=== PATIENT | male | born 1955 | race Caucasian/White ===

== ENCOUNTER → 2020-02-15 | Outpatient (CLI) | payer MEDICARE ==
[2019-02-26 10:39] VITALS: BP 137/66
[~2020-02-15] MED LIST: AMLO10TA8 PO; ASPI81TA50 PO; ATEN100T PO; BUTE12CR TP; FERR-36 PO; GABA600T7 PO; HYDR50TA6 PO; INSU100V13 SQ; INSU100V31 SQ; LIRA0.6P2 SQ; LOSA100T14 PO; MUPI22OI2 TP; NAPR-685 PO; SILV20CR14 TP; SIMV20TA18 PO; SITA100T PO; SPIR25TA5 PO; TIZA4TAB8 PO; TRAM50TA PO; WARF5TAB2 PO; ZOLP10TA PO
--- NOTE | 2020-02-15 20:07 | RAD ---
CT scan of the lumbar spine without contrast 02/15/2020 CLINICAL HISTORY: Low back pain. TECHNIQUE: Unenhanced, contiguous, 0.625 mm axial sections were obtained through the lumbar spine. 3 mm reconstructed sagittal, axial and coronal images were obtained. One or more of the following individualized dose reduction techniques were utilized for this study: 1. Automated exposure control. 2. Adjustment of the mA and/or kV according to patient size. 3. Use of iterative reconstruction technique. FINDINGS: Sagittal and coronal reconstructed images demonstrate minimal S-shaped curvature of the thoracolumbar spine. Degenerative changes consisting of vertebral endplate sclerosis and minimal to mild anterior and posterior vertebral body osteophyte formation are seen involving the lower thoracic and throughout the lumbar disc spaces. Atherosclerotic calcification of the abdominal aorta and its branches is noted. No fracture or subluxation of the lumbar vertebrae is seen. The changes of degenerative disc disease are seen involving the lumbar disc spaces. These consist of mild to moderate generalized disc bulges, degenerative changes involving the facet joints and mild to moderate ligamentum flavum hypertrophy bilaterally. These findings when combined result in mild to moderate central spinal canal stenosis at L4-5. No neural foraminal stenosis is seen. IMPRESSION: The changes of degenerative disc disease are seen involving the lumbar spine. These findings result in mild to moderate central spinal canal stenosis at L4-5. No acute osseous abnormality is seen. Electronically signed by: Augusto Styles MD (02/15/2020 8:04 PM) [id number]
== END | disposition home or self-care (01) ==
LOC: CT 14:30
PROVIDERS: ATTEND Family Medicine
DX: M48.061 Spinal stenosis, lumbar region without neurogenic claudication (principal); M47.815 Spondylosis without myelopathy or radiculopathy, thoracolumbar region; M51.36 Other intervertebral disc degeneration, lumbar region; G95.89 Other specified diseases of spinal cord
CPT/HCPCS: 72131

== ENCOUNTER 2020-07-10 13:33 | Inpatient (IN) | payer MEDICARE ==
[~2020-07-10] VITALS: Ht 180.3 cm; Wt 224.4 kg
[~2020-07-10 13:33] MED LIST changes: +AMLO-187 PO; -AMLO10TA8 PO; -HYDR50TA6 PO; +HYDR50TA9 PO
[2020-07-10 14:10] LABS: BASO # 0.1 x10^3/uL (0.0-0.2); BASO % 1 % (0-3); EOS # 0.5 x10^3/uL (0.0-0.7); EOS % 4 % (0-3); HEMATOCRIT 34.7 % (39.0-53.0); LYMPH # 1.9 x10^3/uL (1.0-4.8); LYMPH % 16 % (24-48); MEAN CORPUSCULAR HEMOGLOBIN 27 pg (25-35); MEAN CORPUSCULAR HGB CONC 32 g/dL (31-37); MEAN CORPUSCULAR VOLUME 87 fL (79-100); MONO % 8 % (0-9); NEUT # 8.8 x10^3/uL (1.8-7.7); NEUT % 71 % (31-73); PLATELET COUNT 188 x10^3/uL (140-400); RED BLOOD COUNT 4.01 x10^6/uL (4.30-5.70); RED CELL DISTRIBUTION WIDTH 14.4 % (11.5-14.5); WHITE BLOOD COUNT 12.4 x10^3/uL (4.0-11.0)
--- NOTE | 2020-07-10 14:45 | PHYS DOC ---
Past Medical History Past Medical History: Diabetes-Type II, Hypertension, Other Additional Past Medical Histor: HEMORRHOIDS, NEUROPATHY, obesity, chronic back pain Past Surgical History: Other Additional Past Surgical Histo: RIGHT ANKLE FRACTURE/SURGERY Smoking Status: Never Smoker Alcohol Use: None Drug Use: None General Adult EDM: Chief Complaint: ABNORMAL LABS HPI: HPI: 64 yo M PMH CKDIV, diabetes, hypertension, hyperlipidemia, morbid obesity and CAD (cath 2001-no stents, on no AC), presents to the ED sent in by primary care physician Dr. Ayah Aquino, concern for worsening kidney failure on labs drawn this past week. Patient reports he was seen by his primary care physician for routine labs approximately week and a half ago. Patient states he's been having "heaviness, something sitting on my chest," intermittently for the past 2 weeks. No recent history of stress or echocardiogram. Reports he was admitted a month and a half ago for the symptoms. His brother is here and has been keeping track of his urine output. Reports 28 to 35 ounces of output every 24 hours. Review of Systems: Review of Systems: Constitutional: Denies fever or chills. [] Eyes: Denies change in visual acuity. [] HENT: Denies nasal congestion or sore throat. [] Respiratory: Denies cough or shortness of breath. [] Cardiovascular: Denies chest pain or edema. [] GI: Denies abdominal pain, nausea, vomiting, bloody stools or diarrhea. [] : Denies dysuria. [] Musculoskeletal: Denies back pain or joint pain. [] Integument: Denies rash. [] Neurologic: Denies headache, focal weakness or sensory changes. [] Endocrine: Denies polyuria or polydipsia. [] Lymphatic: Denies swollen glands. [] Psychiatric: Denies depression or anxiety. [] Heart Score: Risk Factors: Risk Factors: DM, Current or recent (<one month) smoker, HTN, HLP, family history of CAD, obesity. Risk Scores: Score 0 - 3: 2.5% MACE over next 6 weeks - Discharge Home Score 4 - 6: 20.3% MACE over next 6 weeks - Admit for Clinical Observation Score 7 - 10: 72.7% MACE over next 6 weeks - Early Invasive Strategies Allergies: Allergies: Allergies Coded Allergies Type Severity Reaction Last Updated Verified metformin Allergy Intermediate 02/25/19 Yes Physical Exam: PE: Constitutional: Well developed, well nourished, no acute distress, non-toxic appearance, morbidly obese such that requires assistance with urination/feeding, does not ambulate HENT: Normocephalic, atraumatic, Eyes: EOMI, conjunctiva normal, no discharge. Neck: Normal range of motion, supple, Cardiovascular: S1/2 present, regular rhythm Lungs & Thorax: Speaking in full sentences, bilateral equal chest rise, no tachypnea or increased work of breathing Abdomen: soft, no tenderness, Skin: Warm, dry, no erythema, no rash. [] Back: No tenderness, no CVA tenderness. [] Extremities: No tenderness, no cyanosis, no edema Neurologic: Alert and oriented X 3, normal motor function, normal sensory function, no focal deficits noted. [] Psychologic: Affect normal, judgement normal, mood normal. [] Current Patient Data: Labs: Laboratory Tests Test 07/10/20 13:55 White Blood Count 12.4 x10^3/uL (4.0-11.0) H Red Blood Count 4.01 x10^6/uL (4.30-5.70) L Hemoglobin 11.0 g/dL (13.0-17.5) L Hematocrit 34.7 % (39.0-53.0) L Mean Corpuscular Volume 87 fL (79-100) Mean Corpuscular Hemoglobin 27 pg (25-35) Mean Corpuscular Hemoglobin Concent 32 g/dL (31-37) Red Cell Distribution Width 14.4 % (11.5-14.5) Platelet Count 188 x10^3/uL (140-400) Neutrophils (%) (Auto) 71 % (31-73) Lymphocytes (%) (Auto) 16 % (24-48) L Monocytes (%) (Auto) 8 % (0-9) Eosinophils (%) (Auto) 4 % (0-3) H Basophils (%) (Auto) 1 % (0-3) Neutrophils # (Auto) 8.8 x10^3/uL (1.8-7.7) H Lymphocytes # (Auto) 1.9 x10^3/uL (1.0-4.8) Monocytes # (Auto) 1.0 x10^3/uL (0.0-1.1) Eosinophils # (Auto) 0.5 x10^3/uL (0.0-0.7) Basophils # (Auto) 0.1 x10^3/uL (0.0-0.2) Laboratory Tests 07/10/20 13:55 Vital Signs: Vital Signs Date Time Temp Pulse Resp B/P (MAP) Pulse Ox O2 Delivery O2 Flow Rate FiO2 07/10/20 13:41 98.4 66 18 151/85 (107) 100 Room Air 98.4 EKG: EKG: Concern for atrial fibrillation, irregular rhythm at 83 bpm, left axis deviation, QTC 471, T wave inversion aVL, no ST elevations or ST depressions Radiology/Procedures: Radiology/Procedures: IMAGING REPORT Signed PATIENT: EMERSON VIVEROS ACCOUNT: [id number] : 1955 LOCATION: ER AGE: 64 SEX: M EXAM STATUS: REG ER ORD. PHYSICIAN: DANICA ALEXANDER DO REASON: cp PROCEDURE: CHEST AP ONLY EXAM: XR CHEST 1V INDICATION: Reason: cp / Spl. Instructions: / History: . TECHNIQUE: Single view COMPARISON: 02/25/2019 chest x-ray FINDINGS: The heart size is borderline enlarged.. The great vessels appear unremarkable. There is no hilar or mediastinal mass. The lungs are clear. There is no pleural effusion or pneumothorax. There are no significant osseous abnormalities. IMPRESSION: Borderline cardiomegaly. No acute superimposed process. Electronically signed by: Debby Foster MD (07/10/2020 3:00 PM) [id number] DICTATED and SIGNED BY: DEBBY FOSTER MD DATE: 07/10/20 [id number] 0 IMAGING REPORT Signed PATIENT: EMERSON VIVEROS ACCOUNT: [id number] : 1955 LOCATION: ER AGE: 64 SEX: M EXAM STATUS: REG ER ORD. PHYSICIAN: DANICA ALEXANDER DO REASON: low uo, worsening renal funciton PROCEDURE: CT ABDOMEN PELVIS WO CONTRAST EXAM: CT Abdomen and Pelvis without IV contrast INDICATION: Reason: low uo, worsening renal funciton / Spl. Instructions: / History: TECHNIQUE: Multi-detector row CT images were acquired from the lung bases through the abdomen and pelvis without the use of IV contrast. Sagittal and coronal images were acquired from the transaxial data. All CT scans performed at this facility utilize dose optimization techniques as appropriate to the exam, including the following: Automated exposure control and adjustment of the mA and/or KV according to patient size (this includes techniques or standardized protocols for targeted exams where dose is indication/reason for exam). ORAL CONTRAST: None COMPARISON: Noncontrast chest CT of 02/25/2019 FINDINGS: The absence of IV contrast limits evaluation of soft tissue pathology. LOWER CHEST: Partially imaged nodular density in the lingula measuring approximately 9 mm in size is best appreciated on axial images 1 and 2 of series 114. Prior right pleural effusion has since resolved. LIVER: Unremarkable BILIARY SYSTEM: Gallbladder contains calcified gallstones. Bile ducts are not dilated. PANCREAS: Unremarkable SPLEEN: Unremarkable ADRENALS: Unremarkable KIDNEYS & URETERS: Partially exophytic fatty 3.1 cm mass in the left renal midpole consistent with a myelolipoma. Right kidney shows a partially exophytic 3.1 cm lesion BLADDER: Unremarkable REPRODUCTIVE ORGANS: Unremarkable GASTROINTESTINAL: The stomach, small bowel, and colon are notable for scattered colonic diverticuli without findings of overt diverticulitis.. The appendix is normal. MESENTERY/PERITONEUM/RETROPERITONEUM: Unremarkable VASCULAR: Unremarkable LYMPH NODES: No adenopathy OSSEOUS & SOFT TISSUES: Unremarkable IMPRESSION: No acute findings in the abdomen and pelvis on noncontrast CT. Electronically signed by: Debby Foster MD (07/10/2020 2:50 PM) [id number] DICTATED and SIGNED BY: DEBBY FOSTER MD DATE: 07/10/20 [id number] 0 Course & Med Decision Making: Course & Med Decision Making Pertinent Labs and Imaging studies reviewed. (See chart for details) Concern for prerenal acute on chronic kidney disease, sent in by Dr. Aquino. ELIZABETH stage 3, CKD from stage 3 to 5. Started on IV hydration. Mild hyperkalemia 5.7, no ekg changes.CT w/bl exophytic masses, possible myelolipoma. Will admit to medicine for nephrology consultation. Patient stable at time of admission and agrees with this plan. I have spoken with the patient and/or caregivers. I have explained the patient's condition, diagnosis and treatment plan based on the information available to me at this time. I have answered the patient's and/or caregivers questions and answered any concerns. The patient and/or caregivers have as good an understanding of the patient's diagnosis, condition and treatment plan as can be expected at this point. The patient has been stabilized within the capability of the emergency department. The patient will be transported for further care and management or will be moved to an observation or inpatient service. I have communicated with the staff or medical practitioner taking over this patient's care. Dragon Disclaimer: Dragon Disclaimer: This electronic medical record was generated, in whole or in part, using a voice recognition dictation system. Departure Departure Impression: Primary Impression: Acute on chronic kidney failure Additional Impressions: Hyperkalemia Morbid obesity Disposition: ADMITTED INPT THIS HOSP Admitting Physician: FARHAT (Dr. Infante) Condition: STABLE Referrals: AYAH AQUINO MD (PCP) DANICA ALEXANDER DO Jul 10, 2020 14:45
--- NOTE | 2020-07-10 14:52 | RAD ---
EXAM: CT Abdomen and Pelvis without IV contrast INDICATION: Reason: low uo, worsening renal funciton / Spl. Instructions: / History: TECHNIQUE: Multi-detector row CT images were acquired from the lung bases through the abdomen and pel vis without the use of IV contrast. Sagittal and coronal images were acquired from the transaxial gio a. All CT scans performed at this facility utilize dose optimization techniques as appropriate to the exam, including the following: Automated exposure control and adjustment of the mA and/or KV accordi ng to patient size (this includes techniques or standardized protocols for targeted exams where dose is indication/reason for exam). ORAL CONTRAST: None COMPARISON: Noncontrast chest CT of 02/25/2019 FINDINGS: The absence of IV contrast limits evaluation of soft tissue pathology. LOWER CHEST: Partially imaged nodular density in the lingula measuring approximately 9 mm in size is best appreciated on axial images 1 and 2 of series 114. Prior right pleural effusion has since resolv ed. LIVER: Unremarkable BILIARY SYSTEM: Gallbladder contains calcified gallstones. Bile ducts are not dilated. PANCREAS: Unremarkable SPLEEN: Unremarkable ADRENALS: Unremarkable KIDNEYS & URETERS: Partially exophytic fatty 3.1 cm mass in the left renal midpole consistent with a myelolipoma. Right kidney shows a partially exophytic 3.1 cm lesion BLADDER: Unremarkable REPRODUCTIVE ORGANS: Unremarkable GASTROINTESTINAL: The stomach, small bowel, and colon are notable for scattered colonic diverticuli w ithout findings of overt diverticulitis.. The appendix is normal. MESENTERY/PERITONEUM/RETROPERITONEUM: Unremarkable VASCULAR: Unremarkable LYMPH NODES: No adenopathy OSSEOUS & SOFT TISSUES: Unremarkable IMPRESSION: No acute findings in the abdomen and pelvis on noncontrast CT. Electronically signed by: Rachel Foster MD (07/10/2020 2:50 PM) [id number]
--- NOTE | 2020-07-10 15:03 | RAD ---
EXAM: XR CHEST 1V INDICATION: Reason: cp / Spl. Instructions: / History: . TECHNIQUE: Single view COMPARISON: 02/25/2019 chest x-ray FINDINGS: The heart size is borderline enlarged.. The great vessels appear unremarkable. There is no hilar or mediastinal mass. The lungs are clear. There is no pleural effusion or pneumothorax. There are no significant osseous abnormalities. IMPRESSION: Borderline cardiomegaly. No acute superimposed process. Electronically signed by: Rachel Foster MD (07/10/2020 3:00 PM) [id number]
[2020-07-10 15:08] LABS: CREATININE 6.5 mg/dL (0.7-1.3); GFR 8.6; POTASSIUM 5.7 mmol/L (3.5-5.1)
[2020-07-10 15:13] LABS: ALBUMIN/GLOBULIN RATIO 0.7 (1.0-1.7); MAGNESIUM 2.2 mg/dL (1.8-2.4); PHOSPHORUS 7.5 mg/dL (2.6-4.7); TOTAL BILIRUBIN 0.5 mg/dL (0.2-1.0); TOTAL PROTEIN 7.6 g/dL (6.4-8.2)
[2020-07-10] MEDS ORDERED: IV NORMAL SALINE 1000ML BAG 1,000 ML IV ONE (16:00)
[2020-07-10] MEDS ORDERED: ACETAMINOPHEN 325 MG TABLET. PO PRN (16:15)
[2020-07-10 16:27] LABS: BILIRUBIN,URINE NEGATIVE (NEG); CLARITY,URINE CLOUDY; COLOR,URINE YELLOW; NITRITE,URINE NEGATIVE (NEG); PROTEIN,URINE NEGATIVE (NEG-TRACE); UROBILINOGEN,URINE 0.2 mg/dL (0.2 mg/dL)
[2020-07-10 16:59] LABS: BACTERIA,URINE 0 /HPF (0-FEW); RBC,URINE 0 /HPF (0-2); WBC,URINE >40 /HPF (0-4)
[2020-07-10 19:15] VITALS: BP 144/117
--- NOTE | 2020-07-10 19:31 | HP ---
ADMIT DATE: 07/10/2020 CHIEF COMPLAINT: Abnormal labs. HISTORY OF PRESENT ILLNESS: The patient is a pleasant 64-year-old male who has stage 4 kidney disease, basically, today presents with a creatinine of 6.5. His BUN is 185. Potassium is high at 5.7. I am sure he needs dialysis. His primary care doctor, Dr. Juwan Doyle, sent him to the ER. I have discussed the case with the ER physician. We are going to admit the patient and consult Nephrology. PAST MEDICAL HISTORY: Obesity, diabetes, hypertension, hemorrhoids, neuropathy, back pain, right ankle surgery, chronic renal insufficiency. ALLERGIES: METFORMIN. FAMILY HISTORY: Diabetes. SOCIAL HISTORY: He does not drink, smoke or take drugs. MEDICATIONS: Reviewed, please refer to the MRAD. REVIEW OF SYSTEMS: GENERAL: No history of weight change, weakness or fevers. SKIN: No bruising, hair changes or rashes. EYES: No blurred, double or loss of vision. NOSE AND THROAT: No history of nosebleeds, hoarseness or sore throat. HEART: No history of palpitations, chest pain or shortness of breath on exertion. LUNGS: Denies cough, hemoptysis, wheezing or shortness of breath. GASTROINTESTINAL: Denies changes in appetite, nausea, vomiting, diarrhea or constipation. GENITOURINARY: No history of frequency, urgency, hesitancy or nocturia. NEUROLOGIC: Denies history of numbness, tingling, tremor or weakness. PSYCHIATRIC: No history of panic, anxiety or depression. ENDOCRINE: No history of heat or cold intolerance, polyuria or polydipsia. EXTREMITIES: Denies muscle weakness, joint pain, pain on walking or stiffness. PHYSICAL EXAMINATION: VITALS: Within normal limits and are stable. GENERAL: He is morbidly obese and also very pleasantly cooperative. HEENT: Normal cephalic atraumatic, external auditory canals are patent EYES: Extraocular muscles are intact, pupils are equally round and reactive to light and accommodation MUSCULOSKELETAL: Well developed, well nourished, good range of motion ENDOCRINE: No thyromegaly was palpated LYMPHATICS: No cervical chain or axillary nodes were noted HEMATOPOIETIC: No bruising NECK: Supple, no JVD, no thyromegaly was noted. LUNGS: Clear to auscultation in all lung vaughn without rhonchi or wheezing. HEART: RRR, S1, S2 present. Peripheral pulses intact, no obvious murmurs were noted. ABDOMEN: Soft, nontender. Positive bowel sounds no organomegaly, normal bowel sounds. EXTREMITIES: Without any cyanosis, clubbing, or edema. Pedal pulses intact, Homans sign is negative. NEUROLOGIC: Normal speech, normal tone. A & O x3, moves all extremities, no obvious focal deficits. PSYCHIATRIC: Normal affect, normal mood. Stable. SKIN: No ulcerations or rashes, good skin turgor, no jaundice. VASCULAR: Good capillary refill, neurovascular bundle appears to be intact. LABORATORY DATA: White count is 12. Troponin 0.017. BUN 185. Creatinine 6.5. ASSESSMENT AND PLAN: End-stage renal disease. The patient probably needs dialysis. We also have incidental finding of a urinary tract infection. We will start some IV antibiotics, IV fluids. Trend his creatinine. Consult Nephrology. Home meds, DVT prophylaxis. Full code. PROGNOSIS: Extremely guarded. JOSEPHINE BAUTISTA DO DR: JONNY/radha JOB#: [id number] / [id number]
[2020-07-10] MEDS ORDERED: DEXTROSE 50% 25 GM / 50ML DISP.SYRIN. IV PRN (20:45)
[2020-07-10] MEDS ORDERED: ENOXAPARIN 40 MG/0.4 ML SYRINGE. SQ SCH (20:45)
[2020-07-10] MEDS ORDERED: ZOLP12.56 PO (21:44)
[2020-07-10] MEDS ORDERED: HYDR-2769 PO (21:44)
[2020-07-10] MEDS ORDERED: BUME2TAB3 PO (21:44)
[2020-07-10] MEDS ORDERED: OMEG1CAP50 PO (21:44)
[2020-07-10] MEDS ORDERED: LOSA-73 PO (21:44)
[2020-07-10] MEDS ORDERED: NAPR-514 PO (21:44)
[2020-07-10] MEDS ORDERED: GABA600T7 PO (21:44)
[2020-07-10] MEDS ORDERED: METH-38 PO (21:44)
[2020-07-10] MEDS ORDERED: SPIR25TA5 PO (21:44)
[2020-07-10] MEDS ORDERED: AMLO-187 PO (21:44)
[2020-07-10] MEDS ORDERED: NYST15PO9 TP (21:44)
[2020-07-10] MEDS ORDERED: METO2.5T PO (21:44)
[2020-07-10] MEDS ORDERED: ASPI325T8 PO (21:44)
[2020-07-10] MEDS ORDERED: INSU100C4 SQ (21:44)
[2020-07-10] MEDS: NAPROXEN 500 MG TABLET PO SCH (22:30)
[2020-07-10] MEDS: GABAPENTIN 300 MG CAPSULE. PO SCH (23:06)
[2020-07-10] MEDS: ZOLPIDEM 5 MG TABLET. PO PRN ×2 (23:07→23:38)
[2020-07-10] MEDS: cefTRIAXone IV Push 1 GM VIAL. IVP SCH (23:07)
[2020-07-10] MEDS: HEPARIN for SUB-Q USE 5,000 UNIT/ML VIAL. SQ SCH (23:08)
[2020-07-10] MEDS: INSULIN GLARGINE SYRINGE. SQ SCH (23:09)
[2020-07-10] MEDS: SIMVASTATIN 20 MG TABLET PO SCH (23:10)
[2020-07-10] MEDS: METHOCARBAMOL 500 MG TABLET PO SCH (23:12)
[2020-07-10] MEDS: HYDROcodone/APAP 10/325 1 TAB TABLET PO PRN (23:13)
[2020-07-10 23:55] VITALS: BP 115/26
[2020-07-11 02:56] VITALS: BP 86/53
[2020-07-11 07:00] VITALS: BP 87/45
--- NOTE | 2020-07-11 07:44 | PDOC ---
PROGRESS NOTES Date of Service: DATE: 07/11/20 TIME: 07:43 Chief Complaint Chief Complaint ASSESSMENT AND PLAN: ACUTE RENAL INJURY urinary tract infection. abdominal discomfort, lower bilateral morbid obesity hypoxic resp failure Chest pain: doubt ACS, potentially from GI // significant NSAID use. AFIB: likely chronic, rate controlled CHRONIC LOW BACK PAIN plan IV antibiotics, IV fluids. Trend creatinine. Consult Nephrology. Home meds, DVT prophylaxis. Full code. GI CONSULT No acute findings in the abdomen and pelvis on noncontrast CT. 07-10 PROGNOSIS: guarded. He did not keep follow up nephrology appts. follows with his PCP Q year and prior to most recent labs no other Interval labs done 39 MIN pt exam, chart review, > 50% of time spent with exam, chart review, pt care coordination History of Present Illness History of Present Illness HISTORY OF PRESENT ILLNESS: 64-year-old male who has stage 4 kidney disease, presents with a creatinine of 6.5. His BUN is 185. Potassium is high at 5.7. may need dialysis. His primary care doctor, Dr. Juwan Doyle, sent him to the ER. I have discussed the case with the ER physician. We are going to admit the patient and consult Nephrology. PAST MEDICAL HISTORY: Obesity, diabetes, hypertension, hemorrhoids, neuropathy, back pain, right ankle surgery, chronic renal insufficiency. ALLERGIES: METFORMIN. FAMILY HISTORY: Diabetes. SOCIAL HISTORY: He does not drink, smoke or take drugs. MEDICATIONS: Reviewed, please refer to the MRAD. Vitals Vitals Vital Signs Date Time Temp Pulse Resp B/P (MAP) Pulse Ox O2 Delivery O2 Flow Rate FiO2 07/11/20 03:27 Nasal Cannula 2.0 07/11/20 02:56 98.1 89 18 86/53 (64) 98 98.1 Physical Exam Physical Exam GENERAL: He is morbidly obese , pleasantly cooperative. HEENT: Normal cephalic atraumatic, external auditory canals are patent EYES: Extraocular muscles are intact, pupils are equally round and reactive to light and accommodation MUSCULOSKELETAL: Well developed, well nourished, good range of motion ENDOCRINE: No thyromegaly was palpated LYMPHATICS: No cervical chain or axillary nodes were noted HEMATOPOIETIC: No bruising NECK: Supple, no JVD, no thyromegaly was noted. LUNGS: Clear to auscultation in all lung vaughn without rhonchi or wheezing. HEART: RRR, S1, S2 present. Peripheral pulses intact, no obvious murmurs were noted. ABDOMEN: Soft, mild tenderness Positive bowel sounds no organomegaly, normal bowel sounds. very obese EXTREMITIES: Without any cyanosis, clubbing, or edema. Pedal pulses intact, Homans sign is negative. NEUROLOGIC: Normal speech, normal tone. A & O x3, moves all extremities, no obvious focal deficits. PSYCHIATRIC: Normal affect, normal mood. Stable. SKIN: No ulcerations or rashes, good skin turgor, no jaundice. VASCULAR: Good capillary refill, neurovascular bundle appears to be intact. General: Alert, Oriented X3, Cooperative, mild distress Abdomen: Other (mild tenderness ) Extremities: No clubbing, No cyanosis Labs LABS DPOA REVIEW 18 MIN to patient portal What Is a Power of Circuit Tester? A power of finance attorney (POA) is a legal document giving one person (the agent or lfykqyfk-rk-nwyh) the power to act for another person (the principal). The agent can have broad legal authority or limited authority to make legal decisions about the principal's property, finances or medical care. The power of finance attorney is frequently used in the event of a principal's illness or disability, or when the principal can't be present to sign necessary legal documents for financial transactions. A power of finance attorney can end for a number of reasons, such as when the principal dies, the principal revokes it, a court invalidates it, the principal divorces their spouse, who happens to be the agent, or the agent can no longer carry out the outlined responsibilities. Conventional POAs lapse when the creator becomes incapacitated, but a durable POA remains in force to enable the agent to manage the creators affairs, and a springing POA comes into effect only if and when the creator of the POA becomes incapacitated. A medical or healthcare POA enables an agent to make medical decisions on behalf of an incapacitated person. Alexander Takeaways A power of finance attorney (POA) is a legal document giving one person, the agent or yoeijpcd-ee-yiko the power to act for another person, the principal. The agent can have broad legal authority or limited authority to make decisions about the principal's property, finances or medical care. The power of finance attorney is often used when a principal becomes ill or disabled, or when they can't be present to sign necessary legal documents for financial transactions. Understanding Power of Circuit Tester A power of finance attorney should be considered when planning for long-term care. There are different types of POAs that fall under either a general power of finance attorney or limited power of finance attorney. A general power of finance attorney acts on behalf of the principal in any and all matters, as allowed by the state. The agent under a general POA agreement may be authorized to take care of issues such as handling bank accounts, signing checks, selling property and assets like stocks, f A limited power of finance attorney gives the agent the power to act on behalf of the principal in specific matters or events. For example, the limited POA may explicitly state that the agent is only allowed to manage the principal's longterm accounts. A limited POA may also be limited to a specific period of time (e.g., if the principal will be out of the country for, say, two years). Most gonzalez of finance attorney documents allow an agent to represent the principal in all property and financial matters as long as the principals mental state of mind is good. If a situation occurs where the principal becomes incapable of making decisions for him or herself, the POA agreement would automatically end. However, someone who wants the POA to remain in effect after the persons health deteriorates would need to sign a durable power of finance attorney (DPOA). What is an advance directive? An advance directive is a legal document that says how you want to be cared for if you are unable to make decisions. You can include what medical treatments you would want and who you would trust to make decisions for you. An advance directive can also include other legal documents. A living will is a list of treatment preferences. It can be used to indicate whether you would want cardiopulmonary resuscitation (CPR), tube feedings, a breathing machine, or certain medicines, like antibiotics. The durable power of finance attorney for health care document identifies the person you would want to make medical decisions for you. This person is also called a proxy. Your proxy should be familiar with your values and wishes. How do I get started? You can get advance directive documents for your state from your doctor's office or from [email or web address]. Review the forms, and ask your doctor if you have any questions. Pick a person to be your proxy, and talk it over with that person. EXAM: CT Abdomen and Pelvis without IV contrast INDICATION: Reason: low uo, worsening renal funciton / Spl. Instructions: / History: TECHNIQUE: Multi-detector row CT images were acquired from the lung bases through the abdomen and pelvis without the use of IV contrast. Sagittal and coronal images were acquired from the transaxial data. All CT scans performed at this facility utilize dose optimization techniques as appropriate to the exam, including the following: Automated exposure control and adjustment of the mA and/or KV according to patient size (this includes techniques or standardized protocols for targeted exams where dose is indication/reason for exam). ORAL CONTRAST: None COMPARISON: Noncontrast chest CT of 02/25/2019 FINDINGS: The absence of IV contrast limits evaluation of soft tissue pathology. LOWER CHEST: Partially imaged nodular density in the lingula measuring approximately 9 mm in size is best appreciated on axial images 1 and 2 of series 114. Prior right pleural effusion has since resolved. LIVER: Unremarkable BILIARY SYSTEM: Gallbladder contains calcified gallstones. Bile ducts are not dilated. PANCREAS: Unremarkable SPLEEN: Unremarkable ADRENALS: Unremarkable KIDNEYS & URETERS: Partially exophytic fatty 3.1 cm mass in the left renal midpole consistent with a myelolipoma. Right kidney shows a partially exophytic 3.1 cm lesion BLADDER: Unremarkable REPRODUCTIVE ORGANS: Unremarkable GASTROINTESTINAL: The stomach, small bowel, and colon are notable for scattered colonic diverticuli without findings of overt diverticulitis.. The appendix is normal. MESENTERY/PERITONEUM/RETROPERITONEUM: Unremarkable VASCULAR: Unremarkable LYMPH NODES: No adenopathy OSSEOUS & SOFT TISSUES: Unremarkable IMPRESSION: No acute findings in the abdomen and pelvis on noncontrast CT. Electronically signed by: Debby Foster MD (07/10/2020 2:50 PM) [id number] DICTATED and SIGNED BY: DEBBY FOSTER MD DATE: 07/10/20 [id number] Laboratory Tests Test 07/10/20 13:55 07/10/20 14:37 07/10/20 16:15 White Blood Count 12.4 x10^3/uL (4.0-11.0) Red Blood Count 4.01 x10^6/uL (4.30-5.70) Hemoglobin 11.0 g/dL (13.0-17.5) Hematocrit 34.7 % (39.0-53.0) Mean Corpuscular Volume 87 fL (79-100) Mean Corpuscular Hemoglobin 27 pg (25-35) Mean Corpuscular Hemoglobin Concent 32 g/dL (31-37) Red Cell Distribution Width 14.4 % (11.5-14.5) Platelet Count 188 x10^3/uL (140-400) Neutrophils (%) (Auto) 71 % (31-73) Lymphocytes (%) (Auto) 16 % (24-48) Monocytes (%) (Auto) 8 % (0-9) Eosinophils (%) (Auto) 4 % (0-3) Basophils (%) (Auto) 1 % (0-3) Neutrophils # (Auto) 8.8 x10^3/uL (1.8-7.7) Lymphocytes # (Auto) 1.9 x10^3/uL (1.0-4.8) Monocytes # (Auto) 1.0 x10^3/uL (0.0-1.1) Eosinophils # (Auto) 0.5 x10^3/uL (0.0-0.7) Basophils # (Auto) 0.1 x10^3/uL (0.0-0.2) Sodium Level 141 mmol/L (136-145) Potassium Level 5.7 mmol/L (3.5-5.1) Chloride Level 103 mmol/L (98-107) Carbon Dioxide Level 22 mmol/L (21-32) Anion Gap 16 (6-14) Blood Urea Nitrogen 185 mg/dL (8-26) Creatinine 6.5 mg/dL (0.7-1.3) Estimated GFR (Cockcroft-Gault) 8.6 BUN/Creatinine Ratio 28 (6-20) Glucose Level 131 mg/dL (70-99) Calcium Level 9.0 mg/dL (8.5-10.1) Phosphorus Level 7.5 mg/dL (2.6-4.7) Magnesium Level 2.2 mg/dL (1.8-2.4) Total Bilirubin 0.5 mg/dL (0.2-1.0) Aspartate Amino Transf (AST/SGOT) 14 U/L (15-37) Alanine Aminotransferase (ALT/SGPT) 14 U/L (16-63) Alkaline Phosphatase 66 U/L (46-116) Troponin I Quantitative < 0.017 ng/mL (0.000-0.055) Total Protein 7.6 g/dL (6.4-8.2) Albumin 3.0 g/dL (3.4-5.0) Albumin/Globulin Ratio 0.7 (1.0-1.7) Urine Collection Type Void Urine Color Yellow Urine Clarity Cloudy Urine pH 5.0 (<5.0-8.0) Urine Specific [place] 1.015 (1.000-1.030) Urine Protein Negative mg/dL (NEG-TRACE) Urine Glucose (UA) Negative mg/dL (NEG) Urine Ketones (Stick) Negative mg/dL (NEG) Urine Blood Trace (NEG) Urine Nitrite Negative (NEG) Urine Bilirubin Negative (NEG) Urine Urobilinogen Dipstick 0.2 mg/dL (0.2 mg/dL) Urine Leukocyte Esterase Large (NEG) Urine RBC 0 /HPF (0-2) Urine WBC >40 /HPF (0-4) Urine Squamous Epithelial Cells Mod /LPF Urine Bacteria 0 /HPF (0-FEW) Assessment and Plan Assessmemt and Plan Problems Medical Problems: (1) Acute on chronic kidney failure Status: Acute (2) Hyperkalemia Status: Acute (3) Morbid obesity Status: Acute Comment Review of Relevant I have reviewed the following items tiffany (where applicable) has been applied. Labs Laboratory Tests Test 07/10/20 13:55 07/10/20 14:37 07/10/20 16:15 White Blood Count 12.4 x10^3/uL (4.0-11.0) Red Blood Count 4.01 x10^6/uL (4.30-5.70) Hemoglobin 11.0 g/dL (13.0-17.5) Hematocrit 34.7 % (39.0-53.0) Mean Corpuscular Volume 87 fL (79-100) Mean Corpuscular Hemoglobin 27 pg (25-35) Mean Corpuscular Hemoglobin Concent 32 g/dL (31-37) Red Cell Distribution Width 14.4 % (11.5-14.5) Platelet Count 188 x10^3/uL (140-400) Neutrophils (%) (Auto) 71 % (31-73) Lymphocytes (%) (Auto) 16 % (24-48) Monocytes (%) (Auto) 8 % (0-9) Eosinophils (%) (Auto) 4 % (0-3) Basophils (%) (Auto) 1 % (0-3) Neutrophils # (Auto) 8.8 x10^3/uL (1.8-7.7) Lymphocytes # (Auto) 1.9 x10^3/uL (1.0-4.8) Monocytes # (Auto) 1.0 x10^3/uL (0.0-1.1) Eosinophils # (Auto) 0.5 x10^3/uL (0.0-0.7) Basophils # (Auto) 0.1 x10^3/uL (0.0-0.2) Sodium Level 141 mmol/L (136-145) Potassium Level 5.7 mmol/L (3.5-5.1) Chloride Level 103 mmol/L (98-107) Carbon Dioxide Level 22 mmol/L (21-32) Anion Gap 16 (6-14) Blood Urea Nitrogen 185 mg/dL (8-26) Creatinine 6.5 mg/dL (0.7-1.3) Estimated GFR (Cockcroft-Gault) 8.6 BUN/Creatinine Ratio 28 (6-20) Glucose Level 131 mg/dL (70-99) Calcium Level 9.0 mg/dL (8.5-10.1) Phosphorus Level 7.5 mg/dL (2.6-4.7) Magnesium Level 2.2 mg/dL (1.8-2.4) Total Bilirubin 0.5 mg/dL (0.2-1.0) Aspartate Amino Transf (AST/SGOT) 14 U/L (15-37) Alanine Aminotransferase (ALT/SGPT) 14 U/L (16-63) Alkaline Phosphatase 66 U/L (46-116) Troponin I Quantitative < 0.017 ng/mL (0.000-0.055) Total Protein 7.6 g/dL (6.4-8.2) Albumin 3.0 g/dL (3.4-5.0) Albumin/Globulin Ratio 0.7 (1.0-1.7) Urine Collection Type Void Urine Color Yellow Urine Clarity Cloudy Urine pH 5.0 (<5.0-8.0) Urine Specific [place] 1.015 (1.000-1.030) Urine Protein Negative mg/dL (NEG-TRACE) Urine Glucose (UA) Negative mg/dL (NEG) Urine Ketones (Stick) Negative mg/dL (NEG) Urine Blood Trace (NEG) Urine Nitrite Negative (NEG) Urine Bilirubin Negative (NEG) Urine Urobilinogen Dipstick 0.2 mg/dL (0.2 mg/dL) Urine Leukocyte Esterase Large (NEG) Urine RBC 0 /HPF (0-2) Urine WBC >40 /HPF (0-4) Urine Squamous Epithelial Cells Mod /LPF Urine Bacteria 0 /HPF (0-FEW) Laboratory Tests Test 07/10/20 13:55 07/10/20 14:37 07/10/20 16:15 White Blood Count 12.4 x10^3/uL (4.0-11.0) Red Blood Count 4.01 x10^6/uL (4.30-5.70) Hemoglobin 11.0 g/dL (13.0-17.5) Hematocrit 34.7 % (39.0-53.0) Mean Corpuscular Volume 87 fL (79-100) Mean Corpuscular Hemoglobin 27 pg (25-35) Mean Corpuscular Hemoglobin Concent 32 g/dL (31-37) Red Cell Distribution Width 14.4 % (11.5-14.5) Platelet Count 188 x10^3/uL (140-400) Neutrophils (%) (Auto) 71 % (31-73) Lymphocytes (%) (Auto) 16 % (24-48) Monocytes (%) (Auto) 8 % (0-9) Eosinophils (%) (Auto) 4 % (0-3) Basophils (%) (Auto) 1 % (0-3) Neutrophils # (Auto) 8.8 x10^3/uL (1.8-7.7) Lymphocytes # (Auto) 1.9 x10^3/uL (1.0-4.8) Monocytes # (Auto) 1.0 x10^3/uL (0.0-1.1) Eosinophils # (Auto) 0.5 x10^3/uL (0.0-0.7) Basophils # (Auto) 0.1 x10^3/uL (0.0-0.2) Sodium Level 141 mmol/L (136-145) Potassium Level 5.7 mmol/L (3.5-5.1) Chloride Level 103 mmol/L (98-107) Carbon Dioxide Level 22 mmol/L (21-32) Anion Gap 16 (6-14) Blood Urea Nitrogen 185 mg/dL (8-26) Creatinine 6.5 mg/dL (0.7-1.3) Estimated GFR (Cockcroft-Gault) 8.6 BUN/Creatinine Ratio 28 (6-20) Glucose Level 131 mg/dL (70-99) Calcium Level 9.0 mg/dL (8.5-10.1) Phosphorus Level 7.5 mg/dL (2.6-4.7) Magnesium Level 2.2 mg/dL (1.8-2.4) Total Bilirubin 0.5 mg/dL (0.2-1.0) Aspartate Amino Transf (AST/SGOT) 14 U/L (15-37) Alanine Aminotransferase (ALT/SGPT) 14 U/L (16-63) Alkaline Phosphatase 66 U/L (46-116) Troponin I Quantitative < 0.017 ng/mL (0.000-0.055) Total Protein 7.6 g/dL (6.4-8.2) Albumin 3.0 g/dL (3.4-5.0) Albumin/Globulin Ratio 0.7 (1.0-1.7) Urine Collection Type Void Urine Color Yellow Urine Clarity Cloudy Urine pH 5.0 (<5.0-8.0) Urine Specific [place] 1.015 (1.000-1.030) Urine Protein Negative mg/dL (NEG-TRACE) Urine Glucose (UA) Negative mg/dL (NEG) Urine Ketones (Stick) Negative mg/dL (NEG) Urine Blood Trace (NEG) Urine Nitrite Negative (NEG) Urine Bilirubin Negative (NEG) Urine Urobilinogen Dipstick 0.2 mg/dL (0.2 mg/dL) Urine Leukocyte Esterase Large (NEG) Urine RBC 0 /HPF (0-2) Urine WBC >40 /HPF (0-4) Urine Squamous Epithelial Cells Mod /LPF Urine Bacteria 0 /HPF (0-FEW) Medications Current Medications Sodium Chloride 1,000 ml @ 125 mls/hr 1X ONCE IV Last administered on 07/10/20at 16:03; Start 07/10/20 at 16:00; Stop 07/10/20 at 23:59; Status DC Acetaminophen (Tylenol) 650 mg PRN Q4HRS PRN PO FEVER > 100.3'F; Start 07/10/20 at 16:15; Stop 07/11/20 at 16:14 Ceftriaxone Sodium (Rocephin) 1 gm Q24H IVP Last administered on 07/10/20at 23:07; Start 07/10/20 at 20:00 Enoxaparin Sodium (Lovenox 40mg Syringe) 40 mg Q24H SQ ; Start 07/10/20 at 20:45; Stop 07/10/20 at 20:40; Status DC Insulin Human Lispro (HumaLOG) 0-5 UNITS TIDWMEALS SQ ; Start 07/11/20 at 08:00 Dextrose (Dextrose 50%-Water Syringe) 12.5 gm PRN Q15MIN PRN IV SEE COMMENTS; Start 07/10/20 at 20:45 Heparin Sodium (Porcine) (Heparin Sodium) 5,000 unit Q8HRS SQ Last administered on 07/10/20at 23:08; Start 07/10/20 at 22:00 Amlodipine Besylate (Norvasc) 10 mg DAILY PO ; Start 07/11/20 at 09:00; Status UNV Amlodipine Besylate (Norvasc) 10 mg DAILY PO ; Start 07/11/20 at 09:00 Ferrous Sulfate (Feosol) 325 mg DAILY PO ; Start 07/11/20 at 09:00 Acetaminophen/ Hydrocodone Bitart (Lortab 10/325) 1 tab PRN Q6HRS PRN PO PAIN Last administered on 07/10/20at 23:13; Start 07/10/20 at 22:15 Losartan Potassium (Cozaar) 50 mg DAILY PO ; Start 07/11/20 at 09:00 Methocarbamol (Robaxin) 500 mg QID PO Last administered on 07/10/20at 23:12; Start 07/10/20 at 21:30 Metolazone (Zaroxolyn) 2.5 mg QMWF PO ; Start 07/12/20 at 16:00 Mupirocin (Bactroban) 1 navarro BID TP ; Start 07/11/20 at 09:00 Naproxen (Naprosyn) 500 mg HS PO ; Start 07/10/20 at 22:30 Nystatin (Nystop) 1 navarro BID TP ; Start 07/11/20 at 09:00 Fish Oil (Fish Oil) 1,000 mg DAILY PO ; Start 07/11/20 at 09:00 Simvastatin (Zocor) 20 mg HS PO Last administered on 07/10/20at 23:10; Start 07/10/20 at 22:30 Spironolactone (Aldactone) 25 mg DAILY PO ; Start 07/11/20 at 09:00 Spironolactone (Aldactone) 25 mg DAILY PO ; Start 07/11/20 at 09:00; Status UNV Atenolol (Tenormin) 100 mg DAILY PO ; Start 07/11/20 at 09:00 Bumetanide (Bumex) 1 mg DAILY PO ; Start 07/11/20 at 09:00 Gabapentin (Neurontin) 600 mg HS PO Last administered on 07/10/20at 23:06; Start 07/10/20 at 22:30 Insulin Human Lispro (HumaLOG) 35 units DAILYBFRSUP SQ ; Start 07/11/20 at 17:00 Non-Formulary Medication (Insulin Detemir (Levemir)) 80 unit HS SQ ; Start 07/11/20 at 21:00; Status UNV Non-Formulary Medication (Liraglutide (Victoza 3-Fredy)) 1.8 mg DAILY SQ ; Start 07/11/20 at 09:00; Status UNV Linagliptin (Tradjenta) 5 mg DAILY PO ; Start 07/11/20 at 09:00 Zolpidem Tartrate (Ambien) 5 mg PRN QHS PRN PO INSOMNIA MRX1 PRN Last administered on 07/10/20at 23:38; Start 07/10/20 at 22:45 Insulin Glargine (Lantus Syringe) 80 unit QHS SQ Last administered on 07/10/20at 23:09; Start 07/10/20 at 22:45 Active Scripts Active Reported Aspirin 325 Mg Tablet 1 Tab PO BID Amlodipine Besylate 10 Mg Tablet 10 Mg PO DAILY Bumetanide 2 Mg Tablet 1 Tab PO DAILY Losartan Potassium 50 Mg Tablet 50 Mg PO DAILY Spironolactone 25 Mg Tablet 1 Tab PO DAILY Metolazone 2.5 Mg Tablet 2.5 Mg PO QMWF Fish Oil 1,000 Mg Softgel (Mcleod-3 Fatty Acids/Fish Oil) 1 Each Capsule 1 Cap PO DAILY 30 Days Gabapentin 600 Mg Tablet 600 Mg PO HS Nystatin 15 Gm Powder 1 Navarro TP BID 7 Days apply to affected area(s) Hydrocodone-Apap 10-325 (Hydrocodone Bit/Acetaminophen) 1 Tab Tablet 1 Tab PO PRN Q6HRS PRN Zolpidem Tartrate Er (Zolpidem Tartrate) 12.5 Mg Tab.mphase 12.5 Mg PO PRN QHS PRN Robaxin-750 (Methocarbamol) 750 Mg Tablet 500 Mg PO QID Novolog (Insulin Aspart) 100 Unit/1 Ml Cartridge 35 Unit SQ DAILYBFRSUP Naproxen 500 Mg Tablet 500 Mg PO HS Atenolol 100 Mg Tablet 100 Mg PO DAILY Levemir (Insulin Detemir) 100 Unit/1 Ml Vial 80 Unit SQ HS Victoza 3-Fredy (Liraglutide) 0.6 Mg/0.1 Ml Pen.injctr 1.8 Mg SQ DAILY Simvastatin 20 Mg Tablet 20 Mg PO HS Spironolactone 25 Mg Tablet 25 Mg PO DAILY Amlodipine Besylate 10 Mg Tablet 10 Mg PO DAILY Mupirocin Ointment (Mupirocin) 22 Gm Oint...g. 1 Navarro TP BID Iron (Ferrous Sulfate) 325 Mg Tablet 325 Mg PO DAILY Januvia (Sitagliptin Phosphate) 100 Mg Tablet 100 Mg PO DAILY Vitals/I & O Vital Sign - Last 24 Hours 07/10/20 07/10/20 07/10/20 07/10/20 13:41 14:00 14:30 16:06 Temp 98.4 98.4 Pulse 66 80 72 99 Resp 18 22 15 B/P (MAP) 151/85 (107) 151/63 (92) 143/69 (93) 129/58 (81) Pulse Ox 100 100 98 99 O2 Delivery Room Air Nasal Cannula Nasal Cannula Nasal Cannula O2 Flow Rate 2.0 2.0 2.0 07/10/20 07/10/20 07/10/20 12/28/20 19:06 19:15 23:13 23:55 Temp 98.0 98.0 98.0 98.0 Pulse 84 78 72 Resp 14 20 20 18 B/P (MAP) 95/59 (71) 144/117 (126) 115/26 (55) Pulse Ox 99 96 96 98 O2 Delivery Room Air Nasal Cannula Nasal Cannula Nasal Cannula O2 Flow Rate 2.0 2.0 2.0 07/11/20 07/11/20 07/11/20 00:20 02:56 03:27 Temp 98.1 98.1 Pulse 89 Resp 18 18 B/P (MAP) 86/53 (64) Pulse Ox 98 98 O2 Delivery Nasal Cannula Nasal Cannula Nasal Cannula O2 Flow Rate 2.0 2.0 2.0 l Intake and Output 07/10/20 07/10/20 07/11/20 15:00 23:00 07:00 Intake Total 300 ml 580 ml Output Total 300 ml Balance 300 ml 280 ml Justicifation of Admission Dx: Justifications for Admission: Justification of Admission Dx: Yes Acute Renal Failure: RF Can't Be Managed Outpt LISE BOWIE MD Jul 11, 2020 07:43
[2020-07-11] MEDS: INSULIN LISPRO 300 UNITS/3 ML VIAL. SQ SCH ×4 (08:00→17:00)
[2020-07-11] MEDS: FERROUS SULFATE 325 MG TABLET. PO SCH (08:51)
[2020-07-11] MEDS: LINAGLIPTIN 5 MG TABLET PO SCH (08:51)
[2020-07-11] MEDS: OMEGA-3 FATTY ACIDS/FISH OIL 1,000 MG CAPSULE. PO SCH (08:51)
[2020-07-11] MEDS: METHOCARBAMOL 500 MG TABLET PO SCH ×4 (08:54→23:36)
[2020-07-11] MEDS ORDERED: SPIRONOLACTONE 25 MG TABLET PO SCH ×2 (09:00)
[2020-07-11] MEDS: NYSTATIN TOPICAL POWDER 15GM BOTTLE. TP SCH ×2 (09:00→21:00)
[2020-07-11] MEDS ORDERED: LOSARTAN POTASSIUM 50 MG TABLET. PO SCH (09:00)
[2020-07-11] MEDS ORDERED: BUMETANIDE 1 MG TABLET. PO SCH (09:00)
[2020-07-11] MEDS ORDERED: ATENOLOL 50 MG TABLET. PO SCH (09:00)
[2020-07-11] MEDS ORDERED: LIRAGLUTIDE 18 MG/3 ML SQ SCH (09:00)
[2020-07-11] MEDS: MUPIROCIN 2 % NASAL OINTMENT 22GM TUBE. TP SCH ×2 (09:00→21:00)
[2020-07-11] MEDS: HEPARIN for SUB-Q USE 5,000 UNIT/ML VIAL. SQ SCH ×3 (09:04→23:46)
--- NOTE | 2020-07-11 09:35 | PDOC2 ---
CONSULT Date of Consult Date of Consult DATE: 07/11/20 TIME: 09:34 Reason for Consult Reason for Consult: ELIZABETH on CKD Source Source: Chart review, Patient History of Present Illness Reason for Visit: Pt is a 64 yo CM PMH CKD 3 , diabetes, hypertension, morbid obesity and CAD (cath 2001-no stents, on no AC), presents to the ED sent in by primary care physician Dr. Juwan Doyle, concern for worsening kidney failure on labs drawn this past week. Patient reports he was seen by his primary care physician for routine labs approximately week and a half ago. Patient states he's been having "heaviness, something sitting on my chest," intermittently for the past 2 weeks. No recent history of stress or echocardiogram. Reports he was admitted a month and a half ago for the symptoms. As per ER note pt's brother reported that he has been keeping track of the urine output -reports 28 to 35 ounces of output every 24 hours. Pt denies any fever, chills. No He was seen by Dr. Jamil from our practice in 2019- CKD stage 3 - baseline eGFR ~32 . He did not keep follow up appts. He states he follows with his PCP Q year and prior to most recent labs no other Interval labs done He has Hx of taking NSAID's. He was on Naproxen . Currently he reports he res tarted taking it approx 3 weeks back - every other day, for Gout. He has been on Aldactone and Losartan- not new. Denies any urinary complaints . Denies any loss of taste, smell, no diarrhea and no cough. .Denies F/C. No abdominal pain, denies N/V. No Hx of Renal calculus Past Medical History Cardiovascular: CAD, HTN, [place] Pulmonary: Other GI: No pertinent hx Heme/Onc: No pertinent hx Hepatobiliary: No pertinent hx Psych: No pertinent hx Musculoskeletal: low back pain, Osteoarthritis Rheumatologic: No pertinent hx Infectious disease: No pertinent hx Renal/: Chronic renal insuff Endocrine: Diabetes Past Surgical History Past Surgical History: Other Family History Family History: Hypertension Social History ALCOHOL: none Drugs: None Lives: with Family Current Problem List Problem List Problems Medical Problems: (1) Acute on chronic kidney failure Status: Acute (2) Hyperkalemia Status: Acute (3) Morbid obesity Status: Acute Current Medications Current Medications Current Medications Sodium Chloride 1,000 ml @ 125 mls/hr 1X ONCE IV Last administered on 07/10/20at 16:03; Start 07/10/20 at 16:00; Stop 07/10/20 at 23:59; Status DC Acetaminophen (Tylenol) 650 mg PRN Q4HRS PRN PO FEVER > 100.3'F; Start 07/10/20 at 16:15; Stop 07/11/20 at 16:14 Ceftriaxone Sodium (Rocephin) 1 gm Q24H IVP Last administered on 07/10/20at 23:07; Start 07/10/20 at 20:00 Enoxaparin Sodium (Lovenox 40mg Syringe) 40 mg Q24H SQ ; Start 07/10/20 at 20:45; Stop 07/10/20 at 20:40; Status DC Insulin Human Lispro (HumaLOG) 0-5 UNITS TIDWMEALS SQ ; Start 07/11/20 at 08:00 Dextrose (Dextrose 50%-Water Syringe) 12.5 gm PRN Q15MIN PRN IV SEE COMMENTS; Start 07/10/20 at 20:45 Heparin Sodium (Porcine) (Heparin Sodium) 5,000 unit Q8HRS SQ Last administered on 07/11/20at 09:04; Start 07/10/20 at 22:00 Amlodipine Besylate (Norvasc) 10 mg DAILY PO ; Start 07/11/20 at 09:00; Status UNV Amlodipine Besylate (Norvasc) 10 mg DAILY PO ; Start 07/11/20 at 09:00 Ferrous Sulfate (Feosol) 325 mg DAILY PO Last administered on 07/11/20at 08:51; Start 07/11/20 at 09:00 Acetaminophen/ Hydrocodone Bitart (Lortab 10/325) 1 tab PRN Q6HRS PRN PO PAIN Last administered on 07/10/20at 23:13; Start 07/10/20 at 22:15 Losartan Potassium (Cozaar) 50 mg DAILY PO ; Start 07/11/20 at 09:00 Methocarbamol (Robaxin) 500 mg QID PO Last administered on 07/11/20at 08:54; Start 07/10/20 at 21:30 Metolazone (Zaroxolyn) 2.5 mg QMWF PO ; Start 07/12/20 at 16:00 Mupirocin (Bactroban) 1 navarro BID TP ; Start 07/11/20 at 09:00 Naproxen (Naprosyn) 500 mg HS PO ; Start 07/10/20 at 22:30 Nystatin (Nystop) 1 navarro BID TP ; Start 07/11/20 at 09:00 Fish Oil (Fish Oil) 1,000 mg DAILY PO Last administered on 07/11/20at 08:51; Start 07/11/20 at 09:00 Simvastatin (Zocor) 20 mg HS PO Last administered on 07/10/20at 23:10; Start 07/10/20 at 22:30 Spironolactone (Aldactone) 25 mg DAILY PO ; Start 07/11/20 at 09:00 Spironolactone (Aldactone) 25 mg DAILY PO ; Start 07/11/20 at 09:00; Status UNV Atenolol (Tenormin) 100 mg DAILY PO ; Start 07/11/20 at 09:00 Bumetanide (Bumex) 1 mg DAILY PO ; Start 07/11/20 at 09:00 Gabapentin (Neurontin) 600 mg HS PO Last administered on 07/10/20at 23:06; Start 07/10/20 at 22:30 Insulin Human Lispro (HumaLOG) 35 units DAILYBFRSUP SQ ; Start 07/11/20 at 17:00 Non-Formulary Medication (Insulin Detemir (Levemir)) 80 unit HS SQ ; Start 07/11/20 at 21:00; Status UNV Non-Formulary Medication (Liraglutide (Victoza 3-Fredy)) 1.8 mg DAILY SQ ; Start 07/11/20 at 09:00; Status UNV Linagliptin (Tradjenta) 5 mg DAILY PO Last administered on 07/11/20at 08:51; Start 07/11/20 at 09:00 Zolpidem Tartrate (Ambien) 5 mg PRN QHS PRN PO INSOMNIA MRX1 PRN Last administered on 07/10/20at 23:38; Start 07/10/20 at 22:45 Insulin Glargine (Lantus Syringe) 80 unit QHS SQ Last administered on 07/10/20at 23:09; Start 07/10/20 at 22:45 Active Scripts Active Reported Aspirin 325 Mg Tablet 1 Tab PO BID Amlodipine Besylate 10 Mg Tablet 10 Mg PO DAILY Bumetanide 2 Mg Tablet 1 Tab PO DAILY Losartan Potassium 50 Mg Tablet 50 Mg PO DAILY Spironolactone 25 Mg Tablet 1 Tab PO DAILY Metolazone 2.5 Mg Tablet 2.5 Mg PO QMWF Fish Oil 1,000 Mg Softgel ([place]-3 Fatty Acids/Fish Oil) 1 Each Capsule 1 Cap PO DAILY 30 Days Gabapentin 600 Mg Tablet 600 Mg PO HS Nystatin 15 Gm Powder 1 Navarro TP BID 7 Days apply to affected area(s) Hydrocodone-Apap 10-325 (Hydrocodone Bit/Acetaminophen) 1 Tab Tablet 1 Tab PO PRN Q6HRS PRN Zolpidem Tartrate Er (Zolpidem Tartrate) 12.5 Mg Tab.mphase 12.5 Mg PO PRN QHS PRN Robaxin-750 (Methocarbamol) 750 Mg Tablet 500 Mg PO QID Novolog (Insulin Aspart) 100 Unit/1 Ml Cartridge 35 Unit SQ DAILYBFRSUP Naproxen 500 Mg Tablet 500 Mg PO HS Atenolol 100 Mg Tablet 100 Mg PO DAILY Levemir (Insulin Detemir) 100 Unit/1 Ml Vial 80 Unit SQ HS Victoza 3-Fredy (Liraglutide) 0.6 Mg/0.1 Ml Pen.injctr 1.8 Mg SQ DAILY Simvastatin 20 Mg Tablet 20 Mg PO HS Spironolactone 25 Mg Tablet 25 Mg PO DAILY Amlodipine Besylate 10 Mg Tablet 10 Mg PO DAILY Mupirocin Ointment (Mupirocin) 22 Gm Oint...g. 1 Navarro TP BID Iron (Ferrous Sulfate) 325 Mg Tablet 325 Mg PO DAILY Januvia (Sitagliptin Phosphate) 100 Mg Tablet 100 Mg PO DAILY Allergies Allergies: Coded Allergies: metformin (Verified Allergy, Intermediate, 02/25/19) ROS Review of System As per HPI, rest of the ROS is negative Physical Exam Physical Exam General: No acute distress, supermorbidly obese falls asleep, easily arousable HEENT: , Mucous membr. dry, anicteric Neck Thick, supple Lungs: diminished bases, non labored Heart: Afib Abdomen: Soft, morbidly obese, NT Extremities: No cyanosis,trace bilateral LE edema Skin:LE venous dermatitis Neuro: Normal speech, Sensation intact, No asterxis Psych/Mental Status: Normal Affect No Prasad , No CVA or SP tenderness Vital Signs Vital Signs Date Time Temp Pulse Resp B/P (MAP) Pulse Ox O2 Delivery O2 Flow Rate FiO2 07/11/20 07:00 97.8 69 22 87/45 (59) 97 Nasal Cannula 2.0 97.8 Assessment & Plan ELIZABETH - severe , ATN 2/2 Dehydration, UTI , MEDS- NSAIDS, ARB, Aldactone vs pro gression of CKD Labs were done yesterday afternoon at presentation to the ER, No labs since then. Ordered stat this morning, still pending UA Cw UTI, Ct scan abdomen- No e/o Hydronephrosis . Received very small amt of IVF since presentation (as recorded in the chart), ?UOP adequacy Cannot determine trend of renal function without labs ,based on current clinical status will start Dialysis , Temp HDC ordered . Monitor Labs , strict I/O DC all above meds HyperKalemia POA- no labs this am . UTI- per Primary CKD 3B baseline eGFR 30 -32 in 2019 , seen by Dr Jamil - patient did not keep follow up appt NSAID use - chronic . DM 2- per primary Supermorbidly obese - such that requires assistance with urination/feeding, does not ambulate Chest pain POA - cardiology consulted AFIB: likely chronic, rate controlled CAD: remote hx of PTCA but denies this HTN: at marginal level Noncompliance Discussed at great length with patient, RN and cardiology Labs Labs Laboratory Tests Test 07/10/20 13:55 07/10/20 14:37 07/10/20 16:15 07/11/20 07:39 White Blood Count 12.4 x10^3/uL (4.0-11.0) Red Blood Count 4.01 x10^6/uL (4.30-5.70) Hemoglobin 11.0 g/dL (13.0-17.5) Hematocrit 34.7 % (39.0-53.0) Mean Corpuscular Volume 87 fL (79-100) Mean Corpuscular Hemoglobin 27 pg (25-35) Mean Corpuscular Hemoglobin Concent 32 g/dL (31-37) Red Cell Distribution Width 14.4 % (11.5-14.5) Platelet Count 188 x10^3/uL (140-400) Neutrophils (%) (Auto) 71 % (31-73) Lymphocytes (%) (Auto) 16 % (24-48) Monocytes (%) (Auto) 8 % (0-9) Eosinophils (%) (Auto) 4 % (0-3) Basophils (%) (Auto) 1 % (0-3) Neutrophils # (Auto) 8.8 x10^3/uL (1.8-7.7) Lymphocytes # (Auto) 1.9 x10^3/uL (1.0-4.8) Monocytes # (Auto) 1.0 x10^3/uL (0.0-1.1) Eosinophils # (Auto) 0.5 x10^3/uL (0.0-0.7) Basophils # (Auto) 0.1 x10^3/uL (0.0-0.2) Sodium Level 141 mmol/L (136-145) Potassium Level 5.7 mmol/L (3.5-5.1) Chloride Level 103 mmol/L (98-107) Carbon Dioxide Level 22 mmol/L (21-32) Anion Gap 16 (6-14) Blood Urea Nitrogen 185 mg/dL (8-26) Creatinine 6.5 mg/dL (0.7-1.3) Estimated GFR (Cockcroft-Gault) 8.6 BUN/Creatinine Ratio 28 (6-20) Glucose Level 131 mg/dL (70-99) Calcium Level 9.0 mg/dL (8.5-10.1) Phosphorus Level 7.5 mg/dL (2.6-4.7) Magnesium Level 2.2 mg/dL (1.8-2.4) Total Bilirubin 0.5 mg/dL (0.2-1.0) Aspartate Amino Transf (AST/SGOT) 14 U/L (15-37) Alanine Aminotransferase (ALT/SGPT) 14 U/L (16-63) Alkaline Phosphatase 66 U/L (46-116) Troponin I Quantitative < 0.017 ng/mL (0.000-0.055) Total Protein 7.6 g/dL (6.4-8.2) Albumin 3.0 g/dL (3.4-5.0) Albumin/Globulin Ratio 0.7 (1.0-1.7) Urine Collection Type Void Urine Color Yellow Urine Clarity Cloudy Urine pH 5.0 (<5.0-8.0) Urine Specific [place] 1.015 (1.000-1.030) Urine Protein Negative mg/dL (NEG-TRACE) Urine Glucose (UA) Negative mg/dL (NEG) Urine Ketones (Stick) Negative mg/dL (NEG) Urine Blood Trace (NEG) Urine Nitrite Negative (NEG) Urine Bilirubin Negative (NEG) Urine Urobilinogen Dipstick 0.2 mg/dL (0.2 mg/dL) Urine Leukocyte Esterase Large (NEG) Urine RBC 0 /HPF (0-2) Urine WBC >40 /HPF (0-4) Urine Squamous Epithelial Cells Mod /LPF Urine Bacteria 0 /HPF (0-FEW) Glucose (Fingerstick) 125 mg/dL (70-99) Laboratory Tests Test 07/10/20 13:55 07/10/20 14:37 07/10/20 16:15 07/11/20 07:39 White Blood Count 12.4 x10^3/uL (4.0-11.0) Red Blood Count 4.01 x10^6/uL (4.30-5.70) Hemoglobin 11.0 g/dL (13.0-17.5) Hematocrit 34.7 % (39.0-53.0) Mean Corpuscular Volume 87 fL (79-100) Mean Corpuscular Hemoglobin 27 pg (25-35) Mean Corpuscular Hemoglobin Concent 32 g/dL (31-37) Red Cell Distribution Width 14.4 % (11.5-14.5) Platelet Count 188 x10^3/uL (140-400) Neutrophils (%) (Auto) 71 % (31-73) Lymphocytes (%) (Auto) 16 % (24-48) Monocytes (%) (Auto) 8 % (0-9) Eosinophils (%) (Auto) 4 % (0-3) Basophils (%) (Auto) 1 % (0-3) Neutrophils # (Auto) 8.8 x10^3/uL (1.8-7.7) Lymphocytes # (Auto) 1.9 x10^3/uL (1.0-4.8) Monocytes # (Auto) 1.0 x10^3/uL (0.0-1.1) Eosinophils # (Auto) 0.5 x10^3/uL (0.0-0.7) Basophils # (Auto) 0.1 x10^3/uL (0.0-0.2) Sodium Level 141 mmol/L (136-145) Potassium Level 5.7 mmol/L (3.5-5.1) Chloride Level 103 mmol/L (98-107) Carbon Dioxide Level 22 mmol/L (21-32) Anion Gap 16 (6-14) Blood Urea Nitrogen 185 mg/dL (8-26) Creatinine 6.5 mg/dL (0.7-1.3) Estimated GFR (Cockcroft-Gault) 8.6 BUN/Creatinine Ratio 28 (6-20) Glucose Level 131 mg/dL (70-99) Calcium Level 9.0 mg/dL (8.5-10.1) Phosphorus Level 7.5 mg/dL (2.6-4.7) Magnesium Level 2.2 mg/dL (1.8-2.4) Total Bilirubin 0.5 mg/dL (0.2-1.0) Aspartate Amino Transf (AST/SGOT) 14 U/L (15-37) Alanine Aminotransferase (ALT/SGPT) 14 U/L (16-63) Alkaline Phosphatase 66 U/L (46-116) Troponin I Quantitative < 0.017 ng/mL (0.000-0.055) Total Protein 7.6 g/dL (6.4-8.2) Albumin 3.0 g/dL (3.4-5.0) Albumin/Globulin Ratio 0.7 (1.0-1.7) Urine Collection Type Void Urine Color Yellow Urine Clarity Cloudy Urine pH 5.0 (<5.0-8.0) Urine Specific [place] 1.015 (1.000-1.030) Urine Protein Negative mg/dL (NEG-TRACE) Urine Glucose (UA) Negative mg/dL (NEG) Urine Ketones (Stick) Negative mg/dL (NEG) Urine Blood Trace (NEG) Urine Nitrite Negative (NEG) Urine Bilirubin Negative (NEG) Urine Urobilinogen Dipstick 0.2 mg/dL (0.2 mg/dL) Urine Leukocyte Esterase Large (NEG) Urine RBC 0 /HPF (0-2) Urine WBC >40 /HPF (0-4) Urine Squamous Epithelial Cells Mod /LPF Urine Bacteria 0 /HPF (0-FEW) Glucose (Fingerstick) 125 mg/dL (70-99) Review All relevant outside records, renal labs, imaging studies, telemetry/EKG's were reviewed. CANDY MERCADO MD Jul 11, 2020 09:35
[2020-07-11 11:00] VITALS: BP 92/57
--- NOTE | 2020-07-11 11:08 | NUR ---
SS following for discharge planning. SS reviewed pt chart and discussed with pt RN. Pt is from home with brother and is currently requiring oxygen. Pt on IV Rocephin. COVID19 test pending. Possible need for outpatient dialysis set up pending labs. SS will continue to follow for discharge planning.
--- NOTE | 2020-07-11 12:51 | PDOC2 ---
PEARL CARVALHO [facility] [employer] 07/11/20 1251: CARDIAC CONSULT DATE OF CONSULT Date of Consult DATE: 07/11/20 TIME: 12:26 REASON FOR CONSULT Reason for Consult: AFIB REFERRING PHYSICIAN Referring Physician: Arelis SOURCE Source: Chart review, Patient HISTORY OF PRESENT ILLNESS HISTORY OF PRESENT ILLNESS This is a pleasant 64 yo male admitted for complains of abnormal labs and was also having midchest pressure. His chest discomfort happened yesterday nonradiating with no associated symptoms of palpitations, nausea or vomiting or any shortness of breath. He does use ASA and also naproxen routinely due to his back issues. His chest discomfort has not recurred and no troponin elevation. EKG no copy but with ED review noted with controlled AFIB. Denies any loss of taste, smell, no diarrhea and no cough. His urine has been dark yellow lately. He had some labs recently and was noted to be critically high hence he was told to go to ED. At the present time he is not in distress. PAST MEDICAL HISTORY Past Medical History Cardiovascular: CAD, HTN, [place] (2001), HLP Pulmonary: Other (O2 dependent)- EDNA? NEURO: tremors GI: No pertinent hx Heme/Onc: No pertinent hx Hepatobiliary: No pertinent hx Psych: No pertinent hx Musculoskeletal: low back pain, Osteoarthritis, chronic back pain, debilitated, WC bound Rheumatologic: No pertinent hx Infectious disease: No pertinent hx ENT: No pertinent hx Renal/: Chronic renal insuff Endocrine: Diabetes (2) Dermatology: Other (venous dermatitis) PAST SURGICAL HISTORY Past Surgical History PTCA 2006? he does deny this FAMILY HISTORY Family History: Hypertension SOCIAL HISTORY Smoke: No ALCOHOL: none Drugs: None Lives: with Family CURRENT MEDICATIONS CURRENT MEDICATIONS Current Medications Medications (Trade) Dose Ordered Sig/Cheyanne Route PRN Reason Start Time Stop Time Status Last Admin Dose Admin Sodium Chloride 1,000 ml @ 125 mls/hr 1X ONCE IV 07/10/20 16:00 07/10/20 23:59 DC 07/10/20 16:03 Ceftriaxone Sodium (Rocephin) 1 gm Q24H IVP 07/10/20 20:00 07/10/20 23:07 Heparin Sodium (Porcine) (Heparin Sodium) 5,000 unit Q8HRS SQ 07/10/20 22:00 07/11/20 09:04 Ferrous Sulfate (Feosol) 325 mg DAILY PO 12/29/20 09:00 07/11/20 08:51 Acetaminophen/ Hydrocodone Bitart (Lortab 10/325) 1 tab PRN Q6HRS PRN PO PAIN 07/10/20 22:15 07/10/20 23:13 Methocarbamol (Robaxin) 500 mg QID PO 07/10/20 21:30 07/11/20 08:54 Fish Oil (Fish Oil) 1,000 mg DAILY PO 07/11/20 09:00 07/11/20 08:51 Simvastatin (Zocor) 20 mg HS PO 07/10/20 22:30 07/10/20 23:10 Gabapentin (Neurontin) 600 mg HS PO 07/10/20 22:30 07/10/20 23:06 Linagliptin (Tradjenta) 5 mg DAILY PO 07/11/20 09:00 07/11/20 08:51 Zolpidem Tartrate (Ambien) 5 mg PRN QHS PRN PO INSOMNIA MRX1 PRN 07/10/20 22:45 07/10/20 23:38 Insulin Glargine (Lantus Syringe) 80 unit QHS SQ 07/10/20 22:45 07/10/20 23:09 ALLERGIES ALLERGIES: Coded Allergies: metformin (Verified Allergy, Intermediate, 02/25/19) ROS Review of System 14 point ROS evaluated with pertinent positives noted per HPI PHYSICAL EXAM General: Alert, Oriented X3, Cooperative, No acute distress HEENT: Atraumatic, Mucous membr. moist/pink Lungs: Other (diminished bases) Heart: No murmurs, Other (AFIB) Abdomen: Soft, Other (obese) Extremities: No cyanosis, Other (trace to 1+ bilateral LE pitting edema) Skin: No significant lesion, Other (LE venous dermatitis) Neuro: Normal speech, Sensation intact Psych/Mental Status: Mental status NL, Mood NL MUSCULOSKELETAL: Osteoarthritic changes both hands VITALS/I&O VITALS/I&O: Vital Signs Date Time Temp Pulse Resp B/P (MAP) Pulse Ox O2 Delivery O2 Flow Rate FiO2 07/11/20 07:00 97.8 69 22 87/45 (59) 97 Nasal Cannula 2.0 97.8 I & O 07/10/20 07/10/20 07/11/20 15:00 23:00 07:00 Intake Total 300 ml 580 ml Output Total 300 ml Balance 300 ml 280 ml LABS Lab: Laboratory Tests Test 07/10/20 13:55 07/10/20 14:37 07/10/20 16:15 07/11/20 07:39 White Blood Count 12.4 x10^3/uL (4.0-11.0) H Red Blood Count 4.01 x10^6/uL (4.30-5.70) L Hemoglobin 11.0 g/dL (13.0-17.5) L Hematocrit 34.7 % (39.0-53.0) L Mean Corpuscular Volume 87 fL (79-100) Mean Corpuscular Hemoglobin 27 pg (25-35) Mean Corpuscular Hemoglobin Concent 32 g/dL (31-37) Red Cell Distribution Width 14.4 % (11.5-14.5) Platelet Count 188 x10^3/uL (140-400) Neutrophils (%) (Auto) 71 % (31-73) Lymphocytes (%) (Auto) 16 % (24-48) L Monocytes (%) (Auto) 8 % (0-9) Eosinophils (%) (Auto) 4 % (0-3) H Basophils (%) (Auto) 1 % (0-3) Neutrophils # (Auto) 8.8 x10^3/uL (1.8-7.7) H Lymphocytes # (Auto) 1.9 x10^3/uL (1.0-4.8) Monocytes # (Auto) 1.0 x10^3/uL (0.0-1.1) Eosinophils # (Auto) 0.5 x10^3/uL (0.0-0.7) Basophils # (Auto) 0.1 x10^3/uL (0.0-0.2) Sodium Level 141 mmol/L (136-145) Potassium Level 5.7 mmol/L (3.5-5.1) H Chloride Level 103 mmol/L (98-107) Carbon Dioxide Level 22 mmol/L (21-32) Anion Gap 16 (6-14) H Blood Urea Nitrogen 185 mg/dL (8-26) H Creatinine 6.5 mg/dL (0.7-1.3) H Estimated GFR (Cockcroft-Gault) 8.6 BUN/Creatinine Ratio 28 (6-20) H Glucose Level 131 mg/dL (70-99) H Calcium Level 9.0 mg/dL (8.5-10.1) Phosphorus Level 7.5 mg/dL (2.6-4.7) H Magnesium Level 2.2 mg/dL (1.8-2.4) Total Bilirubin 0.5 mg/dL (0.2-1.0) Aspartate Amino Transferase (AST) 14 U/L (15-37) L Alanine Aminotransferase (ALT) 14 U/L (16-63) L Alkaline Phosphatase 66 U/L (46-116) Troponin I Quantitative < 0.017 ng/mL (0.000-0.055) Total Protein 7.6 g/dL (6.4-8.2) Albumin 3.0 g/dL (3.4-5.0) L Albumin/Globulin Ratio 0.7 (1.0-1.7) L Urine Collection Type Void Urine Color Yellow Urine Clarity Cloudy Urine pH 5.0 (<5.0-8.0) Urine Specific [place] 1.015 (1.000-1.030) Urine Protein Negative mg/dL (NEG-TRACE) Urine Glucose (UA) Negative mg/dL (NEG) Urine Ketones (Stick) Negative mg/dL (NEG) Urine Blood Trace (NEG) Urine Nitrite Negative (NEG) Urine Bilirubin Negative (NEG) Urine Urobilinogen Dipstick 0.2 mg/dL (0.2 mg/dL) Urine Leukocyte Esterase Large (NEG) Urine RBC 0 /HPF (0-2) Urine WBC >40 /HPF (0-4) Urine Squamous Epithelial Cells Mod /LPF Urine Bacteria 0 /HPF (0-FEW) Glucose (Fingerstick) 125 mg/dL (70-99) H Laboratory Tests 07/10/20 13:55 Laboratory Tests 07/10/20 14:37 ECHOCARDIOGRAM ECHOCARDIOGRAM <Conclusion> Technically difficult study. The left ventricle is normal size. The left ventricular systolic function is normal. The Ejection Fraction is 50-55%. There is mild concentric left ventricular hypertrophy. There is no significant aortic valvular stenosis. Doppler and Color Flow revealed no significant aortic regurgitation. Doppler and Color-flow revealed trace mitral regurgitation. Doppler and Color Flow revealed trace tricuspid regurgitation with an estimated PAP of 45 mmHg. DATE: 02/25/19 1611 ASSESSMENT/PLAN ASSESSMENT/PLAN 1. Severe ELIZABETH/uremia/hyperkalemia on CKD4 2. Chest pain: doubt ACS, potentially from GI given his significant NSAID use. none further 3. AFIB: likely chronic, rate controlled 4. CAD: remote hx of PTCA but denies this 5. HTN: at marginal level 6. HLP 7. Chronic low back pain/ debility/WC bound with chronic NSAID use 8. Noncompliance 9. Morbid obesity 10. DM2: per PCP, he does take victoza, levemir and januvia at home Recommendations 1. DC nephrotoxic agents such as home naproxen, losartan. DC home bumex and metolazone and aldactone 2. Continue home atenolol for rate control. He was taking coumadin but quit 2 months ago and has just been taking ASA. Will need OAC moving forward for stroke prevention and likely to be restarted back to coumadin as would not be able to use NOAC due to his renal dysfunction and high BMI. Will reeval after decision as to any need for [facility] dialysis and could potentially start coumadin once permanent HD cath is deemed warranted. 3. Discussed treatment compliance 4. Awaiting HD cath, rapid covid pending. Will reeval LV function via TTE. 5. Continue ASA. Will check TSH and lipids. May hold BP meds while BP is marginal but may use atenolol for rate control. 6. Consider outpt ischemic workup. He used to see Dr. Farah as his cardio logist PAZ SOLIMAN MD 07/11/20 1515: CARDIAC CONSULT ASSESSMENT/PLAN ASSESSMENT/PLAN Patient seen and examined. Agree with FILER HELPER's assessment and plan. Continue management for acute renal failure per nephrology team. Possible hemodialysis catheter placement followed by initiation of hemodialysis. Persistent atrial fibrillation rate controlled. Resume oral anticoagulation for stroke prophylaxis after placement of HD catheter. Chest pain with atypical features and most probably GI etiology. CAD status clinically stable. Check 2D echo to assess LV systolic function. Ischemic evaluation could be considered as an outpatient. Thank you for your consultation. PEARL CARVALHO APRN Jul 11, 2020 12:51 PAZ SOLIMAN MD Jul 11, 2020 15:15
[2020-07-11] MEDS: HYDROcodone/APAP 10/325 1 TAB TABLET PO PRN (13:42)
[2020-07-11 13:47] LABS: CALCIUM 8.4 mg/dL (8.5-10.1); CREATININE 5.5 mg/dL (0.7-1.3); GFR 10.5
[2020-07-11 14:16] LABS: CHOLESTEROL/HDL RATIO 4.2
[2020-07-11] MEDS ORDERED: LIDOCAINE WITH 8.4% SOD BICARB 3 ML DISP.SYRIN. ONE (14:24)
[2020-07-11] MEDS ORDERED: LIDOCAINE WITH 8.4% SOD BICARB 3 ML DISP.SYRIN. INJ ONE (14:30)
--- NOTE | 2020-07-11 15:26 | RAD ---
Exam: Chest one view INDICATION: Temporary dialysis catheter in vascular lab TECHNIQUE: Frontal view of the chest Comparisons: None FINDINGS: Right central venous catheter with tip at the atrial caval junction. The cardiomediastinal silhouette and pulmonary vessels are within normal limits. The lung and pleural spaces are clear. IMPRESSION: Lines and tubes described above. Electronically signed by: Arjun Torre MD (07/11/2020 3:24 PM) ERICK
--- NOTE | 2020-07-11 15:32 | PDOC2 ---
GI CONSULT Date of Service: DATE: 07/11/20 TIME: 15:17 Reason For Consult: lower abdominal pain HPI: HPI: 64 y/o male sent to ER for abnormal outpt labs, noted w/ ELIZABETH/CKD and possible UTI w/ plans for HD cath placement and dialysis today. We are asked to see him for lower abdominal pain which he denies. He did have some pressure in his chest w/ activity that has resolved. "It was because I was trying to move this big body after laying in bed for awhile." No GI concerns per nurse. Says "not much" heartburn. Denies dysphagia. No n/v. Good appetite at home but doesn't like the food here. No diarrhea, constipation, hematochezia, or melena. No previous EGD. Had a colonoscopy a long time ago - not sure where - doesn't recall significant findings. Denies GB, liver, pancreas, and PUD history. CT A/P unremarkable for acute issue but noted diverticulosis and gallstones. H/o CAD and chronic back pain on ASA and Naproxen (every other day - recently for ankle pain). Morbid obesity, debility, WC bound - cared for by brother. I discussed acid-nurse first aid for chest pressure and NSAID use - he says "but I'm not complaining about anything." PMH: PMH: CAD, HTN, AL, HLD, EDNA, tremors, chronic back pain, debility/WC bound, CKD, DM, venous dermatitis Social History: Smoke: No ALCOHOL: none Drugs: None ROS: GEN: Denies fevers, chills, sweats HEENT: Denies blurred vision, sore throat CV: +CP RESP: Denies shortness of air, cough GI: Per HPI : +dark urine ENDO: Denies weight changes NEURO: Denies confusion, dizziness MSK: +back pain SKIN: Denies jaundice, pruritus Vitals: Vitals: Vital Signs Date Time Temp Pulse Resp B/P (MAP) Pulse Ox O2 Delivery O2 Flow Rate FiO2 07/11/20 13:42 93 Nasal Cannula 2.0 07/11/20 11:00 97.9 72 22 92/57 (69) 97.9 Labs: Labs: Laboratory Tests Test 07/10/20 16:15 07/11/20 07:39 07/11/20 12:11 07/11/20 12:28 Urine Collection Type Void Urine Color Yellow Urine Clarity Cloudy Urine pH 5.0 (<5.0-8.0) Urine Specific [place] 1.015 (1.000-1.030) Urine Protein Negative mg/dL (NEG-TRACE) Urine Glucose (UA) Negative mg/dL (NEG) Urine Ketones (Stick) Negative mg/dL (NEG) Urine Blood Trace (NEG) Urine Nitrite Negative (NEG) Urine Bilirubin Negative (NEG) Urine Urobilinogen Dipstick 0.2 mg/dL (0.2 mg/dL) Urine Leukocyte Esterase Large (NEG) Urine RBC 0 /HPF (0-2) Urine WBC >40 /HPF (0-4) Urine Squamous Epithelial Cells Mod /LPF Urine Bacteria 0 /HPF (0-FEW) Glucose (Fingerstick) 125 mg/dL (70-99) 150 mg/dL (70-99) SARS-CoV-2 Antigen (Rapid) Negative (NEGATIVE) Test 07/11/20 13:00 Sodium Level 136 mmol/L (136-145) Potassium Level 5.0 mmol/L (3.5-5.1) Chloride Level 102 mmol/L (98-107) Carbon Dioxide Level 22 mmol/L (21-32) Anion Gap 12 (6-14) Blood Urea Nitrogen 171 mg/dL (8-26) Creatinine 5.5 mg/dL (0.7-1.3) Estimated GFR (Cockcroft-Gault) 10.5 Glucose Level 172 mg/dL (70-99) Calcium Level 8.4 mg/dL (8.5-10.1) Triglycerides Level 154 mg/dL (0-150) Cholesterol Level 76 mg/dL (0-200) LDL Cholesterol, Calculated 27 mg/dL (0-100) VLDL Cholesterol, Calculated 31 mg/dL (0-40) Non-HDL Cholesterol Calculated 58 mg/dL (0-129) HDL Cholesterol 18 mg/dL (40-60) Cholesterol/HDL Ratio 4.2 Hepatitis B Surface Antigen Nonreactive (Nonreactive) Hepatitis B Surface Antibody Reactive Hepatitis B Core Total Antibody Nonreactive (Nonreactive) Allergies: Coded Allergies: metformin (Verified Allergy, Intermediate, 02/25/19) Medications: Current Medications Medications (Trade) Dose Ordered Sig/Cheyanne Route PRN Reason Start Time Stop Time Status Last Admin Dose Admin Sodium Chloride 1,000 ml @ 125 mls/hr 1X ONCE IV 07/10/20 16:00 07/10/20 23:59 DC 07/10/20 16:03 Ceftriaxone Sodium (Rocephin) 1 gm Q24H IVP 07/10/20 20:00 07/10/20 23:07 Heparin Sodium (Porcine) (Heparin Sodium) 5,000 unit Q8HRS SQ 07/10/20 22:00 07/11/20 09:04 Ferrous Sulfate (Feosol) 325 mg DAILY PO 07/11/20 09:00 07/11/20 08:51 Acetaminophen/ Hydrocodone Bitart (Lortab 10/325) 1 tab PRN Q6HRS PRN PO PAIN 07/10/20 22:15 07/11/20 13:42 Methocarbamol (Robaxin) 500 mg QID PO 07/10/20 21:30 07/11/20 13:41 Fish Oil (Fish Oil) 1,000 mg DAILY PO 07/11/20 09:00 07/11/20 08:51 Simvastatin (Zocor) 20 mg HS PO 07/10/20 22:30 07/10/20 23:10 Gabapentin (Neurontin) 600 mg HS PO 07/10/20 22:30 07/10/20 23:06 Linagliptin (Tradjenta) 5 mg DAILY PO 07/11/20 09:00 07/11/20 08:51 Zolpidem Tartrate (Ambien) 5 mg PRN QHS PRN PO INSOMNIA MRX1 PRN 07/10/20 22:45 07/10/20 23:38 Insulin Glargine (Lantus Syringe) 80 unit QHS SQ 07/10/20 22:45 07/10/20 23:09 Lidocaine HCl (Buffered Lidocaine 1%) 3 ml 1X ONCE INJ 07/11/20 14:30 07/11/20 14:31 DC 07/11/20 14:49 Imaging: Imaging: CT A/P 07/10 IMPRESSION: No acute findings in the abdomen and pelvis on noncontrast CT. CXR 07/10 IMPRESSION: Borderline cardiomegaly. No acute superimposed process. PE: GEN: NAD HEENT: Atraumatic, PERRL LUNGS: diminished anteriorly HEART: RR ABD: obese, soft, non-tender EXTREMITY/SKIN: pitting edema BLE NEURO/PSYCH: A & O 3 A/P: A/P: ELIZABETH/CKD, hyperkalemia, ?UTI ?atypical chest pain ?abd pain Chronic normocytic anemia CRC screen - reportedly normal in the past Diverticulosis Cholelithiasis H/o CAD and A Fib on ASA Chronic pain, NSAID use Rapid COVID negative 07/11 BMI 87 -- Started on IV PPI here - can change to PO since has a regular (renal) diet ordered (though he told me he wasn't interested in acid-reducers). QING BRENNER Jul 11, 2020 15:32
[2020-07-11] MEDS: PANTOPRAZOLE IV PUSH 40 MG VIAL. IVP SCH (16:30)
[2020-07-11] MEDS ORDERED: ALBUMIN HUMAN 25% 200 ML IV PRN (18:00)
[2020-07-11] MEDS ORDERED: IV NORMAL SALINE 1000ML BAG 1,000 ML IV PRN ×2 (18:00)
[2020-07-11] MEDS ORDERED: DIALYSIS PATIENT. MC PRN ×2 (20:00)
[2020-07-11] MEDS ORDERED: INSULIN DETEMIR 80 UNIT SQ SCH (21:00)
[2020-07-11 21:15] VITALS: BP 79/57
[2020-07-11] MEDS ORDERED: IV NORMAL SALINE 500ML BAG 500 ML IV ONE (22:15)
--- NOTE | 2020-07-11 22:15 | NUR ---
PT BP 79/57, P- 93 PT ASYMPTOMATIC, DR MACIAS NOTIFIED NEW ORDERS RECEIVED WILL CONT TO MONITOR PT STATUS AND SAFETY. PMRN
--- NOTE | 2020-07-11 22:51 | EKG ---
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
[2020-07-11 23:00] VITALS: BP 99/52
[2020-07-11] MEDS: SIMVASTATIN 20 MG TABLET PO SCH (23:34)
[2020-07-11] MEDS: GABAPENTIN 300 MG CAPSULE. PO SCH (23:35)
[2020-07-11] MEDS: NAPROXEN 500 MG TABLET PO SCH (23:35)
[2020-07-11] MEDS: LACTOBACILLUS RHAMNOSUS GG 1 CAPSULE. PO SCH (23:35)
[2020-07-11] MEDS: cefTRIAXone IV Push 1 GM VIAL. IVP SCH (23:37)
[2020-07-11] MEDS: INSULIN GLARGINE SYRINGE. SQ SCH (23:52)
[2020-07-12] MEDS: NYSTATIN TOPICAL POWDER 15GM BOTTLE. TP SCH (00:02)
[2020-07-12 00:58] LABS: CALCIUM 8.8 mg/dL (8.5-10.1); CREATININE 4.8 mg/dL (0.7-1.3); GFR 12.3; MAGNESIUM 1.9 mg/dL (1.8-2.4); PHOSPHORUS 4.9 mg/dL (2.6-4.7); POTASSIUM 4.2 mmol/L (3.5-5.1)
[2020-07-12 03:00] VITALS: BP 108/48
[2020-07-12] MEDS: HEPARIN for SUB-Q USE 5,000 UNIT/ML VIAL. SQ SCH ×3 (06:13→21:30)
[2020-07-12 07:00] VITALS: BP 107/61
[2020-07-12] MEDS: INSULIN LISPRO 300 UNITS/3 ML VIAL. SQ SCH ×4 (08:00→17:00)
--- NOTE | 2020-07-12 08:14 | RAD ---
Procedure: Ultrasound-guided placement of right internal jugular temporary dialysis 07/11/2020 Clinical Indication: ELIZABETH on CKD vs ESRD , UTI, no interval labs, No labs this am, ordered stat Discussion: The risks and benefits of the procedure were discussed the patient and/or their medical sales representative. Informed consent was obtained. A timeout procedure was performed. All elements of maximal sterile barrier technique including the use of a cap, mask, sterile gown, sterile gloves, large sterile sheet, appropriate hand hygiene, and 2% chlorhexidine for cutaneous antisepsis (or acceptable alternative antiseptic per current guidelines) were followed for this procedure. The patient was prepped and draped in the usual sterile fashion. Ultrasound interrogation of the right neck revealed patency and compressibility of the right internal jugular vein. A 21-gauge micropuncture was then used to gain access to this vein under ultrasound guidance. A hard copy ultrasound image was recorded. A guidewire was advanced centrally. 5 Cambodian sheath was placed. Over a wire following dilatation, a dual-lumen temporary dialysis central venous catheter was advanced centrally. Catheter was found to flush and aspirate normally. Follow-up chest radiograph demonstrates tip at the cavoatrial junction. Catheter secured in place and a sterile dressing was applied. No immediate complications were identified. Impression: Successful ultrasound-guided placement of right internal dual-lumen temporary dialysis catheter
[2020-07-12] MEDS: ASPIRIN ENTERIC COATED 81 MG TABLET.DR. PO SCH (08:49)
[2020-07-12] MEDS: OMEGA-3 FATTY ACIDS/FISH OIL 1,000 MG CAPSULE. PO SCH (08:49)
[2020-07-12] MEDS: LACTOBACILLUS RHAMNOSUS GG 1 CAPSULE. PO SCH ×2 (08:49→21:25)
[2020-07-12] MEDS: LINAGLIPTIN 5 MG TABLET PO SCH (08:49)
[2020-07-12] MEDS: FERROUS SULFATE 325 MG TABLET. PO SCH (08:49)
[2020-07-12] MEDS: HYDROcodone/APAP 10/325 1 TAB TABLET PO PRN (08:50)
[2020-07-12] MEDS: PANTOPRAZOLE IV PUSH 40 MG VIAL. IVP SCH (08:50)
[2020-07-12 08:53] LABS: ALBUMIN 2.9 g/dL (3.4-5.0); CALCIUM 8.9 mg/dL (8.5-10.1); CREATININE 4.6 mg/dL (0.7-1.3); GFR 12.9; PHOSPHORUS 5.2 mg/dL (2.6-4.7); POTASSIUM 4.5 mmol/L (3.5-5.1); URIC ACID 10.2 mg/dL (3.5-7.2)
[2020-07-12] MEDS: MUPIROCIN 2 % NASAL OINTMENT 22GM TUBE. TP SCH ×2 (09:00→21:00)
[2020-07-12] MEDS: METOPROLOL TART IMMED RELEASE 25 MG TABLET. PO SCH ×2 (09:00→21:00)
[2020-07-12] MEDS ORDERED: BISACODYL 10 MG SUPP.RECT. PR ONE (09:15)
--- NOTE | 2020-07-12 10:13 | PDOC ---
DATE OF SERVICE DATE: 07/12/20 TIME: 10:06 SUBJECTIVE ROS Dialyzed last evening , no complaints during treatment States he is feeling somewhat better this am, but no appetite Currently stable OBJECTIVE Vital Signs Vital Signs Date Time Temp Pulse Resp B/P (MAP) Pulse Ox O2 Delivery O2 Flow Rate FiO2 07/12/20 08:50 95 Nasal Cannula 2.0 07/12/20 07:00 97.9 76 18 107/61 (76) 97.9 I & 0 Intake and Output 07/12/20 07:00 Intake Total 1160 ml Output Total 500 ml Balance 660 ml Intake Oral 1160 ml Output Urine Total 500 ml PHYSICAL EXAM Physical Exam General: No acute distress, supermorbidly obese , more alert HEENT: , Mucous membr. dry, anicteric Neck Thick, supple Lungs: diminished bases, non labored Heart: Afib Abdomen: Soft, morbidly obese, NT Extremities: No cyanosis,trace bilateral LE edema Skin:LE venous dermatitis Neuro: Normal speech, Sensation intact, No asterxis Psych/Mental Status: Normal Affect Prasad placed 07/12 , No CVA or SP tenderness DIAGNOSIS/ASSESSMENT Assessment & Plan ELIZABETH - severe , ATN 2/2 Dehydration, UTI , MEDS- NSAIDS, ARB, Aldactone vs progression of CKD , non Oliguric Started HD 07/11, BUN decreased appropriately , Dialysis again today , pulm status stable, will hold off UF, discussed treatment plan with Alie GARCIA Cw UTI, Ct scan abdomen- No e/o Hydronephrosis , Monitor for renal recovery , strict I/O , avoid nephrotoxins Access- Temp HDC on 07/11, if continues to have access issues will need to be exchanged Hypotension - monitor HyperKalemia POA - resolved UTI- , NG on Cx , follow up per Primary CKD 3B baseline eGFR 30 -32 in 2019 , seen by Dr Jamil - patient did not keep follow up appt Gout- pt reports takes Naproxen, Uric acid 10.2, ? 2/2 ELIZABETH , monitor NSAID use - chronic use DM 2- per primary Supermorbidly obese - such that requires assistance with urination/feeding, does not ambulate Chest pain POA - cardiology consulted AFIB: likely chronic, rate controlled CAD: remote hx of PTCA but denies this HTN: at marginal level Noncompliance COMMENT/RELEVANT DATA Meds Current Medications Medications (Trade) Dose Ordered Sig/Cheyanne Start Time Stop Time Status Last Admin Dose Admin Acetaminophen (Tylenol) 650 mg PRN Q4HRS PRN 07/10/20 16:15 07/11/20 16:14 DC Acetaminophen/ Hydrocodone Bitart (Lortab 10/325) 1 tab PRN Q6HRS PRN 07/10/20 22:15 07/12/20 08:50 1 TAB Albumin Human 200 ml @ 200 mls/hr 1X PRN PRN 07/11/20 18:00 07/11/20 23:59 DC Amlodipine Besylate (Norvasc) 10 mg DAILY 07/11/20 09:00 07/12/20 08:11 DC Aspirin (Ecotrin) 81 mg DAILYWBKFT 07/12/20 09:00 07/12/20 08:49 81 MG Atenolol (Tenormin) 100 mg DAILY 07/11/20 09:00 07/12/20 08:12 DC Bisacodyl (Dulcolax Supp) 10 mg 1X ONCE 07/12/20 09:15 07/12/20 09:16 DC Bumetanide (Bumex) 1 mg DAILY 07/11/20 09:00 07/12/20 08:12 DC Ceftriaxone Sodium (Rocephin) 1 gm Q24H 07/10/20 20:00 07/11/20 23:37 1 GM Dextrose (Dextrose 50%-Water Syringe) 12.5 gm PRN Q15MIN PRN 07/10/20 20:45 Enoxaparin Sodium (Lovenox 40mg Syringe) 40 mg Q24H 07/10/20 20:45 07/10/20 20:40 DC Ferrous Sulfate (Feosol) 325 mg DAILY 07/11/20 09:00 07/12/20 08:49 325 MG Fish Oil (Fish Oil) 1,000 mg DAILY 07/11/20 09:00 07/12/20 08:49 1,000 MG Gabapentin (Neurontin) 600 mg HS 07/10/20 22:30 07/11/20 23:35 600 MG Heparin Sodium (Porcine) (Heparin Sodium) 5,000 unit Q8HRS 07/10/20 22:00 07/12/20 06:13 5,000 UNIT Info (PHARMACY MONITORING -- do not chart) 1 each PRN DAILY PRN 07/11/20 20:00 Insulin Glargine (Lantus Syringe) 80 unit QHS 07/10/20 22:45 07/11/20 23:52 80 UNIT Insulin Human Lispro (HumaLOG) 35 units DAILYBFRSUP 07/11/20 17:00 Lactobacillus Rhamnosus (Culturelle) 1 cap BID 07/11/20 21:00 07/12/20 08:49 1 CAP Lidocaine HCl (Buffered Lidocaine 1%) 3 ml 1X ONCE 07/11/20 14:30 07/11/20 14:31 DC 07/11/20 14:49 6 ML Lidocaine HCl (Glydo (Lidocaine) Jelly) 1 adilson PRN Q4HRS PRN 07/12/20 09:15 Linagliptin (Tradjenta) 5 mg DAILY 07/11/20 09:00 07/12/20 08:49 5 MG Losartan Potassium (Cozaar) 50 mg DAILY 07/11/20 09:00 07/12/20 08:11 DC Methocarbamol (Robaxin) 500 mg QID 07/10/20 21:30 07/12/20 08:12 DC 07/11/20 23:36 500 MG Metolazone (Zaroxolyn) 2.5 mg QMWF 07/12/20 16:00 07/12/20 08:11 DC Metoprolol Tartrate (Lopressor) 12.5 mg BID 07/12/20 09:00 Mupirocin (Bactroban) 1 adilson BID 07/11/20 09:00 Naproxen (Naprosyn) 500 mg HS 07/10/20 22:30 07/12/20 08:12 DC 07/11/20 23:35 500 MG Non-Formulary Medication (Insulin Detemir (Levemir)) 80 unit HS 07/11/20 21:00 UNV Non-Formulary Medication (Liraglutide (Victoza 3-Fredy)) 1.8 mg DAILY 07/11/20 09:00 07/12/20 08:12 DC Nystatin (Nystop) 1 adilson BID 07/11/20 09:00 07/12/20 00:02 1 ADILSON Pantoprazole Sodium (PROTONIX VIAL for IV PUSH) 40 mg DAILYAC 07/11/20 16:30 07/12/20 08:50 40 MG Simvastatin (Zocor) 20 mg HS 07/10/20 22:30 07/11/20 23:34 20 MG Sodium Chloride 500 ml @ 250 mls/hr 1X ONCE 07/11/20 22:15 07/12/20 00:14 DC 07/11/20 22:10 250 MLS/HR Spironolactone (Aldactone) 25 mg DAILY 07/11/20 09:00 UNV Zolpidem Tartrate (Ambien) 5 mg PRN QHS PRN 07/10/20 22:45 07/10/20 23:38 5 MG Lab Laboratory Tests Test 07/11/20 12:11 07/11/20 12:28 07/11/20 13:00 07/11/20 17:11 SARS-CoV-2 Antigen (Rapid) Negative (NEGATIVE) Glucose (Fingerstick) 150 mg/dL (70-99) 117 mg/dL (70-99) Sodium Level 136 mmol/L (136-145) Potassium Level 5.0 mmol/L (3.5-5.1) Chloride Level 102 mmol/L (98-107) Carbon Dioxide Level 22 mmol/L (21-32) Anion Gap 12 (6-14) Blood Urea Nitrogen 171 mg/dL (8-26) Creatinine 5.5 mg/dL (0.7-1.3) Estimated GFR (Cockcroft-Gault) 10.5 Glucose Level 172 mg/dL (70-99) Calcium Level 8.4 mg/dL (8.5-10.1) Triglycerides Level 154 mg/dL (0-150) Cholesterol Level 76 mg/dL (0-200) LDL Cholesterol, Calculated 27 mg/dL (0-100) VLDL Cholesterol, Calculated 31 mg/dL (0-40) Non-HDL Cholesterol Calculated 58 mg/dL (0-129) HDL Cholesterol 18 mg/dL (40-60) Cholesterol/HDL Ratio 4.2 Thyroid Stimulating Hormone (TSH) 0.794 uIU/mL (0.358-3.74) Hepatitis B Surface Antigen Nonreactive (Nonreactive) Hepatitis B Surface Antibody Reactive Hepatitis B Core Total Antibody Nonreactive (Nonreactive) Test 07/11/20 21:37 07/12/20 00:10 07/12/20 07:37 07/12/20 07:39 Glucose (Fingerstick) 156 mg/dL (70-99) 118 mg/dL (70-99) Sodium Level 138 mmol/L (136-145) 140 mmol/L (136-145) Potassium Level 4.2 mmol/L (3.5-5.1) 4.5 mmol/L (3.5-5.1) Chloride Level 100 mmol/L (98-107) 102 mmol/L (98-107) Carbon Dioxide Level 25 mmol/L (21-32) 25 mmol/L (21-32) Anion Gap 13 (6-14) 13 (6-14) Blood Urea Nitrogen 132 mg/dL (8-26) 128 mg/dL (8-26) Creatinine 4.8 mg/dL (0.7-1.3) 4.6 mg/dL (0.7-1.3) Estimated GFR (Cockcroft-Gault) 12.3 12.9 Glucose Level 137 mg/dL (70-99) 109 mg/dL (70-99) Calcium Level 8.8 mg/dL (8.5-10.1) 8.9 mg/dL (8.5-10.1) Phosphorus Level 4.9 mg/dL (2.6-4.7) 5.2 mg/dL (2.6-4.7) Magnesium Level 1.9 mg/dL (1.8-2.4) CR-[id number]-[id number]-Type Natriuretic Peptide 2288 pg/mL (0-124) Uric Acid 10.2 mg/dL (3.5-7.2) Creatine Kinase 127 U/L (39-308) Albumin 2.9 g/dL (3.4-5.0) Results All relevant outside records, renal labs, imaging studies, telemetry/EKG's were reviewed. Justicifation of Admission Dx: Justifications for Admission: Justification of Admission Dx: Yes Acute Renal Failure: RF Can't Be Managed Outpt CANDY MERCADO MD Jul 12, 2020 10:13
--- NOTE | 2020-07-12 10:14 | PDOC ---
PROGRESS NOTES Date of Service: DATE: 07/12/20 TIME: 10:09 Chief Complaint Chief Complaint ASSESSMENT AND PLAN: ACUTE RENAL INJURY urinary tract infection. abdominal discomfort, lower bilateral morbid obesity hypoxic resp failure Chest pain: doubt ACS, potentially from GI // significant NSAID use. AFIB: likely chronic, rate controlled CHRONIC LOW BACK PAIN Trace tricuspid regurgitation with an estimated PAP of 45 mmHg C/W MOD PULM HTN PROB SLEEP APNEA plan IV antibiotics, IV fluids. Trend creatinine. Consult Nephrology. Home meds, DVT prophylaxis. Full code. GI CONSULT CARDIOLOGY CONSULT ABG Temporary dialysis catheter in vascular lab 07-11 No acute findings in the abdomen and pelvis on noncontrast CT. 07-10 PROGNOSIS: guarded. He did not keep follow up nephrology appts. follows with his PCP Q year and prior to most recent labs no other Interval labs done 07-12 burning in groin related to catheter - really uncomfortable, 39 MIN pt exam, chart review, > 50% of time spent with exam, chart review, pt care coordination History of Present Illness History of Present Illness HISTORY OF PRESENT ILLNESS: 64-year-old male who has stage 4 kidney disease, presents with a creatinine of 6.5. His BUN is 185. Potassium is high at 5.7. may need dialysis. His primary care doctor, Dr. Juwan Doyle, sent him to the ER. I have discussed the case with the ER physician. We are going to admit the patient and consult Nephrology. PAST MEDICAL HISTORY: Obesity, diabetes, hypertension, hemorrhoids, neuropathy, back pain, right ankle surgery, chronic renal insufficiency. ALLERGIES: METFORMIN. FAMILY HISTORY: Diabetes. SOCIAL HISTORY: He does not drink, smoke or take drugs. MEDICATIONS: Reviewed, please refer to the MRAD. Vitals Vitals Vital Signs Date Time Temp Pulse Resp B/P (MAP) Pulse Ox O2 Delivery O2 Flow Rate FiO2 07/12/20 08:50 95 Nasal Cannula 2.0 07/12/20 07:00 97.9 76 18 107/61 (76) 97.9 Physical Exam Physical Exam GENERAL: He is morbidly obese , pleasantly cooperative. HEENT: Normal cephalic atraumatic, external auditory canals are patent EYES: Extraocular muscles are intact, pupils are equally round and reactive to light and accommodation MUSCULOSKELETAL: Well developed, well nourished, good range of motion ENDOCRINE: No thyromegaly was palpated LYMPHATICS: No cervical chain or axillary nodes were noted HEMATOPOIETIC: No bruising NECK: Supple, no JVD, no thyromegaly was noted. LUNGS: Clear to auscultation in all lung vaughn without rhonchi or wheezing. HEART: RRR, S1, S2 present. Peripheral pulses intact, no obvious murmurs were noted. ABDOMEN: Soft, mild tenderness Positive bowel sounds no organomegaly, normal bowel sounds. very obese EXTREMITIES: Without any cyanosis, clubbing, or edema. Pedal pulses intact, Homans sign is negative. NEUROLOGIC: Normal speech, normal tone. A & O x3, moves all extremities, no obvious focal deficits. PSYCHIATRIC: Normal affect, normal mood. Stable. SKIN: No ulcerations or rashes, good skin turgor, no jaundice. VASCULAR: Good capillary refill, neurovascular bundle appears to be intact. General: Alert, Oriented X3, Cooperative, mild distress Heart: No murmurs, Other (AFIB) Abdomen: Other (mild tenderness ) Extremities: No clubbing, No cyanosis Skin: No significant lesion, Other (LE venous dermatitis) Labs LABS Exam: Chest one view INDICATION: Temporary dialysis catheter in vascular lab TECHNIQUE: Frontal view of the chest Comparisons: None FINDINGS: Right central venous catheter with tip at the atrial caval junction. The cardiomediastinal silhouette and pulmonary vessels are within normal limits. The lung and pleural spaces are clear. IMPRESSION: Lines and tubes described above. Electronically signed by: Arjun Resendiz MD (07/11/2020 3:24 PM) [facility] DICTATED and SIGNED BY: ARJUN RESENDIZ MD DATE: 07/11/20 [id number] 0 Tricuspid Valve TR P. Velocity 325cm/s RAP ESTIMATE 3mmHg TR Peak Gr. 42mmHg RVSP 45mmHg Pulmonary Vein S1 Velocity 24.1cm/s S2 Velocity 52.51cm/s D2 Velocity 52.5cm/s LEFT VENTRICLE Technically difficult study. The left ventricle is normal size. There is mild concentric left ventricular hypertrophy. The left ventricular systolic function is normal. The Ejection Fraction is 50-55%. There is normal LV segmental wall motion. Diastology indeterminate. RIGHT VENTRICLE The right ventricle is mildly dilated. There is normal right ventricular wall thickness. The right ventricular systolic function is normal. ATRIA The left atrium is mildly dilated. The right atrium is mildly dilated. Interatrial septum not well visualized. AORTIC VALVE The aortic valve is normal in structure and function. Doppler and Color Flow revealed no significant aortic regurgitation. There is no significant aortic valvular stenosis. MITRAL VALVE The mitral valve is normal in structure and function. There is no evidence of mitral valve prolapse. There is no mitral valve stenosis. Doppler and Color-flow revealed trace mitral regurgitation. TRICUSPID VALVE The tricuspid valve is not well visualized. Doppler and Color Flow revealed trace tricuspid regurgitation with an estimated PAP of 45 mmHg. There is no tricuspid valve stenosis. PULMONIC VALVE The pulmonic valve is not well visualized. Doppler and Color Flow revealed trace pulmonic valvular regurgitation. GREAT VESSELS The aortic root is mildly enlarged. The IVC was not visualized. PERICARDIAL EFFUSION There is no evidence of significant pericardial effusion. Critical Notification Critical Value: No <Conclusion> Technically difficult study. The left ventricle is normal size. The left ventricular systolic function is normal. The Ejection Fraction is 50-55%. There is mild concentric left ventricular hypertrophy. There is no significant aortic valvular stenosis. Doppler and Color Flow revealed no significant aortic regurgitation. Doppler and Color-flow revealed trace mitral regurgitation. Doppler and Color Flow revealed trace tricuspid regurgitation with an estimated PAP of 45 mmHg. Signed by : Russ Rubio MD Electronically Approved : 02/25/2019 17:12:32 Laboratory Tests Test 07/11/20 12:11 07/11/20 12:28 07/11/20 13:00 07/11/20 17:11 SARS-CoV-2 Antigen (Rapid) Negative (NEGATIVE) Glucose (Fingerstick) 150 mg/dL (70-99) 117 mg/dL (70-99) Sodium Level 136 mmol/L (136-145) Potassium Level 5.0 mmol/L (3.5-5.1) Chloride Level 102 mmol/L (98-107) Carbon Dioxide Level 22 mmol/L (21-32) Anion Gap 12 (6-14) Blood Urea Nitrogen 171 mg/dL (8-26) Creatinine 5.5 mg/dL (0.7-1.3) Estimated GFR (Cockcroft-Gault) 10.5 Glucose Level 172 mg/dL (70-99) Calcium Level 8.4 mg/dL (8.5-10.1) Triglycerides Level 154 mg/dL (0-150) Cholesterol Level 76 mg/dL (0-200) LDL Cholesterol, Calculated 27 mg/dL (0-100) VLDL Cholesterol, Calculated 31 mg/dL (0-40) Non-HDL Cholesterol Calculated 58 mg/dL (0-129) HDL Cholesterol 18 mg/dL (40-60) Cholesterol/HDL Ratio 4.2 Thyroid Stimulating Hormone (TSH) 0.794 uIU/mL (0.358-3.74) Hepatitis B Surface Antigen Nonreactive (Nonreactive) Hepatitis B Surface Antibody Reactive Hepatitis B Core Total Antibody Nonreactive (Nonreactive) Test 07/11/20 21:37 07/12/20 00:10 07/12/20 07:37 07/12/20 07:39 Glucose (Fingerstick) 156 mg/dL (70-99) 118 mg/dL (70-99) Sodium Level 138 mmol/L (136-145) 140 mmol/L (136-145) Potassium Level 4.2 mmol/L (3.5-5.1) 4.5 mmol/L (3.5-5.1) Chloride Level 100 mmol/L (98-107) 102 mmol/L (98-107) Carbon Dioxide Level 25 mmol/L (21-32) 25 mmol/L (21-32) Anion Gap 13 (6-14) 13 (6-14) Blood Urea Nitrogen 132 mg/dL (8-26) 128 mg/dL (8-26) Creatinine 4.8 mg/dL (0.7-1.3) 4.6 mg/dL (0.7-1.3) Estimated GFR (Cockcroft-Gault) 12.3 12.9 Glucose Level 137 mg/dL (70-99) 109 mg/dL (70-99) Calcium Level 8.8 mg/dL (8.5-10.1) 8.9 mg/dL (8.5-10.1) Phosphorus Level 4.9 mg/dL (2.6-4.7) 5.2 mg/dL (2.6-4.7) Magnesium Level 1.9 mg/dL (1.8-2.4) GD-Mcd-T-Type Natriuretic Peptide 2288 pg/mL (0-124) Uric Acid 10.2 mg/dL (3.5-7.2) Creatine Kinase 127 U/L (39-308) Albumin 2.9 g/dL (3.4-5.0) Assessment and Plan Assessmemt and Plan Problems Medical Problems: (1) Acute on chronic kidney failure Status: Acute (2) Hyperkalemia Status: Acute (3) Morbid obesity Status: Acute Comment Review of Relevant I have reviewed the following items tiffany (where applicable) has been applied. Labs Laboratory Tests Test 07/10/20 13:55 07/10/20 14:37 07/10/20 16:15 07/11/20 07:39 White Blood Count 12.4 x10^3/uL (4.0-11.0) Red Blood Count 4.01 x10^6/uL (4.30-5.70) Hemoglobin 11.0 g/dL (13.0-17.5) Hematocrit 34.7 % (39.0-53.0) Mean Corpuscular Volume 87 fL (79-100) Mean Corpuscular Hemoglobin 27 pg (25-35) Mean Corpuscular Hemoglobin Concent 32 g/dL (31-37) Red Cell Distribution Width 14.4 % (11.5-14.5) Platelet Count 188 x10^3/uL (140-400) Neutrophils (%) (Auto) 71 % (31-73) Lymphocytes (%) (Auto) 16 % (24-48) Monocytes (%) (Auto) 8 % (0-9) Eosinophils (%) (Auto) 4 % (0-3) Basophils (%) (Auto) 1 % (0-3) Neutrophils # (Auto) 8.8 x10^3/uL (1.8-7.7) Lymphocytes # (Auto) 1.9 x10^3/uL (1.0-4.8) Monocytes # (Auto) 1.0 x10^3/uL (0.0-1.1) Eosinophils # (Auto) 0.5 x10^3/uL (0.0-0.7) Basophils # (Auto) 0.1 x10^3/uL (0.0-0.2) Sodium Level 141 mmol/L (136-145) Potassium Level 5.7 mmol/L (3.5-5.1) Chloride Level 103 mmol/L (98-107) Carbon Dioxide Level 22 mmol/L (21-32) Anion Gap 16 (6-14) Blood Urea Nitrogen 185 mg/dL (8-26) Creatinine 6.5 mg/dL (0.7-1.3) Estimated GFR (Cockcroft-Gault) 8.6 BUN/Creatinine Ratio 28 (6-20) Glucose Level 131 mg/dL (70-99) Calcium Level 9.0 mg/dL (8.5-10.1) Phosphorus Level 7.5 mg/dL (2.6-4.7) Magnesium Level 2.2 mg/dL (1.8-2.4) Total Bilirubin 0.5 mg/dL (0.2-1.0) Aspartate Amino Transf (AST/SGOT) 14 U/L (15-37) Alanine Aminotransferase (ALT/SGPT) 14 U/L (16-63) Alkaline Phosphatase 66 U/L (46-116) Troponin I Quantitative < 0.017 ng/mL (0.000-0.055) Total Protein 7.6 g/dL (6.4-8.2) Albumin 3.0 g/dL (3.4-5.0) Albumin/Globulin Ratio 0.7 (1.0-1.7) Urine Collection Type Void Urine Color Yellow Urine Clarity Cloudy Urine pH 5.0 (<5.0-8.0) Urine Specific [place] 1.015 (1.000-1.030) Urine Protein Negative mg/dL (NEG-TRACE) Urine Glucose (UA) Negative mg/dL (NEG) Urine Ketones (Stick) Negative mg/dL (NEG) Urine Blood Trace (NEG) Urine Nitrite Negative (NEG) Urine Bilirubin Negative (NEG) Urine Urobilinogen Dipstick 0.2 mg/dL (0.2 mg/dL) Urine Leukocyte Esterase Large (NEG) Urine RBC 0 /HPF (0-2) Urine WBC >40 /HPF (0-4) Urine Squamous Epithelial Cells Mod /LPF Urine Bacteria 0 /HPF (0-FEW) Glucose (Fingerstick) 125 mg/dL (70-99) Test 07/11/20 12:11 07/11/20 12:28 07/11/20 13:00 07/11/20 17:11 SARS-CoV-2 Antigen (Rapid) Negative (NEGATIVE) Glucose (Fingerstick) 150 mg/dL (70-99) 117 mg/dL (70-99) Sodium Level 136 mmol/L (136-145) Potassium Level 5.0 mmol/L (3.5-5.1) Chloride Level 102 mmol/L (98-107) Carbon Dioxide Level 22 mmol/L (21-32) Anion Gap 12 (6-14) Blood Urea Nitrogen 171 mg/dL (8-26) Creatinine 5.5 mg/dL (0.7-1.3) Estimated GFR (Cockcroft-Gault) 10.5 Glucose Level 172 mg/dL (70-99) Calcium Level 8.4 mg/dL (8.5-10.1) Triglycerides Level 154 mg/dL (0-150) Cholesterol Level 76 mg/dL (0-200) LDL Cholesterol, Calculated 27 mg/dL (0-100) VLDL Cholesterol, Calculated 31 mg/dL (0-40) Non-HDL Cholesterol Calculated 58 mg/dL (0-129) HDL Cholesterol 18 mg/dL (40-60) Cholesterol/HDL Ratio 4.2 Thyroid Stimulating Hormone (TSH) 0.794 uIU/mL (0.358-3.74) Hepatitis B Surface Antigen Nonreactive (Nonreactive) Hepatitis B Surface Antibody Reactive Hepatitis B Core Total Antibody Nonreactive (Nonreactive) Test 07/11/20 21:37 07/12/20 00:10 07/12/20 07:37 07/12/20 07:39 Glucose (Fingerstick) 156 mg/dL (70-99) 118 mg/dL (70-99) Sodium Level 138 mmol/L (136-145) 140 mmol/L (136-145) Potassium Level 4.2 mmol/L (3.5-5.1) 4.5 mmol/L (3.5-5.1) Chloride Level 100 mmol/L (98-107) 102 mmol/L (98-107) Carbon Dioxide Level 25 mmol/L (21-32) 25 mmol/L (21-32) Anion Gap 13 (6-14) 13 (6-14) Blood Urea Nitrogen 132 mg/dL (8-26) 128 mg/dL (8-26) Creatinine 4.8 mg/dL (0.7-1.3) 4.6 mg/dL (0.7-1.3) Estimated GFR (Cockcroft-Gault) 12.3 12.9 Glucose Level 137 mg/dL (70-99) 109 mg/dL (70-99) Calcium Level 8.8 mg/dL (8.5-10.1) 8.9 mg/dL (8.5-10.1) Phosphorus Level 4.9 mg/dL (2.6-4.7) 5.2 mg/dL (2.6-4.7) Magnesium Level 1.9 mg/dL (1.8-2.4) HM-Hng-C-Type Natriuretic Peptide 2288 pg/mL (0-124) Uric Acid 10.2 mg/dL (3.5-7.2) Creatine Kinase 127 U/L (39-308) Albumin 2.9 g/dL (3.4-5.0) Laboratory Tests Test 07/11/20 12:11 07/11/20 12:28 07/11/20 13:00 07/11/20 17:11 SARS-CoV-2 Antigen (Rapid) Negative (NEGATIVE) Glucose (Fingerstick) 150 mg/dL (70-99) 117 mg/dL (70-99) Sodium Level 136 mmol/L (136-145) Potassium Level 5.0 mmol/L (3.5-5.1) Chloride Level 102 mmol/L (98-107) Carbon Dioxide Level 22 mmol/L (21-32) Anion Gap 12 (6-14) Blood Urea Nitrogen 171 mg/dL (8-26) Creatinine 5.5 mg/dL (0.7-1.3) Estimated GFR (Cockcroft-Gault) 10.5 Glucose Level 172 mg/dL (70-99) Calcium Level 8.4 mg/dL (8.5-10.1) Triglycerides Level 154 mg/dL (0-150) Cholesterol Level 76 mg/dL (0-200) LDL Cholesterol, Calculated 27 mg/dL (0-100) VLDL Cholesterol, Calculated 31 mg/dL (0-40) Non-HDL Cholesterol Calculated 58 mg/dL (0-129) HDL Cholesterol 18 mg/dL (40-60) Cholesterol/HDL Ratio 4.2 Thyroid Stimulating Hormone (TSH) 0.794 uIU/mL (0.358-3.74) Hepatitis B Surface Antigen Nonreactive (Nonreactive) Hepatitis B Surface Antibody Reactive Hepatitis B Core Total Antibody Nonreactive (Nonreactive) Test 07/11/20 21:37 07/12/20 00:10 07/12/20 07:37 07/12/20 07:39 Glucose (Fingerstick) 156 mg/dL (70-99) 118 mg/dL (70-99) Sodium Level 138 mmol/L (136-145) 140 mmol/L (136-145) Potassium Level 4.2 mmol/L (3.5-5.1) 4.5 mmol/L (3.5-5.1) Chloride Level 100 mmol/L (98-107) 102 mmol/L (98-107) Carbon Dioxide Level 25 mmol/L (21-32) 25 mmol/L (21-32) Anion Gap 13 (6-14) 13 (6-14) Blood Urea Nitrogen 132 mg/dL (8-26) 128 mg/dL (8-26) Creatinine 4.8 mg/dL (0.7-1.3) 4.6 mg/dL (0.7-1.3) Estimated GFR (Cockcroft-Gault) 12.3 12.9 Glucose Level 137 mg/dL (70-99) 109 mg/dL (70-99) Calcium Level 8.8 mg/dL (8.5-10.1) 8.9 mg/dL (8.5-10.1) Phosphorus Level 4.9 mg/dL (2.6-4.7) 5.2 mg/dL (2.6-4.7) Magnesium Level 1.9 mg/dL (1.8-2.4) HH-Kbi-M-Type Natriuretic Peptide 2288 pg/mL (0-124) Uric Acid 10.2 mg/dL (3.5-7.2) Creatine Kinase 127 U/L (39-308) Albumin 2.9 g/dL (3.4-5.0) Microbiology 07/10/20 Urine Culture - Final, Complete Medications Current Medications Sodium Chloride 1,000 ml @ 125 mls/hr 1X ONCE IV Last administered on 07/10/20at 16:03; Start 07/10/20 at 16:00; Stop 07/10/20 at 23:59; Status DC Acetaminophen (Tylenol) 650 mg PRN Q4HRS PRN PO FEVER > 100.3'F; Start 07/10/20 at 16:15; Stop 07/11/20 at 16:14; Status DC Ceftriaxone Sodium (Rocephin) 1 gm Q24H IVP Last administered on 07/11/20at 23:37; Start 07/10/20 at 20:00 Enoxaparin Sodium (Lovenox 40mg Syringe) 40 mg Q24H SQ ; Start 07/10/20 at 20:45; Stop 07/10/20 at 20:40; Status DC Insulin Human Lispro (HumaLOG) 0-5 UNITS TIDWMEALS SQ ; Start 07/11/20 at 08:00 Dextrose (Dextrose 50%-Water Syringe) 12.5 gm PRN Q15MIN PRN IV SEE COMMENTS; Start 07/10/20 at 20:45 Heparin Sodium (Porcine) (Heparin Sodium) 5,000 unit Q8HRS SQ Last administered on 07/12/20at 06:13; Start 07/10/20 at 22:00 Amlodipine Besylate (Norvasc) 10 mg DAILY PO ; Start 07/11/20 at 09:00; Status UNV Amlodipine Besylate (Norvasc) 10 mg DAILY PO ; Start 07/11/20 at 09:00; Stop 07/12/20 at 08:11; Status DC Ferrous Sulfate (Feosol) 325 mg DAILY PO Last administered on 07/12/20at 08:49; Start 07/11/20 at 09:00 Acetaminophen/ Hydrocodone Bitart (Lortab 10/325) 1 tab PRN Q6HRS PRN PO PAIN Last administered on 07/12/20at 08:50; Start 07/10/20 at 22:15 Losartan Potassium (Cozaar) 50 mg DAILY PO ; Start 07/11/20 at 09:00; Stop 07/12/20 at 08:11; Status DC Methocarbamol (Robaxin) 500 mg QID PO Last administered on 07/11/20at 23:36; Start 07/10/20 at 21:30; Stop 07/12/20 at 08:12; Status DC Metolazone (Zaroxolyn) 2.5 mg QMWF PO ; Start 07/12/20 at 16:00; Stop 07/12/20 at 08:11; Status DC Mupirocin (Bactroban) 1 navarro BID TP ; Start 07/11/20 at 09:00 Naproxen (Naprosyn) 500 mg HS PO Last administered on 07/11/20at 23:35; Start 07/10/20 at 22:30; Stop 07/12/20 at 08:12; Status DC Nystatin (Nystop) 1 navarro BID TP Last administered on 07/12/20at 00:02; Start 07/11/20 at 09:00 Fish Oil (Fish Oil) 1,000 mg DAILY PO Last administered on 07/12/20at 08:49; Start 07/11/20 at 09:00 Simvastatin (Zocor) 20 mg HS PO Last administered on 07/11/20at 23:34; Start 07/10/20 at 22:30 Spironolactone (Aldactone) 25 mg DAILY PO ; Start 07/11/20 at 09:00; Stop 07/12/20 at 08:11; Status DC Spironolactone (Aldactone) 25 mg DAILY PO ; Start 07/11/20 at 09:00; Status UNV Atenolol (Tenormin) 100 mg DAILY PO ; Start 07/11/20 at 09:00; Stop 07/12/20 at 08:12; Status DC Bumetanide (Bumex) 1 mg DAILY PO ; Start 07/11/20 at 09:00; Stop 07/12/20 at 08:12; Status DC Gabapentin (Neurontin) 600 mg HS PO Last administered on 07/11/20at 23:35; Start 07/10/20 at 22:30 Insulin Human Lispro (HumaLOG) 35 units DAILYBFRSUP SQ ; Start 07/11/20 at 17:00 Non-Formulary Medication (Insulin Detemir (Levemir)) 80 unit HS SQ ; Start 07/11/20 at 21:00; Status UNV Non-Formulary Medication (Liraglutide (Victoza 3-Fredy)) 1.8 mg DAILY SQ ; Start 07/11/20 at 09:00; Stop 07/12/20 at 08:12; Status DC Linagliptin (Tradjenta) 5 mg DAILY PO Last administered on 07/12/20at 08:49; Start 07/11/20 at 09:00 Zolpidem Tartrate (Ambien) 5 mg PRN QHS PRN PO INSOMNIA MRX1 PRN Last administered on 07/10/20at 23:38; Start 07/10/20 at 22:45 Insulin Glargine (Lantus Syringe) 80 unit QHS SQ Last administered on 07/11/20at 23:52; Start 07/10/20 at 22:45 Pantoprazole Sodium (PROTONIX VIAL for IV PUSH) 40 mg DAILYAC IVP Last administ ered on 07/12/20at 08:50; Start 07/11/20 at 16:30 Lidocaine HCl (Buffered Lidocaine 1%) 3 ml STK-MED ONCE .ROUTE ; Start 07/11/20 at 14:24; Stop 07/11/20 at 14:25; Status DC Lidocaine HCl (Buffered Lidocaine 1%) 3 ml 1X ONCE INJ Last administered on 07/11/20at 14:49; Start 07/11/20 at 14:30; Stop 07/11/20 at 14:31; Status DC Lactobacillus Rhamnosus (Culturelle) 1 cap BID PO Last administered on 07/12/20at 08:49; Start 07/11/20 at 21:00 Sodium Chloride 1,000 ml @ 1,000 mls/hr Q1H PRN IV hypotension; Start 07/11/20 at 18:00; Stop 07/11/20 at 23:59; Status DC Albumin Human 200 ml @ 200 mls/hr 1X PRN PRN IV Hypotension; Start 07/11/20 at 18:00; Stop 07/11/20 at 23:59; Status DC Sodium Chloride 1,000 ml @ 400 mls/hr Q2H30M PRN IV PATENCY; Start 07/11/20 at 18:00; Stop 07/12/20 at 05:59; Status DC Info (PHARMACY MONITORING -- do not chart) 1 each PRN DAILY PRN MC SEE COMMENTS; Start 07/11/20 at 20:00; Status Cancel Info (PHARMACY MONITORING -- do not chart) 1 each PRN DAILY PRN MC SEE CO MMENTS; Start 07/11/20 at 20:00 Sodium Chloride 500 ml @ 250 mls/hr 1X ONCE IV Last administered on 07/11/20at 22:10; Start 07/11/20 at 22:15; Stop 07/12/20 at 00:14; Status DC Metoprolol Tartrate (Lopressor) 12.5 mg BID PO ; Start 07/12/20 at 09:00 Aspirin (Ecotrin) 81 mg DAILYWBKFT PO Last administered on 07/12/20at 08:49; Start 07/12/20 at 09:00 Lidocaine HCl (Glydo (Lidocaine) Jelly) 1 navarro PRN Q4HRS PRN MM PAIN; Start 07/12/20 at 09:15 Bisacodyl (Dulcolax Supp) 10 mg 1X ONCE MT ; Start 07/12/20 at 09:15; Stop 07/12/20 at 09:16; Status DC Active Scripts Active Reported Aspirin 325 Mg Tablet 1 Tab PO BID Metolazone 2.5 Mg Tablet 2.5 Mg PO QMWF Fish Oil 1,000 Mg Softgel ([place]-3 Fatty Acids/Fish Oil) 1 Each Capsule 1 Cap PO DAILY 30 Days Gabapentin 600 Mg Tablet 600 Mg PO HS Nystatin 15 Gm Powder 1 Navarro TP BID 7 Days apply to affected area(s) Hydrocodone-Apap 10-325 (Hydrocodone Bit/Acetaminophen) 1 Tab Tablet 1 Tab PO PRN Q6HRS PRN Zolpidem Tartrate Er (Zolpidem Tartrate) 12.5 Mg Tab.mphase 12.5 Mg PO PRN QHS PRN Robaxin-750 (Methocarbamol) 750 Mg Tablet 500 Mg PO QID Novolog (Insulin Aspart) 100 Unit/1 Ml Cartridge 35 Unit SQ DAILYBFRSUP Atenolol 100 Mg Tablet 100 Mg PO DAILY Levemir (Insulin Detemir) 100 Unit/1 Ml Vial 80 Unit SQ HS Victoza 3-Fredy (Liraglutide) 0.6 Mg/0.1 Ml Pen.injctr 1.8 Mg SQ DAILY Simvastatin 20 Mg Tablet 20 Mg PO HS Spironolactone 25 Mg Tablet 25 Mg PO DAILY Amlodipine Besylate 10 Mg Tablet 10 Mg PO DAILY Mupirocin Ointment (Mupirocin) 22 Gm Oint...g. 1 Navarro TP BID Iron (Ferrous Sulfate) 325 Mg Tablet 325 Mg PO DAILY Januvia (Sitagliptin Phosphate) 100 Mg Tablet 100 Mg PO DAILY Vitals/I & O Vital Sign - Last 24 Hours 07/11/20 07/11/20 07/11/20 07/11/20 11:00 13:42 16:04 21:15 Temp 97.9 97.7 97.9 97.7 Pulse 72 93 Resp 22 16 B/P (MAP) 92/57 (69) 79/57 (64) Pulse Ox 93 93 93 100 O2 Delivery Nasal Cannula Nasal Cannula Nasal Cannula O2 Flow Rate 2.0 2.0 2.0 07/11/20 07/11/20 07/12/20 07/12/20 21:30 23:00 03:00 07:00 Temp 98.0 97.7 97.9 98.0 97.7 97.9 Pulse 81 80 76 Resp 16 16 18 B/P (MAP) 99/52 (68) 108/48 (68) 107/61 (76) Pulse Ox 100 95 95 O2 Delivery Nasal Cannula Room Air O2 Flow Rate 2.0 07/12/20 08:50 Pulse Ox 95 O2 Delivery Nasal Cannula O2 Flow Rate 2.0 Intake and Output 07/11/20 07/11/20 07/12/20 15:00 23:00 07:00 Intake Total 700 ml 400 ml 60 ml Output Total 450 ml 50 ml Balance 250 ml 400 ml 10 ml Justicifation of Admission Dx: Justifications for Admission: Justification of Admission Dx: Yes Acute Renal Failure: RF Can't Be Managed Outpt LISE BOWIE MD Jul 12, 2020 10:14
[2020-07-12] MEDS: LIDOCAINE 2% JELLY 6ML IN APPLICATOR. MM PRN ×2 (10:19→15:25)
[2020-07-12 11:00] VITALS: BP 90/58
--- NOTE | 2020-07-12 11:15 | PDOC ---
Date of Service: DATE: 07/12/20 TIME: 11:10 Subjective: Subjective: Too much pain to eat - burning in groin related to catheter - really uncomfortable, feels like he needs to urinate. No chest pain. Stooled yesterday but hasn't today so feels constipated? Objective: Objective: D/w nurse - c/o penis pain - addressing that and plans to give suppository. Vital Signs: Vital Signs Date Time Temp Pulse Resp B/P (MAP) Pulse Ox O2 Delivery O2 Flow Rate FiO2 07/12/20 08:50 95 Nasal Cannula 2.0 07/12/20 07:00 97.9 76 18 107/61 (76) 97.9 Labs: Laboratory Tests Test 07/11/20 12:11 07/11/20 12:28 07/11/20 13:00 07/11/20 17:11 SARS-CoV-2 Antigen (Rapid) Negative Glucose (Fingerstick) 150 mg/dL 117 mg/dL Sodium Level 136 mmol/L Potassium Level 5.0 mmol/L Chloride Level 102 mmol/L Carbon Dioxide Level 22 mmol/L Anion Gap 12 Blood Urea Nitrogen 171 mg/dL Creatinine 5.5 mg/dL Estimated GFR (Cockcroft-Gault) 10.5 Glucose Level 172 mg/dL Calcium Level 8.4 mg/dL Triglycerides Level 154 mg/dL Cholesterol Level 76 mg/dL LDL Cholesterol, Calculated 27 mg/dL VLDL Cholesterol, Calculated 31 mg/dL Non-HDL Cholesterol Calculated 58 mg/dL HDL Cholesterol 18 mg/dL Cholesterol/HDL Ratio 4.2 Thyroid Stimulating Hormone (TSH) 0.794 uIU/mL Hepatitis B Surface Antigen Nonreactive Hepatitis B Surface Antibody Reactive Hepatitis B Core Total Antibody Nonreactive Test 07/11/20 21:37 07/12/20 00:10 07/12/20 07:37 07/12/20 07:39 Glucose (Fingerstick) 156 mg/dL 118 mg/dL Sodium Level 138 mmol/L 140 mmol/L Potassium Level 4.2 mmol/L 4.5 mmol/L Chloride Level 100 mmol/L 102 mmol/L Carbon Dioxide Level 25 mmol/L 25 mmol/L Anion Gap 13 13 Blood Urea Nitrogen 132 mg/dL 128 mg/dL Creatinine 4.8 mg/dL 4.6 mg/dL Estimated GFR (Cockcroft-Gault) 12.3 12.9 Glucose Level 137 mg/dL 109 mg/dL Calcium Level 8.8 mg/dL 8.9 mg/dL Phosphorus Level 4.9 mg/dL 5.2 mg/dL Magnesium Level 1.9 mg/dL UK-Dtp-V-Type Natriuretic Peptide 2288 pg/mL Uric Acid 10.2 mg/dL Creatine Kinase 127 U/L Albumin 2.9 g/dL URINE CULTURE Final Final No Growth on 07/12/20 at 0943 PE: GEN: NAD LUNGS: diminished HEART: distant ABD: obese, soft, non-tender NEURO/PSYCH: A & O 3 A/P: ELIZABETH/CKD - dialyzed yesterday ?atypical chest pain - no recurrence ?constipation Cholelithiasis Chronic pain, NSAID use BMI 87 -- Continue PPI, await suppository results - his biggest issue today is discomfort from Prasad. Justicifation of Admission Dx: Justifications for Admission: Justification of Admission Dx: Yes Acute Renal Failure: RF Can't Be Managed Outpt QING BRENNER Jul 12, 2020 11:15
[2020-07-12] MEDS: POLYETHYLENE GLYCOL 3350 17 GM PACKET. PO SCH (11:30)
--- NOTE | 2020-07-12 11:42 | PDOC ---
PEARL CARVALHO RELOCATION COMMISSIONER 07/12/20 1142: CARDIO Progress Notes Date and Time Date of Service 07/12/2020 Time of Evaluation 0930 Subjective Subjective: No Chest Pain, No shortness of breath, No Palpitations Vitals Vitals Vital Signs Date Time Temp Pulse Resp B/P (MAP) Pulse Ox O2 Delivery O2 Flow Rate FiO2 07/12/20 08:50 95 Nasal Cannula 2.0 07/12/20 07:00 97.9 76 18 107/61 (76) 97.9 Weight Weight [ ] Input and Output Intake and Output Intake and Output 07/12/20 07:00 Intake Total 1160 ml Output Total 500 ml Balance 660 ml Intake Oral 1160 ml Output Urine Total 500 ml Laboratory Labs Laboratory Tests Test 07/11/20 12:11 07/11/20 12:28 07/11/20 13:00 07/11/20 17:11 SARS-CoV-2 Antigen (Rapid) Negative (NEGATIVE) Glucose (Fingerstick) 150 mg/dL (70-99) 117 mg/dL (70-99) Sodium Level 136 mmol/L (136-145) Potassium Level 5.0 mmol/L (3.5-5.1) Chloride Level 102 mmol/L (98-107) Carbon Dioxide Level 22 mmol/L (21-32) Anion Gap 12 (6-14) Blood Urea Nitrogen 171 mg/dL (8-26) Creatinine 5.5 mg/dL (0.7-1.3) Estimated GFR (Cockcroft-Gault) 10.5 Glucose Level 172 mg/dL (70-99) Calcium Level 8.4 mg/dL (8.5-10.1) Triglycerides Level 154 mg/dL (0-150) Cholesterol Level 76 mg/dL (0-200) LDL Cholesterol, Calculated 27 mg/dL (0-100) VLDL Cholesterol, Calculated 31 mg/dL (0-40) Non-HDL Cholesterol Calculated 58 mg/dL (0-129) HDL Cholesterol 18 mg/dL (40-60) Cholesterol/HDL Ratio 4.2 Thyroid Stimulating Hormone (TSH) 0.794 uIU/mL (0.358-3.74) Hepatitis B Surface Antigen Nonreactive (Nonreactive) Hepatitis B Surface Antibody Reactive Hepatitis B Core Total Antibody Nonreactive (Nonreactive) Test 07/11/20 21:37 07/12/20 00:10 07/12/20 07:37 07/12/20 07:39 Glucose (Fingerstick) 156 mg/dL (70-99) 118 mg/dL (70-99) Sodium Level 138 mmol/L (136-145) 140 mmol/L (136-145) Potassium Level 4.2 mmol/L (3.5-5.1) 4.5 mmol/L (3.5-5.1) Chloride Level 100 mmol/L (98-107) 102 mmol/L (98-107) Carbon Dioxide Level 25 mmol/L (21-32) 25 mmol/L (21-32) Anion Gap 13 (6-14) 13 (6-14) Blood Urea Nitrogen 132 mg/dL (8-26) 128 mg/dL (8-26) Creatinine 4.8 mg/dL (0.7-1.3) 4.6 mg/dL (0.7-1.3) Estimated GFR (Cockcroft-Gault) 12.3 12.9 Glucose Level 137 mg/dL (70-99) 109 mg/dL (70-99) Calcium Level 8.8 mg/dL (8.5-10.1) 8.9 mg/dL (8.5-10.1) Phosphorus Level 4.9 mg/dL (2.6-4.7) 5.2 mg/dL (2.6-4.7) Magnesium Level 1.9 mg/dL (1.8-2.4) DP-Wut-G-Type Natriuretic Peptide 2288 pg/mL (0-124) Uric Acid 10.2 mg/dL (3.5-7.2) Creatine Kinase 127 U/L (39-308) Albumin 2.9 g/dL (3.4-5.0) Microbiology Micro Microbiology 07/10/20 Urine Culture - Final, Complete Physical Exam HEENT: Neck Supple W Full Motion Chest: Symmetric LUNGS: Other (diminished bases) Heart: irregularly irregular (AFIB rate controlled) Abdomen: Soft N/T, Other (obese) Extremities: No Calf Tenderness, Other (1+ bilateral Le pitting edema) Neurology: alert, oriented, follow commands Assessment Assessment 1. Severe ELIZABETH/uremia on CKD4: K is better 2. Chest pain: doubt ACS, potentially from GI given his significant NSAID use. none further 3. AFIB: likely chronic, rate controlled 4. CAD: remote hx of PTCA per chart but denies this 5. HTN: at marginal level 6. HLP: HDL low but otherwise on goal 7. Chronic low back pain/ debility/WC bound with chronic NSAID use 8. Noncompliance 9. Morbid obesity 10. DM2: per PCP Recommendations 1. DC nephrotoxic agents such as home naproxen, losartan, victoza. DC home bumex and metolazone and aldactone 2. DC atenolol and start on low dose metoprolol. He was taking coumadin but quit 2 months ago and has just been taking ASA. Will need OAC moving forward for stroke prevention and likely to be restarted back to coumadin as would not be able to use NOAC due to his renal dysfunction and high BMI. 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 3. Discussed treatment compliance 4. Fluid off loading per HD. Obtain TTE 5. Continue ASA.and zocor. May hold BP meds while BP is marginal but may use metoprolol for rate control. 6. Consider outpt ischemic workup. 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 Agree with PETROLEUM INSPECTOR SUPERVISOR's assessment and plan. Hemodialysis initiated for acute renal insufficiency by nephrology team. Persistent atrial fibrillation rate controlled. We will consider resuming Coumadin prior to discharge or possibly as outpatient. Chest pain with atypical features and most probably GI etiology. CAD status clinically stable. Check 2D echo to assess LV systolic function. Ischemic evaluation could be considered as an outpatient. PEARL CARVALHO APRN Jul 12, 2020 11:42 PAZ SOLIMAN MD Jul 12, 2020 16:28
[2020-07-12 12:07] LABS: BASE EXCESS COOX -3 mmol/L (-3-3); HCO3 COOX 22 mmol/L (21-28); METHEMOGLOBIN 0.1 % (0.0-1.9); OXYHEMOGLOBIN 92.8 %; PCO2 COOX 39 mmHg (35-46); PO2 COOX 69 mmHg (65-108); SAT O2 COOX 93 % (92-99)
--- NOTE | 2020-07-12 12:25 | NUR ---
SS following up with discharge planning. SS reviewed pt chart and discussed with pt RN. Pt is currently requiring oxygen. Pt started dialysis yesterday. COVID19 negative. Pt on IV Rocephin. Possible need for outpatient dialysis set up at discharge. SS phoned and faxed referral [facility], ; fax [phone]. SS will continue to follow for discharge planning.
[2020-07-12] MEDS ORDERED: IV NORMAL SALINE 1000ML BAG 1,000 ML IV PRN ×2 (14:00)
[2020-07-12] MEDS ORDERED: ALBUMIN HUMAN 25% 200 ML IV PRN (14:00)
[2020-07-12 15:00] VITALS: BP 103/46
[2020-07-12] MEDS ORDERED: DIALYSIS PATIENT. MC PRN ×2 (15:45)
[2020-07-12] MEDS ORDERED: metOLazone 2.5 MG TABLET PO SCH (16:00)
[2020-07-12 19:00] VITALS: BP 93/41
[2020-07-12] MEDS: cefTRIAXone IV Push 1 GM VIAL. IVP SCH (20:15)
[2020-07-12] MEDS: SIMVASTATIN 20 MG TABLET PO SCH (21:25)
[2020-07-12] MEDS: GABAPENTIN 300 MG CAPSULE. PO SCH (21:28)
[2020-07-12] MEDS: INSULIN GLARGINE SYRINGE. SQ SCH (21:29)
[2020-07-12 23:00] VITALS: BP 82/41
[2020-07-13 03:00] VITALS: BP 110/52
[2020-07-13] MEDS: HEPARIN for SUB-Q USE 5,000 UNIT/ML VIAL. SQ SCH ×3 (06:00→21:38)
[2020-07-13 07:00] VITALS: BP 144/86
[2020-07-13] MEDS ORDERED: PERFLUTREN PROTEIN-A MICROSPHR 0.22 MG/ML 3 ML VIAL. IV ONE (07:30)
[2020-07-13] MEDS: INSULIN LISPRO 300 UNITS/3 ML VIAL. SQ SCH ×4 (08:00→17:00)
--- NOTE | 2020-07-13 08:17 | PDOC ---
PROGRESS NOTES Date of Service: DATE: 07/13/20 TIME: 08:17 Chief Complaint Chief Complaint ASSESSMENT AND PLAN: ACUTE RENAL INJURY urinary tract infection. abdominal discomfort, lower bilateral morbid obesity hypoxic resp failure Chest pain: doubt ACS, potentially from GI // significant NSAID use. AFIB: likely chronic, rate controlled CHRONIC LOW BACK PAIN Trace tricuspid regurgitation with an estimated PAP of 45 mmHg C/W MOD PULM HTN PROB SLEEP APNEA plan IV antibiotics, IV fluids. Trend creatinine. Consult Nephrology. Home meds, DVT prophylaxis. Full code. GI CONSULT CARDIOLOGY CONSULT ABG Temporary dialysis catheter in vascular lab 07-11 No acute findings in the abdomen and pelvis on noncontrast CT. 07-10 PROGNOSIS: guarded. He did not keep follow up nephrology appts. follows with his PCP Q year and prior to most recent labs no other Interval labs done 07-12 burning in groin related to catheter - really uncomfortable, 07-13 continue dialysis as indicated CR 4.6 D/W RN 29 MIN pt exam, chart review, > 50% of time spent with exam, chart review, pt care coordination History of Present Illness History of Present Illness HISTORY OF PRESENT ILLNESS: 64-year-old male who has stage 4 kidney disease, presents with a creatinine of 6.5. His BUN is 185. Potassium is high at 5.7. may need dialysis. His primary care doctor, Dr. Juwan Doyle, sent him to the ER. I have discussed the case with the ER physician. We are going to admit the patient and consult Nephrology. PAST MEDICAL HISTORY: Obesity, diabetes, hypertension, hemorrhoids, neuropathy, back pain, right ankle surgery, chronic renal insufficiency. ALLERGIES: METFORMIN. FAMILY HISTORY: Diabetes. SOCIAL HISTORY: He does not drink, smoke or take drugs. MEDICATIONS: Reviewed, please refer to the MRAD. Vitals Vitals Vital Signs Date Time Temp Pulse Resp B/P (MAP) Pulse Ox O2 Delivery O2 Flow Rate FiO2 07/13/20 07:00 98.7 88 21 144/86 (105) 96 Room Air 98.7 07/12/20 20:00 2.0 Physical Exam Physical Exam GENERAL: He is morbidly obese , pleasantly cooperative. HEENT: Normal cephalic atraumatic, external auditory canals are patent EYES: Extraocular muscles are intact, pupils are equally round and reactive to light and accommodation MUSCULOSKELETAL: Well developed, well nourished, good range of motion ENDOCRINE: No thyromegaly was palpated LYMPHATICS: No cervical chain or axillary nodes were noted HEMATOPOIETIC: No bruising NECK: Supple, no JVD, no thyromegaly was noted. LUNGS: Clear to auscultation in all lung vaughn without rhonchi or wheezing. HEART: RRR, S1, S2 present. Peripheral pulses intact, no obvious murmurs were noted. ABDOMEN: Soft, mild tenderness Positive bowel sounds no organomegaly, normal bowel sounds. very obese EXTREMITIES: Without any cyanosis, clubbing, or edema. Pedal pulses intact, Homans sign is negative. NEUROLOGIC: Normal speech, normal tone. A & O x3, moves all extremities, no obvious focal deficits. PSYCHIATRIC: Normal affect, normal mood. Stable. SKIN: No ulcerations or rashes, good skin turgor, no jaundice. VASCULAR: Good capillary refill, neurovascular bundle appears to be intact. General: Alert, Oriented X3, Cooperative, mild distress Heart: No murmurs, Other (AFIB) Abdomen: Other (mild tenderness ) Extremities: No clubbing, No cyanosis Skin: No significant lesion, Other (LE venous dermatitis) Labs LABS Laboratory Tests Test 07/12/20 10:12 07/12/20 13:05 07/12/20 20:09 O2 Saturation 93 % (92-99) Arterial Blood pH 7.38 (7.35-7.45) Arterial Blood pCO2 at Patient Temp 39 mmHg (35-46) Arterial Blood pO2 at Patient Temp 69 mmHg (65-108) Arterial Blood HCO3 22 mmol/L (21-28) Arterial Blood Base Excess -3 mmol/L (-3-3) Oxyhemoglobin 92.8 % Methemoglobin 0.1 % (0.0-1.9) Carbon Monoxide, Quantitative 0.3 % (0.0-1.9) FiO2 21 Glucose (Fingerstick) 145 mg/dL (70-99) 117 mg/dL (70-99) Assessment and Plan Assessmemt and Plan Problems Medical Problems: (1) Acute on chronic kidney failure Status: Acute (2) Hyperkalemia Status: Acute (3) Morbid obesity Status: Acute Comment Review of Relevant I have reviewed the following items tiffany (where applicable) has been applied. Labs Laboratory Tests Test 07/11/20 12:11 07/11/20 12:28 07/11/20 13:00 07/11/20 17:11 Coronavirus (PCR) Not detected (Not Detected) SARS-CoV-2 Antigen (Rapid) Negative (NEGATIVE) Glucose (Fingerstick) 150 mg/dL (70-99) 117 mg/dL (70-99) Sodium Level 136 mmol/L (136-145) Potassium Level 5.0 mmol/L (3.5-5.1) Chloride Level 102 mmol/L (98-107) Carbon Dioxide Level 22 mmol/L (21-32) Anion Gap 12 (6-14) Blood Urea Nitrogen 171 mg/dL (8-26) Creatinine 5.5 mg/dL (0.7-1.3) Estimated GFR (Cockcroft-Gault) 10.5 Glucose Level 172 mg/dL (70-99) Calcium Level 8.4 mg/dL (8.5-10.1) Triglycerides Level 154 mg/dL (0-150) Cholesterol Level 76 mg/dL (0-200) LDL Cholesterol, Calculated 27 mg/dL (0-100) VLDL Cholesterol, Calculated 31 mg/dL (0-40) Non-HDL Cholesterol Calculated 58 mg/dL (0-129) HDL Cholesterol 18 mg/dL (40-60) Cholesterol/HDL Ratio 4.2 Thyroid Stimulating Hormone (TSH) 0.794 uIU/mL (0.358-3.74) Hepatitis B Surface Antigen Nonreactive (Nonreactive) Hepatitis B Surface Antibody Reactive Hepatitis B Core Total Antibody Nonreactive (Nonreactive) Test 07/11/20 21:37 07/12/20 00:10 07/12/20 07:37 07/12/20 07:39 Glucose (Fingerstick) 156 mg/dL (70-99) 118 mg/dL (70-99) Sodium Level 138 mmol/L (136-145) 140 mmol/L (136-145) Potassium Level 4.2 mmol/L (3.5-5.1) 4.5 mmol/L (3.5-5.1) Chloride Level 100 mmol/L (98-107) 102 mmol/L (98-107) Carbon Dioxide Level 25 mmol/L (21-32) 25 mmol/L (21-32) Anion Gap 13 (6-14) 13 (6-14) Blood Urea Nitrogen 132 mg/dL (8-26) 128 mg/dL (8-26) Creatinine 4.8 mg/dL (0.7-1.3) 4.6 mg/dL (0.7-1.3) Estimated GFR (Cockcroft-Gault) 12.3 12.9 Glucose Level 137 mg/dL (70-99) 109 mg/dL (70-99) Calcium Level 8.8 mg/dL (8.5-10.1) 8.9 mg/dL (8.5-10.1) Phosphorus Level 4.9 mg/dL (2.6-4.7) 5.2 mg/dL (2.6-4.7) Magnesium Level 1.9 mg/dL (1.8-2.4) FY-Arr-A-Type Natriuretic Peptide 2288 pg/mL (0-124) Uric Acid 10.2 mg/dL (3.5-7.2) Creatine Kinase 127 U/L (39-308) Albumin 2.9 g/dL (3.4-5.0) Test 07/12/20 10:12 07/12/20 13:05 07/12/20 20:09 O2 Saturation 93 % (92-99) Arterial Blood pH 7.38 (7.35-7.45) Arterial Blood pCO2 at Patient Temp 39 mmHg (35-46) Arterial Blood pO2 at Patient Temp 69 mmHg (65-108) Arterial Blood HCO3 22 mmol/L (21-28) Arterial Blood Base Excess -3 mmol/L (-3-3) Oxyhemoglobin 92.8 % Methemoglobin 0.1 % (0.0-1.9) Carbon Monoxide, Quantitative 0.3 % (0.0-1.9) FiO2 21 Glucose (Fingerstick) 145 mg/dL (70-99) 117 mg/dL (70-99) Laboratory Tests Test 07/12/20 10:12 07/12/20 13:05 07/12/20 20:09 O2 Saturation 93 % (92-99) Arterial Blood pH 7.38 (7.35-7.45) Arterial Blood pCO2 at Patient Temp 39 mmHg (35-46) Arterial Blood pO2 at Patient Temp 69 mmHg (65-108) Arterial Blood HCO3 22 mmol/L (21-28) Arterial Blood Base Excess -3 mmol/L (-3-3) Oxyhemoglobin 92.8 % Methemoglobin 0.1 % (0.0-1.9) Carbon Monoxide, Quantitative 0.3 % (0.0-1.9) FiO2 21 Glucose (Fingerstick) 145 mg/dL (70-99) 117 mg/dL (70-99) Microbiology 07/10/20 Urine Culture - Final, Complete Medications Current Medications Sodium Chloride 1,000 ml @ 125 mls/hr 1X ONCE IV Last administered on 07/10/20at 16:03; Start 07/10/20 at 16:00; Stop 07/10/20 at 23:59; Status DC Acetaminophen (Tylenol) 650 mg PRN Q4HRS PRN PO FEVER > 100.3'F; Start 07/10/20 at 16:15; Stop 07/11/20 at 16:14; Status DC Ceftriaxone Sodium (Rocephin) 1 gm Q24H IVP Last administered on 07/12/20at 20:15; Start 07/10/20 at 20:00 Enoxaparin Sodium (Lovenox 40mg Syringe) 40 mg Q24H SQ ; Start 07/10/20 at 20:45; Stop 07/10/20 at 20:40; Status DC Insulin Human Lispro (HumaLOG) 0-5 UNITS TIDWMEALS SQ ; Start 07/11/20 at 08:00 Dextrose (Dextrose 50%-Water Syringe) 12.5 gm PRN Q15MIN PRN IV SEE COMMENTS; Start 07/10/20 at 20:45 Heparin Sodium (Porcine) (Heparin Sodium) 5,000 unit Q8HRS SQ Last administered on 07/13/20at 06:00; Start 07/10/20 at 22:00 Amlodipine Besylate (Norvasc) 10 mg DAILY PO ; Start 07/11/20 at 09:00; Status UNV Amlodipine Besylate (Norvasc) 10 mg DAILY PO ; Start 07/11/20 at 09:00; Stop 07/12/20 at 08:11; Status DC Ferrous Sulfate (Feosol) 325 mg DAILY PO Last administered on 07/12/20at 08:49; Start 07/11/20 at 09:00 Acetaminophen/ Hydrocodone Bitart (Lortab 10/325) 1 tab PRN Q6HRS PRN PO PAIN Last administered on 07/12/20at 08:50; Start 07/10/20 at 22:15 Losartan Potassium (Cozaar) 50 mg DAILY PO ; Start 07/11/20 at 09:00; Stop 07/12/20 at 08:11; Status DC Methocarbamol (Robaxin) 500 mg QID PO Last administered on 07/11/20at 23:36; Start 07/10/20 at 21:30; Stop 07/12/20 at 08:12; Status DC Metolazone (Zaroxolyn) 2.5 mg QMWF PO ; Start 07/12/20 at 16:00; Stop 07/12/20 at 08:11; Status DC Mupirocin (Bactroban) 1 navarro BID TP ; Start 07/11/20 at 09:00 Naproxen (Naprosyn) 500 mg HS PO Last administered on 07/11/20at 23:35; Start 07/10/20 at 22:30; Stop 07/12/20 at 08:12; Status DC Nystatin (Nystop) 1 navarro BID TP Last administered on 07/12/20at 00:02; Start 07/11/20 at 09:00 Fish Oil (Fish Oil) 1,000 mg DAILY PO Last administered on 07/12/20at 08:49; Start 07/11/20 at 09:00 Simvastatin (Zocor) 20 mg HS PO Last administered on 07/12/20at 21:25; Start 07/10/20 at 22:30 Spironolactone (Aldactone) 25 mg DAILY PO ; Start 07/11/20 at 09:00; Stop 07/12/20 at 08:11; Status DC Spironolactone (Aldactone) 25 mg DAILY PO ; Start 07/11/20 at 09:00; Status UNV Atenolol (Tenormin) 100 mg DAILY PO ; Start 07/11/20 at 09:00; Stop 07/12/20 at 08:12; Status DC Bumetanide (Bumex) 1 mg DAILY PO ; Start 07/11/20 at 09:00; Stop 07/12/20 at 08:12; Status DC Gabapentin (Neurontin) 600 mg HS PO Last administered on 07/12/20at 21:28; Start 07/10/20 at 22:30 Insulin Human Lispro (HumaLOG) 35 units DAILYBFRSUP SQ ; Start 07/11/20 at 17:00 Non-Formulary Medication (Insulin Detemir (Levemir)) 80 unit HS SQ ; Start 07/11/20 at 21:00; Status UNV Non-Formulary Medication (Liraglutide (Victoza 3-Fredy)) 1.8 mg DAILY SQ ; Start 07/11/20 at 09:00; Stop 07/12/20 at 08:12; Status DC Linagliptin (Tradjenta) 5 mg DAILY PO Last administered on 07/12/20at 08:49; Start 07/11/20 at 09:00 Zolpidem Tartrate (Ambien) 5 mg PRN QHS PRN PO INSOMNIA MRX1 PRN Last administered on 07/10/20at 23:38; Start 07/10/20 at 22:45 Insulin Glargine (Lantus Syringe) 80 unit QHS SQ Last administered on 07/12/20at 21:29; Start 07/10/20 at 22:45 Pantoprazole Sodium (PROTONIX VIAL for IV PUSH) 40 mg DAILYAC IVP Last administered on 07/12/20at 08:50; Start 07/11/20 at 16:30; Stop 07/12/20 at 11:16; Status DC Lidocaine HCl (Buffered Lidocaine 1%) 3 ml STK-MED ONCE .ROUTE ; Start 07/11/20 at 14:24; Stop 07/11/20 at 14:25; Status DC Lidocaine HCl (Buffered Lidocaine 1%) 3 ml 1X ONCE INJ Last administered on 07/11/20at 14:49; Start 07/11/20 at 14:30; Stop 07/11/20 at 14:31; Status DC Lactobacillus Rhamnosus (Culturelle) 1 cap BID PO Last administered on 07/12/20at 21:25; Start 07/11/20 at 21:00 Sodium Chloride 1,000 ml @ 1,000 mls/hr Q1H PRN IV hypotension; Start 07/11/20 at 18:00; Stop 07/11/20 at 23:59; Status DC Albumin Human 200 ml @ 200 mls/hr 1X PRN PRN IV Hypotension; Start 07/11/20 at 18:00; Stop 07/11/20 at 23:59; Status DC Sodium Chloride 1,000 ml @ 400 mls/hr Q2H30M PRN IV PATENCY; Start 07/11/20 at 18:00; Stop 07/12/20 at 05:59; Status DC Info (PHARMACY MONITORING -- do not chart) 1 each PRN DAILY PRN MC SEE Trevor JAMISON; Start 07/11/20 at 20:00; Status Cancel Info (PHARMACY MONITORING -- do not chart) 1 each PRN DAILY PRN MC SEE ARSLAN TS; Start 07/11/20 at 20:00; Status Cancel Sodium Chloride 500 ml @ 250 mls/hr 1X ONCE IV Last administered on 07/11/20at 22:10; Start 07/11/20 at 22:15; Stop 07/12/20 at 00:14; Status DC Metoprolol Tartrate (Lopressor) 12.5 mg BID PO ; Start 07/12/20 at 09:00 Aspirin (Ecotrin) 81 mg DAILYWBKFT PO Last administered on 07/12/20at 08:49; Start 07/12/20 at 09:00 Lidocaine HCl (Glydo (Lidocaine) Jelly) 1 navarro PRN Q4HRS PRN MM PAIN Last administered on 07/12/20at 15:25; Start 07/12/20 at 09:15 Bisacodyl (Dulcolax Supp) 10 mg 1X ONCE HI Last administered on 07/12/20at 10:16; Start 07/12/20 at 09:15; Stop 07/12/20 at 09:16; Status DC Pantoprazole Sodium (Protonix) 40 mg DAILYAC PO ; Start 07/13/20 at 07:30 Polyethylene Glycol (miraLAX PACKET) 17 gm DAILY PO ; Start 07/12/20 at 11:30 Bisacodyl (Dulcolax Tab) 5 mg PRN DAILY PRN PO CONSTIPATION; Start 07/12/20 at 11:30 Sodium Chloride 1,000 ml @ 1,000 mls/hr Q1H PRN IV hypotension; Start 07/12/20 at 14:00; Stop 07/12/20 at 19:59; Status DC Albumin Human 200 ml @ 200 mls/hr 1X PRN PRN IV Hypotension; Start 12/30/20 at 14:00; Stop 07/12/20 at 19:59; Status DC Sodium Chloride 1,000 ml @ 400 mls/hr Q2H30M PRN IV PATENCY; Start 07/12/20 at 14:00; Stop 07/13/20 at 01:59; Status DC Info (PHARMACY MONITORING -- do not chart) 1 each PRN DAILY PRN MC SEE COMMENTS; Start 07/12/20 at 15:45; Status UNV Info (PHARMACY MONITORING -- do not chart) 1 each PRN DAILY PRN MC SEE COMMENTS; Start 07/12/20 at 15:45 Perflutren Protein Type A Microsphe (Optison) 0.66 mg STK-MED ONCE IV ; Start 07/13/20 at 07:30; Stop 07/13/20 at 07:30; Status DC Active Scripts Active Reported Aspirin 325 Mg Tablet 1 Tab PO BID Metolazone 2.5 Mg Tablet 2.5 Mg PO QMWF Fish Oil 1,000 Mg Softgel (Sleepy Eye-3 Fatty Acids/Fish Oil) 1 Each Capsule 1 Cap PO DAILY 30 Days Gabapentin 600 Mg Tablet 600 Mg PO HS Nystatin 15 Gm Powder 1 Navarro TP BID 7 Days apply to affected area(s) Hydrocodone-Apap 10-325 (Hydrocodone Bit/Acetaminophen) 1 Tab Tablet 1 Tab PO PRN Q6HRS PRN Zolpidem Tartrate Er (Zolpidem Tartrate) 12.5 Mg Tab.mphase 12.5 Mg PO PRN QHS PRN Robaxin-750 (Methocarbamol) 750 Mg Tablet 500 Mg PO QID Novolog (Insulin Aspart) 100 Unit/1 Ml Cartridge 35 Unit SQ DAILYBFRSUP Atenolol 100 Mg Tablet 100 Mg PO DAILY Levemir (Insulin Detemir) 100 Unit/1 Ml Vial 80 Unit SQ HS Victoza 3-Fredy (Liraglutide) 0.6 Mg/0.1 Ml Pen.injctr 1.8 Mg SQ DAILY Simvastatin 20 Mg Tablet 20 Mg PO HS Spironolactone 25 Mg Tablet 25 Mg PO DAILY Amlodipine Besylate 10 Mg Tablet 10 Mg PO DAILY Mupirocin Ointment (Mupirocin) 22 Gm Oint...g. 1 Navarro TP BID Iron (Ferrous Sulfate) 325 Mg Tablet 325 Mg PO DAILY Januvia (Sitagliptin Phosphate) 100 Mg Tablet 100 Mg PO DAILY Vitals/I & O Vital Sign - Last 24 Hours 07/12/20 07/12/20 07/12/20 07/12/20 08:50 09:00 11:00 14:49 Temp 97.5 97.5 Pulse 69 69 Resp 18 B/P (MAP) 90/58 90/58 (69) Pulse Ox 95 96 96 O2 Delivery Nasal Cannula Room Air Nasal Cannula O2 Flow Rate 2.0 2.0 07/12/20 07/12/20 07/12/20 07/12/20 15:00 19:00 20:00 21:00 Temp 98.0 97.5 98.0 97.5 Pulse 70 80 80 Resp 18 23 B/P (MAP) 103/46 (65) 93/41 (58) 93/41 Pulse Ox 94 94 O2 Delivery Room Air Room Air Nasal Cannula O2 Flow Rate 2.0 07/12/20 07/13/20 07/13/20 23:00 03:00 07:00 Temp 98.0 98.0 98.7 98.0 98.0 98.7 Pulse 80 85 88 Resp 23 21 21 B/P (MAP) 82/41 (55) 110/52 (71) 144/86 (105) Pulse Ox 96 96 96 O2 Delivery Room Air Room Air Room Air Intake and Output 07/12/20 07/12/20 07/13/20 15:00 23:00 07:00 Intake Total 280 ml 100 ml 0 ml Output Total 1000 ml Balance 280 ml 100 ml -1000 ml Justicifation of Admission Dx: Justifications for Admission: Justification of Admission Dx: Yes Acute Renal Failure: RF Can't Be Managed Outpt LISE BOWIE MD Jul 13, 2020 08:17
[2020-07-13] MEDS: POLYETHYLENE GLYCOL 3350 17 GM PACKET. PO SCH (09:00)
[2020-07-13] MEDS: MUPIROCIN 2 % NASAL OINTMENT 22GM TUBE. TP SCH ×2 (09:00→21:00)
[2020-07-13 09:11] LABS: BASO % 0 % (0-3); EOS % 0 % (0-3); HEMATOCRIT 34.9 % (39.0-53.0); LYMPH # 0.2 x10^3/uL (1.0-4.8); LYMPH % 2 % (24-48); MEAN CORPUSCULAR HEMOGLOBIN 28 pg (25-35); MEAN CORPUSCULAR HGB CONC 32 g/dL (31-37); MEAN CORPUSCULAR VOLUME 87 fL (79-100); MONO # 0.3 x10^3/uL (0.0-1.1); MONO % 3 % (0-9); NEUT # 10.2 x10^3/uL (1.8-7.7); NEUT % 95 % (31-73); PLATELET COUNT 132 x10^3/uL (140-400); RED BLOOD COUNT 3.99 x10^6/uL (4.30-5.70); RED CELL DISTRIBUTION WIDTH 14.2 % (11.5-14.5); WHITE BLOOD COUNT 10.8 x10^3/uL (4.0-11.0)
[2020-07-13] MEDS: OMEGA-3 FATTY ACIDS/FISH OIL 1,000 MG CAPSULE. PO SCH (09:21)
[2020-07-13] MEDS: LACTOBACILLUS RHAMNOSUS GG 1 CAPSULE. PO SCH ×2 (09:21→21:33)
[2020-07-13] MEDS: FERROUS SULFATE 325 MG TABLET. PO SCH (09:21)
[2020-07-13] MEDS: PANTOPRAZOLE 40 MG TABLET.DR. PO SCH (09:21)
[2020-07-13] MEDS: ASPIRIN ENTERIC COATED 81 MG TABLET.DR. PO SCH (09:22)
[2020-07-13] MEDS: METOPROLOL TART IMMED RELEASE 25 MG TABLET. PO SCH ×2 (09:22→21:00)
[2020-07-13] MEDS: LINAGLIPTIN 5 MG TABLET PO SCH (09:22)
[2020-07-13] MEDS: NYSTATIN TOPICAL POWDER 15GM BOTTLE. TP SCH ×2 (09:22→21:39)
[2020-07-13 09:52] LABS: ALBUMIN 3.1 g/dL (3.4-5.0); ALBUMIN/GLOBULIN RATIO 0.7 (1.0-1.7); CALCIUM 9.3 mg/dL (8.5-10.1); CREATININE 3.4 mg/dL (0.7-1.3); GFR 18.3; PHOSPHORUS 4.3 mg/dL (2.6-4.7); POTASSIUM 4.5 mmol/L (3.5-5.1); TOTAL BILIRUBIN 0.5 mg/dL (0.2-1.0); TOTAL PROTEIN 7.6 g/dL (6.4-8.2)
--- NOTE | 2020-07-13 10:11 | PDOC ---
Date of Service: DATE: 07/13/20 TIME: 10:09 Subjective: Subjective: Asks for a puke bucket, doesn't want to sit up in bed. Objective: Objective: D/w nurse - c/o nausea, possibly more dialysis today, stooled yesterday. Vital Signs: Vital Signs Date Time Temp Pulse Resp B/P (MAP) Pulse Ox O2 Delivery O2 Flow Rate FiO2 07/13/20 09:22 88 144/86 07/13/20 08:00 Nasal Cannula 2.0 07/13/20 07:00 98.7 21 96 98.7 Labs: Laboratory Tests Test 07/12/20 10:12 07/12/20 13:05 07/12/20 20:09 07/13/20 06:57 O2 Saturation 93 % Arterial Blood pH 7.38 Arterial Blood pCO2 at Patient Temp 39 mmHg Arterial Blood pO2 at Patient Temp 69 mmHg Arterial Blood HCO3 22 mmol/L Arterial Blood Base Excess -3 mmol/L Oxyhemoglobin 92.8 % Methemoglobin 0.1 % Carbon Monoxide, Quantitative 0.3 % FiO2 21 Glucose (Fingerstick) 145 mg/dL 117 mg/dL 124 mg/dL Test 07/13/20 08:15 White Blood Count 10.8 x10^3/uL Red Blood Count 3.99 x10^6/uL Hemoglobin 11.0 g/dL Hematocrit 34.9 % Mean Corpuscular Volume 87 fL Mean Corpuscular Hemoglobin 28 pg Mean Corpuscular Hemoglobin Concent 32 g/dL Red Cell Distribution Width 14.2 % Platelet Count 132 x10^3/uL Neutrophils (%) (Auto) 95 % Lymphocytes (%) (Auto) 2 % Monocytes (%) (Auto) 3 % Eosinophils (%) (Auto) 0 % Basophils (%) (Auto) 0 % Neutrophils # (Auto) 10.2 x10^3/uL Lymphocytes # (Auto) 0.2 x10^3/uL Monocytes # (Auto) 0.3 x10^3/uL Eosinophils # (Auto) 0.0 x10^3/uL Basophils # (Auto) 0.0 x10^3/uL Platelet Estimate Pending Sodium Level 138 mmol/L Potassium Level 4.5 mmol/L Chloride Level 101 mmol/L Carbon Dioxide Level 26 mmol/L Anion Gap 11 Blood Urea Nitrogen 67 mg/dL Creatinine 3.4 mg/dL Estimated GFR (Cockcroft-Gault) 18.3 BUN/Creatinine Ratio 20 Glucose Level 121 mg/dL Calcium Level 9.3 mg/dL Phosphorus Level 4.3 mg/dL Total Bilirubin 0.5 mg/dL Aspartate Amino Transf (AST/SGOT) 20 U/L Alanine Aminotransferase (ALT/SGPT) 20 U/L Alkaline Phosphatase 74 U/L Total Protein 7.6 g/dL Albumin 3.1 g/dL Albumin/Globulin Ratio 0.7 PE: GEN: NAD LUNGS: diminished HEART: distant ABD: obese, soft, non-tender NEURO/PSYCH: A & O 3 A/P: ELIZABETH/CKD, suspect GERD Nausea Cholelithiasis Chronic pain, NSAID use BMI 87 -- Can change to IV PPI if needed. Justicifation of Admission Dx: Justifications for Admission: Justification of Admission Dx: Yes Acute Renal Failure: RF Can't Be Managed Outpt QING BRENNER Jul 13, 2020 10:11
[2020-07-13 10:24] VITALS: BP 90/46
--- NOTE | 2020-07-13 10:37 | NUR ---
Discharge Note: [facility] [place] Discharge instructions and discharge home medications reviewed with Patient and a copy given. All questions have been answered and understanding verbalized. The following instructions and handouts were given: Heart failure Discontinued lines and drains: Peripheral IV intact. Patient discharged to Home or Self Care with Self via Wheelchair walked off unit by SHANNAN Addendum: 07/13/20 at 1129 by MIRI HOROWITZ RN wrong patient
--- NOTE | 2020-07-13 11:09 | PDOC ---
PEARL CARVALHO WOODEN FRAME BUILDER 07/13/20 1109: CARDIO Progress Notes Date and Time Date of Service 07/13/2020 Time of Evaluation 1030 Subjective Subjective: No Chest Pain, No shortness of breath, No Palpitations Vitals Vitals Vital Signs Date Time Temp Pulse Resp B/P (MAP) Pulse Ox O2 Delivery O2 Flow Rate FiO2 07/13/20 10:24 99.4 115 21 90/46 (61) 91 Room Air 99.4 07/13/20 08:00 2.0 Weight Weight [ ] Input and Output Intake and Output Intake and Output 07/13/20 07:00 Intake Total 380 ml Output Total 1000 ml Balance -620 ml Intake Oral 380 ml Output Urine Total 1000 ml # Voids 2 Laboratory Labs Laboratory Tests Test 07/12/20 13:05 07/12/20 20:09 07/13/20 06:57 07/13/20 08:15 Glucose (Fingerstick) 145 mg/dL (70-99) 117 mg/dL (70-99) 124 mg/dL (70-99) White Blood Count 10.8 x10^3/uL (4.0-11.0) Red Blood Count 3.99 x10^6/uL (4.30-5.70) Hemoglobin 11.0 g/dL (13.0-17.5) Hematocrit 34.9 % (39.0-53.0) Mean Corpuscular Volume 87 fL (79-100) Mean Corpuscular Hemoglobin 28 pg (25-35) Mean Corpuscular Hemoglobin Concent 32 g/dL (31-37) Red Cell Distribution Width 14.2 % (11.5-14.5) Platelet Count 132 x10^3/uL (140-400) Neutrophils (%) (Auto) 95 % (31-73) Lymphocytes (%) (Auto) 2 % (24-48) Monocytes (%) (Auto) 3 % (0-9) Eosinophils (%) (Auto) 0 % (0-3) Basophils (%) (Auto) 0 % (0-3) Neutrophils # (Auto) 10.2 x10^3/uL (1.8-7.7) Lymphocytes # (Auto) 0.2 x10^3/uL (1.0-4.8) Monocytes # (Auto) 0.3 x10^3/uL (0.0-1.1) Eosinophils # (Auto) 0.0 x10^3/uL (0.0-0.7) Basophils # (Auto) 0.0 x10^3/uL (0.0-0.2) Sodium Level 138 mmol/L (136-145) Potassium Level 4.5 mmol/L (3.5-5.1) Chloride Level 101 mmol/L (98-107) Carbon Dioxide Level 26 mmol/L (21-32) Anion Gap 11 (6-14) Blood Urea Nitrogen 67 mg/dL (8-26) Creatinine 3.4 mg/dL (0.7-1.3) Estimated GFR (Cockcroft-Gault) 18.3 BUN/Creatinine Ratio 20 (6-20) Glucose Level 121 mg/dL (70-99) Calcium Level 9.3 mg/dL (8.5-10.1) Phosphorus Level 4.3 mg/dL (2.6-4.7) Total Bilirubin 0.5 mg/dL (0.2-1.0) Aspartate Amino Transf (AST/SGOT) 20 U/L (15-37) Alanine Aminotransferase (ALT/SGPT) 20 U/L (16-63) Alkaline Phosphatase 74 U/L (46-116) Total Protein 7.6 g/dL (6.4-8.2) Albumin 3.1 g/dL (3.4-5.0) Albumin/Globulin Ratio 0.7 (1.0-1.7) Microbiology Micro Microbiology 07/10/20 Urine Culture - Final, Complete Physical Exam HEENT: Neck Supple W Full Motion Chest: Symmetric LUNGS: Other (diminished bases) Heart: irregularly irregular (AFIB rate controlled) Abdomen: Soft N/T, Other (obese) Extremities: No Calf Tenderness, Other (1+ bilateral Le pitting edema) Neurology: alert, oriented, follow commands Assessment Assessment 1. Severe ELIZABETH/uremia on CKD4: K is better 2. Chest pain: doubt ACS, potentially from GI given his significant NSAID use. none further 3. AFIB: likely chronic, rate at 110s 4. CAD: remote hx of PTCA per chart but denies this 5. HTN: at marginal level 6. HLP: HDL low but otherwise on goal 7. Chronic low back pain/ debility/WC bound with chronic NSAID use 8. Noncompliance 9. Morbid obesity 10. DM2: per PCP Recommendations 1. DC nephrotoxic agents such as home naproxen, losartan, victoza. DC home bumex and metolazone and aldactone 2. BP marginal, continue low dose metoprolol. and provide x1 digoxin. He was taking coumadin but quit 2 months ago and has just been taking ASA. Will need OAC moving forward for stroke prevention and likely to be restarted back to coumadin as would not be able to use NOAC due to his renal dysfunction and high BMI. 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 3. Discussed treatment compliance 4. Fluid off loading per HD. TTE pending 5. Continue ASA.and zocor. Hold other BP meds for now. 6. Consider outpt ischemic workup. 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 Pt is wanting to follow in our office. Follow up on August 24 at 1030 AM Justicifation of Admission Dx: Justifications for Admission: Justification of Admission Dx: Yes Acute Renal Failure: RF Can't Be Managed Outpt PAZ SOLIMAN MD 07/14/20 1015: CARDIO Progress Notes Assessment Assessment Patient seen and examined 07/13/20. Agree with CENTRAL SUPPLY WORKER's assessment and plan. Continue HD for acute renal insufficiency per nephrology team. Persistent atrial fibrillation rate controlled. Consider resuming Coumadin prior to discharge or possibly as outpatient. Chest pain with atypical features and most probably GI etiology. 2D echo showed normal LVF without any WMA. CAD status clinically stable. Ischemic evaluation could be considered as an outpatient. PEARL CARVALHO APRN Jul 13, 2020 11:09 PAZ SOLIMAN MD Jul 14, 2020 10:15
[2020-07-13] MEDS ORDERED: DIGOXIN IV 500 MCG/2 ML AMPUL. IV ONE (11:15)
[2020-07-13 11:57] LABS: % LYMPHS 3 % (24-48); % MONOS 1 % (0-10); % SEGS 96 % (35-66)
[2020-07-13 11:58] LABS: OVALOCYTES OCC; PLT ESTIMATE ADEQUATE (ADEQUATE); TEAR DROP CELLS OCC
[2020-07-13 11:59] LABS: TARGET CELLS OCC
--- NOTE | 2020-07-13 12:04 | NUR ---
SS following up with discharge planning. SS reviewed pt chart and discussed with pt RN. Pt is currently on room air. PT/OT ordered. Pt has outpatient dialysis confirmed chair time at [facility], [address] [address], ; fax [phone], Friday, Friday, and Friday at 1715. Pt has first chair time on 07/17/2020 at 1645. Pt's RN notified. SS will continue to follow for discharge planning.
--- NOTE | 2020-07-13 12:40 | CARD ---
MR#: [id number] Date of Study: 07/13/2020 Ordering Physician: PEARL CARVALHO, Referring Physician: PEARL CARVALHO Tech: Lillian Beckwith [facility] APPROVED REPORT EXAM: Two-dimensional and M-mode echocardiogram with Doppler and color Doppler. Other Information Quality : Technically LimitedHR: 96bpm Rhythm : NSRTechnically limited study due to body habitus. INDICATION Troponin elevation, atrial fibrillation RISK FACTORS Hypertension Obesity Hyperlipidemia Diabetes 2D DIMENSIONS Left Atrium(2D)4.8 (1.6-4.0cm)IVSd1.3 (0.7-1.1cm) Aortic Root(2D)3.7 (2.0-3.7cm)LVDd4.9 (3.9-5.9cm) LVOT Diameter2.7 (1.8-2.4cm)PWd1.3 (0.7-1.1cm) LVDs3.5 (2.5-4.0cm)FS (%) 28.5 % SV63.2 mlLVEF(%)54.8 (>50%) LEFT VENTRICLE The left ventricle is normal size. There is borderline to mild concentric left ventricular hypertroph y. The left ventricular systolic function is normal. The ejection fraction is 55%. There is normal LV segmental wall motion. RIGHT VENTRICLE The right ventricle is normal size. There is normal right ventricular wall thickness. The right ventr icular systolic function is normal. ATRIA The left atrium size is normal. The right atrium size is normal. The interatrial septum is intact wit h no evidence for an atrial septal defect or patent foramen ovale as noted on 2-D or Doppler imaging. AORTIC VALVE The aortic valve is normal in structure and function. Doppler and Color Flow revealed no significant aortic regurgitation. There is no significant aortic valvular stenosis. MITRAL VALVE The mitral valve is normal in structure and function. There is no evidence of mitral valve prolapse. There is no mitral valve stenosis. Doppler and Color Flow revealed no mitral valve regurgitation note d. TRICUSPID VALVE The tricuspid valve is normal in structure and function. Doppler and Color Flow revealed no tricuspid valve regurgitation noted. There is no tricuspid valve stenosis. PULMONIC VALVE The pulmonary valve is normal in structure and function. Doppler and Color Flow revealed no pulmonic valvular regurgitation. GREAT VESSELS The aortic root is normal in size. The ascending aorta is normal in size. Not visualized. PERICARDIAL EFFUSION There is no evidence of significant pericardial effusion. Critical Notification Critical Value: No <Conclusion> Technically difficult study. The left ventricular systolic function is normal. The ejection fraction is 55%. There is normal LV segmental wall motion. There is no evidence of significant pericardial effusion. Signed by : David San, Electronically Approved : 07/13/2020 12:40:11
[2020-07-13] MEDS ORDERED: DIALYSIS PATIENT. MC PRN ×2 (13:15)
[2020-07-13] MEDS ORDERED: IV NORMAL SALINE 1000ML BAG 1,000 ML IV PRN ×2 (13:15)
[2020-07-13] MEDS ORDERED: ALBUMIN HUMAN 25% 200 ML IV PRN (13:15)
--- NOTE | 2020-07-13 14:32 | PDOC ---
DATE OF SERVICE DATE: 07/13/20 TIME: 14:30 SUBJECTIVE ROS States he vomited earlier today . OBJECTIVE Vital Signs Vital Signs Date Time Temp Pulse Resp B/P (MAP) Pulse Ox O2 Delivery O2 Flow Rate FiO2 07/13/20 11:15 115 90/46 07/13/20 10:24 99.4 21 91 Room Air 99.4 07/13/20 08:00 2.0 I & 0 Intake and Output 07/13/20 07:00 Intake Total 380 ml Output Total 1000 ml Balance -620 ml Intake Oral 380 ml Output Urine Total 1000 ml # Voids 2 PHYSICAL EXAM Physical Exam General: No acute distress, supermorbidly obese , more alert HEENT: , Mucous membr. dry, anicteric Neck Thick, supple Lungs: diminished bases, non labored Heart: Afib Abdomen: Soft, morbidly obese, NT Extremities: No cyanosis,trace bilateral LE edema Skin:LE venous dermatitis Neuro: Normal speech, Sensation intact, No asterxis Psych/Mental Status: Normal Affect Prasad placed 07/12 , No CVA or SP tenderness DIAGNOSIS/ASSESSMENT Assessment & Plan ELIZABETH - severe , ATN 2/2 Dehydration, UTI , MEDS- NSAIDS, ARB, Aldactone vs progression of CKD , non Oliguric Started HD 07/11, 2nd treatment 07/12 Dialysis again today , discussed treatment plan with Alie Ct scan abdomen- No e/o Hydronephrosis , UOP showing some improvement Monitor for renal recovery , strict I/O , avoid nephrotoxins Access- Temp HDC on 07/11, if continues to have access issues will need to be exchanged Hypotension - monitor HyperKalemia POA - resolved UTI- , NG on Cx , follow up per Primary CKD 3B baseline eGFR 30 -32 in 2018 , seen by Dr Jamil - patient did not keep follow up appt Gout- pt reports takes Naproxen, Uric acid 10.2, ? 2/2 ELIZABETH , monitor NSAID use - chronic use DM 2- per primary Supermorbidly obese - such that requires assistance with urination/feeding, does not ambulate Chest pain POA - cardiology consulted AFIB: likely chronic, rate controlled CAD: remote hx of PTCA but denies this HTN: at marginal level Noncompliance COMMENT/RELEVANT DATA Meds Current Medications Medications (Trade) Dose Ordered Sig/Cheyanne Start Time Stop Time Status Last Admin Dose Admin Acetaminophen (Tylenol) 650 mg PRN Q4HRS PRN 07/10/20 16:15 07/11/20 16:14 DC Acetaminophen/ Hydrocodone Bitart (Lortab 10/325) 1 tab PRN Q6HRS PRN 07/10/20 22:15 07/12/20 08:50 1 TAB Albumin Human 200 ml @ 200 mls/hr 1X PRN PRN 07/13/20 13:15 07/13/20 19:14 Amlodipine Besylate (Norvasc) 10 mg DAILY 07/11/20 09:00 07/12/20 08:11 DC Aspirin (Ecotrin) 81 mg DAILYWBKFT 07/12/20 09:00 07/13/20 09:22 81 MG Atenolol (Tenormin) 100 mg DAILY 07/11/20 09:00 07/12/20 08:12 DC Bisacodyl (Dulcolax Supp) 10 mg 1X ONCE 07/12/20 09:15 07/12/20 09:16 DC 07/12/20 10:16 10 MG Bisacodyl (Dulcolax Tab) 5 mg PRN DAILY PRN 07/12/20 11:30 Bumetanide (Bumex) 1 mg DAILY 07/11/20 09:00 07/12/20 08:12 DC Ceftriaxone Sodium (Rocephin) 1 gm Q24H 07/10/20 20:00 07/12/20 20:15 1 GM Dextrose (Dextrose 50%-Water Syringe) 12.5 gm PRN Q15MIN PRN 07/10/20 20:45 Digoxin (Lanoxin) 500 mcg 1X ONCE 07/13/20 11:15 07/13/20 11:16 DC 07/13/20 11:15 500 MCG Enoxaparin Sodium (Lovenox 40mg Syringe) 40 mg Q24H 07/10/20 20:45 07/10/20 20:40 DC Ferrous Sulfate (Feosol) 325 mg DAILY 07/11/20 09:00 07/13/20 09:21 325 MG Fish Oil (Fish Oil) 1,000 mg DAILY 07/11/20 09:00 07/13/20 09:21 1,000 MG Gabapentin (Neurontin) 600 mg HS 07/10/20 22:30 07/12/20 21:28 600 MG Heparin Sodium (Porcine) (Heparin Sodium) 5,000 unit Q8HRS 07/10/20 22:00 07/13/20 06:00 5,000 UNIT Info (PHARMACY MONITORING -- do not chart) 1 each PRN DAILY PRN 07/13/20 13:15 Insulin Glargine (Lantus Syringe) 80 unit QHS 07/10/20 22:45 07/12/20 21:29 80 UNIT Insulin Human Lispro (HumaLOG) 35 units DAILYBFRSUP 07/11/20 17:00 Lactobacillus Rhamnosus (Culturelle) 1 cap BID 07/11/20 21:00 07/13/20 09:21 1 CAP Lidocaine HCl (Buffered Lidocaine 1%) 3 ml 1X ONCE 07/11/20 14:30 07/11/20 14:31 DC 07/11/20 14:49 6 ML Lidocaine HCl (Glydo (Lidocaine) Jelly) 1 adilson PRN Q4HRS PRN 07/12/20 09:15 07/12/20 15:25 1 ADILSON Linagliptin (Tradjenta) 5 mg DAILY 07/11/20 09:00 07/13/20 09:22 5 MG Losartan Potassium (Cozaar) 50 mg DAILY 07/11/20 09:00 07/12/20 08:11 DC Methocarbamol (Robaxin) 500 mg QID 07/10/20 21:30 07/12/20 08:12 DC 07/11/20 23:36 500 MG Metolazone (Zaroxolyn) 2.5 mg QMWF 07/12/20 16:00 07/12/20 08:11 DC Metoprolol Tartrate (Lopressor) 12.5 mg BID 07/12/20 09:00 07/13/20 09:22 12.5 MG Mupirocin (Bactroban) 1 adilson BID 07/11/20 09:00 Naproxen (Naprosyn) 500 mg HS 07/10/20 22:30 07/12/20 08:12 DC 07/11/20 23:35 500 MG Non-Formulary Medication (Insulin Detemir (Levemir)) 80 unit HS 07/11/20 21:00 UNV Non-Formulary Medication (Liraglutide (Victoza 3-Fredy)) 1.8 mg DAILY 07/11/20 09:00 07/12/20 08:12 DC Nystatin (Nystop) 1 adilson BID 07/11/20 09:00 07/13/20 09:22 1 ADILSON Pantoprazole Sodium (PROTONIX VIAL for IV PUSH) 40 mg DAILYAC 07/11/20 16:30 07/12/20 11:16 DC 07/12/20 08:50 40 MG Pantoprazole Sodium (Protonix) 40 mg DAILYAC 07/13/20 07:30 07/13/20 09:21 40 MG Perflutren Protein Type A Microsphe (Optison) 0.66 mg STK-MED ONCE 07/13/20 07:30 07/13/20 07:30 DC Polyethylene Glycol (miraLAX PACKET) 17 gm DAILY 07/12/20 11:30 Simvastatin (Zocor) 20 mg HS 07/10/20 22:30 07/12/20 21:25 20 MG Sodium Chloride 1,000 ml @ 400 mls/hr Q2H30M PRN 07/13/20 13:15 07/14/20 01:14 Spironolactone (Aldactone) 25 mg DAILY 07/11/20 09:00 UNV Zolpidem Tartrate (Ambien) 5 mg PRN QHS PRN 07/10/20 22:45 07/10/20 23:38 5 MG Lab Laboratory Tests Test 07/12/20 20:09 07/13/20 06:57 07/13/20 08:15 07/13/20 11:13 Glucose (Fingerstick) 117 mg/dL (70-99) 124 mg/dL (70-99) 155 mg/dL (70-99) White Blood Count 10.8 x10^3/uL (4.0-11.0) Red Blood Count 3.99 x10^6/uL (4.30-5.70) Hemoglobin 11.0 g/dL (13.0-17.5) Hematocrit 34.9 % (39.0-53.0) Mean Corpuscular Volume 87 fL (79-100) Mean Corpuscular Hemoglobin 28 pg (25-35) Mean Corpuscular Hemoglobin Concent 32 g/dL (31-37) Red Cell Distribution Width 14.2 % (11.5-14.5) Platelet Count 132 x10^3/uL (140-400) Neutrophils (%) (Auto) 95 % (31-73) Lymphocytes (%) (Auto) 2 % (24-48) Monocytes (%) (Auto) 3 % (0-9) Eosinophils (%) (Auto) 0 % (0-3) Basophils (%) (Auto) 0 % (0-3) Neutrophils # (Auto) 10.2 x10^3/uL (1.8-7.7) Lymphocytes # (Auto) 0.2 x10^3/uL (1.0-4.8) Monocytes # (Auto) 0.3 x10^3/uL (0.0-1.1) Eosinophils # (Auto) 0.0 x10^3/uL (0.0-0.7) Basophils # (Auto) 0.0 x10^3/uL (0.0-0.2) Segmented Neutrophils % 96 % (35-66) Lymphocytes % 3 % (24-48) Monocytes % 1 % (0-10) Platelet Estimate Adequate (ADEQUATE) Basophilic Stippling Present Target Cells Occ Tear Drop Cells Occ Ovalocytes Occ Sodium Level 138 mmol/L (136-145) Potassium Level 4.5 mmol/L (3.5-5.1) Chloride Level 101 mmol/L (98-107) Carbon Dioxide Level 26 mmol/L (21-32) Anion Gap 11 (6-14) Blood Urea Nitrogen 67 mg/dL (8-26) Creatinine 3.4 mg/dL (0.7-1.3) Estimated GFR (Cockcroft-Gault) 18.3 BUN/Creatinine Ratio 20 (6-20) Glucose Level 121 mg/dL (70-99) Calcium Level 9.3 mg/dL (8.5-10.1) Phosphorus Level 4.3 mg/dL (2.6-4.7) Total Bilirubin 0.5 mg/dL (0.2-1.0) Aspartate Amino Transf (AST/SGOT) 20 U/L (15-37) Alanine Aminotransferase (ALT/SGPT) 20 U/L (16-63) Alkaline Phosphatase 74 U/L (46-116) Total Protein 7.6 g/dL (6.4-8.2) Albumin 3.1 g/dL (3.4-5.0) Albumin/Globulin Ratio 0.7 (1.0-1.7) Results All relevant outside records, renal labs, imaging studies, telemetry/EKG's were reviewed. Justicifation of Admission Dx: Justifications for Admission: Justification of Admission Dx: Yes Acute Renal Failure: RF Can't Be Managed Outpt CANDY MERCADO MD Jul 13, 2020 14:32
[2020-07-13 16:27] VITALS: BP 104/86
[2020-07-13 18:19] VITALS: BP 81/52
[2020-07-13] MEDS: ACETAMINOPHEN 325 MG TABLET. PO PRN (18:36)
[2020-07-13] MEDS ORDERED: DEXTROSE 50% 25 GM / 50ML DISP.SYRIN. IV PRN (21:15)
[2020-07-13] MEDS: cefTRIAXone IV Push 1 GM VIAL. IVP SCH (21:32)
[2020-07-13] MEDS: GABAPENTIN 300 MG CAPSULE. PO SCH (21:33)
[2020-07-13] MEDS: HYDROcodone/APAP 10/325 1 TAB TABLET PO PRN (21:33)
[2020-07-13] MEDS: SIMVASTATIN 20 MG TABLET PO SCH (21:34)
[2020-07-13] MEDS: INSULIN GLARGINE SYRINGE. SQ SCH (21:38)
[2020-07-13 23:00] VITALS: BP 90/55
[2020-07-14 03:00] VITALS: BP 92/41
--- NOTE | 2020-07-14 05:08 | NUR ---
reported to dr combs that pt's temp is 101.9. gets rocephine., pt restless in bed rolling back and forth contimously. 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 squeezes between rails states he wants to walk. see orders.[email or web address]
[2020-07-14] MEDS ORDERED: HALOPERIDOL LACTATE 5 MG/ML VIAL. IVP PRN (05:15)
[2020-07-14] MEDS: HEPARIN for SUB-Q USE 5,000 UNIT/ML VIAL. SQ SCH ×3 (06:00→21:52)
[2020-07-14 06:55] VITALS: BP 90/75
[2020-07-14] MEDS: INSULIN LISPRO 300 UNITS/3 ML VIAL. SQ SCH ×4 (08:00→17:00)
[2020-07-14] MEDS: LINAGLIPTIN 5 MG TABLET PO SCH (08:27)
[2020-07-14] MEDS: FERROUS SULFATE 325 MG TABLET. PO SCH (08:27)
[2020-07-14] MEDS: OMEGA-3 FATTY ACIDS/FISH OIL 1,000 MG CAPSULE. PO SCH (08:27)
[2020-07-14] MEDS: ASPIRIN ENTERIC COATED 81 MG TABLET.DR. PO SCH (08:27)
[2020-07-14] MEDS: PANTOPRAZOLE 40 MG TABLET.DR. PO SCH (08:27)
[2020-07-14] MEDS: LACTOBACILLUS RHAMNOSUS GG 1 CAPSULE. PO SCH ×2 (08:27→20:46)
[2020-07-14] MEDS: ACETAMINOPHEN 325 MG TABLET. PO PRN (08:27)
[2020-07-14] MEDS: METOPROLOL TART IMMED RELEASE 25 MG TABLET. PO SCH ×2 (08:29→20:47)
[2020-07-14] MEDS: NYSTATIN TOPICAL POWDER 15GM BOTTLE. TP SCH ×2 (08:31→21:00)
[2020-07-14] MEDS: MUPIROCIN 2 % NASAL OINTMENT 22GM TUBE. TP SCH ×2 (08:32→21:00)
[2020-07-14] MEDS: POLYETHYLENE GLYCOL 3350 17 GM PACKET. PO SCH (09:00)
--- NOTE | 2020-07-14 10:27 | PDOC ---
PROGRESS NOTES Date of Service: DATE: 07/14/20 TIME: 10:27 Chief Complaint Chief Complaint ASSESSMENT AND PLAN: ACUTE RENAL INJURY urinary tract infection. abdominal discomfort, lower bilateral morbid obesity hypoxic resp failure Chest pain: doubt ACS, potentially from GI // significant NSAID use. AFIB: likely chronic, rate controlled CHRONIC LOW BACK PAIN Trace tricuspid regurgitation with an estimated PAP of 45 mmHg C/W MOD PULM HTN PROB SLEEP APNEA Acute metabolic encephalopathy PULMONARY NODULE plan IV antibiotics, IV fluids. Trend creatinine. Consult Nephrology. Home meds, DVT prophylaxis. Full code. GI CONSULT CARDIOLOGY CONSULT ABG Temporary dialysis catheter in vascular lab 07-[address] HEAD CT CHEST 07-14-20 ENCEPHALOPATHIC, CONFUSED, PULLING OUT IV-S NEEDS NESS WILLS D/W RN No acute findings in the abdomen and pelvis on noncontrast CT. 07-10 PROGNOSIS: guarded. He did not keep follow up nephrology appts. follows with his PCP Q year and prior to most recent labs no other Interval labs done 07-12 burning in groin related to catheter - really uncomfortable, 07-13 continue dialysis as indicated CR 4.6 D/W RN 29 MIN pt exam, chart review, > 50% of time spent with exam, chart review, pt care coordination History of Present Illness History of Present Illness HISTORY OF PRESENT ILLNESS: 64-year-old male who has stage 4 kidney disease, presents with a creatinine of 6.5. His BUN is 185. Potassium is high at 5.7. may need dialysis. His primary care doctor, Dr. Juwan Doyle, sent him to the ER. I have discussed the case with the ER physician. We are going to admit the patient and consult Nephrology. PAST MEDICAL HISTORY: Obesity, diabetes, hypertension, hemorrhoids, neuropathy, back pain, right ankle surgery, chronic renal insufficiency. ALLERGIES: METFORMIN. FAMILY HISTORY: Diabetes. SOCIAL HISTORY: He does not drink, smoke or take drugs. MEDICATIONS: Reviewed, please refer to the MRAD. Vitals Vitals Vital Signs Date Time Temp Pulse Resp B/P (MAP) Pulse Ox O2 Delivery O2 Flow Rate FiO2 07/14/20 08:29 105 90/75 07/14/20 06:55 99.5 22 90 Nasal Cannula 2.0 99.5 Physical Exam Physical Exam GENERAL: He is morbidly obese , pleasantly cooperative. HEENT: Normal cephalic atraumatic, external auditory canals are patent EYES: Extraocular muscles are intact, pupils are equally round and reactive to light and accommodation MUSCULOSKELETAL: Well developed, well nourished, good range of motion ENDOCRINE: No thyromegaly was palpated LYMPHATICS: No cervical chain or axillary nodes were noted HEMATOPOIETIC: No bruising NECK: Supple, no JVD, no thyromegaly was noted. LUNGS: Clear to auscultation in all lung vaughn without rhonchi or wheezing. HEART: RRR, S1, S2 present. Peripheral pulses intact, no obvious murmurs were noted. ABDOMEN: Soft, mild tenderness Positive bowel sounds no organomegaly, normal bowel sounds. very obese EXTREMITIES: Without any cyanosis, clubbing, or edema. Pedal pulses intact, Homans sign is negative. NEUROLOGIC: Normal speech, normal tone. A & O x3, moves all extremities, no obvious focal deficits. PSYCHIATRIC: Normal affect, normal mood. Stable. SKIN: No ulcerations or rashes, good skin turgor, no jaundice. VASCULAR: Good capillary refill, neurovascular bundle appears to be intact. General: Alert, Oriented X3, Cooperative, mild distress Heart: No murmurs, Other (AFIB) Abdomen: Other (mild tenderness ) Extremities: No clubbing, No cyanosis Skin: No significant lesion, Other (LE venous dermatitis) Labs LABS CT CHEST WO CONTRAST Indication: Hypoxia, CHF Technique: Noncontrast CT imaging was performed of the chest, multiplanar reconstruction images submitted. One or more of the following individualized dose reduction techniques were utilized for this examination: 1. Automated exposure control 2. Adjustment of the mA and/or kV according to patient size 3. Use of iterative reconstruction technique. Comparison: None Findings: There is small to moderate-sized dependent right pleural effusion with adjacent compressive atelectasis, trace left pleural fluid. There is no significant pericardial fluid. Heart is enlarged. There is coronary calcification. Tubular ascending thoracic aorta is dilated about 4.6 cm as measured on image 48 series 5. Aortic root is dilated about 4.2 cm image 48 series 5. Descending thoracic aortic caliber is about 3.2 cm greatest dimension. There is no pneumothorax. There is mild linear likely atelectasis of the left upper lobe. There is a more focal noncalcified nodular density of the lingula image 37 series 3 about 1 cm in size. There is a small quantity of free fluid about the liver, inferior extent not fully included. There is cholelithiasis. There is a somewhat lobulated margin of the limited visualized superior right kidney. There is splenomegaly. There is multilevel thoracic degenerative disc disease, vacuum phenomenon of more inferior thoracic levels. There is bilateral gynecomastia. IMPRESSION: 1. There is geiar-su-ckhfohco size right pleural effusion, trace left pleural effusion, and heart is enlarged. Constellation of findings could be due to left ventricular failure. There is coronary calcification. 2. There is dilatation of the ascending thoracic aorta up to 4.6 cm and aortic root dilatation about 4.2 cm. 3. There is a noncalcified 1 cm lingular nodule. As per revised Fleischner guidelines, 3 month follow-up CT or PET CT is recommended, clinical consideration of biopsy if high suspicion for malignancy. 4. There is small quantity of free fluid about the liver extending inferiorly, not fully included inferiorly. There is splenomegaly. 5. There is cholelithiasis. Electronically signed by: Merle Kamara MD (02/25/2019 12:35 PM) [id number] DICTATED and SIGNED BY: MERLE KAMARA MD Laboratory Tests Test 07/13/20 11:13 07/13/20 16:07 07/13/20 21:24 07/14/20 07:00 Glucose (Fingerstick) 155 mg/dL (70-99) 144 mg/dL (70-99) 153 mg/dL (70-99) 130 mg/dL (70-99) Assessment and Plan Assessmemt and Plan Problems Medical Problems: (1) Acute on chronic kidney failure Status: Acute (2) Hyperkalemia Status: Acute (3) Morbid obesity Status: Acute Comment Review of Relevant I have reviewed the following items tiffany (where applicable) has been applied. Labs Laboratory Tests Test 07/12/20 13:05 07/12/20 20:09 07/13/20 06:57 07/13/20 08:15 Glucose (Fingerstick) 145 mg/dL (70-99) 117 mg/dL (70-99) 124 mg/dL (70-99) White Blood Count 10.8 x10^3/uL (4.0-11.0) Red Blood Count 3.99 x10^6/uL (4.30-5.70) Hemoglobin 11.0 g/dL (13.0-17.5) Hematocrit 34.9 % (39.0-53.0) Mean Corpuscular Volume 87 fL (79-100) Mean Corpuscular Hemoglobin 28 pg (25-35) Mean Corpuscular Hemoglobin Concent 32 g/dL (31-37) Red Cell Distribution Width 14.2 % (11.5-14.5) Platelet Count 132 x10^3/uL (140-400) Neutrophils (%) (Auto) 95 % (31-73) Lymphocytes (%) (Auto) 2 % (24-48) Monocytes (%) (Auto) 3 % (0-9) Eosinophils (%) (Auto) 0 % (0-3) Basophils (%) (Auto) 0 % (0-3) Neutrophils # (Auto) 10.2 x10^3/uL (1.8-7.7) Lymphocytes # (Auto) 0.2 x10^3/uL (1.0-4.8) Monocytes # (Auto) 0.3 x10^3/uL (0.0-1.1) Eosinophils # (Auto) 0.0 x10^3/uL (0.0-0.7) Basophils # (Auto) 0.0 x10^3/uL (0.0-0.2) Segmented Neutrophils % 96 % (35-66) Lymphocytes % 3 % (24-48) Monocytes % 1 % (0-10) Platelet Estimate Adequate (ADEQUATE) Basophilic Stippling Present Target Cells Occ Tear Drop Cells Occ Ovalocytes Occ Sodium Level 138 mmol/L (136-145) Potassium Level 4.5 mmol/L (3.5-5.1) Chloride Level 101 mmol/L (98-107) Carbon Dioxide Level 26 mmol/L (21-32) Anion Gap 11 (6-14) Blood Urea Nitrogen 67 mg/dL (8-26) Creatinine 3.4 mg/dL (0.7-1.3) Estimated GFR (Cockcroft-Gault) 18.3 BUN/Creatinine Ratio 20 (6-20) Glucose Level 121 mg/dL (70-99) Calcium Level 9.3 mg/dL (8.5-10.1) Phosphorus Level 4.3 mg/dL (2.6-4.7) Total Bilirubin 0.5 mg/dL (0.2-1.0) Aspartate Amino Transf (AST/SGOT) 20 U/L (15-37) Alanine Aminotransferase (ALT/SGPT) 20 U/L (16-63) Alkaline Phosphatase 74 U/L (46-116) Total Protein 7.6 g/dL (6.4-8.2) Albumin 3.1 g/dL (3.4-5.0) Albumin/Globulin Ratio 0.7 (1.0-1.7) Test 07/13/20 11:13 07/13/20 16:07 07/13/20 21:24 07/14/20 07:00 Glucose (Fingerstick) 155 mg/dL (70-99) 144 mg/dL (70-99) 153 mg/dL (70-99) 130 mg/dL (70-99) Laboratory Tests Test 07/13/20 11:13 07/13/20 16:07 07/13/20 21:24 07/14/20 07:00 Glucose (Fingerstick) 155 mg/dL (70-99) 144 mg/dL (70-99) 153 mg/dL (70-99) 130 mg/dL (70-99) Microbiology 07/10/20 Urine Culture - Final, Complete Medications Current Medications Sodium Chloride 1,000 ml @ 125 mls/hr 1X ONCE IV Last administered on 07/10/20at 16:03; Start 07/10/20 at 16:00; Stop 07/10/20 at 23:59; Status DC Acetaminophen (Tylenol) 650 mg PRN Q4HRS PRN PO FEVER > 100.3'F; Start 07/10/20 at 16:15; Stop 07/11/20 at 16:14; Status DC Ceftriaxone Sodium (Rocephin) 1 gm Q24H IVP Last administered on 07/13/20at 21:32; Start 07/10/20 at 20:00 Enoxaparin Sodium (Lovenox 40mg Syringe) 40 mg Q24H SQ ; Start 07/10/20 at 20:45; Stop 07/10/20 at 20:40; Status DC Insulin Human Lispro (HumaLOG) 0-5 UNITS TIDWMEALS SQ ; Start 07/11/20 at 08:00 Dextrose (Dextrose 50%-Water Syringe) 12.5 gm PRN Q15MIN PRN IV SEE COMMENTS; Start 07/10/20 at 20:45; Stop 07/13/20 at 21:19; Status DC Heparin Sodium (Porcine) (Heparin Sodium) 5,000 unit Q8HRS SQ Last administered on 07/13/20at 21:38; Start 07/10/20 at 22:00 Amlodipine Besylate (Norvasc) 10 mg DAILY PO ; Start 07/11/20 at 09:00; Status UNV Amlodipine Besylate (Norvasc) 10 mg DAILY PO ; Start 07/11/20 at 09:00; Stop 07/12/20 at 08:11; Status DC Ferrous Sulfate (Feosol) 325 mg DAILY PO Last administered on 07/14/20at 08:27; Start 07/11/20 at 09:00 Acetaminophen/ Hydrocodone Bitart (Lortab 10/325) 1 tab PRN Q6HRS PRN PO PAIN Last administered on 07/13/20at 21:33; Start 07/10/20 at 22:15 Losartan Potassium (Cozaar) 50 mg DAILY PO ; Start 07/11/20 at 09:00; Stop 07/12/20 at 08:11; Status DC Methocarbamol (Robaxin) 500 mg QID PO Last administered on 07/11/20at 23:36; Start 07/10/20 at 21:30; Stop 07/12/20 at 08:12; Status DC Metolazone (Zaroxolyn) 2.5 mg QMWF PO ; Start 07/12/20 at 16:00; Stop 07/12/20 at 08:11; Status DC Mupirocin (Bactroban) 1 navarro BID TP Last administered on 07/14/20at 08:32; Start 07/11/20 at 09:00 Naproxen (Naprosyn) 500 mg HS PO Last administered on 07/11/20at 23:35; Start 07/10/20 at 22:30; Stop 07/12/20 at 08:12; Status DC Nystatin (Nystop) 1 navarro BID TP Last administered on 07/14/20at 08:31; Start 07/11/20 at 09:00 Fish Oil (Fish Oil) 1,000 mg DAILY PO Last administered on 07/14/20at 08:27; Start 07/11/20 at 09:00 Simvastatin (Zocor) 20 mg HS PO Last administered on 07/13/20at 21:34; Start 07/10/20 at 22:30 Spironolactone (Aldactone) 25 mg DAILY PO ; Start 07/11/20 at 09:00; Stop 07/12/20 at 08:11; Status DC Spironolactone (Aldactone) 25 mg DAILY PO ; Start 07/11/20 at 09:00; Status UNV Atenolol (Tenormin) 100 mg DAILY PO ; Start 07/11/20 at 09:00; Stop 07/12/20 at 08:12; Status DC Bumetanide (Bumex) 1 mg DAILY PO ; Start 07/11/20 at 09:00; Stop 07/12/20 at 08:12; Status DC Gabapentin (Neurontin) 600 mg HS PO Last administered on 07/13/20at 21:33; Start 07/10/20 at 22:30 Insulin Human Lispro (HumaLOG) 35 units DAILYBFRSUP SQ ; Start 07/11/20 at 17:00 Non-Formulary Medication (Insulin Detemir (Levemir)) 80 unit HS SQ ; Start 07/11/20 at 21:00; Status UNV Non-Formulary Medication (Liraglutide (Victoza 3-Fredy)) 1.8 mg DAILY SQ ; Start 07/11/20 at 09:00; Stop 07/12/20 at 08:12; Status DC Linagliptin (Tradjenta) 5 mg DAILY PO Last administered on 07/14/20at 08:27; Start 07/11/20 at 09:00 Zolpidem Tartrate (Ambien) 5 mg PRN QHS PRN PO INSOMNIA MRX1 PRN Last administered on 07/10/20at 23:38; Start 07/10/20 at 22:45 Insulin Glargine (Lantus Syringe) 80 unit QHS SQ Last administered on 07/13/20at 21:38; Start 07/10/20 at 22:45 Pantoprazole Sodium (PROTONIX VIAL for IV PUSH) 40 mg DAILYAC IVP Last administered on 07/12/20at 08:50; Start 07/11/20 at 16:30; Stop 07/12/20 at 11:16; Status DC Lidocaine HCl (Buffered Lidocaine 1%) 3 ml STK-MED ONCE .ROUTE ; Start 07/11/20 at 14:24; Stop 07/11/20 at 14:25; Status DC Lidocaine HCl (Buffered Lidocaine 1%) 3 ml 1X ONCE INJ Last administered on 07/11/20at 14:49; Start 07/11/20 at 14:30; Stop 07/11/20 at 14:31; Status DC Lactobacillus Rhamnosus (Culturelle) 1 cap BID PO Last administered on 07/14/20 08:27; Start 07/11/20 at 21:00 Sodium Chloride 1,000 ml @ 1,000 mls/hr Q1H PRN IV hypotension; Start 07/11/20 at 18:00; Stop 07/11/20 at 23:59; Status DC Albumin Human 200 ml @ 200 mls/hr 1X PRN PRN IV Hypotension; Start 07/11/20 at 18:00; Stop 07/11/20 at 23:59; Status DC Sodium Chloride 1,000 ml @ 400 mls/hr Q2H30M PRN IV PATENCY; Start 07/11/20 at 18:00; Stop 07/12/20 at 05:59; Status DC Info (PHARMACY MONITORING -- do not chart) 1 each PRN DAILY PRN MC SEE COMMENTS; Start 07/11/20 at 20:00; Status Cancel Info (PHARMACY MONITORING -- do not chart) 1 each PRN DAILY PRN MC SEE COMMENTS; Start 07/11/20 at 20:00; Status Cancel Sodium Chloride 500 ml @ 250 mls/hr 1X ONCE IV Last administered on 07/11/20at 22:10; Start 07/11/20 at 22:15; Stop 07/12/20 at 00:14; Status DC Metoprolol Tartrate (Lopressor) 12.5 mg BID PO Last administered on 07/14/20 08:29; Start 07/12/20 at 09:00 Aspirin (Ecotrin) 81 mg DAILYWBKFT PO Last administered on 07/14/20 08:27; Start 07/12/20 at 09:00 Lidocaine HCl (Glydo (Lidocaine) Jelly) 1 navarro PRN Q4HRS PRN MM PAIN Last administered on 07/12/20at 15:25; Start 07/12/20 at 09:15 Bisacodyl (Dulcolax Supp) 10 mg 1X ONCE AL Last administered on 07/12/20at 10:16; Start 07/12/20 at 09:15; Stop 07/12/20 at 09:16; Status DC Pantoprazole Sodium (Protonix) 40 mg DAILYAC PO Last administered on 07/14/20at 08:27; Start 07/13/20 at 07:30 Polyethylene Glycol (miraLAX PACKET) 17 gm DAILY PO ; Start 07/12/20 at 11:30 Bisacodyl (Dulcolax Tab) 5 mg PRN DAILY PRN PO CONSTIPATION; Start 07/12/20 at 11:30 Sodium Chloride 1,000 ml @ 1,000 mls/hr Q1H PRN IV hypotension; Start 07/12/20 at 14:00; Stop 07/12/20 at 19:59; Status DC Albumin Human 200 ml @ 200 mls/hr 1X PRN PRN IV Hypotension; Start 07/12/20 at 14:00; Stop 07/12/20 at 19:59; Status DC Sodium Chloride 1,000 ml @ 400 mls/hr Q2H30M PRN IV PATENCY; Start 07/12/20 at 14:00; Stop 07/13/20 at 01:59; Status DC Info (PHARMACY MONITORING -- do not chart) 1 each PRN DAILY PRN MC SEE COMMENTS; Start 07/12/20 at 15:45; Status UNV Info (PHARMACY MONITORING -- do not chart) 1 each PRN DAILY PRN MC SEE COMMENTS; Start 07/12/20 at 15:45; Status Cancel Perflutren Protein Type A Microsphe (Optison) 0.66 mg STK-MED ONCE IV ; Start 07/13/20 at 07:30; Stop 07/13/20 at 07:30; Status DC Digoxin (Lanoxin) 500 mcg 1X ONCE IV Last administered on 07/13/20at 11:15; Start 07/13/20 at 11:15; Stop 07/13/20 at 11:16; Status DC Sodium Chloride 1,000 ml @ 1,000 mls/hr Q1H PRN IV hypotension; Start 07/13/20 at 13:15; Stop 07/13/20 at 19:14; Status DC Albumin Human 200 ml @ 200 mls/hr 1X PRN PRN IV Hypotension; Start 07/13/20 at 13:15; Stop 07/13/20 at 19:14; Status DC Sodium Chloride 1,000 ml @ 400 mls/hr Q2H30M PRN IV PATENCY; Start 07/13/20 at 13:15; Stop 07/14/20 at 01:14; Status DC Info (PHARMACY MONITORING -- do not chart) 1 each PRN DAILY PRN MC SEE COMMENTS; Start 07/13/20 at 13:15; Status Cancel Info (PHARMACY MONITORING -- do not chart) 1 each PRN DAILY PRN MC SEE COMMENTS; Start 07/13/20 at 13:15 Acetaminophen (Tylenol) 650 mg PRN Q6HRS PRN PO MILD PAIN / TEMP > 100.3'F Last administered on 07/14/20at 08:27; Start 07/13/20 at 18:30 Dextrose (Dextrose 50%-Water Syringe) 12.5 gm PRN Q15MIN PRN IV SEE COMMENTS; Start 07/13/20 at 21:15 Haloperidol Lactate (Haldol Inj) 5 mg PRN Q6HRS PRN IVP AGITATION Last administered on 07/14/20at 08:27; Start 07/14/20 at 05:15 Active Scripts Active Reported Aspirin 325 Mg Tablet 1 Tab PO BID Metolazone 2.5 Mg Tablet 2.5 Mg PO QMWF Fish Oil 1,000 Mg Softgel ([place]-3 Fatty Acids/Fish Oil) 1 Each Capsule 1 Cap PO DAILY 30 Days Gabapentin 600 Mg Tablet 600 Mg PO HS Nystatin 15 Gm Powder 1 Navarro TP BID 7 Days apply to affected area(s) Hydrocodone-Apap 10-325 (Hydrocodone Bit/Acetaminophen) 1 Tab Tablet 1 Tab PO PRN Q6HRS PRN Zolpidem Tartrate Er (Zolpidem Tartrate) 12.5 Mg Tab.mphase 12.5 Mg PO PRN QHS PRN Robaxin-750 (Methocarbamol) 750 Mg Tablet 500 Mg PO QID Novolog (Insulin Aspart) 100 Unit/1 Ml Cartridge 35 Unit SQ DAILYBFRSUP Atenolol 100 Mg Tablet 100 Mg PO DAILY Levemir (Insulin Detemir) 100 Unit/1 Ml Vial 80 Unit SQ HS Victoza 3-Fredy (Liraglutide) 0.6 Mg/0.1 Ml Pen.injctr 1.8 Mg SQ DAILY Simvastatin 20 Mg Tablet 20 Mg PO HS Spironolactone 25 Mg Tablet 25 Mg PO DAILY Amlodipine Besylate 10 Mg Tablet 10 Mg PO DAILY Mupirocin Ointment (Mupirocin) 22 Gm Oint...g. 1 Navarro TP BID Iron (Ferrous Sulfate) 325 Mg Tablet 325 Mg PO DAILY Januvia (Sitagliptin Phosphate) 100 Mg Tablet 100 Mg PO DAILY Vitals/I & O Vital Sign - Last 24 Hours 07/13/20 07/13/20 07/13/20 07/13/20 11:15 16:27 18:19 20:00 Temp 103.0 103.0 Pulse 115 108 98 Resp 21 B/P (MAP) 90/46 104/86 (92) 81/52 (62) Pulse Ox 93 O2 Delivery Room Air Nasal Cannula O2 Flow Rate 2.0 07/13/20 07/13/20 07/14/20 07/14/20 21:00 23:00 03:00 06:55 Temp 99.7 101.9 99.5 99.7 101.9 99.5 Pulse 98 95 98 105 Resp 22 22 22 B/P (MAP) 81/52 90/55 (67) 92/41 (58) 90/75 (80) Pulse Ox 94 94 90 O2 Delivery Nasal Cannula Nasal Cannula Nasal Cannula O2 Flow Rate 2.0 2.0 2.0 07/14/20 08:29 Pulse 105 B/P (MAP) 90/75 Intake and Output 07/13/20 07/13/20 07/14/20 14:59 22:59 06:59 Intake Total 280 ml 850 ml 200 ml Output Total 375 ml 200 ml Balance 280 ml 475 ml 0 ml Justicifation of Admission Dx: Justifications for Admission: Justification of Admission Dx: Yes Acute Renal Failure: RF Can't Be Managed Outpt LISE BOWIE MD Jul 14, 2020 10:27
[2020-07-14 10:39] VITALS: BP 135/87
[2020-07-14] MEDS ORDERED: MAGNESIUM SULFATE 2GM 50 ML IV PRN (11:00)
[2020-07-14 11:23] LABS: ALBUMIN 2.6 g/dL (3.4-5.0); CALCIUM 8.5 mg/dL (8.5-10.1); CREATININE 4.1 mg/dL (0.7-1.3); GFR 14.7; PHOSPHORUS 3.5 mg/dL (2.6-4.7); POTASSIUM 4.9 mmol/L (3.5-5.1)
--- NOTE | 2020-07-14 14:01 | NUR ---
patient confused at time of hour rounds. upon entering room patient was holding temporary dialysis catheter in hand and had pulled out line. no bleeding noted. sterile dressing applied at this time. Dr Dotson notified. Dr Dotson ordered portable xray. traffic signal supervisor maintenance and Dr Antonia Jamil notified of patient pulling out line.
[2020-07-14 14:21] VITALS: BP 136/88
--- NOTE | 2020-07-14 15:22 | RAD ---
EXAM: Chest, single view. HISTORY: Dialysis catheter removal. COMPARISON: 07/11/2020 FINDINGS: Frontal views of the chest are obtained. There has been removal of a right internal jugular dialysis catheter. A pneumothorax is seen. There is stable diffuse interstitial prominence. There is a stable prominent cardiac silhouette. There is no pleural effusion. IMPRESSION: Stable diffuse interstitial prominence. Electronically signed by: Rosie Christian MD (07/14/2020 3:20 PM) [facility]
[2020-07-14] MEDS: HYDROcodone/APAP 10/325 1 TAB TABLET PO PRN ×2 (15:41→21:50)
--- NOTE | 2020-07-14 17:37 | RAD ---
Exam: CT head INDICATION: Acute encephalopathy TECHNIQUE: Sequential axial images through the head were obtained without the administration of IV co ntrast. Comparisons: None FINDINGS: No focal parenchymal lesion or hemorrhage is identified. There is no midline shift or sulcal effaceme nt. Patchy hypodensity in the periventricular white matter. No acute vascular territory infarction is janelle ntified. Tejeda-white distinction is preserved. The ventricular system is within normal limits without compression hydrocephalus. The basal cisterns are well maintained. The visualized portions of the paranasal sinuses and mastoid air cells are well-pneumatized. No acute fractures. IMPRESSION: Mild small vessel schema change, technically age indeterminate without recent prior imaging. Exposure: One or more of the following in the visualized dose reduction techniques were utilized for this examination: 1. Automated exposure control 2. Adjustment of the MA and/or KV according to patient size Use of iterative of reconstructive technique Electronically signed by: Arjun Torre MD (07/14/2020 5:35 PM) [facility]
[2020-07-14 19:35] VITALS: BP 92/65
[2020-07-14] MEDS: ZOLPIDEM 5 MG TABLET. PO PRN (20:46)
[2020-07-14] MEDS: cefTRIAXone IV Push 1 GM VIAL. IVP SCH (20:46)
[2020-07-14] MEDS: GABAPENTIN 300 MG CAPSULE. PO SCH (20:47)
[2020-07-14] MEDS: SIMVASTATIN 20 MG TABLET PO SCH (20:47)
[2020-07-14] MEDS: INSULIN GLARGINE SYRINGE. SQ SCH (20:56)
[2020-07-14 23:22] VITALS: BP 121/62
[2020-07-15] VITALS (7 sets, daily range): BP systolic 73–132; BP diastolic 39–90
[2020-07-15] MEDS ORDERED: METHOCARBAMOL 750 MG TABLET PO ONE (03:00)
[2020-07-15 04:41] LABS: BASO % 1 % (0-3); EOS % 0 % (0-3); HEMATOCRIT 35.1 % (39.0-53.0); LYMPH # 0.5 x10^3/uL (1.0-4.8); LYMPH % 8 % (24-48); MEAN CORPUSCULAR HEMOGLOBIN 27 pg (25-35); MEAN CORPUSCULAR HGB CONC 31 g/dL (31-37); MEAN CORPUSCULAR VOLUME 87 fL (79-100); MONO # 0.5 x10^3/uL (0.0-1.1); MONO % 7 % (0-9); NEUT # 5.6 x10^3/uL (1.8-7.7); NEUT % 84 % (31-73); PLATELET COUNT 108 x10^3/uL (140-400); RED BLOOD COUNT 4.02 x10^6/uL (4.30-5.70); WHITE BLOOD COUNT 6.6 x10^3/uL (4.0-11.0)
[2020-07-15 05:00] LABS: ALBUMIN 2.4 g/dL (3.4-5.0); ALBUMIN/GLOBULIN RATIO 0.7 (1.0-1.7); CALCIUM 8.3 mg/dL (8.5-10.1); CREATININE 6.3 mg/dL (0.7-1.3); PHOSPHORUS 4.7 mg/dL (2.6-4.7); TOTAL BILIRUBIN 0.5 mg/dL (0.2-1.0); TOTAL PROTEIN 5.9 g/dL (6.4-8.2)
[2020-07-15] MEDS: HEPARIN for SUB-Q USE 5,000 UNIT/ML VIAL. SQ SCH ×3 (06:13→21:58)
--- NOTE | 2020-07-15 06:49 | NUR ---
Patient pulled out IV, attempt x5 to restart IV, unsuccessful.
[2020-07-15] MEDS: INSULIN LISPRO 300 UNITS/3 ML VIAL. SQ SCH ×4 (08:00→17:00)
[2020-07-15] MEDS: METOPROLOL TART IMMED RELEASE 25 MG TABLET. PO SCH ×2 (09:00→21:48)
[2020-07-15] MEDS: POLYETHYLENE GLYCOL 3350 17 GM PACKET. PO SCH (09:00)
[2020-07-15] MEDS: PANTOPRAZOLE 40 MG TABLET.DR. PO SCH (09:27)
[2020-07-15] MEDS: FERROUS SULFATE 325 MG TABLET. PO SCH (09:27)
[2020-07-15] MEDS: ASPIRIN ENTERIC COATED 81 MG TABLET.DR. PO SCH (09:27)
[2020-07-15] MEDS: LINAGLIPTIN 5 MG TABLET PO SCH (09:27)
[2020-07-15] MEDS: LACTOBACILLUS RHAMNOSUS GG 1 CAPSULE. PO SCH ×2 (09:27→21:47)
[2020-07-15] MEDS: OMEGA-3 FATTY ACIDS/FISH OIL 1,000 MG CAPSULE. PO SCH (09:27)
[2020-07-15] MEDS: NYSTATIN TOPICAL POWDER 15GM BOTTLE. TP SCH ×2 (09:29→21:49)
[2020-07-15] MEDS: MUPIROCIN 2 % NASAL OINTMENT 22GM TUBE. TP SCH ×2 (09:29→21:49)
[2020-07-15] MEDS: HYDROcodone/APAP 10/325 1 TAB TABLET PO PRN ×3 (09:40→21:51)
--- NOTE | 2020-07-15 10:35 | PDOC ---
PROGRESS NOTES Date of Service: DATE: 07/15/20 TIME: 10:34 Chief Complaint Chief Complaint ASSESSMENT AND PLAN: ACUTE RENAL INJURY urinary tract infection. abdominal discomfort, lower bilateral morbid obesity hypoxic resp failure Chest pain: doubt ACS, potentially from GI // significant NSAID use. AFIB: likely chronic, rate controlled CHRONIC LOW BACK PAIN Trace tricuspid regurgitation with an estimated PAP of 45 mmHg C/W MOD PULM HTN PROB SLEEP APNEA Acute metabolic encephalopathy PULMONARY NODULE plan IV antibiotics, IV fluids. Trend creatinine. Consult Nephrology. Home meds, DVT prophylaxis. Full code. GI CONSULT CARDIOLOGY CONSULT ABG Temporary dialysis catheter in vascular lab 07-[address] HEAD CT CHEST 07-15-20 ENCEPHALOPATHIC, CONFUSED, PULLING OUT IV-S NEEDS SITNESS RUTLEDGE ir consulted replace temp dialysis cath D/W RN No acute findings in the abdomen and pelvis on noncontrast CT. 07-10 PROGNOSIS: guarded. He did not keep follow up nephrology appts. follows with his PCP Q year and p rior to most recent labs no other Interval labs done 07-12 burning in groin related to catheter - really uncomfortable, 07-13 continue dialysis as indicated CR 4.6 D/W RN 29 MIN pt exam, chart review, > 50% of time spent with exam, chart review, pt care coordination History of Present Illness History of Present Illness HISTORY OF PRESENT ILLNESS: 64-year-old male who has stage 4 kidney disease, presents with a creatinine of 6.5. His BUN is 185. Potassium is high at 5.7. may need dialysis. His primary care doctor, Dr. Juwan Doyle, sent him to the ER. I have discussed the case with the ER physician. We are going to admit the patient and consult Nephrology. PAST MEDICAL HISTORY: Obesity, diabetes, hypertension, hemorrhoids, neuropathy, back pain, right ankle surgery, chronic renal insufficiency. ALLERGIES: METFORMIN. FAMILY HISTORY: Diabetes. SOCIAL HISTORY: He does not drink, smoke or take drugs. MEDICATIONS: Reviewed, please refer to the MRAD. Vitals Vitals Vital Signs Date Time Temp Pulse Resp B/P (MAP) Pulse Ox O2 Delivery O2 Flow Rate FiO2 07/15/20 09:40 95 Nasal Cannula 2.0 07/15/20 09:37 100 80/62 (68) 07/15/20 07:00 18 07/15/20 03:12 98.9 98.9 Physical Exam Physical Exam GENERAL: He is morbidly obese , pleasantly cooperative. HEENT: Normal cephalic atraumatic, external auditory canals are patent EYES: Extraocular muscles are intact, pupils are equally round and reactive to light and accommodation MUSCULOSKELETAL: Well developed, well nourished, good range of motion ENDOCRINE: No thyromegaly was palpated LYMPHATICS: No cervical chain or axillary nodes were noted HEMATOPOIETIC: No bruising NECK: Supple, no JVD, no thyromegaly was noted. LUNGS: Clear to auscultation in all lung vaughn without rhonchi or wheezing. HEART: RRR, S1, S2 present. Peripheral pulses intact, no obvious murmurs were noted. ABDOMEN: Soft, mild tenderness Positive bowel sounds no organomegaly, normal bowel sounds. very obese EXTREMITIES: Without any cyanosis, clubbing, or edema. Pedal pulses intact, Homans sign is negative. NEUROLOGIC: Normal speech, normal tone. A & O x3, moves all extremities, no obvious focal deficits. PSYCHIATRIC: Normal affect, normal mood. Stable. SKIN: No ulcerations or rashes, good skin turgor, no jaundice. VASCULAR: Good capillary refill, neurovascular bundle appears to be intact. General: Alert, Oriented X3, Cooperative, mild distress Heart: No murmurs, Other (AFIB) Abdomen: Other (mild tenderness ) Extremities: No clubbing, No cyanosis Skin: No significant lesion, Other (LE venous dermatitis) Labs LABS EXAM: Chest, single view. HISTORY: Dialysis catheter removal. COMPARISON: 07/11/2020 FINDINGS: Frontal views of the chest are obtained. There has been removal of a right internal jugular dialysis catheter. A pneumothorax is seen. There is stable diffuse interstitial prominence. There is a stable prominent cardiac silhouette. There is no pleural effusion. IMPRESSION: Stable diffuse interstitial prominence. Electronically signed by: Rosie Henriquez MD (07/14/2020 3:20 PM) [facility] DICTATED and SIGNED BY: ROSIE HENRIQUEZ MD DATE: 07/14/20 [id number] Laboratory Tests Test 07/14/20 11:08 07/14/20 16:09 07/14/20 18:30 07/14/20 20:54 Glucose (Fingerstick) 145 mg/dL (70-99) 104 mg/dL (70-99) 155 mg/dL (70-99) Ammonia < 10 mcmol/L (11-34) Test 07/15/20 04:00 07/15/20 07:27 White Blood Count 6.6 x10^3/uL (4.0-11.0) Red Blood Count 4.02 x10^6/uL (4.30-5.70) Hemoglobin 11.0 g/dL (13.0-17.5) Hematocrit 35.1 % (39.0-53.0) Mean Corpuscular Volume 87 fL (79-100) Mean Corpuscular Hemoglobin 27 pg (25-35) Mean Corpuscular Hemoglobin Concent 31 g/dL (31-37) Red Cell Distribution Width 14.0 % (11.5-14.5) Platelet Count 108 x10^3/uL (140-400) Neutrophils (%) (Auto) 84 % (31-73) Lymphocytes (%) (Auto) 8 % (24-48) Monocytes (%) (Auto) 7 % (0-9) Eosinophils (%) (Auto) 0 % (0-3) Basophils (%) (Auto) 1 % (0-3) Neutrophils # (Auto) 5.6 x10^3/uL (1.8-7.7) Lymphocytes # (Auto) 0.5 x10^3/uL (1.0-4.8) Monocytes # (Auto) 0.5 x10^3/uL (0.0-1.1) Eosinophils # (Auto) 0.0 x10^3/uL (0.0-0.7) Basophils # (Auto) 0.0 x10^3/uL (0.0-0.2) Sodium Level 137 mmol/L (136-145) Potassium Level 5.0 mmol/L (3.5-5.1) Chloride Level 99 mmol/L (98-107) Carbon Dioxide Level 26 mmol/L (21-32) Anion Gap 12 (6-14) Blood Urea Nitrogen 76 mg/dL (8-26) Creatinine 6.3 mg/dL (0.7-1.3) Estimated GFR (Cockcroft-Gault) 9.0 BUN/Creatinine Ratio 12 (6-20) Glucose Level 114 mg/dL (70-99) Calcium Level 8.3 mg/dL (8.5-10.1) Phosphorus Level 4.7 mg/dL (2.6-4.7) Magnesium Level 2.0 mg/dL (1.8-2.4) Total Bilirubin 0.5 mg/dL (0.2-1.0) Aspartate Amino Transf (AST/SGOT) 100 U/L (15-37) Alanine Aminotransferase (ALT/SGPT) 53 U/L (16-63) Alkaline Phosphatase 125 U/L (46-116) Total Protein 5.9 g/dL (6.4-8.2) Albumin 2.4 g/dL (3.4-5.0) Albumin/Globulin Ratio 0.7 (1.0-1.7) Glucose (Fingerstick) 99 mg/dL (70-99) Assessment and Plan Assessmemt and Plan Problems Medical Problems: (1) Acute on chronic kidney failure Status: Acute (2) Hyperkalemia Status: Acute (3) Morbid obesity Status: Acute Comment Review of Relevant I have reviewed the following items tiffany (where applicable) has been applied. Labs Laboratory Tests Test 07/13/20 11:13 07/13/20 16:07 07/13/20 21:24 07/14/20 07:00 Glucose (Fingerstick) 155 mg/dL (70-99) 144 mg/dL (70-99) 153 mg/dL (70-99) 130 mg/dL (70-99) Test 07/14/20 09:12 07/14/20 11:08 07/14/20 16:09 07/14/20 18:30 Sodium Level 138 mmol/L (136-145) Potassium Level 4.9 mmol/L (3.5-5.1) Chloride Level 100 mmol/L (98-107) Carbon Dioxide Level 23 mmol/L (21-32) Anion Gap 15 (6-14) Blood Urea Nitrogen 57 mg/dL (8-26) Creatinine 4.1 mg/dL (0.7-1.3) Estimated GFR (Cockcroft-Gault) 14.7 Glucose Level 115 mg/dL (70-99) Calcium Level 8.5 mg/dL (8.5-10.1) Phosphorus Level 3.5 mg/dL (2.6-4.7) Albumin 2.6 g/dL (3.4-5.0) Glucose (Fingerstick) 145 mg/dL (70-99) 104 mg/dL (70-99) Ammonia < 10 mcmol/L (11-34) Test 07/14/20 20:54 07/15/20 04:00 07/15/20 07:27 Glucose (Fingerstick) 155 mg/dL (70-99) 99 mg/dL (70-99) White Blood Count 6.6 x10^3/uL (4.0-11.0) Red Blood Count 4.02 x10^6/uL (4.30-5.70) Hemoglobin 11.0 g/dL (13.0-17.5) Hematocrit 35.1 % (39.0-53.0) Mean Corpuscular Volume 87 fL (79-100) Mean Corpuscular Hemoglobin 27 pg (25-35) Mean Corpuscular Hemoglobin Concent 31 g/dL (31-37) Red Cell Distribution Width 14.0 % (11.5-14.5) Platelet Count 108 x10^3/uL (140-400) Neutrophils (%) (Auto) 84 % (31-73) Lymphocytes (%) (Auto) 8 % (24-48) Monocytes (%) (Auto) 7 % (0-9) Eosinophils (%) (Auto) 0 % (0-3) Basophils (%) (Auto) 1 % (0-3) Neutrophils # (Auto) 5.6 x10^3/uL (1.8-7.7) Lymphocytes # (Auto) 0.5 x10^3/uL (1.0-4.8) Monocytes # (Auto) 0.5 x10^3/uL (0.0-1.1) Eosinophils # (Auto) 0.0 x10^3/uL (0.0-0.7) Basophils # (Auto) 0.0 x10^3/uL (0.0-0.2) Sodium Level 137 mmol/L (136-145) Potassium Level 5.0 mmol/L (3.5-5.1) Chloride Level 99 mmol/L (98-107) Carbon Dioxide Level 26 mmol/L (21-32) Anion Gap 12 (6-14) Blood Urea Nitrogen 76 mg/dL (8-26) Creatinine 6.3 mg/dL (0.7-1.3) Estimated GFR (Cockcroft-Gault) 9.0 BUN/Creatinine Ratio 12 (6-20) Glucose Level 114 mg/dL (70-99) Calcium Level 8.3 mg/dL (8.5-10.1) Phosphorus Level 4.7 mg/dL (2.6-4.7) Magnesium Level 2.0 mg/dL (1.8-2.4) Total Bilirubin 0.5 mg/dL (0.2-1.0) Aspartate Amino Transf (AST/SGOT) 100 U/L (15-37) Alanine Aminotransferase (ALT/SGPT) 53 U/L (16-63) Alkaline Phosphatase 125 U/L (46-116) Total Protein 5.9 g/dL (6.4-8.2) Albumin 2.4 g/dL (3.4-5.0) Albumin/Globulin Ratio 0.7 (1.0-1.7) Laboratory Tests Test 07/14/20 11:08 07/14/20 16:09 07/14/20 18:30 07/14/20 20:54 Glucose (Fingerstick) 145 mg/dL (70-99) 104 mg/dL (70-99) 155 mg/dL (70-99) Ammonia < 10 mcmol/L (11-34) Test 07/15/20 04:00 07/15/20 07:27 White Blood Count 6.6 x10^3/uL (4.0-11.0) Red Blood Count 4.02 x10^6/uL (4.30-5.70) Hemoglobin 11.0 g/dL (13.0-17.5) Hematocrit 35.1 % (39.0-53.0) Mean Corpuscular Volume 87 fL (79-100) Mean Corpuscular Hemoglobin 27 pg (25-35) Mean Corpuscular Hemoglobin Concent 31 g/dL (31-37) Red Cell Distribution Width 14.0 % (11.5-14.5) Platelet Count 108 x10^3/uL (140-400) Neutrophils (%) (Auto) 84 % (31-73) Lymphocytes (%) (Auto) 8 % (24-48) Monocytes (%) (Auto) 7 % (0-9) Eosinophils (%) (Auto) 0 % (0-3) Basophils (%) (Auto) 1 % (0-3) Neutrophils # (Auto) 5.6 x10^3/uL (1.8-7.7) Lymphocytes # (Auto) 0.5 x10^3/uL (1.0-4.8) Monocytes # (Auto) 0.5 x10^3/uL (0.0-1.1) Eosinophils # (Auto) 0.0 x10^3/uL (0.0-0.7) Basophils # (Auto) 0.0 x10^3/uL (0.0-0.2) Sodium Level 137 mmol/L (136-145) Potassium Level 5.0 mmol/L (3.5-5.1) Chloride Level 99 mmol/L (98-107) Carbon Dioxide Level 26 mmol/L (21-32) Anion Gap 12 (6-14) Blood Urea Nitrogen 76 mg/dL (8-26) Creatinine 6.3 mg/dL (0.7-1.3) Estimated GFR (Cockcroft-Gault) 9.0 BUN/Creatinine Ratio 12 (6-20) Glucose Level 114 mg/dL (70-99) Calcium Level 8.3 mg/dL (8.5-10.1) Phosphorus Level 4.7 mg/dL (2.6-4.7) Magnesium Level 2.0 mg/dL (1.8-2.4) Total Bilirubin 0.5 mg/dL (0.2-1.0) Aspartate Amino Transf (AST/SGOT) 100 U/L (15-37) Alanine Aminotransferase (ALT/SGPT) 53 U/L (16-63) Alkaline Phosphatase 125 U/L (46-116) Total Protein 5.9 g/dL (6.4-8.2) Albumin 2.4 g/dL (3.4-5.0) Albumin/Globulin Ratio 0.7 (1.0-1.7) Glucose (Fingerstick) 99 mg/dL (70-99) Microbiology 07/10/20 Urine Culture - Final, Complete Medications Current Medications Sodium Chloride 1,000 ml @ 125 mls/hr 1X ONCE IV Last administered on 07/10/20at 16:03; Start 07/10/20 at 16:00; Stop 07/10/20 at 23:59; Status DC Acetaminophen (Tylenol) 650 mg PRN Q4HRS PRN PO FEVER > 100.3'F; Start 07/10/20 at 16:15; Stop 07/11/20 at 16:14; Status DC Ceftriaxone Sodium (Rocephin) 1 gm Q24H IVP Last administered on 07/14/20at 20:46; Start 07/10/20 at 20:00 Enoxaparin Sodium (Lovenox 40mg Syringe) 40 mg Q24H SQ ; Start 07/10/20 at 20: 45; Stop 07/10/20 at 20:40; Status DC Insulin Human Lispro (HumaLOG) 0-5 UNITS TIDWMEALS SQ ; Start 07/11/20 at 08:00 Dextrose (Dextrose 50%-Water Syringe) 12.5 gm PRN Q15MIN PRN IV SEE COMMENTS; Start 07/10/20 at 20:45; Stop 07/13/20 at 21:19; Status DC Heparin Sodium (Porcine) (Heparin Sodium) 5,000 unit Q8HRS SQ Last administered on 07/15/20 06:13; Start 07/10/20 at 22:00 Amlodipine Besylate (Norvasc) 10 mg DAILY PO ; Start 07/11/20 at 09:00; Status UNV Amlodipine Besylate (Norvasc) 10 mg DAILY PO ; Start 07/11/20 at 09:00; Stop 07/12/20 at 08:11; Status DC Ferrous Sulfate (Feosol) 325 mg DAILY PO Last administered on 07/15/20 09:27; Start 07/11/20 at 09:00 Acetaminophen/ Hydrocodone Bitart (Lortab 10/325) 1 tab PRN Q6HRS PRN PO PAIN Last administered on 07/15/20 09:40; Start 07/10/20 at 22:15 Losartan Potassium (Cozaar) 50 mg DAILY PO ; Start 07/11/20 at 09:00; Stop 07/12/20 at 08:11; Status DC Methocarbamol (Robaxin) 500 mg QID PO Last administered on 07/11/20at 23:36; Start 07/10/20 at 21:30; Stop 07/12/20 at 08:12; Status DC Metolazone (Zaroxolyn) 2.5 mg QMWF PO ; Start 07/12/20 at 16:00; Stop 07/12/20 at 08:11; Status DC Mupirocin (Bactroban) 1 adilson BID TP Last administered on 07/15/20 09:29; Start 07/11/20 at 09:00 Naproxen (Naprosyn) 500 mg HS PO Last administered on 07/11/20at 23:35; Start 07/10/20 at 22:30; Stop 07/12/20 at 08:12; Status DC Nystatin (Nystop) 1 adilson BID TP Last administered on 07/15/20 09:29; Start 07/11/20 at 09:00 Fish Oil (Fish Oil) 1,000 mg DAILY PO Last administered on 07/15/20 09:27; Start 07/11/20 at 09:00 Simvastatin (Zocor) 20 mg HS PO Last administered on 07/14/20 20:47; Start 07/10/20 at 22:30 Spironolactone (Aldactone) 25 mg DAILY PO ; Start 07/11/20 at 09:00; Stop 07/12/20 at 08:11; Status DC Spironolactone (Aldactone) 25 mg DAILY PO ; Start 07/11/20 at 09:00; Status UNV Atenolol (Tenormin) 100 mg DAILY PO ; Start 07/11/20 at 09:00; Stop 07/12/20 at 08:12; Status DC Bumetanide (Bumex) 1 mg DAILY PO ; Start 07/11/20 at 09:00; Stop 07/12/20 at 08:12; Status DC Gabapentin (Neurontin) 600 mg HS PO Last administered on 07/14/20 20:47; Start 07/10/20 at 22:30 Insulin Human Lispro (HumaLOG) 35 units DAILYBFRSUP SQ ; Start 07/11/20 at 17:00 Non-Formulary Medication (Insulin Detemir (Levemir)) 80 unit HS SQ ; Start 07/11/20 at 21:00; Status UNV Non-Formulary Medication (Liraglutide (Victoza 3-Fredy)) 1.8 mg DAILY SQ ; Start 07/11/20 at 09:00; Stop 07/12/20 at 08:12; Status DC Linagliptin (Tradjenta) 5 mg DAILY PO Last administered on 07/15/20 09:27; Start 07/11/20 at 09:00 Zolpidem Tartrate (Ambien) 5 mg PRN QHS PRN PO INSOMNIA MRX1 PRN Last administered on 07/14/20 20:46; Start 07/10/20 at 22:45 Insulin Glargine (Lantus Syringe) 80 unit QHS SQ Last administered on 07/14/20 20:56; Start 07/10/20 at 22:45 Pantoprazole Sodium (PROTONIX VIAL for IV PUSH) 40 mg DAILYAC IVP Last administered on 07/12/20at 08:50; Start 07/11/20 at 16:30; Stop 07/12/20 at 11:16; Status DC Lidocaine HCl (Buffered Lidocaine 1%) 3 ml STK-MED ONCE .ROUTE ; Start 07/11/20 at 14:24; Stop 07/11/20 at 14:25; Status DC Lidocaine HCl (Buffered Lidocaine 1%) 3 ml 1X ONCE INJ Last administered on 07/11/20at 14:49; Start 07/11/20 at 14:30; Stop 07/11/20 at 14:31; Status DC Lactobacillus Rhamnosus (Culturelle) 1 cap BID PO Last administered on 07/15/20 09:27; Start 07/11/20 at 21:00 Sodium Chloride 1,000 ml @ 1,000 mls/hr Q1H PRN IV hypotension; Start 07/11/20 at 18:00; Stop 07/11/20 at 23:59; Status DC Albumin Human 200 ml @ 200 mls/hr 1X PRN PRN IV Hypotension; Start 07/11/20 at 18:00; Stop 07/11/20 at 23:59; Status DC Sodium Chloride 1,000 ml @ 400 mls/hr Q2H30M PRN IV PATENCY; Start 07/11/20 at 18:00; Stop 07/12/20 at 05:59; Status DC Info (PHARMACY MONITORING -- do not chart) 1 each PRN DAILY PRN MC SEE COMMENTS; Start 07/11/20 at 20:00; Status Cancel Info (PHARMACY MONITORING -- do not chart) 1 each PRN DAILY PRN MC SEE COMMENTS; Start 07/11/20 at 20:00; Status Cancel Sodium Chloride 500 ml @ 250 mls/hr 1X ONCE IV Last administered on 07/11/20at 22:10; Start 07/11/20 at 22:15; Stop 07/12/20 at 00:14; Status DC Metoprolol Tartrate (Lopressor) 12.5 mg BID PO Last administered on 07/14/20at 20:47; Start 07/12/20 at 09:00 Aspirin (Ecotrin) 81 mg DAILYWBKFT PO Last administered on 07/15/20at 09:27; Start 07/12/20 at 09:00 Lidocaine HCl (Glydo (Lidocaine) Jelly) 1 adilson PRN Q4HRS PRN MM PAIN Last administered on 07/12/20at 15:25; Start 07/12/20 at 09:15 Bisacodyl (Dulcolax Supp) 10 mg 1X ONCE NE Last administered on 07/12/20at 10:16; Start 07/12/20 at 09:15; Stop 07/12/20 at 09:16; Status DC Pantoprazole Sodium (Protonix) 40 mg DAILYAC PO Last administered on 07/15/20at 09:27; Start 07/13/20 at 07:30 Polyethylene Glycol (miraLAX PACKET) 17 gm DAILY PO ; Start 07/12/20 at 11:30 Bisacodyl (Dulcolax Tab) 5 mg PRN DAILY PRN PO CONSTIPATION; Start 07/12/20 at 11:30 Sodium Chloride 1,000 ml @ 1,000 mls/hr Q1H PRN IV hypotension; Start 07/12/20 at 14:00; Stop 07/12/20 at 19:59; Status DC Albumin Human 200 ml @ 200 mls/hr 1X PRN PRN IV Hypotension; Start 07/12/20 at 14:00; Stop 07/12/20 at 19:59; Status DC Sodium Chloride 1,000 ml @ 400 mls/hr Q2H30M PRN IV PATENCY; Start 07/12/20 at 14:00; Stop 07/13/20 at 01:59; Status DC Info (PHARMACY MONITORING -- do not chart) 1 each PRN DAILY PRN MC SEE COMMENTS; Start 07/12/20 at 15:45; Status UNV Info (PHARMACY MONITORING -- do not chart) 1 each PRN DAILY PRN MC SEE COMMENTS; Start 07/12/20 at 15:45; Status Cancel Perflutren Protein Type A Microsphe (Optison) 0.66 mg STK-MED ONCE IV ; Start 07/13/20 at 07:30; Stop 07/13/20 at 07:30; Status DC Digoxin (Lanoxin) 500 mcg 1X ONCE IV Last administered on 07/13/20at 11:15; Start 07/13/20 at 11:15; Stop 07/13/20 at 11:16; Status DC Sodium Chloride 1,000 ml @ 1,000 mls/hr Q1H PRN IV hypotension; Start 07/13/20 at 13:15; Stop 07/13/20 at 19:14; Status DC Albumin Human 200 ml @ 200 mls/hr 1X PRN PRN IV Hypotension; Start 07/13/20 at 13:15; Stop 07/13/20 at 19:14; Status DC Sodium Chloride 1,000 ml @ 400 mls/hr Q2H30M PRN IV PATENCY; Start 07/13/20 at 13:15; Stop 07/14/20 at 01:14; Status DC Info (PHARMACY MONITORING -- do not chart) 1 each PRN DAILY PRN MC SEE COMMENTS; Start 07/13/20 at 13:15; Status Cancel Info (PHARMACY MONITORING -- do not chart) 1 each PRN DAILY PRN MC SEE COMMENTS; Start 07/13/20 at 13:15 Acetaminophen (Tylenol) 650 mg PRN Q6HRS PRN PO MILD PAIN / TEMP > 100.3'F Last administered on 07/14/20at 08:27; Start 07/13/20 at 18:30 Dextrose (Dextrose 50%-Water Syringe) 12.5 gm PRN Q15MIN PRN IV SEE COMMENTS; Start 07/13/20 at 21:15 Haloperidol Lactate (Haldol Inj) 5 mg PRN Q6HRS PRN IVP AGITATION Last administered on 07/14/20at 08:27; Start 07/14/20 at 05:15 Magnesium Sulfate 50 ml @ 25 mls/hr PRN DAILY PRN IV for Mag < 1.7 on am labs; Start 07/14/20 at 11:00 Lorazepam (Ativan Inj) 1 mg PRN Q8HRS PRN IVP ANXIETY / AGITATION Last administered on 07/14/20at 15:10; Start 07/14/20 at 14:45 Methocarbamol (Robaxin) 750 mg 1X ONCE PO Last administered on 07/15/20at 02:58; Start 07/15/20 at 03:00; Stop 07/15/20 at 03:01; Status DC Active Scripts Active Reported Aspirin 325 Mg Tablet 1 Tab PO BID Metolazone 2.5 Mg Tablet 2.5 Mg PO QMWF Fish Oil 1,000 Mg Softgel ([place]-3 Fatty Acids/Fish Oil) 1 Each Capsule 1 Cap PO DAILY 30 Days Gabapentin 600 Mg Tablet 600 Mg PO HS Nystatin 15 Gm Powder 1 Adilson TP BID 7 Days apply to affected area(s) Hydrocodone-Apap 10-325 (Hydrocodone Bit/Acetaminophen) 1 Tab Tablet 1 Tab PO PRN Q6HRS PRN Zolpidem Tartrate Er (Zolpidem Tartrate) 12.5 Mg Tab.mphase 12.5 Mg PO PRN QHS PRN Robaxin-750 (Methocarbamol) 750 Mg Tablet 500 Mg PO QID Novolog (Insulin Aspart) 100 Unit/1 Ml Cartridge 35 Unit SQ DAILYBFRSUP Atenolol 100 Mg Tablet 100 Mg PO DAILY Levemir (Insulin Detemir) 100 Unit/1 Ml Vial 80 Unit SQ HS Victoza 3-Fredy (Liraglutide) 0.6 Mg/0.1 Ml Pen.injctr 1.8 Mg SQ DAILY Simvastatin 20 Mg Tablet 20 Mg PO HS Spironolactone 25 Mg Tablet 25 Mg PO DAILY Amlodipine Besylate 10 Mg Tablet 10 Mg PO DAILY Mupirocin Ointment (Mupirocin) 22 Gm Oint...g. 1 Adilson TP BID Iron (Ferrous Sulfate) 325 Mg Tablet 325 Mg PO DAILY Januvia (Sitagliptin Phosphate) 100 Mg Tablet 100 Mg PO DAILY Vitals/I & O Vital Sign - Last 24 Hours 07/14/20 07/14/20 07/14/20 07/14/20 10:39 14:21 15:41 16:41 Temp 99.3 99.1 99.3 99.1 Pulse 99 89 Resp 22 20 B/P (MAP) 135/87 (103) 136/88 (104) Pulse Ox 97 97 97 97 O2 Delivery Nasal Cannula Nasal Cannula Nasal Cannula Nasal Cannula O2 Flow Rate 2.0 2.0 2.0 2.0 07/14/20 07/14/20 07/14/20 07/14/20 19:35 20:00 20:47 21:50 Temp 99.0 99.0 Pulse 98 98 Resp 18 16 B/P (MAP) 92/65 (74) 92/65 Pulse Ox 97 97 O2 Delivery Nasal Cannula Nasal Cannula Nasal Cannula O2 Flow Rate 2.0 2.0 2.0 07/14/20 07/14/20 07/15/20 07/15/20 22:50 23:22 03:12 07:00 Temp 99.1 98.9 99.1 98.9 Pulse 78 100 96 Resp 18 18 18 18 B/P (MAP) 121/62 (81) 132/90 (104) 73/42 (52) Pulse Ox 98 98 97 95 O2 Delivery Nasal Cannula Nasal Cannula Nasal Cannula Nasal Cannula O2 Flow Rate 2.0 2.0 2.0 2.0 07/15/20 07/15/20 07/15/20 07:31 09:37 09:40 Pulse 100 B/P (MAP) 80/62 (68) Pulse Ox 95 O2 Delivery Nasal Cannula Nasal Cannula O2 Flow Rate 2.0 2.0 Intake and Output 07/14/20 07/14/20 07/15/20 15:00 23:00 07:00 Intake Total 100 ml 120 ml 300 ml Output Total 75 ml 200 ml Balance 100 ml 45 ml 100 ml Justicifation of Admission Dx: Justifications for Admission: Justification of Admission Dx: Yes Acute Renal Failure: RF Can't Be Managed Outpt LISE BOWIE MD Jul 15, 2020 10:34
--- NOTE | 2020-07-15 16:37 | PDOC ---
DATE OF SERVICE: DOS: DATE: 07/15/20 TIME: 16:24 SUBJECTIVE ROS Follow-up for acute on chronic renal insufficiency Patient apparently pulled his temporary dialysis catheter out yesterday after he " freaked out". He would like another catheter placed. Urine output is minimal currently. He remains in pain in his back CVS: no Orthopnea, no CP RESP: no SOB, no MACIAS GI: no Nausea, no Vomiting : no Dysuria, no Urgency OBJECTIVE Vital Signs Vital Signs Date Time Temp Pulse Resp B/P (MAP) Pulse Ox O2 Delivery O2 Flow Rate FiO2 07/15/20 15:00 96.5 89 18 79/40 (53) 96 Nasal Cannula 2.0 96.5 I & 0 Intake and Output 07/15/20 07:00 Intake Total 520 ml Output Total 275 ml Balance 245 ml Intake Oral 520 ml Output Urine Total 275 ml # Bowel Movements 5 PHYSICAL EXAM Physical Exam GEN: Awake, Oriented x 1-2, In no distress, morbidly obese gentleman EYES: Vision Unchanged, Conjunctiva Normal EN: No EN Drainage, Mucous Membranes appears dry NECK: no JVD, no JVP, Supple, no Thyromegaly, short thick neck CVS: S1S2, possible soft murmur, No Gallop, No Rub, exogenous obesity versus edema RESP: no Rales, no Rhonchi,no Acc. Muscle Use GI: BS + ve, NO Bruit, Non Tender, Non Distended, morbidly obese abdomen : no CVA tenderness, no Suprapubic Tenderness DIAGNOSIS/ASSESSMENT Assessment & Plan ELIZABETH -/ATN as outlined previously. No available dialysis access at this time for dialysis hence will resume on Friday after permacath placement. Patient remains oligoanuric at this time Hypotension - monitor. Patient claims she has had this even as an outpatient. Will check cortisol level in the morning. Denies recent steroid use. Patient does not have IV access to give him a fluid bolus at this time HyperKalemia POA - resolved currently but remains marginal. Unclear to me if patient has an element of hypercapnia and respiratory acidosis Possible intravascular volume depletion cannot be ruled out. 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 It will be challenging to get him to and from outpatient dialysis. Discussed this with the patient and he tells me that he will probably go twice a week only anyways Noncompliance COMMENT/RELEVANT DATA Meds Current Medications Medications (Trade) Dose Ordered Sig/Cheyanne Start Time Stop Time Status Last Admin Dose Admin Acetaminophen (Tylenol) 650 mg PRN Q6HRS PRN 07/13/20 18:30 07/14/20 08:27 650 MG Acetaminophen/ Hydrocodone Bitart (Lortab 10/325) 1 tab PRN Q6HRS PRN 07/10/20 22:15 07/15/20 09:40 1 TAB Albumin Human 200 ml @ 200 mls/hr 1X PRN PRN 07/13/20 13:15 07/13/20 19:14 DC Amlodipine Besylate (Norvasc) 10 mg DAILY 07/11/20 09:00 07/12/20 08:11 DC Aspirin (Ecotrin) 81 mg DAILYWBKFT 07/12/20 09:00 07/15/20 09:27 81 MG Atenolol (Tenormin) 100 mg DAILY 07/11/20 09:00 07/12/20 08:12 DC Bisacodyl (Dulcolax Supp) 10 mg 1X ONCE 07/12/20 09:15 07/12/20 09:16 DC 07/12/20 10:16 10 MG Bisacodyl (Dulcolax Tab) 5 mg PRN DAILY PRN 07/12/20 11:30 Bumetanide (Bumex) 1 mg DAILY 07/11/20 09:00 07/12/20 08:12 DC Ceftriaxone Sodium (Rocephin) 1 gm Q24H 07/10/20 20:00 07/14/20 20:46 1 GM Dextrose (Dextrose 50%-Water Syringe) 12.5 gm PRN Q15MIN PRN 07/13/20 21:15 Digoxin (Lanoxin) 500 mcg 1X ONCE 07/13/20 11:15 07/13/20 11:16 DC 07/13/20 11:15 500 MCG Enoxaparin Sodium (Lovenox 40mg Syringe) 40 mg Q24H 07/10/20 20:45 07/10/20 20:40 DC Ferrous Sulfate (Feosol) 325 mg DAILY 07/11/20 09:00 1/2/21 09:27 325 MG Fish Oil (Fish Oil) 1,000 mg DAILY 07/11/20 09:00 07/15/20 09:27 1,000 MG Gabapentin (Neurontin) 600 mg HS 07/10/20 22:30 07/14/20 20:47 600 MG Haloperidol Lactate (Haldol Inj) 5 mg PRN Q6HRS PRN 07/14/20 05:15 07/14/20 08:27 5 MG Heparin Sodium (Porcine) (Heparin Sodium) 5,000 unit Q8HRS 07/10/20 22:00 07/15/20 15:30 5,000 UNIT Info (PHARMACY MONITORING -- do not chart) 1 each PRN DAILY PRN 07/13/20 13:15 Insulin Glargine (Lantus Syringe) 80 unit QHS 07/10/20 22:45 07/14/20 20:56 80 UNIT Insulin Human Lispro (HumaLOG) 35 units DAILYBFRSUP 07/11/20 17:00 Lactobacillus Rhamnosus (Culturelle) 1 cap BID 07/11/20 21:00 07/15/20 09:27 1 CAP Lidocaine HCl (Buffered Lidocaine 1%) 3 ml 1X ONCE 07/11/20 14:30 07/11/20 14:31 DC 07/11/20 14:49 6 ML Lidocaine HCl (Glydo (Lidocaine) Jelly) 1 adilson PRN Q4HRS PRN 07/12/20 09:15 07/12/20 15:25 1 ADILSON Linagliptin (Tradjenta) 5 mg DAILY 07/11/20 09:00 07/15/20 09:27 5 MG Lorazepam (Ativan Inj) 1 mg PRN Q8HRS PRN 07/14/20 14:45 07/14/20 15:10 1 MG Losartan Potassium (Cozaar) 50 mg DAILY 07/11/20 09:00 07/12/20 08:11 DC Magnesium Sulfate 50 ml @ 25 mls/hr PRN DAILY PRN 07/14/20 11:00 Methocarbamol (Robaxin) 750 mg 1X ONCE 07/15/20 03:00 07/15/20 03:01 DC 07/15/20 02:58 750 MG Metolazone (Zaroxolyn) 2.5 mg QMWF 07/12/20 16:00 07/12/20 08:11 DC Metoprolol Tartrate (Lopressor) 12.5 mg BID 07/12/20 09:00 07/14/20 20:47 12.5 MG Mupirocin (Bactroban) 1 adilson BID 07/11/20 09:00 07/15/20 09:29 1 ADILSON Naproxen (Naprosyn) 500 mg HS 07/10/20 22:30 07/12/20 08:12 DC 07/11/20 23:35 500 MG Non-Formulary Medication (Insulin Detemir (Levemir)) 80 unit HS 07/11/20 21:00 UNV Non-Formulary Medication (Liraglutide (Victoza 3-Fredy)) 1.8 mg DAILY 07/11/20 09:00 07/12/20 08:12 DC Nystatin (Nystop) 1 adilson BID 07/11/20 09:00 07/15/20 09:29 1 ADILSON Pantoprazole Sodium (PROTONIX VIAL for IV PUSH) 40 mg DAILYAC 07/11/20 16:30 07/12/20 11:16 DC 07/12/20 08:50 40 MG Pantoprazole Sodium (Protonix) 40 mg DAILYAC 07/13/20 07:30 07/15/20 09:27 40 MG Perflutren Protein Type A Microsphe (Optison) 0.66 mg STK-MED ONCE 07/13/20 07:30 07/13/20 07:30 DC Polyethylene Glycol (miraLAX PACKET) 17 gm DAILY 07/12/20 11:30 Simvastatin (Zocor) 20 mg HS 07/10/20 22:30 07/14/20 20:47 20 MG Sodium Chloride 1,000 ml @ 400 mls/hr Q2H30M PRN 07/13/20 13:15 07/14/20 01:14 DC Spironolactone (Aldactone) 25 mg DAILY 07/11/20 09:00 UNV Zolpidem Tartrate (Ambien) 5 mg PRN QHS PRN 07/10/20 22:45 07/14/20 20:46 5 MG Lab Laboratory Tests Test 07/14/20 18:30 07/14/20 20:54 07/15/20 04:00 07/15/20 07:27 Ammonia < 10 mcmol/L (11-34) Glucose (Fingerstick) 155 mg/dL (70-99) 99 mg/dL (70-99) White Blood Count 6.6 x10^3/uL (4.0-11.0) Red Blood Count 4.02 x10^6/uL (4.30-5.70) Hemoglobin 11.0 g/dL (13.0-17.5) Hematocrit 35.1 % (39.0-53.0) Mean Corpuscular Volume 87 fL (79-100) Mean Corpuscular Hemoglobin 27 pg (25-35) Mean Corpuscular Hemoglobin Concent 31 g/dL (31-37) Red Cell Distribution Width 14.0 % (11.5-14.5) Platelet Count 108 x10^3/uL (140-400) Neutrophils (%) (Auto) 84 % (31-73) Lymphocytes (%) (Auto) 8 % (24-48) Monocytes (%) (Auto) 7 % (0-9) Eosinophils (%) (Auto) 0 % (0-3) Basophils (%) (Auto) 1 % (0-3) Neutrophils # (Auto) 5.6 x10^3/uL (1.8-7.7) Lymphocytes # (Auto) 0.5 x10^3/uL (1.0-4.8) Monocytes # (Auto) 0.5 x10^3/uL (0.0-1.1) Eosinophils # (Auto) 0.0 x10^3/uL (0.0-0.7) Basophils # (Auto) 0.0 x10^3/uL (0.0-0.2) Sodium Level 137 mmol/L (136-145) Potassium Level 5.0 mmol/L (3.5-5.1) Chloride Level 99 mmol/L (98-107) Carbon Dioxide Level 26 mmol/L (21-32) Anion Gap 12 (6-14) Blood Urea Nitrogen 76 mg/dL (8-26) Creatinine 6.3 mg/dL (0.7-1.3) Estimated GFR (Cockcroft-Gault) 9.0 BUN/Creatinine Ratio 12 (6-20) Glucose Level 114 mg/dL (70-99) Calcium Level 8.3 mg/dL (8.5-10.1) Phosphorus Level 4.7 mg/dL (2.6-4.7) Magnesium Level 2.0 mg/dL (1.8-2.4) Total Bilirubin 0.5 mg/dL (0.2-1.0) Aspartate Amino Transf (AST/SGOT) 100 U/L (15-37) Alanine Aminotransferase (ALT/SGPT) 53 U/L (16-63) Alkaline Phosphatase 125 U/L (46-116) Total Protein 5.9 g/dL (6.4-8.2) Albumin 2.4 g/dL (3.4-5.0) Albumin/Globulin Ratio 0.7 (1.0-1.7) Test 07/15/20 11:26 Glucose (Fingerstick) 144 mg/dL (70-99) Results All relevant outside records, renal labs, imaging studies, telemetry/EKG's were reviewed. Other Echocardiogram this hospitalization: <Conclusion> Technically difficult study. The left ventricular systolic function is normal. The ejection fraction is 55%. There is normal LV segmental wall motion. There is no evidence of significant pericardial effusion. Justicifation of Admission Dx: Justifications for Admission: Justification of Admission Dx: Yes Acute Renal Failure: RF Can't Be Managed Outpt NOAH ARRIAZA MD Jul 15, 2020 16:37
[2020-07-15] MEDS: cefTRIAXone IV Push 1 GM VIAL. IVP SCH (20:00)
[2020-07-15] MEDS: GABAPENTIN 300 MG CAPSULE. PO SCH (21:47)
[2020-07-15] MEDS: SIMVASTATIN 20 MG TABLET PO SCH (21:48)
[2020-07-15] MEDS: ZOLPIDEM 5 MG TABLET. PO PRN (21:51)
[2020-07-15] MEDS: INSULIN GLARGINE SYRINGE. SQ SCH (21:57)
[2020-07-16 03:35] VITALS: BP 104/53
[2020-07-16] MEDS: HEPARIN for SUB-Q USE 5,000 UNIT/ML VIAL. SQ SCH ×3 (05:10→23:43)
[2020-07-16 07:00] VITALS: BP 111/66
[2020-07-16] MEDS: INSULIN LISPRO 300 UNITS/3 ML VIAL. SQ SCH ×4 (08:00→17:00)
[2020-07-16] MEDS: HYDROcodone/APAP 10/325 1 TAB TABLET PO PRN (08:37)
[2020-07-16] MEDS: LACTOBACILLUS RHAMNOSUS GG 1 CAPSULE. PO SCH ×2 (08:38→23:27)
[2020-07-16] MEDS: PANTOPRAZOLE 40 MG TABLET.DR. PO SCH (08:38)
[2020-07-16] MEDS: OMEGA-3 FATTY ACIDS/FISH OIL 1,000 MG CAPSULE. PO SCH (08:38)
[2020-07-16] MEDS: ASPIRIN ENTERIC COATED 81 MG TABLET.DR. PO SCH (08:38)
[2020-07-16] MEDS: LINAGLIPTIN 5 MG TABLET PO SCH (08:38)
[2020-07-16] MEDS: FERROUS SULFATE 325 MG TABLET. PO SCH (08:38)
[2020-07-16] MEDS: METOPROLOL TART IMMED RELEASE 25 MG TABLET. PO SCH ×2 (08:39→23:35)
[2020-07-16] MEDS: POLYETHYLENE GLYCOL 3350 17 GM PACKET. PO SCH ×2 (08:44→09:00)
[2020-07-16] MEDS: NYSTATIN TOPICAL POWDER 15GM BOTTLE. TP SCH ×2 (09:00→23:30)
[2020-07-16] MEDS: MUPIROCIN 2 % NASAL OINTMENT 22GM TUBE. TP SCH ×2 (09:00→23:30)
[2020-07-16 11:00] VITALS: BP 98/69
--- NOTE | 2020-07-16 11:07 | PDOC ---
PROGRESS NOTES Date of Service: DATE: 07/16/20 TIME: 11:07 Chief Complaint Chief Complaint ASSESSMENT AND PLAN: ACUTE RENAL INJURY urinary tract infection. abdominal discomfort, lower bilateral morbid obesity hypoxic resp failure Chest pain: doubt ACS, potentially from GI // significant NSAID use. AFIB: likely chronic, rate controlled CHRONIC LOW BACK PAIN Trace tricuspid regurgitation with an estimated PAP of 45 mmHg C/W MOD PULM HTN PROB SLEEP APNEA Acute metabolic encephalopathy PULMONARY NODULE plan IV antibiotics, IV fluids. Trend creatinine. Consult Nephrology. Home meds, DVT prophylaxis. Full code. GI CONSULT CARDIOLOGY CONSULT ABG Temporary dialysis catheter in vascular lab 07-[address] HEAD CT CHEST REPLACE TEMP CATH IR d/w rn 07-15-20 ENCEPHALOPATHIC, CONFUSED, PULLING OUT IV-S NEEDS SITTER, MITTS 07-16 ir consulted replace temp dialysis cath D/W RN No acute findings in the abdomen and pelvis on noncontrast CT. 07-10 PROGNOSIS: guarded. He did not keep follow up nephrology appts. follows with his PCP Q year and prior to most recent labs no other Interval labs done 07-12 burning in groin related to catheter - really uncomfortable, 07-13 continue dialysis as indicated CR 4.6 D/W RN 29 MIN pt exam, chart review, > 50% of time spent with exam, chart review, pt care coordination History of Present Illness History of Present Illness HISTORY OF PRESENT ILLNESS: 64-year-old male who has stage 4 kidney disease, presents with a creatinine of 6.5. His BUN is 185. Potassium is high at 5.7. may need dialysis. His primary care doctor, Dr. Juwan Doyle, sent him to the ER. I have discussed the case with the ER physician. We are going to admit the patient and consult Nephrology. PAST MEDICAL HISTORY: Obesity, diabetes, hypertension, hemorrhoids, neuropathy, back pain, right ankle surgery, chronic renal insufficiency. ALLERGIES: METFORMIN. FAMILY HISTORY: Diabetes. SOCIAL HISTORY: He does not drink, smoke or take drugs. MEDICATIONS: Reviewed, please refer to the MRAD. Vitals Vitals Vital Signs Date Time Temp Pulse Resp B/P (MAP) Pulse Ox O2 Delivery O2 Flow Rate FiO2 07/16/20 08:39 85 104/53 07/16/20 08:37 18 92 Nasal Cannula 2.0 07/16/20 07:00 97.8 97.8 Physical Exam Physical Exam GENERAL: He is morbidly obese , pleasantly cooperative. HEENT: Normal cephalic atraumatic, external auditory canals are patent EYES: Extraocular muscles are intact, pupils are equally round and reactive to light and accommodation MUSCULOSKELETAL: Well developed, well nourished, good range of motion ENDOCRINE: No thyromegaly was palpated LYMPHATICS: No cervical chain or axillary nodes were noted HEMATOPOIETIC: No bruising NECK: Supple, no JVD, no thyromegaly was noted. LUNGS: Clear to auscultation in all lung vaughn without rhonchi or wheezing. HEART: RRR, S1, S2 present. Peripheral pulses intact, no obvious murmurs were noted. ABDOMEN: Soft, mild tenderness Positive bowel sounds no organomegaly, normal bowel sounds. very obese EXTREMITIES: Without any cyanosis, clubbing, or edema. Pedal pulses intact, Homans sign is negative. NEUROLOGIC: Normal speech, normal tone. A & O x3, moves all extremities, no obvious focal deficits. PSYCHIATRIC: Normal affect, normal mood. Stable. SKIN: No ulcerations or rashes, good skin turgor, no jaundice. VASCULAR: Good capillary refill, neurovascular bundle appears to be intact. General: Alert, Oriented X3, Cooperative, mild distress Heart: No murmurs, Other (AFIB) Abdomen: Other (mild tenderness ) Extremities: No clubbing, No cyanosis Skin: No significant lesion, Other (LE venous dermatitis) Labs LABS Laboratory Tests Test 07/15/20 11:26 07/15/20 17:50 07/15/20 21:38 07/16/20 08:30 Glucose (Fingerstick) 144 mg/dL (70-99) 151 mg/dL (70-99) 145 mg/dL (70-99) 134 mg/dL (70-99) Assessment and Plan Assessmemt and Plan Problems Medical Problems: (1) Acute on chronic kidney failure Status: Acute (2) Hyperkalemia Status: Acute (3) Morbid obesity Status: Acute Comment Review of Relevant I have reviewed the following items tiffany (where applicable) has been applied. Labs Laboratory Tests Test 07/14/20 11:08 07/14/20 16:09 07/14/20 18:30 07/14/20 20:54 Glucose (Fingerstick) 145 mg/dL (70-99) 104 mg/dL (70-99) 155 mg/dL (70-99) Ammonia < 10 mcmol/L (11-34) Test 07/15/20 04:00 07/15/20 07:27 07/15/20 11:26 07/15/20 17:50 White Blood Count 6.6 x10^3/uL (4.0-11.0) Red Blood Count 4.02 x10^6/uL (4.30-5.70) Hemoglobin 11.0 g/dL (13.0-17.5) Hematocrit 35.1 % (39.0-53.0) Mean Corpuscular Volume 87 fL (79-100) Mean Corpuscular Hemoglobin 27 pg (25-35) Mean Corpuscular Hemoglobin Concent 31 g/dL (31-37) Red Cell Distribution Width 14.0 % (11.5-14.5) Platelet Count 108 x10^3/uL (140-400) Neutrophils (%) (Auto) 84 % (31-73) Lymphocytes (%) (Auto) 8 % (24-48) Monocytes (%) (Auto) 7 % (0-9) Eosinophils (%) (Auto) 0 % (0-3) Basophils (%) (Auto) 1 % (0-3) Neutrophils # (Auto) 5.6 x10^3/uL (1.8-7.7) Lymphocytes # (Auto) 0.5 x10^3/uL (1.0-4.8) Monocytes # (Auto) 0.5 x10^3/uL (0.0-1.1) Eosinophils # (Auto) 0.0 x10^3/uL (0.0-0.7) Basophils # (Auto) 0.0 x10^3/uL (0.0-0.2) Sodium Level 137 mmol/L (136-145) Potassium Level 5.0 mmol/L (3.5-5.1) Chloride Level 99 mmol/L (98-107) Carbon Dioxide Level 26 mmol/L (21-32) Anion Gap 12 (6-14) Blood Urea Nitrogen 76 mg/dL (8-26) Creatinine 6.3 mg/dL (0.7-1.3) Estimated GFR (Cockcroft-Gault) 9.0 BUN/Creatinine Ratio 12 (6-20) Glucose Level 114 mg/dL (70-99) Calcium Level 8.3 mg/dL (8.5-10.1) Phosphorus Level 4.7 mg/dL (2.6-4.7) Magnesium Level 2.0 mg/dL (1.8-2.4) Total Bilirubin 0.5 mg/dL (0.2-1.0) Aspartate Amino Transf (AST/SGOT) 100 U/L (15-37) Alanine Aminotransferase (ALT/SGPT) 53 U/L (16-63) Alkaline Phosphatase 125 U/L (46-116) Total Protein 5.9 g/dL (6.4-8.2) Albumin 2.4 g/dL (3.4-5.0) Albumin/Globulin Ratio 0.7 (1.0-1.7) Glucose (Fingerstick) 99 mg/dL (70-99) 144 mg/dL (70-99) 151 mg/dL (70-99) Test 07/15/20 21:38 07/16/20 08:30 Glucose (Fingerstick) 145 mg/dL (70-99) 134 mg/dL (70-99) Laboratory Tests Test 07/15/20 11:26 07/15/20 17:50 07/15/20 21:38 07/16/20 08:30 Glucose (Fingerstick) 144 mg/dL (70-99) 151 mg/dL (70-99) 145 mg/dL (70-99) 134 mg/dL (70-99) Microbiology 07/10/20 Urine Culture - Final, Complete Medications Current Medications Sodium Chloride 1,000 ml @ 125 mls/hr 1X ONCE IV Last administered on 07/10/20at 16:03; Start 07/10/20 at 16:00; Stop 07/10/20 at 23:59; Status DC Acetaminophen (Tylenol) 650 mg PRN Q4HRS PRN PO FEVER > 100.3'F; Start 07/10/20 at 16:15; Stop 07/11/20 at 16:14; Status DC Ceftriaxone Sodium (Rocephin) 1 gm Q24H IVP Last administered on 07/14/20at 20:46; Start 07/10/20 at 20:00 Enoxaparin Sodium (Lovenox 40mg Syringe) 40 mg Q24H SQ ; Start 07/10/20 at 20:45; Stop 07/10/20 at 20:40; Status DC Insulin Human Lispro (HumaLOG) 0-5 UNITS TIDWMEALS SQ ; Start 07/11/20 at 08:00 Dextrose (Dextrose 50%-Water Syringe) 12.5 gm PRN Q15MIN PRN IV SEE COMMENTS; Start 07/10/20 at 20:45; Stop 07/13/20 at 21:19; Status DC Heparin Sodium (Porcine) (Heparin Sodium) 5,000 unit Q8HRS SQ Last administered on 07/15/20 21:58; Start 07/10/20 at 22:00 Amlodipine Besylate (Norvasc) 10 mg DAILY PO ; Start 07/11/20 at 09:00; Status UNV Amlodipine Besylate (Norvasc) 10 mg DAILY PO ; Start 07/11/20 at 09:00; Stop 07/12/20 at 08:11; Status DC Ferrous Sulfate (Feosol) 325 mg DAILY PO Last administered on 07/16/20 08:38; Start 07/11/20 at 09:00 Acetaminophen/ Hydrocodone Bitart (Lortab 10/325) 1 tab PRN Q6HRS PRN PO PAIN Last administered on 07/16/20 08:37; Start 07/10/20 at 22:15 Losartan Potassium (Cozaar) 50 mg DAILY PO ; Start 07/11/20 at 09:00; Stop 07/12/20 at 08:11; Status DC Methocarbamol (Robaxin) 500 mg QID PO Last administered on 07/11/20at 23:36; Start 07/10/20 at 21:30; Stop 07/12/20 at 08:12; Status DC Metolazone (Zaroxolyn) 2.5 mg QMWF PO ; Start 07/12/20 at 16:00; Stop 07/12/20 at 08:11; Status DC Mupirocin (Bactroban) 1 navarro BID TP Last administered on 07/15/20 21:49; Start 07/11/20 at 09:00 Naproxen (Naprosyn) 500 mg HS PO Last administered on 07/11/20at 23:35; Start 07/10/20 at 22:30; Stop 07/12/20 at 08:12; Status DC Nystatin (Nystop) 1 navarro BID TP Last administered on 07/15/20 21:49; Start 07/11/20 at 09:00 Fish Oil (Fish Oil) 1,000 mg DAILY PO Last administered on 07/16/20 08:38; Start 07/11/20 at 09:00 Simvastatin (Zocor) 20 mg HS PO Last administered on 07/15/20 21:48; Start 07/10/20 at 22:30 Spironolactone (Aldactone) 25 mg DAILY PO ; Start 07/11/20 at 09:00; Stop 07/12/20 at 08:11; Status DC Spironolactone (Aldactone) 25 mg DAILY PO ; Start 07/11/20 at 09:00; Status UNV Atenolol (Tenormin) 100 mg DAILY PO ; Start 07/11/20 at 09:00; Stop 07/12/20 at 08:12; Status DC Bumetanide (Bumex) 1 mg DAILY PO ; Start 07/11/20 at 09:00; Stop 07/12/20 at 08:12; Status DC Gabapentin (Neurontin) 600 mg HS PO Last administered on 07/15/20 21:47; Start 07/10/20 at 22:30 Insulin Human Lispro (HumaLOG) 35 units DAILYBFRSUP SQ ; Start 07/11/20 at 17:00 Non-Formulary Medication (Insulin Detemir (Levemir)) 80 unit HS SQ ; Start 07/11/20 at 21:00; Status UNV Non-Formulary Medication (Liraglutide (Victoza 3-Fredy)) 1.8 mg DAILY SQ ; Start 07/11/20 at 09:00; Stop 07/12/20 at 08:12; Status DC Linagliptin (Tradjenta) 5 mg DAILY PO Last administered on 07/16/20 08:38; Start 07/11/20 at 09:00 Zolpidem Tartrate (Ambien) 5 mg PRN QHS PRN PO INSOMNIA MRX1 PRN Last administered on 07/15/20 21:51; Start 07/10/20 at 22:45 Insulin Glargine (Lantus Syringe) 80 unit QHS SQ Last administered on 07/15/20at 21:57; Start 07/10/20 at 22:45 Pantoprazole Sodium (PROTONIX VIAL for IV PUSH) 40 mg DAILYAC IVP Last administered on 07/12/20at 08:50; Start 07/11/20 at 16:30; Stop 07/12/20 at 11:16; Status DC Lidocaine HCl (Buffered Lidocaine 1%) 3 ml STK-MED ONCE .ROUTE ; Start 07/11/20 at 14:24; Stop 07/11/20 at 14:25; Status DC Lidocaine HCl (Buffered Lidocaine 1%) 3 ml 1X ONCE INJ Last administered on 07/11/20at 14:49; Start 07/11/20 at 14:30; Stop 07/11/20 at 14:31; Status DC Lactobacillus Rhamnosus (Culturelle) 1 cap BID PO Last administered on 07/16/20 08:38; Start 07/11/20 at 21:00 Sodium Chloride 1,000 ml @ 1,000 mls/hr Q1H PRN IV hypotension; Start 07/11/20 at 18:00; Stop 07/11/20 at 23:59; Status DC Albumin Human 200 ml @ 200 mls/hr 1X PRN PRN IV Hypotension; Start 07/11/20 at 18:00; Stop 07/11/20 at 23:59; Status DC Sodium Chloride 1,000 ml @ 400 mls/hr Q2H30M PRN IV PATENCY; Start 07/11/20 at 18:00; Stop 07/12/20 at 05:59; Status DC Info (PHARMACY MONITORING -- do not chart) 1 each PRN DAILY PRN MC SEE COMMENTS; Start 07/11/20 at 20:00; Status Cancel Info (PHARMACY MONITORING -- do not chart) 1 each PRN DAILY PRN MC SEE COMMENTS; Start 07/11/20 at 20:00; Status Cancel Sodium Chloride 500 ml @ 250 mls/hr 1X ONCE IV Last administered on 07/11/20at 22:10; Start 07/11/20 at 22:15; Stop 07/12/20 at 00:14; Status DC Metoprolol Tartrate (Lopressor) 12.5 mg BID PO Last administered on 1/3/21at 08:39; Start 07/12/20 at 09:00 Aspirin (Ecotrin) 81 mg DAILYWBKFT PO Last administered on 07/16/20at 08:38; Start 07/12/20 at 09:00 Lidocaine HCl (Glydo (Lidocaine) Jelly) 1 navarro PRN Q4HRS PRN MM PAIN Last administered on 07/12/20at 15:25; Start 07/12/20 at 09:15 Bisacodyl (Dulcolax Supp) 10 mg 1X ONCE WI Last administered on 07/12/20at 10:16; Start 07/12/20 at 09:15; Stop 07/12/20 at 09:16; Status DC Pantoprazole Sodium (Protonix) 40 mg DAILYAC PO Last administered on 07/16/20 08:38; Start 07/13/20 at 07:30 Polyethylene Glycol (miraLAX PACKET) 17 gm DAILY PO ; Start 07/12/20 at 11:30 Bisacodyl (Dulcolax Tab) 5 mg PRN DAILY PRN PO CONSTIPATION; Start 07/12/20 at 11:30 Sodium Chloride 1,000 ml @ 1,000 mls/hr Q1H PRN IV hypotension; Start 07/12/20 at 14:00; Stop 07/12/20 at 19:59; Status DC Albumin Human 200 ml @ 200 mls/hr 1X PRN PRN IV Hypotension; Start 07/12/20 at 14:00; Stop 07/12/20 at 19:59; Status DC Sodium Chloride 1,000 ml @ 400 mls/hr Q2H30M PRN IV PATENCY; Start 07/12/20 at 14:00; Stop 07/13/20 at 01:59; Status DC Info (PHARMACY MONITORING -- do not chart) 1 each PRN DAILY PRN MC SEE ARSLAN TS; Start 07/12/20 at 15:45; Status UNV Info (PHARMACY MONITORING -- do not chart) 1 each PRN DAILY PRN MC SEE COMMENTS; Start 07/12/20 at 15:45; Status Cancel Perflutren Protein Type A Microsphe (Optison) 0.66 mg STK-MED ONCE IV ; Start 07/13/20 at 07:30; Stop 07/13/20 at 07:30; Status DC Digoxin (Lanoxin) 500 mcg 1X ONCE IV Last administered on 07/13/20at 11:15; Start 07/13/20 at 11:15; Stop 07/13/20 at 11:16; Status DC Sodium Chloride 1,000 ml @ 1,000 mls/hr Q1H PRN IV hypotension; Start 07/13/20 at 13:15; Stop 07/13/20 at 19:14; Status DC Albumin Human 200 ml @ 200 mls/hr 1X PRN PRN IV Hypotension; Start 07/13/20 at 13:15; Stop 07/13/20 at 19:14; Status DC Sodium Chloride 1,000 ml @ 400 mls/hr Q2H30M PRN IV PATENCY; Start 07/13/20 at 13:15; Stop 07/14/20 at 01:14; Status DC Info (PHARMACY MONITORING -- do not chart) 1 each PRN DAILY PRN MC SEE COMMENTS; Start 07/13/20 at 13:15; Status Cancel Info (PHARMACY MONITORING -- do not chart) 1 each PRN DAILY PRN MC SEE COMMENTS; Start 07/13/20 at 13:15 Acetaminophen (Tylenol) 650 mg PRN Q6HRS PRN PO MILD PAIN / TEMP > 100.3'F Last administered on 07/14/20at 08:27; Start 07/13/20 at 18:30 Dextrose (Dextrose 50%-Water Syringe) 12.5 gm PRN Q15MIN PRN IV SEE COMMENTS; Start 07/13/20 at 21:15 Haloperidol Lactate (Haldol Inj) 5 mg PRN Q6HRS PRN IVP AGITATION Last administered on 07/14/20at 08:27; Start 07/14/20 at 05:15 Magnesium Sulfate 50 ml @ 25 mls/hr PRN DAILY PRN IV for Mag < 1.7 on am labs; Start 07/14/20 at 11:00 Lorazepam (Ativan Inj) 1 mg PRN Q8HRS PRN IVP ANXIETY / AGITATION Last administered on 07/14/20at 15:10; Start 07/14/20 at 14:45 Methocarbamol (Robaxin) 750 mg 1X ONCE PO Last administered on 07/15/20at 02:58; Start 07/15/20 at 03:00; Stop 07/15/20 at 03:01; Status DC Active Scripts Active Reported Aspirin 325 Mg Tablet 1 Tab PO BID Metolazone 2.5 Mg Tablet 2.5 Mg PO QMWF Fish Oil 1,000 Mg Softgel ([place]-3 Fatty Acids/Fish Oil) 1 Each Capsule 1 Cap PO DAILY 30 Days Gabapentin 600 Mg Tablet 600 Mg PO HS Nystatin 15 Gm Powder 1 Navarro TP BID 7 Days apply to affected area(s) Hydrocodone-Apap 10-325 (Hydrocodone Bit/Acetaminophen) 1 Tab Tablet 1 Tab PO PRN Q6HRS PRN Zolpidem Tartrate Er (Zolpidem Tartrate) 12.5 Mg Tab.mphase 12.5 Mg PO PRN QHS PRN Robaxin-750 (Methocarbamol) 750 Mg Tablet 500 Mg PO QID Novolog (Insulin Aspart) 100 Unit/1 Ml Cartridge 35 Unit SQ DAILYBFRSUP Atenolol 100 Mg Tablet 100 Mg PO DAILY Levemir (Insulin Detemir) 100 Unit/1 Ml Vial 80 Unit SQ HS Victoza 3-Fredy (Liraglutide) 0.6 Mg/0.1 Ml Pen.injctr 1.8 Mg SQ DAILY Simvastatin 20 Mg Tablet 20 Mg PO HS Spironolactone 25 Mg Tablet 25 Mg PO DAILY Amlodipine Besylate 10 Mg Tablet 10 Mg PO DAILY Mupirocin Ointment (Mupirocin) 22 Gm Oint...g. 1 Navarro TP BID Iron (Ferrous Sulfate) 325 Mg Tablet 325 Mg PO DAILY Januvia (Sitagliptin Phosphate) 100 Mg Tablet 100 Mg PO DAILY Vitals/I & O Vital Sign - Last 24 Hours 07/15/20 07/15/20 07/15/20 07/15/20 15:00 16:27 17:25 19:20 Temp 96.5 97.7 96.5 97.7 Pulse 89 90 Resp 18 20 B/P (MAP) 79/40 (53) 109/41 (63) Pulse Ox 96 96 96 94 O2 Delivery Nasal Cannula Nasal Cannula Nasal Cannula Nasal Cannula O2 Flow Rate 2.0 2.0 2.0 2.0 07/15/20 07/15/20 07/15/20 07/15/20 20:00 21:48 21:51 22:00 Pulse 90 B/P (MAP) 109/41 O2 Delivery Nasal Cannula Nasal Cannula Nasal Cannula O2 Flow Rate 2.0 2.0 1/207/16/20 07/16/20 07/16/20 23:50 03:35 07:00 08:00 Temp 97.1 97.1 97.8 97.1 97.1 97.8 Pulse 81 85 86 Resp 16 18 18 B/P (MAP) 99/50 (66) 104/53 (70) 111/66 (81) Pulse Ox 92 92 95 O2 Delivery Nasal Cannula Room Air Room Air Nasal Cannula O2 Flow Rate 2.0 2.0 07/16/20 07/16/20 08:37 08:39 Pulse 85 Resp 18 B/P (MAP) 104/53 Pulse Ox 92 O2 Delivery Nasal Cannula O2 Flow Rate 2.0 Intake and Output 07/15/20 07/15/20 07/16/20 15:00 23:00 07:00 Intake Total 200 ml Output Total 130 ml 130 ml 145 ml Balance -130 ml -130 ml 55 ml Justicifation of Admission Dx: Justifications for Admission: Justification of Admission Dx: Yes Acute Renal Failure: RF Can't Be Managed Outpt LISE BOWIE MD Jul 16, 2020 11:07
[2020-07-16 12:56] LABS: ALBUMIN 2.2 g/dL (3.4-5.0); CALCIUM 8.3 mg/dL (8.5-10.1); CREATININE 7.8 mg/dL (0.7-1.3); MAGNESIUM 2.1 mg/dL (1.8-2.4); PHOSPHORUS 5.9 mg/dL (2.6-4.7); POTASSIUM 4.4 mmol/L (3.5-5.1)
[2020-07-16 15:00] VITALS: BP 132/69
--- NOTE | 2020-07-16 15:54 | PDOC ---
DATE OF SERVICE: DOS: DATE: 07/16/20 TIME: 15:51 SUBJECTIVE ROS ELIZABETH + CKD IV: ? ----> to ESRD Patient claims he is feeling well denies any new complaints at this time. CVS: no Orthopnea, no CP RESP: no SOB, no MACIAS GI: no Nausea, no Vomiting : no Dysuria, no Urgency OBJECTIVE Vital Signs Vital Signs Date Time Temp Pulse Resp B/P (MAP) Pulse Ox O2 Delivery O2 Flow Rate FiO2 07/16/20 11:00 98.4 97 18 98/69 (79) 95 Nasal Cannula 2.0 98.4 I & 0 Intake and Output 07/16/20 07:00 Intake Total 200 ml Output Total 405 ml Balance -205 ml Intake Oral 200 ml Output Urine Total 405 ml Stool Total 0 ml PHYSICAL EXAM Physical Exam GEN: Awake, Oriented x 3, In no distress, morbidly obese gentleman EYES: Vision Unchanged, Conjunctiva Normal EN: No EN Drainage, Mucous Membranes appears dry NECK: no JVD, no JVP, Supple, no Thyromegaly, short thick neck CVS: S1S2, possible soft murmur, No Gallop, No Rub, exogenous obesity versus edema RESP: no Rales, no Rhonchi,no Acc. Muscle Use GI: BS + ve, NO Bruit, Non Tender, Non Distended, morbidly obese abdomen : no CVA tenderness, no Suprapubic Tenderness DIAGNOSIS/ASSESSMENT Assessment & Plan ELIZABETH -/ATN as outlined previously. No available dialysis access at this time for dialysis hence will resume on Friday after permacath placement. Patient remains oligoanuric at this time Hypotension - monitor. Patient remains asymptomatic. Patient claims she has had this even as an outpatient. Will check cortisol level as ordered for this morning. Denies recent steroid use. Patient does not have IV access to give him a fluid bolus at this time. This will make outpatient dialysis somewhat challenging. Will request cardiology to perform left and right heart cath to assess fluid status and central pressures HyperKalemia POA - resolved currently but remains marginal. 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 It will be challenging to get him to and from outpatient dialysis. Discussed this with the patient and he tells me that he will probably go twice a week only anyways Patient wishes to be a DNR if dialysis is permanent COMMENT/RELEVANT DATA Meds Current Medications Medications (Trade) Dose Ordered Sig/Cheyanne Start Time Stop Time Status Last Admin Dose Admin Acetaminophen (Tylenol) 650 mg PRN Q6HRS PRN 07/13/20 18:30 07/14/20 08:27 650 MG Acetaminophen/ Hydrocodone Bitart (Lortab 10/325) 1 tab PRN Q6HRS PRN 07/10/20 22:15 07/16/20 08:37 1 TAB Albumin Human 200 ml @ 200 mls/hr 1X PRN PRN 07/13/20 13:15 07/13/20 19:14 DC Amlodipine Besylate (Norvasc) 10 mg DAILY 07/11/20 09:00 07/12/20 08:11 DC Aspirin (Ecotrin) 81 mg DAILYWBKFT 07/12/20 09:00 07/16/20 08:38 81 MG Atenolol (Tenormin) 100 mg DAILY 07/11/20 09:00 07/12/20 08:12 DC Bisacodyl (Dulcolax Supp) 10 mg 1X ONCE 07/12/20 09:15 07/12/20 09:16 DC 07/12/20 10:16 10 MG Bisacodyl (Dulcolax Tab) 5 mg PRN DAILY PRN 07/12/20 11:30 Bumetanide (Bumex) 1 mg DAILY 07/11/20 09:00 07/12/20 08:12 DC Ceftriaxone Sodium (Rocephin) 1 gm Q24H 07/10/20 20:00 07/14/20 20:46 1 GM Dextrose (Dextrose 50%-Water Syringe) 12.5 gm PRN Q15MIN PRN 07/13/20 21:15 Digoxin (Lanoxin) 500 mcg 1X ONCE 07/13/20 11:15 07/13/20 11:16 DC 07/13/20 11:15 500 MCG Enoxaparin Sodium (Lovenox 40mg Syringe) 40 mg Q24H 07/10/20 20:45 07/10/20 20:40 DC Ferrous Sulfate (Feosol) 325 mg DAILY 07/11/20 09:00 07/16/20 08:38 325 MG Fish Oil (Fish Oil) 1,000 mg DAILY 07/11/20 09:00 07/16/20 08:38 1,000 MG Gabapentin (Neurontin) 600 mg HS 07/10/20 22:30 07/15/20 21:47 600 MG Haloperidol Lactate (Haldol Inj) 5 mg PRN Q6HRS PRN 07/14/20 05:15 07/14/20 08:27 5 MG Heparin Sodium (Porcine) (Heparin Sodium) 5,000 unit Q8HRS 07/10/20 22:00 07/16/20 14:40 5,000 UNIT Info (PHARMACY MONITORING -- do not chart) 1 each PRN DAILY PRN 07/13/20 13:15 Insulin Glargine (Lantus Syringe) 80 unit QHS 07/10/20 22:45 07/15/20 21:57 80 UNIT Insulin Human Lispro (HumaLOG) 35 units DAILYBFRSUP 07/11/20 17:00 Lactobacillus Rhamnosus (Culturelle) 1 cap BID 07/11/20 21:00 07/16/20 08:38 1 CAP Lidocaine HCl (Buffered Lidocaine 1%) 3 ml 1X ONCE 07/11/20 14:30 07/11/20 14:31 DC 07/11/20 14:49 6 ML Lidocaine HCl (Glydo (Lidocaine) Jelly) 1 adilson PRN Q4HRS PRN 07/12/20 09:15 07/12/20 15:25 1 ADILSON Linagliptin (Tradjenta) 5 mg DAILY 07/11/20 09:00 07/16/20 08:38 5 MG Lorazepam (Ativan Inj) 1 mg PRN Q8HRS PRN 07/14/20 14:45 07/14/20 15:10 1 MG Losartan Potassium (Cozaar) 50 mg DAILY 07/11/20 09:00 07/12/20 08:11 DC Magnesium Sulfate 50 ml @ 25 mls/hr PRN DAILY PRN 07/14/20 11:00 Methocarbamol (Robaxin) 750 mg 1X ONCE 07/15/20 03:00 07/15/20 03:01 DC 07/15/20 02:58 750 MG Metolazone (Zaroxolyn) 2.5 mg QMWF 07/12/20 16:00 07/12/20 08:11 DC Metoprolol Tartrate (Lopressor) 12.5 mg BID 07/12/20 09:00 07/16/20 08:39 12.5 MG Mupirocin (Bactroban) 1 adilson BID 07/11/20 09:00 07/16/20 09:00 1 ADILSON Naproxen (Naprosyn) 500 mg HS 07/10/20 22:30 07/12/20 08:12 DC 07/11/20 23:35 500 MG Non-Formulary Medication (Insulin Detemir (Levemir)) 80 unit HS 07/11/20 21:00 UNV Non-Formulary Medication (Liraglutide (Victoza 3-Fredy)) 1.8 mg DAILY 07/11/20 09:00 07/12/20 08:12 DC Nystatin (Nystop) 1 adislon BID 07/11/20 09:00 07/16/20 09:00 1 ADILSON Pantoprazole Sodium (PROTONIX VIAL for IV PUSH) 40 mg DAILYAC 07/11/20 16:30 07/12/20 11:16 DC 07/12/20 08:50 40 MG Pantoprazole Sodium (Protonix) 40 mg DAILYAC 07/13/20 07:30 07/16/20 08:38 40 MG Perflutren Protein Type A Microsphe (Optison) 0.66 mg STK-MED ONCE 07/13/20 07:30 07/13/20 07:30 DC Polyethylene Glycol (miraLAX PACKET) 17 gm DAILY 07/12/20 11:30 Simvastatin (Zocor) 20 mg HS 07/10/20 22:30 07/15/20 21:48 20 MG Sodium Chloride 1,000 ml @ 400 mls/hr Q2H30M PRN 07/13/20 13:15 07/14/20 01:14 DC Spironolactone (Aldactone) 25 mg DAILY 07/11/20 09:00 UNV Zolpidem Tartrate (Ambien) 5 mg PRN QHS PRN 07/10/20 22:45 07/15/20 21:51 5 MG Lab Laboratory Tests Test 07/15/20 17:50 07/15/20 21:38 07/16/20 08:30 07/16/20 12:17 Glucose (Fingerstick) 151 mg/dL (70-99) 145 mg/dL (70-99) 134 mg/dL (70-99) Sodium Level 134 mmol/L (136-145) Potassium Level 4.4 mmol/L (3.5-5.1) Chloride Level 96 mmol/L (98-107) Carbon Dioxide Level 25 mmol/L (21-32) Anion Gap 13 (6-14) Blood Urea Nitrogen 98 mg/dL (8-26) Creatinine 7.8 mg/dL (0.7-1.3) Estimated GFR (Cockcroft-Gault) 7.0 Glucose Level 161 mg/dL (70-99) Calcium Level 8.3 mg/dL (8.5-10.1) Phosphorus Level 5.9 mg/dL (2.6-4.7) Magnesium Level 2.1 mg/dL (1.8-2.4) Albumin 2.2 g/dL (3.4-5.0) Test 07/16/20 12:28 Glucose (Fingerstick) 168 mg/dL (70-99) Results All relevant outside records, renal labs, imaging studies, telemetry/EKG's were reviewed. Justicifation of Admission Dx: Justifications for Admission: Justification of Admission Dx: Yes Acute Renal Failure: RF Can't Be Managed Outpt NOAH ARRIAZA MD Jul 16, 2020 15:54
[2020-07-16 19:15] VITALS: BP 99/78
[2020-07-16] MEDS: cefTRIAXone IV Push 1 GM VIAL. IVP SCH (20:00)
[2020-07-16 23:25] VITALS: BP 91/43
[2020-07-16] MEDS: GABAPENTIN 300 MG CAPSULE. PO SCH (23:26)
[2020-07-16] MEDS: BISACODYL 5 MG TABLET.DR. PO PRN (23:26)
[2020-07-16] MEDS: SIMVASTATIN 20 MG TABLET PO SCH (23:31)
[2020-07-16] MEDS: ZOLPIDEM 5 MG TABLET. PO PRN (23:32)
[2020-07-16] MEDS: INSULIN GLARGINE SYRINGE. SQ SCH (23:44)
[2020-07-17] MEDS: HYDROcodone/APAP 10/325 1 TAB TABLET PO PRN ×3 (01:32→22:38)
[2020-07-17 03:15] VITALS: BP 144/92
[2020-07-17] MEDS: HEPARIN for SUB-Q USE 5,000 UNIT/ML VIAL. SQ SCH ×3 (06:00→22:22)
[2020-07-17 07:00] VITALS: BP 107/47
[2020-07-17] MEDS: PANTOPRAZOLE 40 MG TABLET.DR. PO SCH (07:30)
[2020-07-17] MEDS: ASPIRIN ENTERIC COATED 81 MG TABLET.DR. PO SCH (08:00)
[2020-07-17] MEDS: INSULIN LISPRO 300 UNITS/3 ML VIAL. SQ SCH ×4 (08:00→17:00)
[2020-07-17 08:49] LABS: BASO % 0 % (0-3); EOS # 0.3 x10^3/uL (0.0-0.7); EOS % 5 % (0-3); HEMATOCRIT 33.2 % (39.0-53.0); HEMOGLOBIN 10.5 g/dL (13.0-17.5); LYMPH # 1.4 x10^3/uL (1.0-4.8); LYMPH % 18 % (24-48); MEAN CORPUSCULAR HEMOGLOBIN 28 pg (25-35); MEAN CORPUSCULAR HGB CONC 32 g/dL (31-37); MEAN CORPUSCULAR VOLUME 87 fL (79-100); MONO % 13 % (0-9); NEUT # 4.8 x10^3/uL (1.8-7.7); NEUT % 64 % (31-73); PLATELET COUNT 105 x10^3/uL (140-400); RED BLOOD COUNT 3.82 x10^6/uL (4.30-5.70); RED CELL DISTRIBUTION WIDTH 14.3 % (11.5-14.5); WHITE BLOOD COUNT 7.6 x10^3/uL (4.0-11.0)
[2020-07-17 08:59] LABS: PROTHROMBIN TIME PATIENT 13.6 SEC (11.7-14.0)
[2020-07-17] MEDS: FERROUS SULFATE 325 MG TABLET. PO SCH (09:00)
[2020-07-17] MEDS: METOPROLOL TART IMMED RELEASE 25 MG TABLET. PO SCH ×2 (09:00→22:22)
[2020-07-17] MEDS: MUPIROCIN 2 % NASAL OINTMENT 22GM TUBE. TP SCH ×2 (09:00→22:36)
[2020-07-17] MEDS: OMEGA-3 FATTY ACIDS/FISH OIL 1,000 MG CAPSULE. PO SCH (09:00)
[2020-07-17] MEDS: POLYETHYLENE GLYCOL 3350 17 GM PACKET. PO SCH (09:00)
[2020-07-17] MEDS: LACTOBACILLUS RHAMNOSUS GG 1 CAPSULE. PO SCH ×2 (09:00→22:23)
[2020-07-17] MEDS: NYSTATIN TOPICAL POWDER 15GM BOTTLE. TP SCH ×2 (09:00→22:36)
[2020-07-17 09:06] LABS: ALBUMIN 2.3 g/dL (3.4-5.0); CALCIUM 7.9 mg/dL (8.5-10.1); CREATININE 7.2 mg/dL (0.7-1.3); GFR 7.7; PHOSPHORUS 5.6 mg/dL (2.6-4.7); POTASSIUM 4.6 mmol/L (3.5-5.1)
--- NOTE | 2020-07-17 10:50 | PDOC ---
Date of Service: DATE: 07/17/20 TIME: 10:47 Subjective: Subjective: Says no nausea, stooling "somewhat," and no abd pain. Objective: Objective: D/w nurse - getting tunneled HD cath today - pulled lines on 07/15/20. Vital Signs: Vital Signs Date Time Temp Pulse Resp B/P (MAP) Pulse Ox O2 Delivery O2 Flow Rate FiO2 07/17/20 07:30 Nasal Cannula 2.0 07/17/20 07:00 97.5 82 20 107/47 (67) 94 97.5 Labs: Laboratory Tests Test 07/16/20 12:17 07/16/20 12:28 07/16/20 16:49 07/16/20 21:02 Sodium Level 134 mmol/L Potassium Level 4.4 mmol/L Chloride Level 96 mmol/L Carbon Dioxide Level 25 mmol/L Anion Gap 13 Blood Urea Nitrogen 98 mg/dL Creatinine 7.8 mg/dL Estimated GFR (Cockcroft-Gault) 7.0 Glucose Level 161 mg/dL Calcium Level 8.3 mg/dL Phosphorus Level 5.9 mg/dL Magnesium Level 2.1 mg/dL Albumin 2.2 g/dL Glucose (Fingerstick) 168 mg/dL 155 mg/dL 135 mg/dL Test 07/17/20 07:50 07/17/20 07:53 White Blood Count 7.6 x10^3/uL Red Blood Count 3.82 x10^6/uL Hemoglobin 10.5 g/dL Hematocrit 33.2 % Mean Corpuscular Volume 87 fL Mean Corpuscular Hemoglobin 28 pg Mean Corpuscular Hemoglobin Concent 32 g/dL Red Cell Distribution Width 14.3 % Platelet Count 105 x10^3/uL Neutrophils (%) (Auto) 64 % Lymphocytes (%) (Auto) 18 % Monocytes (%) (Auto) 13 % Eosinophils (%) (Auto) 5 % Basophils (%) (Auto) 0 % Neutrophils # (Auto) 4.8 x10^3/uL Lymphocytes # (Auto) 1.4 x10^3/uL Monocytes # (Auto) 1.0 x10^3/uL Eosinophils # (Auto) 0.3 x10^3/uL Basophils # (Auto) 0.0 x10^3/uL Prothrombin Time 13.6 SEC Prothromb Time International Ratio 1.1 Sodium Level 136 mmol/L Potassium Level 4.6 mmol/L Chloride Level 97 mmol/L Carbon Dioxide Level 25 mmol/L Anion Gap 14 Blood Urea Nitrogen 108 mg/dL Creatinine 7.2 mg/dL Estimated GFR (Cockcroft-Gault) 7.7 Glucose Level 92 mg/dL Calcium Level 7.9 mg/dL Phosphorus Level 5.6 mg/dL Magnesium Level 2.0 mg/dL Albumin 2.3 g/dL Glucose (Fingerstick) 108 mg/dL Imaging: Echo 07/13 <Conclusion> Technically difficult study. The left ventricular systolic function is normal. The ejection fraction is 55%. There is normal LV segmental wall motion. There is no evidence of significant pericardial effusion. CXR 07/14 IMPRESSION: Stable diffuse interstitial prominence. Head CT 07/14 IMPRESSION: Mild small vessel schema change, technically age indeterminate without recent prior imaging. PE: GEN: NAD LUNGS: diminished HEART: distant ABD: morbidly obese, soft, non-tender NEURO/PSYCH: drowsy A/P: ELIZABETH/CKD ?GERD Chronic pain BMI 87 -- Plans as above. Continue support, PPI Qd and laxatives PRN per GI. Justicifation of Admission Dx: Justifications for Admission: Justification of Admission Dx: Yes Acute Renal Failure: RF Can't Be Managed Outpt QING BRENNER Jul 17, 2020 10:50
[2020-07-17] MEDS ORDERED: LIDOCAINE 1%/EPI 1:100,000 20 ML VIAL. ONE (10:54)
[2020-07-17 11:00] VITALS: BP 118/52
--- NOTE | 2020-07-17 11:27 | NUR ---
SS following up with discharge planning. SS reviewed pt chart and discussed with pt RN. Pt is currently requiring oxygen at two liters nasal canula. Pt on IV Rocephin. COVID19 negative. Pt has outpatient dialysis chair time at [facility], [address] [address], ; fax [phone], Friday, Friday, and Friday. Pt have dialysis cath placed today. Pt's RN and double end sewer concerned about pt being able to transfer to chair for dialysis. SS contacted [facility] and was notified that they do have a jim lift at facility to transfer pt. [facility] reported that pt would need to have sling underneath him in the wheelchair on arrival. SS was notified that pt could be provided with a sling prior to discharge. PT/OT notified of pt needs. SS discussed with pt and pt's brother. Pt and family wanting to return to home at discharge. SS will continue to follow for discharge planning.
--- NOTE | 2020-07-17 11:30 | PDOC ---
[employer] PROGRESS NOTE Date of Service DOS: DATE: 07/17/20 TIME: 11:27 Chief Complaint Chief Complaint ASSESSMENT AND PLAN: ACUTE RENAL INJURY urinary tract infection. abdominal discomfort, lower bilateral morbid obesity hypoxic resp failure Chest pain: doubt ACS, potentially from GI // significant NSAID use. AFIB: likely chronic, rate controlled CHRONIC LOW BACK PAIN Trace tricuspid regurgitation with an estimated PAP of 45 mmHg C/W MOD PULM HTN PROB SLEEP APNEA Acute metabolic encephalopathy PULMONARY NODULE plan IV antibiotics, IV fluids. Trend creatinine. Consult Nephrology. Home meds, DVT prophylaxis. Full code. GI CONSULT CARDIOLOGY CONSULT ABG Temporary dialysis catheter in vascular lab 07-[address] CT CHEST REPLACE TEMP CATH IR d/w rn 07-15-20 ENCEPHALOPATHIC, CONFUSED, PULLING OUT IV-S NEEDS SITTER, MITTS 07-16 ir consulted replace temp dialysis cath 104: Patient seen today at bedside. Tunnel dialysis catheter to be placed today. Patient currently has no IV access. Charts and labs reviewed, discussed with RN. D/W RN No acute findings in the abdomen and pelvis on noncontrast CT. 07-10 PROGNOSIS: guarded. He did not keep follow up nephrology appts. follows with his PCP Q year and prior to most recent labs no other Interval labs done 07-12 burning in groin related to catheter - really uncomfortable, 07-13 continue dialysis as indicated CR 4.6 D/W RN 29 MIN pt exam, chart review, > 50% of time spent with exam, chart review, pt care coordination History of Present Illness History of Present Illness HISTORY OF PRESENT ILLNESS: 64-year-old male who has stage 4 kidney disease, presents with a creatinine of 6.5. His BUN is 185. Potassium is high at 5.7. may need dialysis. His primary care doctor, Dr. Juwan Doyle, sent him to the ER. I have discussed the case with the ER physician. We are going to admit the patient and consult Nephrology. PAST MEDICAL HISTORY: Obesity, diabetes, hypertension, hemorrhoids, neuropathy, back pain, right ankle surgery, chronic renal insufficiency. ALLERGIES: METFORMIN. FAMILY HISTORY: Diabetes. SOCIAL HISTORY: He does not drink, smoke or take drugs. MEDICATIONS: Reviewed, please refer to the MRAD. Vitals/I&O Vitals/I&O: Vital Signs Date Time Temp Pulse Resp B/P (MAP) Pulse Ox O2 Delivery O2 Flow Rate FiO2 07/17/20 11:00 97.8 81 20 118/52 (74) 97 Nasal Cannula 2.0 97.8 I & O 07/16/20 07/16/20 07/17/20 15:00 23:00 07:00 Intake Total 418 ml 0 ml Output Total 30 ml 275 ml 100 ml Balance 388 ml -275 ml -100 ml Physical Exam Physical Exam: GENERAL: He is morbidly obese , pleasantly cooperative. HEENT: Normal cephalic atraumatic, external auditory canals are patent EYES: Extraocular muscles are intact, pupils are equally round and reactive to light and accommodation MUSCULOSKELETAL: Well developed, well nourished, good range of motion ENDOCRINE: No thyromegaly was palpated LYMPHATICS: No cervical chain or axillary nodes were noted HEMATOPOIETIC: No bruising NECK: Supple, no JVD, no thyromegaly was noted. LUNGS: Clear to auscultation in all lung vaughn without rhonchi or wheezing. HEART: RRR, S1, S2 present. Peripheral pulses intact, no obvious murmurs were noted. ABDOMEN: Soft, mild tenderness Positive bowel sounds no organomegaly, normal bowel sounds. very obese EXTREMITIES: Without any cyanosis, clubbing, or edema. Pedal pulses intact, Homans sign is negative. NEUROLOGIC: Normal speech, normal tone. A & O x3, moves all extremities, no obvious focal deficits. PSYCHIATRIC: Normal affect, normal mood. Stable. SKIN: No ulcerations or rashes, good skin turgor, no jaundice. VASCULAR: Good capillary refill, neurovascular bundle appears to be intact. General: Alert, Oriented X3, Cooperative, mild distress Heart: No murmurs, Other (AFIB) Abdomen: Other (mild tenderness ) Extremities: No clubbing, No cyanosis Skin: No significant lesion, Other (LE venous dermatitis) Labs Labs: Laboratory Tests Test 07/16/20 12:17 07/16/20 12:28 07/16/20 16:49 07/16/20 21:02 Sodium Level 134 mmol/L (136-145) Potassium Level 4.4 mmol/L (3.5-5.1) Chloride Level 96 mmol/L (98-107) Carbon Dioxide Level 25 mmol/L (21-32) Anion Gap 13 (6-14) Blood Urea Nitrogen 98 mg/dL (8-26) Creatinine 7.8 mg/dL (0.7-1.3) Estimated GFR (Cockcroft-Gault) 7.0 Glucose Level 161 mg/dL (70-99) Calcium Level 8.3 mg/dL (8.5-10.1) Phosphorus Level 5.9 mg/dL (2.6-4.7) Magnesium Level 2.1 mg/dL (1.8-2.4) Albumin 2.2 g/dL (3.4-5.0) Glucose (Fingerstick) 168 mg/dL (70-99) 155 mg/dL (70-99) 135 mg/dL (70-99) Test 07/17/20 07:50 07/17/20 07:53 White Blood Count 7.6 x10^3/uL (4.0-11.0) Red Blood Count 3.82 x10^6/uL (4.30-5.70) Hemoglobin 10.5 g/dL (13.0-17.5) Hematocrit 33.2 % (39.0-53.0) Mean Corpuscular Volume 87 fL (79-100) Mean Corpuscular Hemoglobin 28 pg (25-35) Mean Corpuscular Hemoglobin Concent 32 g/dL (31-37) Red Cell Distribution Width 14.3 % (11.5-14.5) Platelet Count 105 x10^3/uL (140-400) Neutrophils (%) (Auto) 64 % (31-73) Lymphocytes (%) (Auto) 18 % (24-48) Monocytes (%) (Auto) 13 % (0-9) Eosinophils (%) (Auto) 5 % (0-3) Basophils (%) (Auto) 0 % (0-3) Neutrophils # (Auto) 4.8 x10^3/uL (1.8-7.7) Lymphocytes # (Auto) 1.4 x10^3/uL (1.0-4.8) Monocytes # (Auto) 1.0 x10^3/uL (0.0-1.1) Eosinophils # (Auto) 0.3 x10^3/uL (0.0-0.7) Basophils # (Auto) 0.0 x10^3/uL (0.0-0.2) Prothrombin Time 13.6 SEC (11.7-14.0) Prothromb Time International Ratio 1.1 (0.8-1.1) Sodium Level 136 mmol/L (136-145) Potassium Level 4.6 mmol/L (3.5-5.1) Chloride Level 97 mmol/L (98-107) Carbon Dioxide Level 25 mmol/L (21-32) Anion Gap 14 (6-14) Blood Urea Nitrogen 108 mg/dL (8-26) Creatinine 7.2 mg/dL (0.7-1.3) Estimated GFR (Cockcroft-Gault) 7.7 Glucose Level 92 mg/dL (70-99) Calcium Level 7.9 mg/dL (8.5-10.1) Phosphorus Level 5.6 mg/dL (2.6-4.7) Magnesium Level 2.0 mg/dL (1.8-2.4) Albumin 2.3 g/dL (3.4-5.0) Glucose (Fingerstick) 108 mg/dL (70-99) Assessment and Plan Assessmemt and Plan Problems Medical Problems: (1) Acute on chronic kidney failure Status: Acute (2) Hyperkalemia Status: Acute (3) Morbid obesity Status: Acute Comment Review of Relevant I have reviewed the following items tiffany (where applicable) has been applied. Justifications for Admission Other Justification MATEO STERN MD Jul 17, 2020 11:30
--- NOTE | 2020-07-17 12:11 | PDOC ---
JOSE ALEJANDRO HUERTA DATASTAGE CONSULTANT 07/17/20 1211: CARDIO Progress Notes Date and Time Date of Service 07/17/19 Time of Evaluation 1200 Subjective Subjective: No Chest Pain, No shortness of breath, No Palpitations Vitals Vitals Vital Signs Date Time Temp Pulse Resp B/P (MAP) Pulse Ox O2 Delivery O2 Flow Rate FiO2 07/17/20 11:00 97.8 81 20 118/52 (74) 97 Nasal Cannula 2.0 97.8 Weight Weight [ ] Input and Output Intake and Output Intake and Output 07/17/20 07:00 Intake Total 418 ml Output Total 405 ml Balance 13 ml Intake Oral 418 ml Output Urine Total 405 ml # Bowel Movements 1 Laboratory Labs Laboratory Tests Test 07/16/20 12:17 07/16/20 12:28 07/16/20 16:49 07/16/20 21:02 Sodium Level 134 mmol/L (136-145) Potassium Level 4.4 mmol/L (3.5-5.1) Chloride Level 96 mmol/L (98-107) Carbon Dioxide Level 25 mmol/L (21-32) Anion Gap 13 (6-14) Blood Urea Nitrogen 98 mg/dL (8-26) Creatinine 7.8 mg/dL (0.7-1.3) Estimated GFR (Cockcroft-Gault) 7.0 Glucose Level 161 mg/dL (70-99) Calcium Level 8.3 mg/dL (8.5-10.1) Phosphorus Level 5.9 mg/dL (2.6-4.7) Magnesium Level 2.1 mg/dL (1.8-2.4) Albumin 2.2 g/dL (3.4-5.0) Glucose (Fingerstick) 168 mg/dL (70-99) 155 mg/dL (70-99) 135 mg/dL (70-99) Test 07/17/20 07:50 07/17/20 07:53 07/17/20 11:31 White Blood Count 7.6 x10^3/uL (4.0-11.0) Red Blood Count 3.82 x10^6/uL (4.30-5.70) Hemoglobin 10.5 g/dL (13.0-17.5) Hematocrit 33.2 % (39.0-53.0) Mean Corpuscular Volume 87 fL (79-100) Mean Corpuscular Hemoglobin 28 pg (25-35) Mean Corpuscular Hemoglobin Concent 32 g/dL (31-37) Red Cell Distribution Width 14.3 % (11.5-14.5) Platelet Count 105 x10^3/uL (140-400) Neutrophils (%) (Auto) 64 % (31-73) Lymphocytes (%) (Auto) 18 % (24-48) Monocytes (%) (Auto) 13 % (0-9) Eosinophils (%) (Auto) 5 % (0-3) Basophils (%) (Auto) 0 % (0-3) Neutrophils # (Auto) 4.8 x10^3/uL (1.8-7.7) Lymphocytes # (Auto) 1.4 x10^3/uL (1.0-4.8) Monocytes # (Auto) 1.0 x10^3/uL (0.0-1.1) Eosinophils # (Auto) 0.3 x10^3/uL (0.0-0.7) Basophils # (Auto) 0.0 x10^3/uL (0.0-0.2) Prothrombin Time 13.6 SEC (11.7-14.0) Prothromb Time International Ratio 1.1 (0.8-1.1) Sodium Level 136 mmol/L (136-145) Potassium Level 4.6 mmol/L (3.5-5.1) Chloride Level 97 mmol/L (98-107) Carbon Dioxide Level 25 mmol/L (21-32) Anion Gap 14 (6-14) Blood Urea Nitrogen 108 mg/dL (8-26) Creatinine 7.2 mg/dL (0.7-1.3) Estimated GFR (Cockcroft-Gault) 7.7 Glucose Level 92 mg/dL (70-99) Calcium Level 7.9 mg/dL (8.5-10.1) Phosphorus Level 5.6 mg/dL (2.6-4.7) Magnesium Level 2.0 mg/dL (1.8-2.4) Albumin 2.3 g/dL (3.4-5.0) Glucose (Fingerstick) 108 mg/dL (70-99) 104 mg/dL (70-99) Microbiology Micro Microbiology 07/10/20 Urine Culture - Final, Complete Physical Exam HEENT: Neck Supple W Full Motion Chest: Symmetric LUNGS: Other (diminished bases) Heart: irregularly irregular (AFIB rate controlled) Abdomen: Soft N/T, Other (obese) Extremities: No Calf Tenderness, Other (1+ bilateral Le pitting edema) Neurology: alert, oriented, follow commands Assessment Assessment 1. Severe ELIZABETH/uremia on CKD; HD initiated. permacath to be placed 2. Chest pain: doubt ACS, potentially from GI given his significant NSAID use. none further 3. AFIB: likely chronic, rate now controlled 4. CAD: remote hx of PTCA 5. HTN: controlled 6. HLP: HDL low but otherwise on goal 7. Chronic low back pain/ debility/WC bound 8. Noncompliance 9. Morbid obesity 10. DM2: per IM Recommendations Continue low dose metoprolol ASA, statin therapy Fluid off loading per HD Secondary prevention measures Recommend OAC with warfarin for stroke prevention follow HD catheter placement. R/b/a discussed with patient and he is agreeable Consider outpt ischemic workup. Follow up with Dr. San as scheduled. Justicifation of Admission Dx: Justifications for Admission: Justification of Admission Dx: Yes Acute Renal Failure: RF Can't Be Managed Outpt PAZ SAN MD 07/17/201938: CARDIO Progress Notes Assessment Assessment Patient seen and examined. Agree with [facility]'s assessment and plan. Continue HD for acute renal insufficiency per nephrology team. Persistent atrial fibrillation rate controlled. Consider resuming Coumadin prior to discharge or possibly as outpatient. Chest pain with atypical features and most probably GI etiology. 2D echo showed normal LVF without any WMA. CAD status clinically stable. Ischemic evaluation could be considered as an outpatient. JOSE ALEJANDRO HUERTA APRN Jul 17, 2020 12:11 PAZ SAN MD Jul 17, 2020 19:39
[2020-07-17] MEDS ORDERED: ceFAZolin SODIUM 3 GM in IV DEXTROSE 5% 100ML 100 ML IV ONE (13:00)
--- NOTE | 2020-07-17 13:18 | PDOC ---
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
--- NOTE | 2020-07-17 13:20 | RAD ---
XR CHEST 1V CLINICAL INDICATIONS: Tunnel HD Catheter Placment Comparison: July 14, 2020 Findings: Mild linear atelectasis of the left midlung zone is again evident. No new lung infiltrate o r pleural effusion or pulmonary edema or lung mass or pneumothorax is seen. The heart size, pulmonar y vasculature, mediastinum and both vicky are stable. Right IJ catheter is in place and the inferior t ip is located within the upper right atrium. IMPRESSION: No pneumothorax after placement of a right IJ catheter. Electronically signed by: Gera Collins MD (07/17/2020 1:18 PM) [id number]
[2020-07-17] MEDS ORDERED: LIDOCAINE 1%/EPI 1:100,000 20 ML VIAL. INJ ONE (13:45)
[2020-07-17] MEDS ORDERED: DIALYSIS PATIENT. MC PRN (13:45)
[2020-07-17] MEDS ORDERED: IV NORMAL SALINE 1000ML BAG 1,000 ML IV PRN ×2 (13:45)
--- NOTE | 2020-07-17 14:25 | RAD ---
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 Consent: The procedure was explained in its entirety to the patient or the patients designated financial sales representative by a member of the treatment team, including a discussion of the risks, benefits and commonly accepted alternatives to the procedure, as well as the expected consequences of no therapy whatsoever. Discussion of the risks included, but was not limited to, those that are most frequent and those that are rare but possibly severe or life-threatening, as well as the possibility of unforeseen complications. Technique and Findings: Following informed consent, a timeout procedure was performed. The patient was prepped and draped in the usual sterile fashion. Ultrasound interrogation of the right neck revealed patency and compressibility of the right internal jugular vein. A 21-gauge micropuncture was then used to gain access to this vein under ultrasound guidance. A hard copy ultrasound image was recorded. The needle was exchanged over a wire for a 4 Indonesian sheath which was used place a 035 Amplatz wire. The skin over the right anterior chest wall was copiously anesthetized with 1% Lidocaine and a small dermatotomy was made. A 23 cm tipped cuff palindrome tunneled hemodialysis catheter was then tunneled subcutaneously towards the neck dermatotomy and deployed through a large caliber peel-away sheath. Follow up chest radiograph demonstrates the cathter to be in adequate position. Manual flow rates were assessed and found to be within normal limits. The catheter was then flushed, and sutured to the skin. The neck dermatotomy was closed with Dermabond. No immediate complications were identified. Impression: Tunneled hemodialysis catheter placement as described
[2020-07-17] MEDS: LINAGLIPTIN 5 MG TABLET PO SCH (18:00)
[2020-07-17 19:32] VITALS: BP 129/74
[2020-07-17] MEDS: cefTRIAXone IV Push 1 GM VIAL. IVP SCH (20:00)
[2020-07-17] MEDS ORDERED: cefTRIAXone IM 1 GM VIAL IM ONE (21:00)
--- NOTE | 2020-07-17 21:21 | PDOC ---
DATE OF SERVICE DATE: 07/17/20 TIME: 10:15 am SUBJECTIVE ROS No complaints this am states he has been told that he is going home tomorrow Scheduled for Permacath later today OBJECTIVE Vital Signs Vital Signs Date Time Temp Pulse Resp B/P (MAP) Pulse Ox O2 Delivery O2 Flow Rate FiO2 07/17/20 19:32 97.4 92 20 129/74 (92) 91 Nasal Cannula 2.0 97.4 I & 0 Intake and Output 07/17/20 07:00 Intake Total 418 ml Output Total 405 ml Balance 13 ml Intake Oral 418 ml Output Urine Total 405 ml # Bowel Movements 1 PHYSICAL EXAM Physical Exam General: No acute distress, supermorbidly obese HEENT: , Mucous membr. dry, anicteric Neck Thick, supple Lungs: diminished bases, non labored Heart: S1S2 Abdomen: Soft, morbidly obese, NT Extremities: No cyanosis,trace bilateral LE edema Skin:LE venous dermatitis Neuro: Normal speech, Sensation intact, No asterxis Psych/Mental Status: Normal Affect Prasad placed 07/12 , No CVA or SP tenderness DIAGNOSIS/ASSESSMENT Assessment & Plan ELIZABETH - severe POA / New onset ESRD , ATN 2/2 Dehydration, UTI , MEDS- NSAIDS, ARB, Aldactone vs progression of CKD , Started HD 07/11, Cr/eGFR < 15 , UOP decreased. Scheduled for Tunelled HDC placement today UA Cw UTI, Ct scan abdomen- No e/o Hydronephrosis , will be diffiult placement as he cannot sit up inHD chair and probably will have to be transferred to a facility providing inhouse HD in bed Discussed at [facility] with SW and tip cutter- Temp HDC on 07/11, scheduled for Permcath today Hypotension - monitor HyperKalemia POA - resolved UTI- , NG on Cx , follow up per Primary CKD 3B baseline eGFR 30 -32 in 2019 , seen by Dr Jamil - patient did not keep follow up appt Gout- pt reports takes Naproxen, Uric acid 10.2, ? 2/2 ELIZABETH , monitor NSAID use - chronic use DM 2- per primary Supermorbidly obese - such that requires assistance with urination/feeding, does not ambulate Chest pain POA - cardiology consulted AFIB: likely chronic, rate controlled CAD: remote hx of PTCA but denies this HTN: at marginal level Noncompliance COMMENT/RELEVANT DATA Meds Current Medications Medications (Trade) Dose Ordered Sig/Cheyanne Start Time Stop Time Status Last Admin Dose Admin Acetaminophen (Tylenol) 650 mg PRN Q6HRS PRN 07/13/20 18:30 07/14/20 08:27 650 MG Acetaminophen/ Hydrocodone Bitart (Lortab 10/325) 1 tab PRN Q6HRS PRN 07/10/20 22:15 07/17/20 15:23 1 TAB Albumin Human 200 ml @ 200 mls/hr 1X PRN PRN 07/13/20 13:15 07/13/20 19:14 DC Amlodipine Besylate (Norvasc) 10 mg DAILY 07/11/20 09:00 07/12/20 08:11 DC Aspirin (Ecotrin) 81 mg DAILYWBKFT 07/12/20 09:00 07/16/20 08:38 81 MG Atenolol (Tenormin) 100 mg DAILY 07/11/20 09:00 07/12/20 08:12 DC Bisacodyl (Dulcolax Supp) 10 mg 1X ONCE 07/12/20 09:15 07/12/20 09:16 DC 07/12/20 10:16 10 MG Bisacodyl (Dulcolax Tab) 5 mg PRN DAILY PRN 07/12/20 11:30 07/16/20 23:26 5 MG Bumetanide (Bumex) 1 mg DAILY 07/11/20 09:00 07/12/20 08:12 DC Cefazolin Sodium 3 gm/Dextrose 100 ml @ 200 mls/hr 1X ONCE 07/17/20 13:00 07/17/20 13:29 DC 07/17/20 13:00 200 MLS/HR Ceftriaxone Sodium (Rocephin Im) 1 gm 1X ONCE 07/17/20 21:00 07/17/20 21:01 DC Ceftriaxone Sodium (Rocephin) 1 gm Q24H 07/10/20 20:00 07/14/20 20:46 1 GM Dextrose (Dextrose 50%-Water Syringe) 12.5 gm PRN Q15MIN PRN 07/13/20 21:15 Digoxin (Lanoxin) 500 mcg 1X ONCE 07/13/20 11:15 07/13/20 11:16 DC 07/13/20 11:15 500 MCG Enoxaparin Sodium (Lovenox 40mg Syringe) 40 mg Q24H 07/10/20 20:45 07/10/20 20:40 DC Ferrous Sulfate (Feosol) 325 mg DAILY 07/11/20 09:00 07/16/20 08:38 325 MG Fish Oil (Fish Oil) 1,000 mg DAILY 07/11/20 09:00 07/16/20 08:38 1,000 MG Gabapentin (Neurontin) 600 mg HS 07/10/20 22:30 07/16/20 23:26 600 MG Haloperidol Lactate (Haldol Inj) 5 mg PRN Q6HRS PRN 07/14/20 05:15 07/14/20 08:27 5 MG Heparin Sodium (Porcine) (Heparin Sodium) 5,000 unit Q8HRS 07/10/20 22:00 07/16/20 23:43 5,000 UNIT Info (PHARMACY MONITORING -- do not chart) 1 each PRN DAILY PRN 07/17/20 13:45 Insulin Glargine (Lantus Syringe) 80 unit QHS 07/10/20 22:45 07/16/20 23:44 80 UNIT Insulin Human Lispro (HumaLOG) 35 units DAILYBFRSUP 07/11/20 17:00 Lactobacillus Rhamnosus (Culturelle) 1 cap BID 07/11/20 21:00 07/16/20 23:27 1 CAP Lidocaine HCl (Buffered Lidocaine 1%) 3 ml 1X ONCE 07/11/20 14:30 07/11/20 14:31 DC 07/11/20 14:49 6 ML Lidocaine HCl (Glydo (Lidocaine) Jelly) 1 adilson PRN Q4HRS PRN 07/12/20 09:15 07/12/20 15:25 1 ADILSON Lidocaine/ Epinephrine (LIDOCAINE 1%-EPI 1:100,000 Multi-Dose) 20 ml 1X ONCE 07/17/20 13:45 07/17/20 13:46 DC 07/17/20 13:37 15 ML Linagliptin (Tradjenta) 5 mg DAILY 07/11/20 09:00 07/17/20 18:00 5 MG Lorazepam (Ativan Inj) 1 mg PRN Q8HRS PRN 07/14/20 14:45 07/14/20 15:10 1 MG Losartan Potassium (Cozaar) 50 mg DAILY 07/11/20 09:00 07/12/20 08:11 DC Magnesium Sulfate 50 ml @ 25 mls/hr PRN DAILY PRN 07/14/20 11:00 Methocarbamol (Robaxin) 750 mg 1X ONCE 07/15/20 03:00 07/15/20 03:01 DC 07/15/20 02:58 750 MG Metolazone (Zaroxolyn) 2.5 mg QMWF 07/12/20 16:00 07/12/20 08:11 DC Metoprolol Tartrate (Lopressor) 12.5 mg BID 07/12/20 09:00 07/16/20 23:35 12.5 MG Mupirocin (Bactroban) 1 adilson BID 07/11/20 09:00 07/16/20 23:30 1 ADILSON Naproxen (Naprosyn) 500 mg HS 07/10/20 22:30 07/12/20 08:12 DC 07/11/20 23:35 500 MG Non-Formulary Medication (Insulin Detemir (Levemir)) 80 unit HS 07/11/20 21:00 UNV Non-Formulary Medication (Liraglutide (Victoza 3-Fredy)) 1.8 mg DAILY 07/11/20 09:00 07/12/20 08:12 DC Nystatin (Nystop) 1 adilson BID 07/11/20 09:00 07/16/20 23:30 1 ADISLON Pantoprazole Sodium (PROTONIX VIAL for IV PUSH) 40 mg DAILYAC 07/11/20 16:30 07/12/20 11:16 DC 07/12/20 08:50 40 MG Pantoprazole Sodium (Protonix) 40 mg DAILYAC 07/13/20 07:30 07/16/20 08:38 40 MG Perflutren Protein Type A Microsphe (Optison) 0.66 mg STK-MED ONCE 07/13/20 07:30 07/13/20 07:30 DC Polyethylene Glycol (miraLAX PACKET) 17 gm DAILY 07/12/20 11:30 07/16/20 09:00 17 GM Simvastatin (Zocor) 20 mg HS 07/10/20 22:30 07/16/20 23:31 20 MG Sodium Chloride 1,000 ml @ 400 mls/hr Q2H30M PRN 07/17/20 13:45 07/18/20 01:44 Spironolactone (Aldactone) 25 mg DAILY 07/11/20 09:00 UNV Zolpidem Tartrate (Ambien) 5 mg PRN QHS PRN 07/10/20 22:45 07/16/20 23:32 5 MG Lab Laboratory Tests Test 07/17/20 07:50 07/17/20 07:53 07/17/20 11:31 07/17/20 17:58 White Blood Count 7.6 x10^3/uL (4.0-11.0) Red Blood Count 3.82 x10^6/uL (4.30-5.70) Hemoglobin 10.5 g/dL (13.0-17.5) Hematocrit 33.2 % (39.0-53.0) Mean Corpuscular Volume 87 fL (79-100) Mean Corpuscular Hemoglobin 28 pg (25-35) Mean Corpuscular Hemoglobin Concent 32 g/dL (31-37) Red Cell Distribution Width 14.3 % (11.5-14.5) Platelet Count 105 x10^3/uL (140-400) Neutrophils (%) (Auto) 64 % (31-73) Lymphocytes (%) (Auto) 18 % (24-48) Monocytes (%) (Auto) 13 % (0-9) Eosinophils (%) (Auto) 5 % (0-3) Basophils (%) (Auto) 0 % (0-3) Neutrophils # (Auto) 4.8 x10^3/uL (1.8-7.7) Lymphocytes # (Auto) 1.4 x10^3/uL (1.0-4.8) Monocytes # (Auto) 1.0 x10^3/uL (0.0-1.1) Eosinophils # (Auto) 0.3 x10^3/uL (0.0-0.7) Basophils # (Auto) 0.0 x10^3/uL (0.0-0.2) Prothrombin Time 13.6 SEC (11.7-14.0) Prothromb Time International Ratio 1.1 (0.8-1.1) Sodium Level 136 mmol/L (136-145) Potassium Level 4.6 mmol/L (3.5-5.1) Chloride Level 97 mmol/L (98-107) Carbon Dioxide Level 25 mmol/L (21-32) Anion Gap 14 (6-14) Blood Urea Nitrogen 108 mg/dL (8-26) Creatinine 7.2 mg/dL (0.7-1.3) Estimated GFR (Cockcroft-Gault) 7.7 Glucose Level 92 mg/dL (70-99) Calcium Level 7.9 mg/dL (8.5-10.1) Phosphorus Level 5.6 mg/dL (2.6-4.7) Magnesium Level 2.0 mg/dL (1.8-2.4) Albumin 2.3 g/dL (3.4-5.0) Glucose (Fingerstick) 108 mg/dL (70-99) 104 mg/dL (70-99) 112 mg/dL (70-99) Test 07/17/20 20:59 Glucose (Fingerstick) 143 mg/dL (70-99) Results All relevant outside records, renal labs, imaging studies, telemetry/EKG's were reviewed. Justicifation of Admission Dx: Justifications for Admission: Justification of Admission Dx: Yes Acute Renal Failure: RF Can't Be Managed Outpt CANDY MERCADO MD Jul 17, 2020 21:21
[2020-07-17] MEDS: SIMVASTATIN 20 MG TABLET PO SCH (22:21)
[2020-07-17] MEDS: GABAPENTIN 300 MG CAPSULE. PO SCH (22:21)
[2020-07-17] MEDS: INSULIN GLARGINE SYRINGE. SQ SCH (22:23)
[2020-07-17] MEDS: ZOLPIDEM 5 MG TABLET. PO PRN (22:30)
[2020-07-17 22:49] VITALS: BP 132/64
[2020-07-18 03:04] VITALS: BP 142/60
--- NOTE | 2020-07-18 04:49 | NUR ---
Under pannus cleaned with soapy water, dried, powdered with nystatin and pink cream applied per pt request, pillow cases inserted under pannus.
[2020-07-18] MEDS: HEPARIN for SUB-Q USE 5,000 UNIT/ML VIAL. SQ SCH ×3 (06:11→21:58)
[2020-07-18 07:00] VITALS: BP 84/33
[2020-07-18 07:46] LABS: ALBUMIN 2.1 g/dL (3.4-5.0); CALCIUM 7.8 mg/dL (8.5-10.1); CREATININE 4.9 mg/dL (0.7-1.3); PHOSPHORUS 3.8 mg/dL (2.6-4.7); POTASSIUM 4.2 mmol/L (3.5-5.1)
[2020-07-18] MEDS: INSULIN LISPRO 300 UNITS/3 ML VIAL. SQ SCH ×4 (08:00→16:41)
--- NOTE | 2020-07-18 08:23 | PDOC ---
[employer] PROGRESS NOTE Date of Service DOS: DATE: 07/18/20 TIME: 08:20 Chief Complaint Chief Complaint ASSESSMENT AND PLAN: ACUTE RENAL INJURY urinary tract infection. abdominal discomfort, lower bilateral morbid obesity hypoxic resp failure Chest pain: doubt ACS, potentially from GI // significant NSAID use. AFIB: likely chronic, rate controlled CHRONIC LOW BACK PAIN Trace tricuspid regurgitation with an estimated PAP of 45 mmHg C/W MOD PULM HTN PROB SLEEP APNEA Acute metabolic encephalopathy PULMONARY NODULE plan IV antibiotics, IV fluids. Trend creatinine. Consult Nephrology. Home meds, DVT prophylaxis. Full code. GI CONSULT CARDIOLOGY CONSULT ABG Temporary dialysis catheter in vascular lab 07-[address] CT CHEST REPLACE TEMP CATH IR d/w rn 07-15-20 ENCEPHALOPATHIC, CONFUSED, PULLING OUT IV-S NEEDS SITTER MITNOLAN 07-16 ir consulted replace temp dialysis cath 104: Patient seen today at bedside. Tunnel dialysis catheter to be placed today. Patient currently has no IV access. Charts and labs reviewed, discussed with RN. 105: Patient seen bedside. Right IJ tunneled dialysis cath placed yesterday. Discussed with cardiology, he will need stroke prophylaxis due to A. fib. Discussed options with patient including Coumadin versus DOAC. Patient states that he does not want to resume anticoagulation with Coumadin. Will provide anticoagulation with Eliquis. Greater than 30 minutes spent managing discharge this patient. History of Present Illness History of Present Illness HISTORY OF PRESENT ILLNESS: 64-year-old male who has stage 4 kidney disease, presents with a creatinine of 6.5. His BUN is 185. Potassium is high at 5.7. may need dialysis. His primary care doctor, Dr. Juwan Doyle, sent him to the ER. I have discussed the case with the ER physician. We are going to admit the patient and consult Nephrology. PAST MEDICAL HISTORY: Obesity, diabetes, hypertension, hemorrhoids, neuropathy, back pain, right ankle surgery, chronic renal insufficiency. ALLERGIES: METFORMIN. FAMILY HISTORY: Diabetes. SOCIAL HISTORY: He does not drink, smoke or take drugs. MEDICATIONS: Reviewed, please refer to the MRAD. Vitals/I&O Vitals/I&O: Vital Signs Date Time Temp Pulse Resp B/P (MAP) Pulse Ox O2 Delivery O2 Flow Rate FiO2 07/18/20 07:00 98.0 76 20 84/33 (50) 90 Nasal Cannula 2.0 98.0 I & O 07/17/20 07/17/20 07/18/20 15:00 23:00 07:00 Intake Total 440 ml 0 ml Output Total 700 ml Balance 440 ml -700 ml Physical Exam Physical Exam: GENERAL: He is morbidly obese , pleasantly cooperative. HEENT: Tunneled dialysis catheter in his right IJ. Normal cephalic atraumatic, external auditory canals are patent EYES: Extraocular muscles are intact, pupils are equally round and reactive to light and accommodation MUSCULOSKELETAL: Well developed, well nourished, good range of motion ENDOCRINE: No thyromegaly was palpated LYMPHATICS: No cervical chain or axillary nodes were noted HEMATOPOIETIC: No bruising NECK: Supple, no JVD, no thyromegaly was noted. LUNGS: Clear to auscultation in all lung vaughn without rhonchi or wheezing. HEART: RRR, S1, S2 present. Peripheral pulses intact, no obvious murmurs were noted. ABDOMEN: Soft, mild tenderness Positive bowel sounds no organomegaly, normal bowel sounds. very obese EXTREMITIES: Without any cyanosis, clubbing, or edema. Pedal pulses intact, Homans sign is negative. NEUROLOGIC: Normal speech, normal tone. A & O x3, moves all extremities, no obvious focal deficits. PSYCHIATRIC: Normal affect, normal mood. Stable. SKIN: No ulcerations or rashes, good skin turgor, no jaundice. VASCULAR: Good capillary refill, neurovascular bundle appears to be intact. General: Alert, Oriented X3, Cooperative, mild distress Heart: No murmurs, Other (AFIB) Lungs: Other (Decreased breath sounds) Abdomen: No tenderness, Other (mild tenderness ) Extremities: No clubbing, No cyanosis Skin: No significant lesion, Other (LE venous dermatitis) Labs Labs: Laboratory Tests Test 07/17/20 11:31 07/17/20 17:58 07/17/20 20:59 07/18/20 06:51 Glucose (Fingerstick) 104 mg/dL (70-99) 112 mg/dL (70-99) 143 mg/dL (70-99) Sodium Level 138 mmol/L (136-145) Potassium Level 4.2 mmol/L (3.5-5.1) Chloride Level 100 mmol/L (98-107) Carbon Dioxide Level 28 mmol/L (21-32) Anion Gap 10 (6-14) Blood Urea Nitrogen 61 mg/dL (8-26) Creatinine 4.9 mg/dL (0.7-1.3) Estimated GFR (Cockcroft-Gault) 12.0 Glucose Level 97 mg/dL (70-99) Calcium Level 7.8 mg/dL (8.5-10.1) Phosphorus Level 3.8 mg/dL (2.6-4.7) Magnesium Level 2.0 mg/dL (1.8-2.4) Albumin 2.1 g/dL (3.4-5.0) Test 07/18/20 07:07 Glucose (Fingerstick) 105 mg/dL (70-99) Assessment and Plan Assessmemt and Plan Problems Medical Problems: (1) Acute on chronic kidney failure Status: Acute (2) Hyperkalemia Status: Acute (3) Morbid obesity Status: Acute Comment Review of Relevant I have reviewed the following items tiffany (where applicable) has been applied. Medications: Current Medications Medications (Trade) Dose Ordered Sig/Cheyanne Route PRN Reason Start Time Stop Time Status Last Admin Dose Admin Cefazolin Sodium 3 gm/Dextrose 100 ml @ 200 mls/hr 1X ONCE IV 07/17/20 13:00 07/17/20 13:29 DC 07/17/20 13:00 Lidocaine/ Epinephrine (LIDOCAINE 1%-EPI 1:100,000 Multi-Dose) 20 ml 1X ONCE INJ 07/17/20 13:45 07/17/20 13:46 DC 07/17/20 13:37 Ceftriaxone Sodium (Rocephin Im) 1 gm 1X ONCE IM 07/17/20 21:00 07/17/20 21:01 DC 07/17/20 22:20 Justifications for Admission Other Justification MATEO STERN MD Jul 18, 2020 08:23
[2020-07-18] MEDS: METOPROLOL TART IMMED RELEASE 25 MG TABLET. PO SCH ×2 (09:00→21:00)
[2020-07-18] MEDS: LACTOBACILLUS RHAMNOSUS GG 1 CAPSULE. PO SCH ×2 (09:21→21:56)
[2020-07-18] MEDS: LINAGLIPTIN 5 MG TABLET PO SCH (09:21)
[2020-07-18] MEDS: ASPIRIN ENTERIC COATED 81 MG TABLET.DR. PO SCH (09:22)
[2020-07-18] MEDS: PANTOPRAZOLE 40 MG TABLET.DR. PO SCH (09:22)
[2020-07-18] MEDS: OMEGA-3 FATTY ACIDS/FISH OIL 1,000 MG CAPSULE. PO SCH (09:22)
[2020-07-18] MEDS: POLYETHYLENE GLYCOL 3350 17 GM PACKET. PO SCH (09:22)
[2020-07-18] MEDS: FERROUS SULFATE 325 MG TABLET. PO SCH (09:22)
[2020-07-18] MEDS: MUPIROCIN 2 % NASAL OINTMENT 22GM TUBE. TP SCH ×2 (09:23→21:00)
[2020-07-18] MEDS: NYSTATIN TOPICAL POWDER 15GM BOTTLE. TP SCH ×2 (09:23→21:00)
--- NOTE | 2020-07-18 09:58 | PDOC ---
DATE OF SERVICE DATE: 07/18/20 TIME: 09:57 SUBJECTIVE ROS No complaints this am states OBJECTIVE Vital Signs Vital Signs Date Time Temp Pulse Resp B/P (MAP) Pulse Ox O2 Delivery O2 Flow Rate FiO2 07/18/20 07:00 98.0 76 20 84/33 (50) 90 Nasal Cannula 2.0 98.0 I & 0 Intake and Output 07/18/20 07:00 Intake Total 440 ml Output Total 700 ml Balance -260 ml Intake Oral 440 ml Output Urine Total 700 ml PHYSICAL EXAM Physical Exam General: No acute distress, supermorbidly obese HEENT: , Mucous membr. dry, anicteric Neck Thick, supple Lungs: diminished bases, non labored Heart: S1S2 Abdomen: Soft, morbidly obese, NT Extremities: No cyanosis,trace bilateral LE edema Skin:LE venous dermatitis Neuro: Normal speech, Sensation intact, No asterxis Psych/Mental Status: Normal Affect Prasad placed 07/12 DIAGNOSIS/ASSESSMENT Assessment & Plan ELIZABETH - severe POA / New onset ESRD , ATN 2/2 Dehydration, UTI , MEDS- NSAIDS, ARB, Aldactone vs progression of CKD .UA Cw UTI, Ct scan abdomen- No e/o Hydron ephrosis , Started HD 07/11,currently MWF schedule , currently no indication today. Plan to dc home , has been accepted at [facility] OP unit .Discussed at [facility] with SW and mental health clinician- Permcath 07/17/2020 Hypotension - monitor , may need Midodrine kimmie on Dialysis days HyperKalemia POA - resolved UTI- , NG on Cx , follow up per Primary CKD 3B baseline eGFR 30 -32 in 2019 , seen by Dr Jamil - patient did not keep follow up appt Gout- pt reports takes Naproxen, Uric acid 10.2, ? 2/2 ELIZABETH , monitor NSAID use - chronic use DM 2- per primary Supermorbidly obese - such that requires assistance with urination/feeding, do es not ambulate Chest pain POA - cardiology consulted AFIB: likely chronic, rate controlled CAD: remote hx of PTCA but denies this HTN: at marginal level Noncompliance COMMENT/RELEVANT DATA Meds Current Medications Medications (Trade) Dose Ordered Sig/Cheyanne Start Time Stop Time Status Last Admin Dose Admin Acetaminophen (Tylenol) 650 mg PRN Q6HRS PRN 07/13/20 18:30 07/14/20 08:27 650 MG Acetaminophen/ Hydrocodone Bitart (Lortab 10/325) 1 tab PRN Q6HRS PRN 07/10/20 22:15 07/17/20 22:38 1 TAB Albumin Human 200 ml @ 200 mls/hr 1X PRN PRN 07/13/20 13:15 07/13/20 19:14 DC Amlodipine Besylate (Norvasc) 10 mg DAILY 07/11/20 09:00 07/12/20 08:11 DC Aspirin (Ecotrin) 81 mg DAILYWBKFT 07/12/20 09:00 07/18/20 09:22 81 MG Atenolol (Tenormin) 100 mg DAILY 07/11/20 09:00 07/12/20 08:12 DC Bisacodyl (Dulcolax Supp) 10 mg 1X ONCE 07/12/20 09:15 07/12/20 09:16 DC 07/12/20 10:16 10 MG Bisacodyl (Dulcolax Tab) 5 mg PRN DAILY PRN 07/12/20 11:30 07/16/20 23:26 5 MG Bumetanide (Bumex) 1 mg DAILY 07/11/20 09:00 07/12/20 08:12 DC Cefazolin Sodium 3 gm/Dextrose 100 ml @ 200 mls/hr 1X ONCE 07/17/20 13:00 07/17/20 13:29 DC 07/17/20 13:00 200 MLS/HR Ceftriaxone Sodium (Rocephin Im) 1 gm 1X ONCE 07/17/20 21:00 07/17/20 21:01 DC 07/17/20 22:20 1 GM Ceftriaxone Sodium (Rocephin) 1 gm Q24H 07/10/20 20:00 07/14/20 20:46 1 GM Dextrose (Dextrose 50%-Water Syringe) 12.5 gm PRN Q15MIN PRN 07/13/20 21:15 Digoxin (Lanoxin) 500 mcg 1X ONCE 07/13/20 11:15 07/13/20 11:16 DC 07/13/20 11:15 500 MCG Enoxaparin Sodium (Lovenox 40mg Syringe) 40 mg Q24H 07/10/20 20:45 07/10/20 20:40 DC Ferrous Sulfate (Feosol) 325 mg DAILY 07/11/20 09:00 07/18/20 09:22 325 MG Fish Oil (Fish Oil) 1,000 mg DAILY 07/11/20 09:00 07/18/20 09:22 1,000 MG Gabapentin (Neurontin) 600 mg HS 07/10/20 22:30 07/17/20 22:21 600 MG Haloperidol Lactate (Haldol Inj) 5 mg PRN Q6HRS PRN 07/14/20 05:15 07/14/20 08:27 5 MG Heparin Sodium (Porcine) (Heparin Sodium) 5,000 unit Q8HRS 07/10/20 22:00 07/18/20 06:11 5,000 UNIT Info (PHARMACY MONITORING -- do not chart) 1 each PRN DAILY PRN 07/17/20 13:45 Insulin Glargine (Lantus Syringe) 80 unit QHS 07/10/20 22:45 07/17/20 22:23 80 UNIT Insulin Human Lispro (HumaLOG) 35 units DAILYBFRSUP 07/11/20 17:00 Lactobacillus Rhamnosus (Culturelle) 1 cap BID 07/11/20 21:00 07/18/20 09:21 1 CAP Lidocaine HCl (Buffered Lidocaine 1%) 3 ml 1X ONCE 07/11/20 14:30 07/11/20 14:31 DC 07/11/20 14:49 6 ML Lidocaine HCl (Glydo (Lidocaine) Jelly) 1 adilson PRN Q4HRS PRN 07/12/20 09:15 07/12/20 15:25 1 ADILSON Lidocaine/ Epinephrine (LIDOCAINE 1%-EPI 1:100,000 Multi-Dose) 20 ml 1X ONCE 07/17/20 13:45 07/17/20 13:46 DC 07/17/20 13:37 15 ML Linagliptin (Tradjenta) 5 mg DAILY 07/11/20 09:00 07/18/20 09:21 5 MG Lorazepam (Ativan Inj) 1 mg PRN Q8HRS PRN 07/14/20 14:45 07/14/20 15:10 1 MG Losartan Potassium (Cozaar) 50 mg DAILY 07/11/20 09:00 07/12/20 08:11 DC Magnesium Sulfate 50 ml @ 25 mls/hr PRN DAILY PRN 07/14/20 11:00 Methocarbamol (Robaxin) 750 mg 1X ONCE 07/15/20 03:00 07/15/20 03:01 DC 07/15/20 02:58 750 MG Metolazone (Zaroxolyn) 2.5 mg QMWF 07/12/20 16:00 07/12/20 08:11 DC Metoprolol Tartrate (Lopressor) 12.5 mg BID 07/12/20 09:00 07/17/20 22:22 12.5 MG Mupirocin (Bactroban) 1 adilson BID 07/11/20 09:00 07/18/20 09:23 1 ADILSON Naproxen (Naprosyn) 500 mg HS 07/10/20 22:30 07/12/20 08:12 DC 07/11/20 23:35 500 MG Non-Formulary Medication (Insulin Detemir (Levemir)) 80 unit HS 07/11/20 21:00 UNV Non-Formulary Medication (Liraglutide (Victoza 3-Fredy)) 1.8 mg DAILY 07/11/20 09:00 07/12/20 08:12 DC Nystatin (Nystop) 1 adilson BID 07/11/20 09:00 07/18/20 09:23 1 ADILSON Pantoprazole Sodium (PROTONIX VIAL for IV PUSH) 40 mg DAILYAC 07/11/20 16:30 07/12/20 11:16 DC 07/12/20 08:50 40 MG Pantoprazole Sodium (Protonix) 40 mg DAILYAC 07/13/20 07:30 07/18/20 09:22 40 MG Perflutren Protein Type A Microsphe (Optison) 0.66 mg STK-MED ONCE 07/13/20 07:30 07/13/20 07:30 DC Polyethylene Glycol (miraLAX PACKET) 17 gm DAILY 07/12/20 11:30 07/18/20 09:22 17 GM Simvastatin (Zocor) 20 mg HS 07/10/20 22:30 07/17/20 22:21 20 MG Sodium Chloride 1,000 ml @ 400 mls/hr Q2H30M PRN 07/17/20 13:45 07/18/20 01:44 DC Spironolactone (Aldactone) 25 mg DAILY 07/11/20 09:00 UNV Zolpidem Tartrate (Ambien) 5 mg PRN QHS PRN 07/10/20 22:45 07/17/20 22:30 5 MG Lab Laboratory Tests Test 07/17/20 11:31 07/17/20 17:58 07/17/20 20:59 07/18/20 06:51 Glucose (Fingerstick) 104 mg/dL (70-99) 112 mg/dL (70-99) 143 mg/dL (70-99) Sodium Level 138 mmol/L (136-145) Potassium Level 4.2 mmol/L (3.5-5.1) Chloride Level 100 mmol/L (98-107) Carbon Dioxide Level 28 mmol/L (21-32) Anion Gap 10 (6-14) Blood Urea Nitrogen 61 mg/dL (8-26) Creatinine 4.9 mg/dL (0.7-1.3) Estimated GFR (Cockcroft-Gault) 12.0 Glucose Level 97 mg/dL (70-99) Calcium Level 7.8 mg/dL (8.5-10.1) Phosphorus Level 3.8 mg/dL (2.6-4.7) Magnesium Level 2.0 mg/dL (1.8-2.4) Albumin 2.1 g/dL (3.4-5.0) Test 07/18/20 07:07 Glucose (Fingerstick) 105 mg/dL (70-99) Results All relevant outside records, renal labs, imaging studies, telemetry/EKG's were reviewed. Justicifation of Admission Dx: Justifications for Admission: Justification of Admission Dx: Yes Acute Renal Failure: RF Can't Be Managed Outpt CANDY MERCADO MD Jul 18, 2020 09:58
[2020-07-18 10:22] VITALS: BP 138/53
--- NOTE | 2020-07-18 10:23 | PDOC ---
Date of Service: DATE: 07/18/20 TIME: 10:21 Subjective: Subjective: Back and leg pain. Tolerating diet, hasn't stooled. Going home today. Objective: Objective: D/w nurse - stooled this morning, plans to DC. Vital Signs: Vital Signs Date Time Temp Pulse Resp B/P (MAP) Pulse Ox O2 Delivery O2 Flow Rate FiO2 07/18/20 07:00 98.0 76 20 84/33 (50) 90 Nasal Cannula 2.0 98.0 Labs: Laboratory Tests Test 07/17/20 11:31 07/17/20 17:58 07/17/20 20:59 07/18/20 06:51 Glucose (Fingerstick) 104 mg/dL 112 mg/dL 143 mg/dL Sodium Level 138 mmol/L Potassium Level 4.2 mmol/L Chloride Level 100 mmol/L Carbon Dioxide Level 28 mmol/L Anion Gap 10 Blood Urea Nitrogen 61 mg/dL Creatinine 4.9 mg/dL Estimated GFR (Cockcroft-Gault) 12.0 Glucose Level 97 mg/dL Calcium Level 7.8 mg/dL Phosphorus Level 3.8 mg/dL Magnesium Level 2.0 mg/dL Albumin 2.1 g/dL Test 07/18/20 07:07 Glucose (Fingerstick) 105 mg/dL C PE: GEN: NAD LUNGS: distant HEART: distant ABD: obese, soft, non-tender NEURO/PSYCH: confused? A/P: ERSD, chronic pain ?GERD - on PPI BMI 87 -- Dc per primary. Not a good candidate for endoscopy. Justicifation of Admission Dx: Justifications for Admission: Justification of Admission Dx: Yes Acute Renal Failure: RF Can't Be Managed Outpt QING BRENNER Jul 18, 2020 10:23
--- NOTE | 2020-07-18 12:07 | PDOC ---
PEARL CARVALHO PLAYGROUND EQUIPMENT ERECTOR 07/18/20 1207: CARDIO Progress Notes Date and Time Date of Service 07/18/2019 Time of Evaluation 1200 Subjective Subjective: No Chest Pain, No shortness of breath, No Palpitations Vitals Vitals Vital Signs Date Time Temp Pulse Resp B/P (MAP) Pulse Ox O2 Delivery O2 Flow Rate FiO2 07/18/20 10:22 97.9 80 20 138/53 (81) 94 Nasal Cannula 2.0 97.9 Weight Weight [ ] Input and Output Intake and Output Intake and Output 07/18/20 07:00 Intake Total 440 ml Output Total 700 ml Balance -260 ml Intake Oral 440 ml Output Urine Total 700 ml Laboratory Labs Laboratory Tests Test 07/17/20 17:58 07/17/20 20:59 07/18/20 06:51 07/18/20 07:07 Glucose (Fingerstick) 112 mg/dL (70-99) 143 mg/dL (70-99) 105 mg/dL (70-99) Sodium Level 138 mmol/L (136-145) Potassium Level 4.2 mmol/L (3.5-5.1) Chloride Level 100 mmol/L (98-107) Carbon Dioxide Level 28 mmol/L (21-32) Anion Gap 10 (6-14) Blood Urea Nitrogen 61 mg/dL (8-26) Creatinine 4.9 mg/dL (0.7-1.3) Estimated GFR (Cockcroft-Gault) 12.0 Glucose Level 97 mg/dL (70-99) Calcium Level 7.8 mg/dL (8.5-10.1) Phosphorus Level 3.8 mg/dL (2.6-4.7) Magnesium Level 2.0 mg/dL (1.8-2.4) Albumin 2.1 g/dL (3.4-5.0) Test 07/18/20 11:07 Glucose (Fingerstick) 114 mg/dL (70-99) Microbiology Micro Microbiology 07/10/20 Urine Culture - Final, Complete Physical Exam HEENT: Neck Supple W Full Motion Chest: Symmetric LUNGS: Other (diminished bases) Heart: irregularly irregular (AFIB rate controlled) Abdomen: Soft N/T, Other (obese) Extremities: No Calf Tenderness, Other (1+ bilateral Le pitting edema) Neurology: alert, oriented, follow commands Assessment Assessment 1. Severe ELIZABETH/uremia: new ESRD 2. Chest pain: doubt ACS, potentially from GI given his significant NSAID use. none further 3. AFIB: likely chronic, rate controlled EF and WM nml 4. CAD: remote hx of PTCA per chart but denies this 5. HTN: controlled 6. HLP: HDL low but otherwise on goal 7. Chronic low back pain/ debility/WC bound with chronic NSAID use 8. Noncompliance 9. Morbid obesity 10. DM2: per PCP 11. Chronic diastolic CHF: compensated Recommendations 1. Fluid off loading per HD 2. Continue metoprolol for rate control. BMI is high but pt does not want coumadin and would like eliquis. Anticoagulation needs, risks and benefits have been discussed. 3. Discussed treatment compliance 4. Continue ASA.and zocor 5. Consider outpt ischemic workup. OK to DC today. Follow up on August 24 at 1030 AM 6. Will consider for outpt CVN Justicifation of Admission Dx: Justifications for Admission: Justification of Admission Dx: Yes Acute Renal Failure: RF Can't Be Managed Outpt PAZ SOLIMAN MD 07/18/20 1838: CARDIO Progress Notes Assessment Assessment Patient seen and examined. Agree with PRINTING AND STAMPING SUPERVISOR's assessment and plan. Continue HD for acute renal insufficiency per nephrology team. Persistent atrial fibrillation rate controlled. Agree with initiating anticoagulation prior to DC and consider cardioversion as outpatient. Chest pain with atypical features and most probably GI etiology. 2D echo showed normal LVF without any WMA. CAD status clinically stable. Ischemic evaluation could be considered as an outpatient. PEARL CARVALHO APRN Jul 18, 2020 12:07 PAZ SOLIMAN MD Jul 18, 2020 18:38
--- NOTE | 2020-07-18 12:12 | NUR ---
SS following up with discharge planning. SS reviewed pt chart and discussed with pt RN. Pt is currently on requiring oxygen. Pt on IV Rocephin. Pt has dialysis chair time set up at [facility]. Pt's requesting to return to home. Home healthcare recommended. Adwoa from [facility], ; fax [phone], following up with pt and sending referral. Pt has first dialysis chair time on 07/19/2019 at 1645. Chair information provided to pt and pt's brother. Pt's brother currently in room with pt. SS will continue to follow for discharge planning.
[2020-07-18] MEDS ORDERED: APIX5TAB PO (12:32)
--- NOTE | 2020-07-18 12:36 | SNU/HH DC ---
DISCHARGE WITH HOME HEALTH DISCHARGE INFORMATION: Discharge Date: Jul 18, 2020 Final Diagnosis: Problems Medical Problems: (1) Acute on chronic kidney failure Status: Acute (2) Hyperkalemia Status: Acute (3) Morbid obesity Status: Acute Condition on Discharge: Stable CODE STATUS: Code Status: DNR/DNI HOME HEALTH: Face to Face: I certify this patient is under my care and that I, or a nurse practitioner or physician's pharmacy innovation assistant working with me, had a face to face encounter that meets the physician face to face encounter requirements with this patient on 07/18/2020. Medical Complications: Other (A. fib, ESRD, morbid obesity) RN For Eval/Treatment: Yes Physical Therapy For: Evalulation/Treatment Occupational Therapy For: Evaluation/Treatment Home Health Aide For: Self-care Pt Meets Homebound Status: Extreme weakness w/ amb., Limited distance walking, Unable to negotiate home POST DISCHARGE ORDERS: Activity Instructions for Disc: Activity as tolerated Weight Bearing Status after Di: As tolerated DIET AFTER DISCHARGE: ADA CHECKS AFTER DISCHARGE: Checks after discharge: Check blood press - daily, Check blood sugar, ac/hs, Weigh Yourself Daily TREATMENT/EQUIPMENT ORDERS: Adaptive Equipment Issued: None CERTIFICATION STATEMENT: Certification Statement: Certification Statement: Based on the above finding, I certify that this patient is confined to the home and needs intermittent detention care, physical therapy and/or speech therapy, or continues to need occupational therapy.~ This patient is under my care, and I have initiated the establishment of the plan of care.~ This patient will be followed by myself or a community physician who will periodically review the plan of care. Home Meds Reported Medications Aspirin (ASPIRIN) 325 Mg Tablet, 1 TAB PO BID for thinner, #30 TAB 5 Refills 07/10/20 Metolazone (METOLAZONE) 2.5 Mg Tablet, 2.5 MG PO QMWF for diuretic, #30 TAB 0 Refills 07/10/20 [place]-3 Fatty Acids/Fish Oil (FISH OIL 1,000 MG SOFTGEL) 1 Each Capsule, 1 CAP PO DAILY for HLD for 30 Days, #30 CAP 0 Refills 07/10/20 Gabapentin (GABAPENTIN) 600 Mg Tablet, 600 MG PO HS for NEUROGENIC PAIN, TAB 07/10/20 Nystatin (NYSTATIN) 15 Gm Powder, 1 JACQUELYN TP BID for pannus for 7 Days, #1 BOTTLE 0 Refills apply to affected area(s) 07/10/20 Hydrocodone Bit/Acetaminophen (HYDROCODONE-APAP 10325 ) 1 Tab Tablet, 1 TAB PO PRN Q6HRS PRN for PAIN, TAB 0 Refills 07/10/20 Zolpidem Tartrate (ZOLPIDEM TARTRATE ER) 12.5 Mg Tab.mphase, 12.5 MG PO PRN QHS PRN for INSOMNIA, TAB 0 Refills 07/10/20 Methocarbamol (ROBAXIN-750) 750 Mg Tablet, 500 MG PO QID for muscle spasms, TAB 07/10/20 Insulin Aspart (NOVOLOG) 100 Unit/1 Ml Cartridge, 35 UNIT SQ DAILYBFRSUP for DM, EACH 07/10/20 Atenolol (ATENOLOL) 100 Mg Tablet, 100 MG PO DAILY for htn, TAB 02/25/19 Insulin Detemir (LEVEMIR) 100 Unit/1 Ml Vial, 80 UNIT SQ HS for dm, VIAL 02/25/19 Liraglutide (VICTOZA 3-DANIS) 0.6 Mg/0.1 Ml Pen.injctr, 1.8 MG SQ DAILY for dm, #9 ML 3 Refills 02/25/19 Simvastatin (SIMVASTATIN) 20 Mg Tablet, 20 MG PO HS for FOR CHOLESTEROL, #30 TAB 0 Refills 02/25/19 Spironolactone (SPIRONOLACTONE) 25 Mg Tablet, 25 MG PO DAILY for chf, TAB 02/25/19 Amlodipine Besylate (AMLODIPINE BESYLATE) 10 Mg Tablet, 10 MG PO DAILY for htn, TAB 02/25/19 Mupirocin (MUPIROCIN OINTMENT) 22 Gm Oint...g., 1 JACQUELYN TP BID for WOUND CARE, #1 TUBE 02/25/19 Ferrous Sulfate (IRON) 325 Mg Tablet, 325 MG PO DAILY for supplement, TAB 02/25/19 Sitagliptin Phosphate (JANUVIA) 100 Mg Tablet, 100 MG PO DAILY for dm, TAB 02/25/19 Discontinued Reported Medications Bumetanide (BUMETANIDE) 2 Mg Tablet, 1 TAB PO DAILY for diuretic, #30 TAB 5 Refills 07/10/20 Losartan Potassium (LOSARTAN POTASSIUM) 50 Mg Tablet, 50 MG PO DAILY for HYPERTENSION, TAB 07/10/20 Naproxen (NAPROXEN) 500 Mg Tablet, 500 MG PO HS for pain, TAB 07/10/20 MATEO STERN MD Jul 18, 2020 12:36
[2020-07-18] MEDS ORDERED: METO25TA4 PO (12:52)
--- NOTE | 2020-07-18 12:55 | PDOC3 ---
Discharge Summary Visit Information Date of Admission: Jul 10, 2020 Date of Discharge: Jul 18, 2020 Final Diagnosis Problems Medical Problems: (1) Acute on chronic kidney failure Status: Acute (2) Hyperkalemia Status: Acute (3) Morbid obesity Status: Acute Brief Hospital Course Allergies Allergies Coded Allergies Type Severity Reaction Last Updated Verified metformin Allergy Intermediate 02/25/19 Yes Vital Signs Vital Signs Date Time Temp Pulse Resp B/P (MAP) Pulse Ox O2 Delivery O2 Flow Rate FiO2 07/18/20 10:22 97.9 80 20 138/53 (81) 94 Nasal Cannula 2.0 97.9 Lab Results Laboratory Tests Test 07/16/20 16:49 07/16/20 21:02 07/17/20 07:50 07/17/20 07:53 Glucose (Fingerstick) 155 mg/dL (70-99) 135 mg/dL (70-99) 108 mg/dL (70-99) White Blood Count 7.6 x10^3/uL (4.0-11.0) Red Blood Count 3.82 x10^6/uL (4.30-5.70) Hemoglobin 10.5 g/dL (13.0-17.5) Hematocrit 33.2 % (39.0-53.0) Mean Corpuscular Volume 87 fL (79-100) Mean Corpuscular Hemoglobin 28 pg (25-35) Mean Corpuscular Hemoglobin Concent 32 g/dL (31-37) Red Cell Distribution Width 14.3 % (11.5-14.5) Platelet Count 105 x10^3/uL (140-400) Neutrophils (%) (Auto) 64 % (31-73) Lymphocytes (%) (Auto) 18 % (24-48) Monocytes (%) (Auto) 13 % (0-9) Eosinophils (%) (Auto) 5 % (0-3) Basophils (%) (Auto) 0 % (0-3) Neutrophils # (Auto) 4.8 x10^3/uL (1.8-7.7) Lymphocytes # (Auto) 1.4 x10^3/uL (1.0-4.8) Monocytes # (Auto) 1.0 x10^3/uL (0.0-1.1) Eosinophils # (Auto) 0.3 x10^3/uL (0.0-0.7) Basophils # (Auto) 0.0 x10^3/uL (0.0-0.2) Prothrombin Time 13.6 SEC (11.7-14.0) Prothromb Time International Ratio 1.1 (0.8-1.1) Sodium Level 136 mmol/L (136-145) Potassium Level 4.6 mmol/L (3.5-5.1) Chloride Level 97 mmol/L (98-107) Carbon Dioxide Level 25 mmol/L (21-32) Anion Gap 14 (6-14) Blood Urea Nitrogen 108 mg/dL (8-26) Creatinine 7.2 mg/dL (0.7-1.3) Estimated GFR (Cockcroft-Gault) 7.7 Glucose Level 92 mg/dL (70-99) Calcium Level 7.9 mg/dL (8.5-10.1) Phosphorus Level 5.6 mg/dL (2.6-4.7) Magnesium Level 2.0 mg/dL (1.8-2.4) Albumin 2.3 g/dL (3.4-5.0) Test 07/17/20 11:31 07/17/20 17:58 07/17/20 20:59 07/18/20 06:51 Glucose (Fingerstick) 104 mg/dL (70-99) 112 mg/dL (70-99) 143 mg/dL (70-99) Sodium Level 138 mmol/L (136-145) Potassium Level 4.2 mmol/L (3.5-5.1) Chloride Level 100 mmol/L (98-107) Carbon Dioxide Level 28 mmol/L (21-32) Anion Gap 10 (6-14) Blood Urea Nitrogen 61 mg/dL (8-26) Creatinine 4.9 mg/dL (0.7-1.3) Estimated GFR (Cockcroft-Gault) 12.0 Glucose Level 97 mg/dL (70-99) Calcium Level 7.8 mg/dL (8.5-10.1) Phosphorus Level 3.8 mg/dL (2.6-4.7) Magnesium Level 2.0 mg/dL (1.8-2.4) Albumin 2.1 g/dL (3.4-5.0) Test 07/18/20 07:07 07/18/20 11:07 Glucose (Fingerstick) 105 mg/dL (70-99) 114 mg/dL (70-99) Laboratory Tests Test 07/17/20 17:58 07/17/20 20:59 07/18/20 06:51 07/18/20 07:07 Glucose (Fingerstick) 112 mg/dL (70-99) 143 mg/dL (70-99) 105 mg/dL (70-99) Sodium Level 138 mmol/L (136-145) Potassium Level 4.2 mmol/L (3.5-5.1) Chloride Level 100 mmol/L (98-107) Carbon Dioxide Level 28 mmol/L (21-32) Anion Gap 10 (6-14) Blood Urea Nitrogen 61 mg/dL (8-26) Creatinine 4.9 mg/dL (0.7-1.3) Estimated GFR (Cockcroft-Gault) 12.0 Glucose Level 97 mg/dL (70-99) Calcium Level 7.8 mg/dL (8.5-10.1) Phosphorus Level 3.8 mg/dL (2.6-4.7) Magnesium Level 2.0 mg/dL (1.8-2.4) Albumin 2.1 g/dL (3.4-5.0) Test 07/18/20 11:07 Glucose (Fingerstick) 114 mg/dL (70-99) Brief Hospital Course Mr. Damon is a 64 old male who presented with severe ELIZABETH, ATN secondary to dehydration and medication, likely chronic rate controlled AFIB, super morbid obesity, DM2. Consultations were placed to nephrology and cardiology. Started HD 07/11 and monitored for renal recovery. Recommended strict I/O, avoid nephrotoxins. He was recommended to continue low-dose metoprolol, aspirin, statin therapy. After discussion about A. fib anticoagulation with patient, warfarin versus Eliquis, patient refused warfarin and opted instead for Eliquis. He was discharged home with home health and set up with outpatient HD chair. Discharge Information Condition at Discharge: Stable Follow Up: Weeks Disposition/Orders: D/C to Home w/ HH Scheduled Amlodipine Besylate (Amlodipine Besylate) 10 Mg Tablet, 10 MG PO DAILY for htn, (Reported) Entered as Reported by: Beni Connell on 02/25/19 1067 Last Action: Continued on 07/10/202212 by LISE ALMANZA Apixaban (Eliquis) 5 Mg Tablet, 5 MG PO BID for Afib, #60 Ref 2 Prescribed by: MATEO STERN MD on 07/18/20 1232 Aspirin (Aspirin) 325 Mg Tablet, 1 TAB PO BID for thinner, #30 Ref 5 (Reported) Entered as Reported by: LISE ALMANZA on 07/10/202143 Last Action: New Order on 07/10/202143 by LISE ALMANZA Atenolol (Atenolol) 100 Mg Tablet, 100 MG PO DAILY for htn, (Reported) Entered as Reported by: Beni Connell on 02/25/19553 Last Action: Converted on 07/10/202212 by LISE ALMANZA Ferrous Sulfate (Iron) 325 Mg Tablet, 325 MG PO DAILY for supplement, (Reported) Entered as Reported by: Beni oCnnell on 02/25/19553 Last Action: Continued on 07/10/202212 by LISE ALMANZA Gabapentin (Gabapentin) 600 Mg Tablet, 600 MG PO HS for NEUROGENIC PAIN, (Reported) Entered as Reported by: LISE ALMANZA on 07/10/202143 Last Action: Converted on 07/10/202212 by LISE ALMANZA Insulin Aspart (Novolog) 100 Unit/1 Ml Cartridge, 35 UNIT SQ DAILYBFRSUP for DM, (Reported) Entered as Reported by: LISE ALMANZA on 07/10/202143 Last Action: Converted on 07/10/202212 by LISE ALMANZA Insulin Detemir (Levemir) 100 Unit/1 Ml Vial, 80 UNIT SQ HS for dm, (Reported) Entered as Reported by: Beni Connell on 02/25/19553 Last Action: Converted on 07/10/202212 by LISE ALMANZA Liraglutide (Victoza 3-Fredy) 0.6 Mg/0.1 Ml Pen.injctr, 1.8 MG SQ DAILY for dm, #9 Ref 3 (Reported) Entered as Reported by: Beni Connell on 02/25/19553 Last Action: Converted on 07/10/202212 by LISE ALMANZA Methocarbamol (Robaxin-750) 750 Mg Tablet, 500 MG PO QID for muscle spasms, (Reported) Entered as Reported by: LISE ALMANZA on 07/10/202143 Last Action: Continued on 07/10/202212 by LISE ALMANZA Metolazone (Metolazone) 2.5 Mg Tablet, 2.5 MG PO QMWF for diuretic, #30 Ref 0 (Reported) Entered as Reported by: LISE ALMANZA on 07/10/202143 Last Action: Continued on 07/10/202212 by LISE ALMANZA Mupirocin (Mupirocin Ointment) 22 Gm Oint...g., 1 JACQUELYN TP BID for WOUND CARE, #1 (Reported) Entered as Reported by: Beni Connell on 02/25/19553 Last Action: Continued on 07/10/202212 by LISE ALMANZA Nystatin (Nystatin) 15 Gm Powder, 1 JACQUELYN TP BID for pannus for 7 Days, #1 Ref 0 (Reported) apply to affected area(s) Entered as Reported by: LISE ALMANZA on 07/10/202143 Last Action: Continued on 07/10/202212 by LISE ALMANZA [place]-3 Fatty Acids/Fish Oil (Fish Oil 1,000 Mg Softgel) 1 Each Capsule, 1 CAP PO DAILY for HLD for 30 Days, #30 Ref 0 (Reported) Entered as Reported by: LISE ALMANZA on 07/10/202143 Last Action: Continued on 07/10/202212 by LISE ALMANZA Simvastatin (Simvastatin) 20 Mg Tablet, 20 MG PO HS for FOR CHOLESTEROL, #30 Ref 0 (Reported) Entered as Reported by: Beni Connell on 02/25/19553 Last Action: Continued on 07/10/202212 by LISE ALMANZA Sitagliptin Phosphate (Januvia) 100 Mg Tablet, 100 MG PO DAILY for dm, (Reported) Entered as Reported by: Beni Connell on 02/25/19553 Last Action: Converted on 07/10/202212 by LISE ALMANZA Spironolactone (Spironolactone) 25 Mg Tablet, 25 MG PO DAILY for chf, (Reported) Entered as Reported by: Beni Connell on 02/25/19553 Last Action: Continued on 07/10/202212 by LISE ALMANZA Scheduled PRN Hydrocodone Bit/Acetaminophen (Hydrocodone-Apap 10-325 ) 1 Tab Tablet, 1 TAB PO PRN Q6HRS PRN for PAIN, Ref 0 (Reported) Entered as Reported by: LISE ALMANZA on 07/10/202143 Last Action: Continued on 07/10/202212 by LISE ALMANZA Zolpidem Tartrate (Zolpidem Tartrate Er) 12.5 Mg Tab.mphase, 12.5 MG PO PRN QHS PRN for INSOMNIA, Ref 0 (Reported) Entered as Reported by: LISE ALMANZA on 07/10/202143 Last Action: Converted on 07/10/202212 by LISE ALMANZA Discontinued Medications Bumetanide (Bumetanide) 2 Mg Tablet, 1 TAB PO DAILY for diuretic, #30 Ref 5 (Reported) Entered as Reported by: LISE ALMANZA on 07/10/202143 Last Action: Discontinued on 07/11/202120 by LISE BOWIE MD Losartan Potassium (Losartan Potassium) 50 Mg Tablet, 50 MG PO DAILY for HYPERTENSION, (Reported) Entered as Reported by: LISE ALMANZA on 07/10/202143 Last Action: Discontinued on 07/11/202120 by LISE BOWIE MD Naproxen (Naproxen) 500 Mg Tablet, 500 MG PO HS for pain, (Reported) Entered as Reported by: LISE ALMANZA on 07/10/202143 Last Action: Discontinued on 07/11/202120 by LISE BOWIE MD Justicifation of Admission Dx: Justifications for Admission: Justification of Admission Dx: Yes Acute Renal Failure: RF Can't Be Managed Outpt MATEO STERN MD Jul 18, 2020 12:55
--- NOTE | 2020-07-18 13:01 | NUR ---
SS following up with discharge planning. Pt agreeable to [facility], ; fax [phone]. Discharge orders received and phoned and faxed to [facility]. Pt's RN notified.
--- NOTE | 2020-07-18 15:02 | NUR ---
SS following up with discharge planning. SS reviewed pt chart and discussed with pt RN. Pt unable to get out of bed into wheelchair for discharge to home. Pt now agreeable to inpatient rehabilitation. SS discussed with Dylon at [facility], ; fax [phone]. SS phoned and faxed referral to [facility]. SS will continue to follow for discharge planning.
[2020-07-18 15:49] VITALS: BP 85/56
--- NOTE | 2020-07-18 16:53 | NUR ---
Wound/Ostomy Care Wound Type/Assessment: wound care consulted for skin breakdown to pt's pannus. Skin assessed, pt has Intertrigo, yeast and maceration in abdominal pannus fold. Area reddened, skin peeling and open. Skin cleaned and dried, Nystatin powder applied, then a strip of Chux absorbant pad placed into fold instead of pillowcases, as the linens hold in moisture. No other wounds noted on full skin inspection. Treatment Recommendations/Plan: Nystatin powder and chux into folds Education provided: dot Newsome RN re: POC Offloading surface/device: Bariatric low air loss bed Recommended Referrals/Tests: n/a Discharge Recommendations for dressings: see treatment plan above
[2020-07-18 19:45] VITALS: BP 90/45
[2020-07-18] MEDS: INSULIN GLARGINE SYRINGE. SQ SCH (21:00)
[2020-07-18] MEDS: cefTRIAXone IM 1 GM VIAL IM SCH (21:55)
[2020-07-18] MEDS: SIMVASTATIN 20 MG TABLET PO SCH (21:56)
[2020-07-18] MEDS: ZOLPIDEM 5 MG TABLET. PO PRN (21:56)
[2020-07-18] MEDS: GABAPENTIN 300 MG CAPSULE. PO SCH (21:56)
[2020-07-18 23:16] VITALS: BP 100/71
[2020-07-19 02:02] VITALS: BP 98/51
[2020-07-19] MEDS: HEPARIN for SUB-Q USE 5,000 UNIT/ML VIAL. SQ SCH ×3 (06:13→20:54)
[2020-07-19 07:00] VITALS: BP 103/45
[2020-07-19] MEDS ORDERED: IV NORMAL SALINE 1000ML BAG 1,000 ML IV PRN ×2 (07:30)
[2020-07-19] MEDS ORDERED: ALBUMIN HUMAN 25% 200 ML IV PRN (07:30)
[2020-07-19] MEDS: INSULIN LISPRO 300 UNITS/3 ML VIAL. SQ SCH ×3 (08:00→17:00)
--- NOTE | 2020-07-19 08:34 | PDOC ---
[employer] PROGRESS NOTE Date of Service DOS: DATE: 07/19/20 TIME: 08:31 Chief Complaint Chief Complaint ASSESSMENT AND PLAN: ACUTE RENAL INJURY urinary tract infection. abdominal discomfort, lower bilateral morbid obesity hypoxic resp failure Chest pain: doubt ACS, potentially from GI // significant NSAID use. AFIB: likely chronic, rate controlled CHRONIC LOW BACK PAIN Trace tricuspid regurgitation with an estimated PAP of 45 mmHg C/W MOD PULM HTN PROB SLEEP APNEA Acute metabolic encephalopathy PULMONARY NODULE plan IV antibiotics, IV fluids. Trend creatinine. Consult Nephrology. Home meds, DVT prophylaxis. Full code. GI CONSULT CARDIOLOGY CONSULT ABG Temporary dialysis catheter in vascular lab 07-[address] HEAD CT CHEST REPLACE TEMP CATH IR d/w rn 07-15-20 ENCEPHALOPATHIC, CONFUSED, PULLING OUT IV-S NEEDS NESS WILLS 07-16 ir consulted replace temp dialysis cath 104: Patient seen today at bedside. Tunnel dialysis catheter to be placed today. Patient currently has no IV access. Charts and labs reviewed, discussed with RN. 105: Patient seen bedside. Right IJ tunneled dialysis cath placed yesterday. Discussed with cardiology, he will need stroke prophylaxis due to A. fib. Discussed options with patient including Coumadin versus DOAC. Patient states that he does not want to resume anticoagulation with Coumadin. Will provide anticoagulation with Eliquis. Greater than 30 minutes spent managing discharge this patient. 106: Patient was discharged yesterday, but was unable to get out of bed into the wheelchair to go home. He is now agreeable to inpatient rehab. Discussed with social service technician, referrals been placed to [facility] rehabilitation. History of Present Illness History of Present Illness HISTORY OF PRESENT ILLNESS: 64-year-old male who has stage 4 kidney disease, presents with a creatinine of 6.5. His BUN is 185. Potassium is high at 5.7. may need dialysis. His primary care doctor, Dr. Juwan Doyle, sent him to the ER. I have discussed the case with the ER physician. We are going to admit the patient and consult Nephrology. PAST MEDICAL HISTORY: Obesity, diabetes, hypertension, hemorrhoids, neuropathy, back pain, right ankle surgery, chronic renal insufficiency. ALLERGIES: METFORMIN. FAMILY HISTORY: Diabetes. SOCIAL HISTORY: He does not drink, smoke or take drugs. MEDICATIONS: Reviewed, please refer to the MRAD. Vitals/I&O Vitals/I&O: Vital Signs Date Time Temp Pulse Resp B/P (MAP) Pulse Ox O2 Delivery O2 Flow Rate FiO2 07/19/20 07:00 97.7 88 22 103/45 (64) 96 Nasal Cannula 2.0 97.7 I & O 07/18/20 07/18/20 07/19/20 15:00 23:00 07:00 Intake Total 200 ml 120 ml Output Total 225 ml 400 ml Balance -25 ml -280 ml Physical Exam Physical Exam: GENERAL: He is morbidly obese , pleasantly cooperative. HEENT: Tunneled dialysis catheter in his right IJ. Normal cephalic atraumatic, external auditory canals are patent EYES: Extraocular muscles are intact, pupils are equally round and reactive to light and accommodation MUSCULOSKELETAL: Well developed, well nourished, good range of motion ENDOCRINE: No thyromegaly was palpated LYMPHATICS: No cervical chain or axillary nodes were noted HEMATOPOIETIC: No bruising NECK: Supple, no JVD, no thyromegaly was noted. LUNGS: Clear to auscultation in all lung vaughn without rhonchi or wheezing. HEART: RRR, S1, S2 present. Peripheral pulses intact, no obvious murmurs were noted. ABDOMEN: Soft, mild tenderness Positive bowel sounds no organomegaly, normal bowel sounds. very obese EXTREMITIES: Without any cyanosis, clubbing, or edema. Pedal pulses intact, Homans sign is negative. NEUROLOGIC: Normal speech, normal tone. A & O x3, moves all extremities, no obvious focal deficits. PSYCHIATRIC: Normal affect, normal mood. Stable. SKIN: No ulcerations or rashes, good skin turgor, no jaundice. VASCULAR: Good capillary refill, neurovascular bundle appears to be intact. General: Alert, No acute distress Heart: Other (AFIB) Lungs: Other (Decreased breath sounds) Abdomen: Other (mild tenderness ) Skin: Other (LE venous dermatitis) Labs Labs: Laboratory Tests Test 07/18/20 11:07 07/18/20 16:08 07/18/20 21:18 07/19/20 07:30 Glucose (Fingerstick) 114 mg/dL (70-99) 116 mg/dL (70-99) 131 mg/dL (70-99) 114 mg/dL (70-99) Assessment and Plan Assessmemt and Plan Problems Medical Problems: (1) Acute on chronic kidney failure Status: Acute (2) Hyperkalemia Status: Acute (3) Morbid obesity Status: Acute Comment Review of Relevant I have reviewed the following items tiffany (where applicable) has been applied. Medications: Current Medications Medications (Trade) Dose Ordered Sig/Cheyanne Route PRN Reason Start Time Stop Time Status Last Admin Dose Admin Ceftriaxone Sodium (Rocephin Im) 1 gm Q24H IM 07/18/20 20:00 07/18/20 21:55 Justifications for Admission Other Justification MATEO STERN MD Jul 19, 2020 08:34
[2020-07-19 09:06] LABS: ALBUMIN 2.3 g/dL (3.4-5.0); CREATININE 4.9 mg/dL (0.7-1.3); PHOSPHORUS 2.9 mg/dL (2.6-4.7); POTASSIUM 3.9 mmol/L (3.5-5.1)
[2020-07-19] MEDS ORDERED: DIALYSIS PATIENT. MC PRN ×2 (10:00)
--- NOTE | 2020-07-19 10:27 | PDOC ---
Date of Service: DATE: 07/19/20 TIME: 10:25 Objective: Objective: D/w nurse - awaiting insurance approval, a little "loopy" today again, no GI concerns. Vital Signs: Vital Signs Date Time Temp Pulse Resp B/P (MAP) Pulse Ox O2 Delivery O2 Flow Rate FiO2 07/19/20 07:00 97.7 88 22 103/45 (64) 96 Nasal Cannula 2.0 97.7 Labs: Laboratory Tests Test 07/18/20 11:07 07/18/20 16:08 07/18/20 21:18 07/19/20 06:05 Glucose (Fingerstick) 114 mg/dL 116 mg/dL 131 mg/dL Sodium Level 138 mmol/L Potassium Level 3.9 mmol/L Chloride Level 99 mmol/L Carbon Dioxide Level 27 mmol/L Anion Gap 12 Blood Urea Nitrogen 71 mg/dL Creatinine 4.9 mg/dL Estimated GFR (Cockcroft-Gault) 12.0 Glucose Level 95 mg/dL Calcium Level 8.0 mg/dL Phosphorus Level 2.9 mg/dL Magnesium Level 2.1 mg/dL Albumin 2.3 g/dL Test 07/19/20 07:30 Glucose (Fingerstick) 114 mg/dL PE: GEN: dialyzing ABD: obese NEURO/PSYCH: resting, not disturbed A/P: ERSD GERD BMI 87 -- Awaiting discharge. Not a good candidate for endoscopy. Justicifation of Admission Dx: Justifications for Admission: Justification of Admission Dx: Yes Acute Renal Failure: RF Can't Be Managed Outpt QING BRENNER Jul 19, 2020 10:27
[2020-07-19] MEDS: HYDROcodone/APAP 10/325 1 TAB TABLET PO PRN ×2 (10:56→20:41)
--- NOTE | 2020-07-19 11:39 | NUR ---
SS following up with discharge planning. SS reviewed pt chart and discussed with pt RN. Pt is currently requiring oxygen. Hemodialysis. COVID19 negative. Pt accepted at [facility], ; fax [phone], pending insurance authorization. Pt agreeable to rehab at this time. SS will continue to follow for discharge planning.
[2020-07-19] MEDS: OMEGA-3 FATTY ACIDS/FISH OIL 1,000 MG CAPSULE. PO SCH (12:59)
[2020-07-19] MEDS: BISACODYL 5 MG TABLET.DR. PO PRN (13:00)
[2020-07-19] MEDS: FERROUS SULFATE 325 MG TABLET. PO SCH (13:00)
[2020-07-19] MEDS: POLYETHYLENE GLYCOL 3350 17 GM PACKET. PO SCH (13:00)
[2020-07-19] MEDS: MUPIROCIN 2 % NASAL OINTMENT 22GM TUBE. TP SCH ×2 (13:00→20:43)
[2020-07-19] MEDS: LACTOBACILLUS RHAMNOSUS GG 1 CAPSULE. PO SCH ×2 (13:00→20:40)
[2020-07-19] MEDS: ASPIRIN ENTERIC COATED 81 MG TABLET.DR. PO SCH (13:00)
[2020-07-19] MEDS: LINAGLIPTIN 5 MG TABLET PO SCH (13:01)
[2020-07-19] MEDS: PANTOPRAZOLE 40 MG TABLET.DR. PO SCH (13:01)
[2020-07-19] MEDS: METOPROLOL TART IMMED RELEASE 25 MG TABLET. PO SCH ×2 (13:03→20:40)
[2020-07-19] MEDS: NYSTATIN TOPICAL POWDER 15GM BOTTLE. TP SCH ×2 (13:04→20:42)
--- NOTE | 2020-07-19 13:10 | PDOC ---
DATE OF SERVICE DATE: 07/19/20 TIME:10:00 SUBJECTIVE ROS No complaints this am OBJECTIVE Vital Signs Vital Signs Date Time Temp Pulse Resp B/P (MAP) Pulse Ox O2 Delivery O2 Flow Rate FiO2 07/19/20 10:56 16 100 Nasal Cannula 2.0 07/19/20 07:00 97.7 88 103/45 (64) 97.7 I & 0 Intake and Output 07/19/20 07:00 Intake Total 320 ml Output Total 625 ml Balance -305 ml Intake Oral 320 ml Output Urine Total 625 ml # Bowel Movements 1 PHYSICAL EXAM Physical Exam General: No acute distress, supermorbidly obese HEENT: , Mucous membr. dry, anicteric Neck Thick, supple Lungs: diminished bases, non labored Heart: S1S2 Abdomen: Soft, morbidly obese, NT Extremities: No cyanosis,trace bilateral LE edema Skin:LE venous dermatitis Neuro: Normal speech, Sensation intact, No asterxis Psych/Mental Status: Normal Affect DIAGNOSIS/ASSESSMENT Assessment & Plan ELIZABETH - severe POA / New onset ESRD , ATN 2/2 Dehydration, UTI , MEDS- NSAIDS, ARB, Aldactone vs progression of CKD .UA Cw UTI, Ct scan abdomen- No e/o Hydronephrosis , Started HD 07/11,currently MWF schedule , seen on Dialysis, tolerating well, con tinue as ordered, Sascha Strange Access- Permcath 07/17/2020 Hypotension - monitor , may need Midodrine kimmie on Dialysis days HyperKalemia POA - resolved UTI- , NG on Cx , follow up per Primary CKD 3B baseline eGFR 30 -32 in 2019 , seen by Dr Jamil - patient did not keep follow up appt Gout- pt reports takes Naproxen, Uric acid 10.2, ? 2/2 ELIZABETH , monitor NSAID use - chronic use DM 2- per primary Supermorbidly obese - such that requires assistance with urination/feeding, does not ambulate Chest pain POA - cardiology consulted AFIB: likely chronic, rate controlled CAD: remote hx of PTCA but denies this HTN: at marginal level Noncompliance COMMENT/RELEVANT DATA Meds Current Medications Medications (Trade) Dose Ordered Sig/Cheyanne Start Time Stop Time Status Last Admin Dose Admin Acetaminophen (Tylenol) 650 mg PRN Q6HRS PRN 07/13/20 18:30 07/14/20 08:27 650 MG Acetaminophen/ Hydrocodone Bitart (Lortab 10/325) 1 tab PRN Q6HRS PRN 07/10/20 22:15 07/19/20 10:56 1 TAB Albumin Human 200 ml @ 200 mls/hr 1X PRN PRN 07/19/20 07:30 07/19/20 13:29 Amlodipine Besylate (Norvasc) 10 mg DAILY 07/11/20 09:00 07/12/20 08:11 DC Aspirin (Ecotrin) 81 mg DAILYWBKFT 07/12/20 09:00 07/18/20 09:22 81 MG Atenolol (Tenormin) 100 mg DAILY 07/11/20 09:00 07/12/20 08:12 DC Bisacodyl (Dulcolax Supp) 10 mg 1X ONCE 07/12/20 09:15 07/12/20 09:16 DC 07/12/20 10:16 10 MG Bisacodyl (Dulcolax Tab) 5 mg PRN DAILY PRN 07/12/20 11:30 07/16/20 23:26 5 MG Bumetanide (Bumex) 1 mg DAILY 07/11/20 09:00 07/12/20 08:12 DC Cefazolin Sodium 3 gm/Dextrose 100 ml @ 200 mls/hr 1X ONCE 07/17/20 13:00 07/17/20 13:29 DC 07/17/20 13:00 200 MLS/HR Ceftriaxone Sodium (Rocephin Im) 1 gm Q24H 07/18/20 20:00 07/18/20 21:55 1 GM Ceftriaxone Sodium (Rocephin) 1 gm Q24H 07/10/20 20:00 07/18/20 17:54 DC 07/14/20 20:46 1 GM Dextrose (Dextrose 50%-Water Syringe) 12.5 gm PRN Q15MIN PRN 07/13/20 21:15 Digoxin (Lanoxin) 500 mcg 1X ONCE 07/13/20 11:15 07/13/20 11:16 DC 07/13/20 11:15 500 MCG Enoxaparin Sodium (Lovenox 40mg Syringe) 40 mg Q24H 07/10/20 20:45 07/10/20 20:40 DC Ferrous Sulfate (Feosol) 325 mg DAILY 07/11/20 09:00 07/18/20 09:22 325 MG Fish Oil (Fish Oil) 1,000 mg DAILY 07/11/20 09:00 07/18/20 09:22 1,000 MG Gabapentin (Neurontin) 600 mg HS 07/10/20 22:30 07/18/20 21:56 600 MG Haloperidol Lactate (Haldol Inj) 5 mg PRN Q6HRS PRN 07/14/20 05:15 07/14/20 08:27 5 MG Heparin Sodium (Porcine) (Heparin Sodium) 5,000 unit Q8HRS 07/10/20 22:00 07/19/20 06:13 5,000 UNIT Info (PHARMACY MONITORING -- do not chart) 1 each PRN DAILY PRN 07/19/20 10:00 Insulin Glargine (Lantus Syringe) 80 unit QHS 07/10/20 22:45 07/18/20 21:00 80 UNIT Insulin Human Lispro (HumaLOG) 35 units DAILYBFRSUP 07/11/20 17:00 07/19/20 12:45 DC Lactobacillus Rhamnosus (Culturelle) 1 cap BID 07/11/20 21:00 07/18/20 21:56 1 CAP Lidocaine HCl (Buffered Lidocaine 1%) 3 ml 1X ONCE 07/11/20 14:30 07/11/20 14:31 DC 07/11/20 14:49 6 ML Lidocaine HCl (Glydo (Lidocaine) Jelly) 1 adilson PRN Q4HRS PRN 07/12/20 09:15 07/12/20 15:25 1 ADILSON Lidocaine/ Epinephrine (LIDOCAINE 1%-EPI 1:100,000 Multi-Dose) 20 ml 1X ONCE 07/17/20 13:45 07/17/20 13:46 DC 07/17/20 13:37 15 ML Linagliptin (Tradjenta) 5 mg DAILY 07/11/20 09:00 07/18/20 09:21 5 MG Lorazepam (Ativan Inj) 1 mg PRN Q8HRS PRN 07/14/20 14:45 07/14/20 15:10 1 MG Losartan Potassium (Cozaar) 50 mg DAILY 07/11/20 09:00 07/12/20 08:11 DC Magnesium Sulfate 50 ml @ 25 mls/hr PRN DAILY PRN 07/14/20 11:00 Methocarbamol (Robaxin) 750 mg 1X ONCE 07/15/20 03:00 07/15/20 03:01 DC 07/15/20 02:58 750 MG Metolazone (Zaroxolyn) 2.5 mg QMWF 07/12/20 16:00 07/12/20 08:11 DC Metoprolol Tartrate (Lopressor) 12.5 mg BID 07/12/20 09:00 07/18/20 21:00 12.5 MG Mupirocin (Bactroban) 1 adilson BID 07/11/20 09:00 07/18/20 21:00 1 ADILSON Naproxen (Naprosyn) 500 mg HS 07/10/20 22:30 07/12/20 08:12 DC 07/11/20 23:35 500 MG Non-Formulary Medication (Insulin Detemir (Levemir)) 80 unit HS 07/11/20 21:00 UNV Non-Formulary Medication (Liraglutide (Victoza 3-Fredy)) 1.8 mg DAILY 07/11/20 09:00 07/12/20 08:12 DC Nystatin (Nystop) 1 adilson BID 07/11/20 09:00 07/18/20 21:00 1 ADILSON Pantoprazole Sodium (PROTONIX VIAL for IV PUSH) 40 mg DAILYAC 07/11/20 16:30 07/12/20 11:16 DC 07/12/20 08:50 40 MG Pantoprazole Sodium (Protonix) 40 mg DAILYAC 07/13/20 07:30 07/18/20 09:22 40 MG Perflutren Protein Type A Microsphe (Optison) 0.66 mg STK-MED ONCE 07/13/20 07:30 07/13/20 07:30 DC Polyethylene Glycol (miraLAX PACKET) 17 gm DAILY 07/12/20 11:30 07/18/20 09:22 17 GM Simvastatin (Zocor) 20 mg HS 07/10/20 22:30 07/18/20 21:56 20 MG Sodium Chloride 1,000 ml @ 400 mls/hr Q2H30M PRN 07/19/20 07:30 07/19/20 19:29 Spironolactone (Aldactone) 25 mg DAILY 07/11/20 09:00 UNV Zolpidem Tartrate (Ambien) 5 mg PRN QHS PRN 07/10/20 22:45 07/18/20 21:56 5 MG Lab Laboratory Tests Test 07/18/20 16:08 07/18/20 21:18 07/19/20 06:05 07/19/20 07:30 Glucose (Fingerstick) 116 mg/dL (70-99) 131 mg/dL (70-99) 114 mg/dL (70-99) Sodium Level 138 mmol/L (136-145) Potassium Level 3.9 mmol/L (3.5-5.1) Chloride Level 99 mmol/L (98-107) Carbon Dioxide Level 27 mmol/L (21-32) Anion Gap 12 (6-14) Blood Urea Nitrogen 71 mg/dL (8-26) Creatinine 4.9 mg/dL (0.7-1.3) Estimated GFR (Cockcroft-Gault) 12.0 Glucose Level 95 mg/dL (70-99) Calcium Level 8.0 mg/dL (8.5-10.1) Phosphorus Level 2.9 mg/dL (2.6-4.7) Magnesium Level 2.1 mg/dL (1.8-2.4) Albumin 2.3 g/dL (3.4-5.0) Test 07/19/20 11:12 07/19/20 12:17 Glucose (Fingerstick) 118 mg/dL (70-99) 129 mg/dL (70-99) Results All relevant outside records, renal labs, imaging studies, telemetry/EKG's were reviewed. Justicifation of Admission Dx: Justifications for Admission: Justification of Admission Dx: Yes Acute Renal Failure: RF Can't Be Managed Outpt CANDY MERCADO MD Jul 19, 2020 13:10
[2020-07-19 15:00] VITALS: BP 109/52
[2020-07-19] MEDS ORDERED: MAGNESIUM HYDROXIDE 2,400 MG/30 ML ORAL.SUSP. PO PRN (17:15)
[2020-07-19] MEDS ORDERED: MAGNESIUM CITRATE 296 ML SOLUTION. PO PRN (17:15)
[2020-07-19 19:50] VITALS: BP 118/69
[2020-07-19] MEDS: cefTRIAXone IM 1 GM VIAL IM SCH (20:36)
[2020-07-19] MEDS: SIMVASTATIN 20 MG TABLET PO SCH (20:40)
[2020-07-19] MEDS: GABAPENTIN 300 MG CAPSULE. PO SCH (20:40)
[2020-07-19] MEDS: ZOLPIDEM 5 MG TABLET. PO PRN (20:42)
[2020-07-19] MEDS: INSULIN GLARGINE SYRINGE. SQ SCH (20:53)
[2020-07-19 23:00] VITALS: BP 119/59
[2020-07-20 03:25] VITALS: BP 91/50
[2020-07-20] MEDS: HEPARIN for SUB-Q USE 5,000 UNIT/ML VIAL. SQ SCH (06:34)
[2020-07-20 07:00] VITALS: BP 111/49
[2020-07-20] MEDS: INSULIN LISPRO 300 UNITS/3 ML VIAL. SQ SCH ×2 (08:00→12:00)
[2020-07-20] MEDS: MUPIROCIN 2 % NASAL OINTMENT 22GM TUBE. TP SCH (09:00)
[2020-07-20] MEDS: ASPIRIN ENTERIC COATED 81 MG TABLET.DR. PO SCH (09:39)
[2020-07-20] MEDS: OMEGA-3 FATTY ACIDS/FISH OIL 1,000 MG CAPSULE. PO SCH (09:40)
[2020-07-20] MEDS: LINAGLIPTIN 5 MG TABLET PO SCH (09:40)
[2020-07-20] MEDS: METOPROLOL TART IMMED RELEASE 25 MG TABLET. PO SCH (09:40)
[2020-07-20] MEDS: PANTOPRAZOLE 40 MG TABLET.DR. PO SCH (09:40)
[2020-07-20] MEDS: LACTOBACILLUS RHAMNOSUS GG 1 CAPSULE. PO SCH (09:40)
[2020-07-20] MEDS: FERROUS SULFATE 325 MG TABLET. PO SCH (09:41)
[2020-07-20] MEDS: NYSTATIN TOPICAL POWDER 15GM BOTTLE. TP SCH (09:41)
[2020-07-20] MEDS: POLYETHYLENE GLYCOL 3350 17 GM PACKET. PO SCH (09:46)
--- NOTE | 2020-07-20 10:49 | PDOC ---
DATE OF SERVICE DATE: 07/20/20 TIME: 10:45 SUBJECTIVE ROS No complaints this am , per RN pt changed his mind and is now refusing to go to rehab , wants to go home OBJECTIVE Vital Signs Vital Signs Date Time Temp Pulse Resp B/P (MAP) Pulse Ox O2 Delivery O2 Flow Rate FiO2 07/20/20 09:40 69 111/49 07/20/20 07:00 98.1 20 92 Nasal Cannula 2.0 98.1 I & 0 l Intake and Output 07/20/20 07:00 Intake Total 1960 ml Balance 1960 ml Intake Oral 1960 ml # Bowel Movements 3 PHYSICAL EXAM Physical Exam General: No acute distress, supermorbidly obese HEENT: , Mucous membr. dry, anicteric Neck Thick, supple Lungs: diminished bases, non labored Heart: S1S2 Abdomen: Soft, morbidly obese, NT Extremities: No cyanosis,trace bilateral LE edema Skin:LE venous dermatitis Neuro: Normal speech, Sensation intact, No asterxis Psych/Mental Status: Normal Affect DIAGNOSIS/ASSESSMENT Assessment & Plan ELIZABETH - severe POA / New onset ESRD , ATN 2/2 Dehydration, UTI , MEDS- NSAIDS, ARB, Aldactone vs progression of CKD .UA Cw UTI, Ct scan abdomen- No e/o Hydronephrosis , Started HD 07/11,currently MWF schedule , No indication for HD today Access- Permcath 07/17/2020 Hypotension - monitor , may need Midodrine kimmie on Dialysis days HyperKalemia POA - resolved UTI- , NG on Cx , follow up per Primary CKD 3B baseline eGFR 30 -32 in 2019 , seen by Dr Jamil - patient did not keep follow up appt Gout- pt reports takes Naproxen, Uric acid 10.2, ? 2/2 ELIZABETH , monitor NSAID use - chronic use DM 2- per primary Supermorbidly obese - such that requires assistance with urination/feeding, does not ambulate Chest pain POA - cardiology consulted AFIB: likely chronic, rate controlled CAD: remote hx of PTCA but denies this HTN: at marginal level Noncompliance COMMENT/RELEVANT DATA Meds Current Medications Medications (Trade) Dose Ordered Sig/Cheyanne Start Time Stop Time Status Last Admin Dose Admin Acetaminophen (Tylenol) 650 mg PRN Q6HRS PRN 07/13/20 18:30 07/14/20 08:27 650 MG Acetaminophen/ Hydrocodone Bitart (Lortab 10/325) 1 tab PRN Q6HRS PRN 07/10/20 22:15 07/19/20 20:41 1 TAB Albumin Human 200 ml @ 200 mls/hr 1X PRN PRN 07/19/20 07:30 07/19/20 13:29 DC Amlodipine Besylate (Norvasc) 10 mg DAILY 07/11/20 09:00 07/12/20 08:11 DC Apixaban (Eliquis) 5 mg BID 07/20/20 11:00 Aspirin (Ecotrin) 81 mg DAILYWBKFT 07/12/20 09:00 07/20/20 09:39 81 MG Atenolol (Tenormin) 100 mg DAILY 07/11/20 09:00 07/12/20 08:12 DC Bisacodyl (Dulcolax Supp) 10 mg 1X ONCE 07/12/20 09:15 07/12/20 09:16 DC 07/12/20 10:16 10 MG Bisacodyl (Dulcolax Tab) 5 mg PRN DAILY PRN 07/12/20 11:30 07/19/20 13:00 5 MG Bumetanide (Bumex) 1 mg DAILY 07/11/20 09:00 07/12/20 08:12 DC Cefazolin Sodium 3 gm/Dextrose 100 ml @ 200 mls/hr 1X ONCE 07/17/20 13:00 07/17/20 13:29 DC 07/17/20 13:00 200 MLS/HR Ceftriaxone Sodium (Rocephin Im) 1 gm Q24H 07/18/20 20:00 07/19/20 20:36 1 GM Ceftriaxone Sodium (Rocephin) 1 gm Q24H 07/10/20 20:00 07/18/20 17:54 DC 07/14/20 20:46 1 GM Dextrose (Dextrose 50%-Water Syringe) 12.5 gm PRN Q15MIN PRN 07/13/20 21:15 Digoxin (Lanoxin) 500 mcg 1X ONCE 07/13/20 11:15 07/13/20 11:16 DC 07/13/20 11:15 500 MCG Enoxaparin Sodium (Lovenox 40mg Syringe) 40 mg Q24H 07/10/20 20:45 07/10/20 20:40 DC Ferrous Sulfate (Feosol) 325 mg DAILY 07/11/20 09:00 07/20/20 09:41 325 MG Fish Oil (Fish Oil) 1,000 mg DAILY 07/11/20 09:00 07/20/20 09:40 1,000 MG Gabapentin (Neurontin) 600 mg HS 07/10/20 22:30 07/19/20 20:40 600 MG Haloperidol Lactate (Haldol Inj) 5 mg PRN Q6HRS PRN 07/14/20 05:15 07/14/20 08:27 5 MG Heparin Sodium (Porcine) (Heparin Sodium) 5,000 unit Q8HRS 07/10/20 22:00 07/20/20 07:58 DC 07/20/20 06:34 5,000 UNIT Info (PHARMACY MONITORING -- do not chart) 1 each PRN DAILY PRN 07/19/20 10:00 Insulin Glargine (Lantus Syringe) 80 unit QHS 07/10/20 22:45 07/19/20 20:53 80 UNIT Insulin Human Lispro (HumaLOG) 35 units DAILYBFRSUP 07/11/20 17:00 07/19/20 12:45 DC Lactobacillus Rhamnosus (Culturelle) 1 cap BID 07/11/20 21:00 07/20/20 09:40 1 CAP Lidocaine HCl (Buffered Lidocaine 1%) 3 ml 1X ONCE 07/11/20 14:30 07/11/20 14:31 DC 07/11/20 14:49 6 ML Lidocaine HCl (Glydo (Lidocaine) Jelly) 1 adilson PRN Q4HRS PRN 07/12/20 09:15 07/12/20 15:25 1 ADILSON Lidocaine/ Epinephrine (LIDOCAINE 1%-EPI 1:100,000 Multi-Dose) 20 ml 1X ONCE 07/17/20 13:45 07/17/20 13:46 DC 07/17/20 13:37 15 ML Linagliptin (Tradjenta) 5 mg DAILY 07/11/20 09:00 07/20/20 09:40 5 MG Lorazepam (Ativan Inj) 1 mg PRN Q8HRS PRN 07/14/20 14:45 07/14/20 15:10 1 MG Losartan Potassium (Cozaar) 50 mg DAILY 07/11/20 09:00 07/12/20 08:11 DC Magnesium Hydroxide (Milk Of Magnesia) 2,400 mg PRN DAILY PRN 07/19/20 17:15 Magnesium Citrate (Citroma) 296 ml PRN 1X PRN 07/19/20 17:15 07/19/20 17:37 296 ML Magnesium Sulfate 50 ml @ 25 mls/hr PRN DAILY PRN 07/14/20 11:00 Methocarbamol (Robaxin) 750 mg 1X ONCE 07/15/20 03:00 07/15/20 03:01 DC 07/15/20 02:58 750 MG Metolazone (Zaroxolyn) 2.5 mg QMWF 07/12/20 16:00 07/12/20 08:11 DC Metoprolol Tartrate (Lopressor) 12.5 mg BID 07/12/20 09:00 07/20/20 09:40 12.5 MG Mupirocin (Bactroban) 1 adilson BID 07/11/20 09:00 07/20/20 09:00 1 ADILSON Naproxen (Naprosyn) 500 mg HS 07/10/20 22:30 07/12/20 08:12 DC 07/11/20 23:35 500 MG Non-Formulary Medication (Insulin Detemir (Levemir)) 80 unit HS 07/11/20 21:00 UNV Non-Formulary Medication (Liraglutide (Victoza 3-Fredy)) 1.8 mg DAILY 07/11/20 09:00 07/12/20 08:12 DC Nystatin (Nystop) 1 adilson BID 07/11/20 09:00 07/20/20 09:41 1 ADILSON Pantoprazole Sodium (PROTONIX VIAL for IV PUSH) 40 mg DAILYAC 07/11/20 16:30 07/12/20 11:16 DC 07/12/20 08:50 40 MG Pantoprazole Sodium (Protonix) 40 mg DAILYAC 07/13/20 07:30 07/20/20 09:40 40 MG Perflutren Protein Type A Microsphe (Optison) 0.66 mg STK-MED ONCE 07/13/20 07:30 07/13/20 07:30 DC Polyethylene Glycol (miraLAX PACKET) 17 gm DAILY 07/12/20 11:30 07/20/20 09:46 17 GM Simvastatin (Zocor) 20 mg HS 07/10/20 22:30 07/19/20 20:40 20 MG Sodium Chloride 1,000 ml @ 400 mls/hr Q2H30M PRN 07/19/20 07:30 07/19/20 19:29 DC Spironolactone (Aldactone) 25 mg DAILY 07/11/20 09:00 UNV Zolpidem Tartrate (Ambien) 5 mg PRN QHS PRN 07/10/20 22:45 07/19/20 20:42 5 MG Lab Laboratory Tests Test 07/19/20 11:12 07/19/20 12:17 07/19/20 16:32 07/19/20 20:39 Glucose (Fingerstick) 118 mg/dL (70-99) 129 mg/dL (70-99) 132 mg/dL (70-99) 142 mg/dL (70-99) Test 07/20/20 07:23 Glucose (Fingerstick) 117 mg/dL (70-99) Results All relevant outside records, renal labs, imaging studies, telemetry/EKG's were reviewed. Justicifation of Admission Dx: Justifications for Admission: Justification of Admission Dx: Yes Acute Renal Failure: RF Can't Be Managed Outpt CANDY MERCADO MD Jul 20, 2020 10:49
[2020-07-20 11:00] VITALS: BP 76/47
[2020-07-20] MEDS ORDERED: APIXABAN 5 MG TABLET. PO SCH (11:00)
--- NOTE | 2020-07-20 11:37 | PDOC ---
Date of Service: DATE: 07/20/20 TIME: 11:34 Subjective: Subjective: "I'm going home today so what else do you need to know?" Objective: Objective: D/w nurse - no GI concerns. Vital Signs: Vital Signs Date Time Temp Pulse Resp B/P (MAP) Pulse Ox O2 Delivery O2 Flow Rate FiO2 07/20/20 11:00 98.0 82 19 76/47 (57) 97 Nasal Cannula 2.0 98.0 Labs: Laboratory Tests Test 07/19/20 12:17 07/19/20 16:32 07/19/20 20:39 07/20/20 07:23 Glucose (Fingerstick) 129 mg/dL (70-99) 132 mg/dL (70-99) 142 mg/dL (70-99) 117 mg/dL (70-99) PE: GEN: NAD LUNGS: diminished HEART: distant ABD: morbidly obese, soft NEURO/PSYCH: appropriate A/P: ERSD BMI 87 -- Awaiting DC. Continue PPI. Justicifation of Admission Dx: Justifications for Admission: Justification of Admission Dx: Yes Acute Renal Failure: RF Can't Be Managed Outpt QING BRENNER Jul 20, 2020 11:37
--- NOTE | 2020-07-20 12:19 | PDOC ---
[employer] PROGRESS NOTE Date of Service DOS: DATE: 07/20/20 TIME: 12:14 Chief Complaint Chief Complaint ASSESSMENT AND PLAN: ACUTE RENAL INJURY urinary tract infection. abdominal discomfort, lower bilateral morbid obesity hypoxic resp failure Chest pain: doubt ACS, potentially from GI // significant NSAID use. AFIB: likely chronic, rate controlled CHRONIC LOW BACK PAIN Trace tricuspid regurgitation with an estimated PAP of 45 mmHg C/W MOD PULM HTN PROB SLEEP APNEA Acute metabolic encephalopathy PULMONARY NODULE plan IV antibiotics, IV fluids. Trend creatinine. Consult Nephrology. Home meds, DVT prophylaxis. Full code. GI CONSULT CARDIOLOGY CONSULT ABG Temporary dialysis catheter in vascular lab 07-[address] CT CHEST REPLACE TEMP CATH IR d/w rn 07-15-20 ENCEPHALOPATHIC, CONFUSED, PULLING OUT IV-S NEEDS SITNESS RUTLEDGE 07-16 ir consulted replace temp dialysis cath 104: Patient seen today at bedside. Tunnel dialysis catheter to be placed today. Patient currently has no IV access. Charts and labs reviewed, discussed with RN. 105: Patient seen bedside. Right IJ tunneled dialysis cath placed yesterday. Discussed with cardiology, he will need stroke prophylaxis due to A. fib. Discussed options with patient including Coumadin versus DOAC. Patient states that he does not want to resume anticoagulation with Coumadin. Will provide anticoagulation with Eliquis. Greater than 30 minutes spent managing discharge this patient. 106: Patient was discharged yesterday, but was unable to get out of bed into the wheelchair to go home. He is now agreeable to inpatient rehab. Discussed with social science manager, referrals been placed to [facility] rehabilitation. 107: Patient seen and evaluated. Had lengthy conversation with him at bedside, he is completely adamant about leaving and going home today. States that he will can make it to his outpatient dialysis appointments and if he goes and does not want dialysis he will not continue these appointments. I told patient that I am uncomfortable with this plan, and he would be in his best interest to attempt acute rehab where hemodialysis is provided to further work on methods of transitioning from bed to wheelchair. I informed patient that if he does not continue hemodialysis he likely has a short life span. I will try to arrange home hospice consult with patient prior to his likely leaving AMA, and a safer discharge plan. Patient is alert, oriented, and of complete sound mind. History of Present Illness History of Present Illness HISTORY OF PRESENT ILLNESS: 64-year-old male who has stage 4 kidney disease, presents with a creatinine of 6.5. His BUN is 185. Potassium is high at 5.7. may need dialysis. His primary care doctor, Dr. Juwan Doyle, sent him to the ER. I have discussed the case with the ER physician. We are going to admit the patient and consult Nephrology. PAST MEDICAL HISTORY: Obesity, diabetes, hypertension, hemorrhoids, neuropathy, back pain, right ankle surgery, chronic renal insufficiency. ALLERGIES: METFORMIN. FAMILY HISTORY: Diabetes. SOCIAL HISTORY: He does not drink, smoke or take drugs. MEDICATIONS: Reviewed, please refer to the MRAD. Vitals/I&O Vitals/I&O: Vital Signs Date Time Temp Pulse Resp B/P (MAP) Pulse Ox O2 Delivery O2 Flow Rate FiO2 07/20/20 11:00 98.0 82 19 76/47 (57) 97 Nasal Cannula 2.0 98.0 I & O 07/19/20 07/19/20 07/20/20 15:00 23:00 07:00 Intake Total 360 ml 800 ml 800 ml Balance 360 ml 800 ml 800 ml Physical Exam Physical Exam: GENERAL: He is morbidly obese , pleasantly cooperative. HEENT: Tunneled dialysis catheter in his right IJ. Normal cephalic atraumatic, external auditory canals are patent EYES: Extraocular muscles are intact, pupils are equally round and reactive to light and accommodation MUSCULOSKELETAL: Well developed, well nourished, good range of motion ENDOCRINE: No thyromegaly was palpated LYMPHATICS: No cervical chain or axillary nodes were noted HEMATOPOIETIC: No bruising NECK: Supple, no JVD, no thyromegaly was noted. LUNGS: Clear to auscultation in all lung vaughn without rhonchi or wheezing. HEART: RRR, S1, S2 present. Peripheral pulses intact, no obvious murmurs were noted. ABDOMEN: Soft, mild tenderness Positive bowel sounds no organomegaly, normal bowel sounds. very obese EXTREMITIES: Without any cyanosis, clubbing, or edema. Pedal pulses intact, Homans sign is negative. NEUROLOGIC: Normal speech, normal tone. A & O x3, moves all extremities, no obvious focal deficits. PSYCHIATRIC: Normal affect, normal mood. Stable. SKIN: No ulcerations or rashes, good skin turgor, no jaundice. VASCULAR: Good capillary refill, neurovascular bundle appears to be intact. General: Alert, No acute distress Heart: Other (AFIB) Lungs: Other (Decreased breath sounds) Abdomen: Other (mild tenderness ) Skin: Other (LE venous dermatitis) Labs Labs: Laboratory Tests Test 07/19/20 12:17 07/19/20 16:32 07/19/20 20:39 07/20/20 07:23 Glucose (Fingerstick) 129 mg/dL (70-99) 132 mg/dL (70-99) 142 mg/dL (70-99) 117 mg/dL (70-99) Assessment and Plan Assessmemt and Plan Problems Medical Problems: (1) Acute on chronic kidney failure Status: Acute (2) Hyperkalemia Status: Acute (3) Morbid obesity Status: Acute Comment Review of Relevant I have reviewed the following items tiffany (where applicable) has been applied. Medications: Current Medications Medications (Trade) Dose Ordered Sig/Cheyanne Route PRN Reason Start Time Stop Time Status Last Admin Dose Admin Magnesium Citrate (Citroma) 296 ml PRN 1X PRN PO CONSTIPATION 07/19/20 17:15 07/19/20 17:37 Justifications for Admission Other Justification MATEO STERN MD Jul 20, 2020 12:19
--- NOTE | 2020-07-20 13:46 | NUR ---
SS following up with discharge planning. SS reviewed pt chart and discussed with pt RN. Pt is currently on room air. Insurance denied pt for [facility]. Physician agreeable to complete peer to peer. Pt no longer agreeable to inpatient rehabilitation and requesting to leave. Physician met with pt and determined pt is not safe for discharge to home. Pt requesting to leave AMA and is stating that he will get to dialysis appointment tomorrow. Pt's brother here with wheelchair to transport pt to home. Facility staff attempting to help transfer pt to brothers car. SS will continue to follow as needed.
--- NOTE | 2020-07-20 14:36 | NUR ---
Discharge Note: RAFAEL VIVEROS [place] Patient decided to go AMA. Facility AMA sheet read to patient and he is aware of the consequences. Dr. Caraballo aware. Patient accompanied by his brother, Primo whom he called to bring his WC and home oxygen. Patient helped into vehicle by me and his brother. See chart for additional doc.
--- NOTE | 2020-07-20 15:21 | PDOC3 ---
Discharge Summary Visit Information Date of Admission: Jul 10, 2020 Date of Discharge: Jul 20, 2020 Final Diagnosis Problems Medical Problems: (1) Acute on chronic kidney failure Status: Acute (2) Hyperkalemia Status: Acute (3) Morbid obesity Status: Acute Brief Hospital Course Allergies Allergies Coded Allergies Type Severity Reaction Last Updated Verified metformin Allergy Intermediate 02/25/19 Yes Vital Signs Vital Signs Date Time Temp Pulse Resp B/P (MAP) Pulse Ox O2 Delivery O2 Flow Rate FiO2 07/20/20 11:00 98.0 82 19 76/47 (57) 97 Nasal Cannula 2.0 98.0 Lab Results Laboratory Tests Test 07/18/20 16:08 07/18/20 21:18 07/19/20 06:05 07/19/20 07:30 Glucose (Fingerstick) 116 mg/dL (70-99) 131 mg/dL (70-99) 114 mg/dL (70-99) Sodium Level 138 mmol/L (136-145) Potassium Level 3.9 mmol/L (3.5-5.1) Chloride Level 99 mmol/L (98-107) Carbon Dioxide Level 27 mmol/L (21-32) Anion Gap 12 (6-14) Blood Urea Nitrogen 71 mg/dL (8-26) Creatinine 4.9 mg/dL (0.7-1.3) Estimated GFR (Cockcroft-Gault) 12.0 Glucose Level 95 mg/dL (70-99) Calcium Level 8.0 mg/dL (8.5-10.1) Phosphorus Level 2.9 mg/dL (2.6-4.7) Magnesium Level 2.1 mg/dL (1.8-2.4) Albumin 2.3 g/dL (3.4-5.0) Test 07/19/20 11:12 07/19/20 12:17 07/19/20 16:32 07/19/20 20:39 Glucose (Fingerstick) 118 mg/dL (70-99) 129 mg/dL (70-99) 132 mg/dL (70-99) 142 mg/dL (70-99) Test 07/20/20 07:23 07/20/20 11:54 Glucose (Fingerstick) 117 mg/dL (70-99) 129 mg/dL (70-99) Laboratory Tests Test 07/19/20 16:32 07/19/20 20:39 07/20/20 07:23 07/20/20 11:54 Glucose (Fingerstick) 132 mg/dL (70-99) 142 mg/dL (70-99) 117 mg/dL (70-99) 129 mg/dL (70-99) Brief Hospital Course Mr. Damon is a 64 old male who presented with severe ELIZABETH, ATN secondary to dehydration and medication, likely chronic rate controlled AFIB, super morbid obesity, DM2. Consultations were placed to nephrology and cardiology. Started HD 07/11 and monitored for renal recovery. Recommended strict I/O, avoid nephrotoxins. He was recommended to continue low-dose metoprolol, aspirin, statin therapy. After discussion about A. fib anticoagulation with patient, warfarin versus Eliquis, patient refused warfarin and opted instead for Eliquis. He was discharged home with home health and set up with outpatient HD chair. He was initially discharged on 07/18/2020 patient cannot physically transition from bed to wheelchair to leave with his brother, so he stayed an extra 2 days under the assumption that he would leave to alf. However after an additional day and half in the hospital he changed his mind and stated that he wanted to go home. I expressed my concern with the patient this was not the safest discharge and please wait until you are back from rehab facility with hemodialysis chair. Patient was adamant about going home and left AMA. Discharge Information Condition at Discharge: Stable Disposition/Orders: Other (Patient left AGAINST MEDICAL ADVICE) Scheduled Amlodipine Besylate (Amlodipine Besylate) 10 Mg Tablet, 10 MG PO DAILY for htn, (Reported) Entered as Reported by: Beni Connell on 02/25/19 0554 Last Action: Continued on 07/10/202212 by LISE ALMANZA Apixaban (Eliquis) 5 Mg Tablet, 5 MG PO BID for Afib, #60 Ref 2 Prescribed by: MATEO STERN MD on 07/18/20 1232 Aspirin (Aspirin) 325 Mg Tablet, 1 TAB PO BID for thinner, #30 Ref 5 (Reported) Entered as Reported by: LISE ALMANZA on 07/10/202143 Last Action: New Order on 07/10/202143 by LISE ALMANZA Atenolol (Atenolol) 100 Mg Tablet, 100 MG PO DAILY for htn, (Reported) Entered as Reported by: Beni Connell on 02/25/19553 Last Action: Converted on 07/10/202212 by LISE ALMANZA Ferrous Sulfate (Iron) 325 Mg Tablet, 325 MG PO DAILY for supplement, (Reported) Entered as Reported by: Beni Connell on 02/25/19553 Last Action: Continued on 07/10/202212 by LISE ALMANZA Gabapentin (Gabapentin) 600 Mg Tablet, 600 MG PO HS for NEUROGENIC PAIN, (Reported) Entered as Reported by: LISE ALMANZA on 07/10/202143 Last Action: Converted on 07/10/202212 by LISE ALMANZA Insulin Aspart (Novolog) 100 Unit/1 Ml Cartridge, 35 UNIT SQ DAILYBFRSUP for DM, (Reported) Entered as Reported by: LISE ALMANZA on 07/10/202143 Last Action: Converted on 07/10/202212 by LISE ALMANZA Insulin Detemir (Levemir) 100 Unit/1 Ml Vial, 80 UNIT SQ HS for dm, (Reported) Entered as Reported by: Beni Connell on 02/25/19553 Last Action: Converted on 07/10/202212 by LISE ALMANZA Liraglutide (Victoza 3-Fredy) 0.6 Mg/0.1 Ml Pen.injctr, 1.8 MG SQ DAILY for dm, #9 Ref 3 (Reported) Entered as Reported by: Beni Connell on 02/25/19553 Last Action: Converted on 07/10/202212 by LISE ALMANZA Methocarbamol (Robaxin-750) 750 Mg Tablet, 500 MG PO QID for muscle spasms, (Reported) Entered as Reported by: LISE ALMANZA on 07/10/202143 Last Action: Continued on 07/10/202212 by LISE ALMANZA Metolazone (Metolazone) 2.5 Mg Tablet, 2.5 MG PO QMWF for diuretic, #30 Ref 0 (Reported) Entered as Reported by: LISE ALMANZA on 07/10/202143 Last Action: Continued on 07/10/202212 by LISE ALMANZA Metoprolol Tartrate (Metoprolol Tartrate) 25 Mg Tablet, 12.5 MG PO BID for Afib, #60 Ref 2 Prescribed by: MATEO STERN MD on 07/18/20 1252 Mupirocin (Mupirocin Ointment) 22 Gm Oint...g., 1 JACQUELYN TP BID for WOUND CARE, #1 (Reported) Entered as Reported by: Beni Connell on 02/25/19553 Last Action: Continued on 07/10/202212 by LISE ALMANZA Nystatin (Nystatin) 15 Gm Powder, 1 JACQUELYN TP BID for pannus for 7 Days, #1 Ref 0 (Reported) apply to affected area(s) Entered as Reported by: LISE ALMANZA on 07/10/202143 Last Action: Continued on 07/10/202212 by LISE ALMANZA Boomer-3 Fatty Acids/Fish Oil (Fish Oil 1,000 Mg Softgel) 1 Each Capsule, 1 CAP PO DAILY for HLD for 30 Days, #30 Ref 0 (Reported) Entered as Reported by: LISE ALMANZA on 07/10/202143 Last Action: Continued on 07/10/202212 by LISE ALMANZA Simvastatin (Simvastatin) 20 Mg Tablet, 20 MG PO HS for FOR CHOLESTEROL, #30 Ref 0 (Reported) Entered as Reported by: Beni Connell on 02/25/19553 Last Action: Continued on 07/10/202212 by LISE ALMANZA Sitagliptin Phosphate (Januvia) 100 Mg Tablet, 100 MG PO DAILY for dm, (Reported) Entered as Reported by: Beni Connell on 02/25/19553 Last Action: Converted on 07/10/202212 by LISE ALMANZA Spironolactone (Spironolactone) 25 Mg Tablet, 25 MG PO DAILY for chf, (Reported) Entered as Reported by: Beni Connell on 02/25/19553 Last Action: Continued on 07/10/202212 by LISE ALMANZA Scheduled PRN Hydrocodone Bit/Acetaminophen (Hydrocodone-Apap 10-325 ) 1 Tab Tablet, 1 TAB PO PRN Q6HRS PRN for PAIN, Ref 0 (Reported) Entered as Reported by: LISE ALMANZA on 07/10/202143 Last Action: Continued on 07/10/202212 by LISE ALMANZA Zolpidem Tartrate (Zolpidem Tartrate Er) 12.5 Mg Tab.mphase, 12.5 MG PO PRN QHS PRN for INSOMNIA, Ref 0 (Reported) Entered as Reported by: LISE ALMANZA on 07/10/202143 Last Action: Converted on 07/10/202212 by LISE ALMANZA Justicifation of Admission Dx: Justifications for Admission: Justification of Admission Dx: Yes Acute Renal Failure: RF Can't Be Managed Outpt MATEO STERN MD Jul 20, 2020 15:21
== END 2020-07-20 14:00 | disposition left against medical advice (07) | DRG 673 ==
LOC: ER 13:33 → 2 NORTH 15:47
PROVIDERS: ADMIT Internal Medicine; ATTEND Internal Medicine
PROC: 02HV33Z Insertion of Infusion Device into Superior Vena Cava, Percutaneous Approach (ICD-10-PCS; 2020-07-11)
PROC: B548ZZA Ultrasonography of Superior Vena Cava, Guidance (ICD-10-PCS; 2020-07-11)
PROC: 5A1D70Z Performance of Urinary Filtration, Intermittent, Less than 6 Hours Per Day (ICD-10-PCS; 2020-07-12)
PROC: 5A1D70Z Performance of Urinary Filtration, Intermittent, Less than 6 Hours Per Day (ICD-10-PCS; 2020-07-13)
PROC: 0JH63XZ Insertion of Tunneled Vascular Access Device into Chest Subcutaneous Tissue and Fascia, Percutaneous Approach (ICD-10-PCS; principal; 2020-07-17)
PROC: 02H633Z Insertion of Infusion Device into Right Atrium, Percutaneous Approach (ICD-10-PCS; 2020-07-17)
PROC: B548ZZA Ultrasonography of Superior Vena Cava, Guidance (ICD-10-PCS; 2020-07-17)
PROC: 5A1D70Z Performance of Urinary Filtration, Intermittent, Less than 6 Hours Per Day (ICD-10-PCS; 2020-07-17)
PROC: 5A1D70Z Performance of Urinary Filtration, Intermittent, Less than 6 Hours Per Day (ICD-10-PCS; 2020-07-19)
DX: N17.0 Acute kidney failure with tubular necrosis (principal); J96.91 Respiratory failure, unspecified with hypoxia; G93.41 Metabolic encephalopathy; N39.0 Urinary tract infection, site not specified; I13.2 Hypertensive heart and chronic kidney disease with heart failure and with stage 5 chronic kidney disease, or end stage renal disease; I48.19 Other persistent atrial fibrillation; I50.32 Chronic diastolic (congestive) heart failure; Z68.45 Body mass index [BMI] 70 or greater, adult; E11.22 Type 2 diabetes mellitus with diabetic chronic kidney disease; E11.40 Type 2 diabetes mellitus with diabetic neuropathy, unspecified; E66.01 Morbid (severe) obesity due to excess calories; E78.5 Hyperlipidemia, unspecified; E86.0 Dehydration; E87.5 Hyperkalemia; G47.33 Obstructive sleep apnea (adult) (pediatric); G89.29 Other chronic pain; I25.10 Atherosclerotic heart disease of native coronary artery without angina pectoris; I25.2 Old myocardial infarction; I77.810 Thoracic aortic ectasia; K21.9 Gastro-esophageal reflux disease without esophagitis; K57.90 Diverticulosis of intestine, part unspecified, without perforation or abscess without bleeding; K59.00 Constipation, unspecified; K80.20 Calculus of gallbladder without cholecystitis without obstruction; Z66 Do not resuscitate; L30.9 Dermatitis, unspecified; Z79.01 Long term (current) use of anticoagulants; Z79.1 Long term (current) use of non-steroidal anti-inflammatories (NSAID); Z79.4 Long term (current) use of insulin; Z79.899 Other long term (current) drug therapy; Z82.49 Family history of ischemic heart disease and other diseases of the circulatory system; Z83.3 Family history of diabetes mellitus; Z91.19 Patient's noncompliance with other medical treatment and regimen; Z98.61 Coronary angioplasty status; Z99.2 Dependence on renal dialysis; Z99.3 Dependence on wheelchair; M10.9 Gout, unspecified; Z88.8 Allergy status to other drugs, medicaments and biological substances; Z20.822 Contact with and (suspected) exposure to COVID-19
CPT/HCPCS: 36415; 36556; 36558; 36600; 70450; 71045; 74176; 76937; 80048; 80053; 80061; 80069; 81001; 82140; 82533; 82550; 82805; 82962; 83735; 83880; 84100; 84443; 84484; 84550; 85007; 85025; 85610; 86704; 86706; 87086; 87340; 87426; 93005; 93306; 96360; 99285; A4215; C1892; C9113; J0690; J0696; J1160; J1630; J1644; J1815; J2060; J3490; J7030; J7040; J7060; U0003; 97530-GO; 97530-GP; G0378

== ENCOUNTER 2020-10-06 11:36 | Outpatient (CLI) | payer MEDICARE ==
[~2020-10-06] VITALS: Ht 177.8 cm; Wt 191.4 kg
[~2020-10-06 11:36] MED LIST changes: +APIX5TAB PO; +ASPI325T8 PO; +BUME2TAB3 PO; +HYDR-2769 PO; +INSU100C4 SQ; +LOSA-73 PO; +METH-38 PO; +METO2.5T PO; +METO25TA4 PO; +NAPR-514 PO; +NYST15PO9 TP; +OMEG1CAP50 PO; +ZOLP12.56 PO
[2020-10-06 12:30] LABS: BASO # 0.1 x10^3/uL (0.0-0.2); BASO % 1 % (0-3); EOS # 0.9 x10^3/uL (0.0-0.7); EOS % 7 % (0-3); HEMATOCRIT 33.1 % (39.0-53.0); HEMOGLOBIN 10.3 g/dL (13.0-17.5); LYMPH # 2.2 x10^3/uL (1.0-4.8); LYMPH % 17 % (24-48); MEAN CORPUSCULAR HEMOGLOBIN 27 pg (25-35); MEAN CORPUSCULAR HGB CONC 31 g/dL (31-37); MEAN CORPUSCULAR VOLUME 87 fL (79-100); MONO # 1.1 x10^3/uL (0.0-1.1); MONO % 8 % (0-9); NEUT # 8.9 x10^3/uL (1.8-7.7); NEUT % 67 % (31-73); PLATELET COUNT 216 x10^3/uL (140-400); RED BLOOD COUNT 3.79 x10^6/uL (4.30-5.70); RED CELL DISTRIBUTION WIDTH 18.4 % (11.5-14.5); WHITE BLOOD COUNT 13.2 x10^3/uL (4.0-11.0)
[2020-10-06 12:35] VITALS: BP 102/51
[2020-10-06 12:40] LABS: PROTHROMBIN TIME PATIENT 15.2 SEC (11.7-14.0)
[2020-10-06] MEDS ORDERED: LIDOCAINE 2%/EPI 1:100,000 20 ML VIAL. ONE (12:40)
[2020-10-06 12:44] LABS: CREATININE 5.9 mg/dL (0.7-1.3); GFR 9.6; POTASSIUM 4.4 mmol/L (3.5-5.1)
[2020-10-06] MEDS ORDERED: fentaNYL PF VIAL 100 MCG/2 ML VIAL IV ONE (13:15)
[2020-10-06] MEDS ORDERED: MIDAZOLAM HCL/PF 2 MG/2 ML VIAL. IV ONE (13:15)
[2020-10-06] MEDS ORDERED: MIDAZOLAM HCL/PF 2 MG/2 ML VIAL. ONE (13:23)
[2020-10-06] MEDS ORDERED: fentaNYL PF VIAL 100 MCG/2 ML VIAL ONE (13:23)
[2020-10-06 13:28] VITALS: BP 154/95
[2020-10-06] MEDS ORDERED: ceFAZolin SODIUM 3 GM in IV DEXTROSE 5% 100ML 100 ML IV PRN (13:30)
[2020-10-06] MEDS ORDERED: LIDOCAINE 2%/EPI 1:100,000 20 ML VIAL. IJ ONE (13:45)
[2020-10-06 13:48] VITALS: BP 76/50
[2020-10-06 13:57] VITALS: BP 99/52
[2020-10-06 14:15] VITALS: BP 91/48
[2020-10-06 14:30] VITALS: BP 87/43
[2020-10-06] MEDS ORDERED: WARF4TAB64 PO (14:31)
--- NOTE | 2020-10-06 14:45 | NUR ---
Pt discharged home with family. PIV dc'd. Discharge instructions reviewed with patient
--- NOTE | 2020-10-06 15:14 | RAD ---
Procedure: Tunneled hemodialysis catheter placement 10/06/2020 1:09 PM Clinical Indication: HD CATHETER NON FUNCTIONING Sterility: All elements of maximal sterile barrier technique including the use of a cap, mask, sterile gown, sterile gloves, large sterile sheet, appropriate hand hygiene, and 2% chlorhexidine for cutaneous antisepsis (or acceptable alternative antiseptic per current guidelines) were followed for this procedure. Consent: The procedure was explained in its entirety to the patient or the patients designated employer relations representative by a member of the treatment team, including a discussion of the risks, benefits and commonly accepted alternatives to the procedure, as well as the expected consequences of no therapy whatsoever. Discussion of the risks included, but was not limited to, those that are most frequent and those that are rare but possibly severe or life-threatening, as well as the possibility of unforeseen complications. Technique and Findings: Following informed consent, a timeout procedure was performed. The patient was prepped and draped in the usual sterile fashion. The pre-existing catheter was evaluated under fluoroscopy and found to be within acceptable limits. This catheter was removed over the wire and replaced with a new 23 cm tip to cuff palindrome dialysis catheter, and position on the fluoroscopy such that the distal tip resided in the mid right atrium. The new catheter was found to flush and aspirate normally. The catheter was secured in place and sterile dressings were applied. Sedation: Conscious sedation was administered for 24 minutes. The patient was monitored by a qualified independent observer throughout the time of sedation. Please refer to the medical record for exact doses of medications utilized to achieve moderate sedation. Fluoroscopy time: 2.0 minutes Dose area product: 4 Impression: Tunneled hemodialysis catheter placement as described
[2020-10-06] MEDS ORDERED: WARFARIN 4 MG TABLET. PO ONE (16:00)
== END 2020-10-06 14:48 | disposition home or self-care (01) ==
LOC: INTRAD 11:36
PROVIDERS: ATTEND Surgery
DX: T85.618A Breakdown (mechanical) of other specified internal prosthetic devices, implants and grafts, initial encounter (principal); I11.0 Hypertensive heart disease with heart failure; I50.9 Heart failure, unspecified; I48.91 Unspecified atrial fibrillation; E78.00 Pure hypercholesterolemia, unspecified; E11.9 Type 2 diabetes mellitus without complications; E66.9 Obesity, unspecified; G47.30 Sleep apnea, unspecified; Z20.822 Contact with and (suspected) exposure to COVID-19; Z79.82 Long term (current) use of aspirin; Z79.01 Long term (current) use of anticoagulants; Z79.84 Long term (current) use of oral hypoglycemic drugs; Z79.899 Other long term (current) drug therapy; Z98.890 Other specified postprocedural states; Z88.8 Allergy status to other drugs, medicaments and biological substances; X58.XXXA Exposure to other specified factors, initial encounter; Y93.89 Activity, other specified; Y92.89 Other specified places as the place of occurrence of the external cause; Y99.8 Other external cause status
CPT/HCPCS: 36415; 36558; 77001; 80048; 85025; 85610; 87426; 99152; 99153; C1750; C1769; C9803; J0690; J2250; J3010; J3490; J7060; U0003; 36581

== ENCOUNTER 2020-10-31 08:10 | Inpatient (IN) | payer MEDICARE ==
[~2020-10-31] VITALS: Ht 177.8 cm; Wt 190.0 kg
[~2020-10-31 08:10] MED LIST changes: +WARF4TAB64 PO
--- NOTE | 2020-10-31 09:21 | PHYS DOC ---
Past Medical History Past Medical History: Diabetes-Type II, Hypertension, Other Additional Past Medical Histor: HEMORRHOIDS, NEUROPATHY, obesity, chronic back pain Past Surgical History: Other Additional Past Surgical Histo: RIGHT ANKLE FRACTURE/SURGERY Smoking Status: Never Smoker Alcohol Use: None Drug Use: None General Adult EDM: Chief Complaint: DIALYSIS PROBLEM HPI: HPI: Patient is a 65 year old male who has end-stage renal failure, was seen here from the dialysis center because his dialysis catheter was falling out. Patient is scheduled for hemodialysis every Friday, , Friday. His last hemodialysis was on Friday. Patient went to dialysis center today to have his routine dialysis, staff noted that he had temporary dialysis catheter was not in the correct position. So he was sent in here for evaluation. Patient denies any chest pain, no abdominal pain, no nausea vomiting. Patient denies any headache, no fever. Review of Systems: Review of Systems: Constitutional: Denies fever or chills. [] Eyes: Denies change in visual acuity. [] HENT: Denies nasal congestion or sore throat. [] Respiratory: Denies cough or shortness of breath. [] Cardiovascular: Denies chest pain or edema. [] GI: Denies abdominal pain, nausea, vomiting, bloody stools or diarrhea. [] : Denies dysuria. [] Musculoskeletal: Denies back pain or joint pain. [] Integument: Denies rash. [] Neurologic: Denies headache, focal weakness or sensory changes. [] Endocrine: Denies polyuria or polydipsia. [] Lymphatic: Denies swollen glands. [] Psychiatric: Denies depression or anxiety. [] Heart Score: C/O Chest Pain: N/A Risk Factors: Risk Factors: DM, Current or recent (<one month) smoker, HTN, HLP, family history of CAD, obesity. Risk Scores: Score 0 - 3: 2.5% MACE over next 6 weeks - Discharge Home Score 4 - 6: 20.3% MACE over next 6 weeks - Admit for Clinical Observation Score 7 - 10: 72.7% MACE over next 6 weeks - Early Invasive Strategies Allergies: Allergies: Allergies Coded Allergies Type Severity Reaction Last Updated Verified metformin Allergy Intermediate 02/25/19 Yes Physical Exam: PE: Constitutional: Well developed, well nourished, no acute distress, non-toxic appearance. MORBIDLY obese HENT: Normocephalic, atraumatic, bilateral external ears normal, oropharynx moist, no oral exudates, nose normal. [] Eyes: PERRLA, EOMI, conjunctiva normal, no discharge. [] Neck: Normal range of motion, no tenderness, supple, no stridor. [] Cardiovascular: RAPID HEART RATE WITH IRREGULAR RHYTHM. no murmur [] Lungs & Thorax: Bilateral breath sounds clear to auscultation the Aldo catheter on the right side of the chest was out about 4 inches. Abdomen: Bowel sounds normal, soft, no tenderness, no masses, no pulsatile masses. [] Skin: Warm, dry, no erythema, no rash. [] Back: No tenderness, no CVA tenderness. [] Extremities: No tenderness, no cyanosis, no clubbing, ROM intact, no edema. [] Neurologic: Alert and oriented X 3, normal motor function, normal sensory function, no focal deficits noted. [] Psychologic: Affect normal, judgement normal, mood normal. [] Current Patient Data: Labs: Laboratory Tests Test 10/31/20 09:43 White Blood Count 14.8 x10^3/uL Red Blood Count 4.31 x10^6/uL Hemoglobin 11.6 g/dL Hematocrit 37.6 % Mean Corpuscular Volume 87 fL Mean Corpuscular Hemoglobin 27 pg Mean Corpuscular Hemoglobin Concent 31 g/dL Red Cell Distribution Width 18.8 % Platelet Count 294 x10^3/uL Neutrophils (%) (Auto) 74 % Lymphocytes (%) (Auto) 16 % Monocytes (%) (Auto) 7 % Eosinophils (%) (Auto) 3 % Basophils (%) (Auto) 1 % Neutrophils # (Auto) 10.9 x10^3/uL Lymphocytes # (Auto) 2.3 x10^3/uL Monocytes # (Auto) 1.0 x10^3/uL Eosinophils # (Auto) 0.5 x10^3/uL Basophils # (Auto) 0.1 x10^3/uL Prothrombin Time 30.5 SEC Prothromb Time International Ratio 2.9 Activated Partial Thromboplast Time 55 SEC Sodium Level 141 mmol/L Potassium Level 4.9 mmol/L Chloride Level 103 mmol/L Carbon Dioxide Level 27 mmol/L Anion Gap 11 Blood Urea Nitrogen 60 mg/dL Creatinine 6.9 mg/dL Estimated GFR (Cockcroft-Gault) 8.0 BUN/Creatinine Ratio 9 Glucose Level 161 mg/dL Calcium Level 9.4 mg/dL Magnesium Level 2.1 mg/dL Total Bilirubin 0.4 mg/dL Aspartate Amino Transf (AST/SGOT) 18 U/L Alanine Aminotransferase (ALT/SGPT) 16 U/L Alkaline Phosphatase 109 U/L Total Protein 7.7 g/dL Albumin 2.7 g/dL Albumin/Globulin Ratio 0.5 Current Medications Medications (Trade) Dose Ordered Sig/Cheyanne Route PRN Reason Start Time Stop Time Status Last Admin Dose Admin Sodium Chloride 500 ml @ 500 mls/hr 1X ONCE IV 10/31/20 11:15 10/31/20 12:14 DC 10/31/20 11:51 Vital Signs: Vital Signs Date Time Temp Pulse Resp B/P (MAP) Pulse Ox O2 Delivery O2 Flow Rate FiO2 10/31/20 08:21 98.6 69 18 142/104 (117) 95 Room Air 98.6 EKG: EKG: [EKG was done at 925, heart rate of 122 bpm, atrial fibrillation with RVR. No ST segment elevation. Radiology/Procedures: Radiology/Procedures: [facility] [address] [place], [place] [id number] IMAGING REPORT Signed PATIENT: EMERSON VIVEROS ACCOUNT: [id number] : 1955 LOCATION: ER AGE: 65 SEX: M EXAM STATUS: REG ER ORD. PHYSICIAN: PAVAN LOCKWOOD DO REASON: DIALYSIS CATHETER WAS PULLED OUT BY ACCIDENT PROCEDURE: CHEST AP ONLY EXAM: CHEST ONE VIEW. HISTORY: Pulled out dialysis catheter. COMPARISON: 07/17/2020. FINDINGS: A frontal view of the chest is obtained. The inspiration is small with mild bibasilar atelectasis. A linear opacity in the left midlung is unchanged and likely reflects scarring. There is no pneumothorax or pleural effusion. The heart is mildly enlarged. There are atherosclerotic calcifications of the aorta. IMPRESSION: 1. Mild cardiomegaly. Electronically signed by: Jessica Granados MD (10/31/2020 11:01 AM) [id number] DICTATED and SIGNED BY: PHILLY GRANADOS MD DATE: 10/31/20 [id number] 0 Course & Med Decision Making: Course & Med Decision Making Pertinent Labs and Imaging studies reviewed. Patient is a 65-year-old male who is morbidly obese, had end-stage renal failure, presented to ER due to the displacement of the his temporary dialysis catheter. Patient was in atrial fibrillation, his last hemodialysis was on Friday. He is scheduled for hemodialysis today. Discussed with the interventional radiologist Dr. Chintan Landaverde who agreed to see the patient today to replace his dialysis catheter. Patient will be admitted to the hospital service. Dragon Disclaimer: Dragon Disclaimer: This electronic medical record was generated, in whole or in part, using a voice recognition dictation system. Departure Departure Impression: Primary Impression: A-fib Additional Impressions: ESRD (end stage renal disease) on dialysis Displacement of vascular dialysis catheter, initial encounter Disposition: ADMITTED INPATIENT Admitting Physician: FARHAT (Dr. Infante) Condition: STABLE Referrals: AYAH AQUINO MD (PCP) PAVAN LOCKWOOD DO Oct 31, 2020 09:21
[2020-10-31 10:09] LABS: BASO # 0.1 x10^3/uL (0.0-0.2); BASO % 1 % (0-3); EOS # 0.5 x10^3/uL (0.0-0.7); EOS % 3 % (0-3); HEMATOCRIT 37.6 % (39.0-53.0); HEMOGLOBIN 11.6 g/dL (13.0-17.5); LYMPH # 2.3 x10^3/uL (1.0-4.8); LYMPH % 16 % (24-48); MEAN CORPUSCULAR HEMOGLOBIN 27 pg (25-35); MEAN CORPUSCULAR HGB CONC 31 g/dL (31-37); MEAN CORPUSCULAR VOLUME 87 fL (79-100); MONO % 7 % (0-9); NEUT # 10.9 x10^3/uL (1.8-7.7); NEUT % 74 % (31-73); PLATELET COUNT 294 x10^3/uL (140-400); RED BLOOD COUNT 4.31 x10^6/uL (4.30-5.70); RED CELL DISTRIBUTION WIDTH 18.8 % (11.5-14.5); WHITE BLOOD COUNT 14.8 x10^3/uL (4.0-11.0)
[2020-10-31 10:20] LABS: CALCIUM 9.4 mg/dL (8.5-10.1); CREATININE 6.9 mg/dL (0.7-1.3); POTASSIUM 4.9 mmol/L (3.5-5.1)
[2020-10-31 10:26] LABS: ALBUMIN 2.7 g/dL (3.4-5.0); ALBUMIN/GLOBULIN RATIO 0.5 (1.0-1.7); MAGNESIUM 2.1 mg/dL (1.8-2.4); TOTAL BILIRUBIN 0.4 mg/dL (0.2-1.0); TOTAL PROTEIN 7.7 g/dL (6.4-8.2)
[2020-10-31 10:30] LABS: PROTHROMBIN TIME PATIENT 30.5 SEC (11.7-14.0)
--- NOTE | 2020-10-31 11:04 | RAD ---
EXAM: CHEST ONE VIEW. HISTORY: Pulled out dialysis catheter. COMPARISON: 07/17/2020. FINDINGS: A frontal view of the chest is obtained. The inspiration is small with mild bibasilar atelectasis. A linear opacity in the left midlung is unc hanged and likely reflects scarring. There is no pneumothorax or pleural effusion. The heart is mildl y enlarged. There are atherosclerotic calcifications of the aorta. IMPRESSION: 1. Mild cardiomegaly. Electronically signed by: Jessica Granados MD (10/31/2020 11:01 AM) [id number]
[2020-10-31] MEDS ORDERED: IV NORMAL SALINE 500ML BAG 500 ML IV ONE (11:15)
[2020-10-31] MEDS: METHOCARBAMOL 750 MG TABLET PO SCH ×3 (13:00→22:24)
[2020-10-31] MEDS ORDERED: ZOLPIDEM 5 MG TABLET. PO PRN (13:15)
--- NOTE | 2020-10-31 13:52 | HP ---
ADMIT DATE: 10/31/2020 CHIEF COMPLAINT: Dialysis catheter pulled. HISTORY OF PRESENT ILLNESS: The patient is a pleasant 65-year-old male who came in with a dialysis catheter that he pulled while he was probably sleeping. I discussed the case with the ER physician. We are going to admit the patient and consult Nephrology and probably IR to put in a new dialysis catheter. PAST MEDICAL HISTORY: End-stage renal disease, on dialysis, hemorrhoids, neuropathy, obesity, chronic pain, ankle surgery, hypertension. ALLERGIES: METFORMIN. FAMILY HISTORY: Diabetes. SOCIAL HISTORY: He does not drink, smoke or take drugs. He is retired. MEDICATIONS: Reviewed, please refer to the MRAD. REVIEW OF SYSTEMS: GENERAL: No history of weight change, weakness or fevers. SKIN: No bruising, hair changes or rashes. EYES: No blurred, double or loss of vision. NOSE AND THROAT: No history of nosebleeds, hoarseness or sore throat. HEART: No history of palpitations, chest pain or shortness of breath on exertion. LUNGS: Denies cough, hemoptysis, wheezing or shortness of breath. GASTROINTESTINAL: Denies changes in appetite, nausea, vomiting, diarrhea or constipation. GENITOURINARY: No history of frequency, urgency, hesitancy or nocturia. NEUROLOGIC: Denies history of numbness, tingling, tremor or weakness. PSYCHIATRIC: No history of panic, anxiety or depression. ENDOCRINE: No history of heat or cold intolerance, polyuria or polydipsia. EXTREMITIES: Denies muscle weakness, joint pain, pain on walking or stiffness. PHYSICAL EXAMINATION: VITALS: Within normal limits and are stable. GENERAL: No apparent distress. Alert and oriented. HEENT: Normal cephalic atraumatic, external auditory canals are patent EYES: Extraocular muscles are intact, pupils are equally round and reactive to light and accommodation MUSCULOSKELETAL: Well developed, well nourished, good range of motion ENDOCRINE: No thyromegaly was palpated LYMPHATICS: No cervical chain or axillary nodes were noted HEMATOPOIETIC: No bruising NECK: Supple, no JVD, no thyromegaly was noted. LUNGS: Clear to auscultation in all lung vaughn without rhonchi or wheezing. CHEST WALL: He does have a hole in his chest where he pulled the dialysis catheter. We have a clean dressing over it. HEART: He has irregular S1, S2 with atrial fibrillation noted on the monitor at 110 beats per minute. ABDOMEN: He is obese. EXTREMITIES: Without any cyanosis, clubbing, or edema. Pedal pulses intact, Homans sign is negative. NEUROLOGIC: Normal speech, normal tone. A & O x3, moves all extremities, no obvious focal deficits. PSYCHIATRIC: Seems depressed. SKIN: No ulcerations or rashes, good skin turgor, no jaundice. VASCULAR: Good capillary refill, neurovascular bundle appears to be intact. LABORATORY DATA: White count 15. Electrolytes are normal other than a BUN of 60 and a creatinine of 6.9, glucose 161. INR is 2.9. ASSESSMENT AND PLAN: Pulled dialysis catheter accidentally with leukocytosis and multiple comorbidities, please see above. The patient has been admitted. We will consult Nephrology, consult IR. Home meds, DVT prophylaxis. Full code. Long-term prognosis is guarded. JOSEPHINE BAUTISTA DO DR: JONNY/radha JOB#: [id number] / [id number]
--- NOTE | 2020-10-31 16:10 | PDOC2 ---
PEARL CARVALHO TUG BOAT ENGINEER 10/31/20 1610: CARDIAC CONSULT DATE OF CONSULT Date of Consult DATE: 10/31/20 TIME: 15:53 REASON FOR CONSULT Reason for Consult: AFIB REFERRING PHYSICIAN Referring Physician: Parish SOURCE Source: Chart review, Patient HISTORY OF PRESENT ILLNESS HISTORY OF PRESENT ILLNESS This is a 65 yo male with ESRD and was noted in dialysis center that his HD cath was not in correct place and was easily pulled. Accdg to him the dislodgment might have happened while he was sleeping. No complains of chest pain or SOA. Upon admission he was noted with AFIB RVR. He has not taken any of his medications today due to his dialysis cath issue. He failed to follow up in our office in 08/2020 due to dialysis but did not reschedule. PAST MEDICAL HISTORY Past Medical History Cardiovascular: CAD, HTN, [place] (2001), HLP, chronic AFIB Pulmonary: Other (O2 dependent)- EDNA? NEURO: tremors GI: No pertinent hx Heme/Onc: No pertinent hx Hepatobiliary: No pertinent hx Psych: No pertinent hx Musculoskeletal: low back pain, Osteoarthritis, chronic back pain, debilitated, WC bound Rheumatologic: No pertinent hx Infectious disease: No pertinent hx ENT: No pertinent hx Renal/: ESRD Endocrine: Diabetes (2) Dermatology: Other (venous dermatitis) PAST SURGICAL HISTORY Past Surgical History PTCA 2006? he does deny this, HD cath placement FAMILY HISTORY Family History: Hypertension SOCIAL HISTORY Smoke: No ALCOHOL: none Drugs: None Lives: with Family CURRENT MEDICATIONS CURRENT MEDICATIONS Current Medications Medications (Trade) Dose Ordered Sig/Cheyanne Route PRN Reason Start Time Stop Time Status Last Admin Dose Admin Sodium Chloride 500 ml @ 500 mls/hr 1X ONCE IV 10/31/20 11:15 10/31/20 12:14 DC 10/31/20 11:51 ALLERGIES ALLERGIES: Coded Allergies: metformin (Verified Allergy, Intermediate, 02/25/19) ROS Review of System 14 point ROS evaluated with pertinent positives noted per HPI PHYSICAL EXAM General: Alert, Oriented X3, Cooperative, No acute distress HEENT: Atraumatic, Mucous membr. moist/pink Lungs: Other (diminished) Heart: Other (AFIB, distant heart sounds) Abdomen: Other (morbid obesity) Extremities: No cyanosis, Other (1+ bilateral LE pitting edema) Skin: No breakdown, No significant lesion Neuro: Normal speech, Sensation intact Psych/Mental Status: Mental status NL, Mood NL MUSCULOSKELETAL: Osteoarthritic changes both hands VITALS/I&O VITALS/I&O: Vital Signs Date Time Temp Pulse Resp B/P (MAP) Pulse Ox O2 Delivery O2 Flow Rate FiO2 10/31/20 13:49 95 101/44 (63) 96 Room Air 10/31/20 08:21 98.6 26 98.6 LABS Lab: Laboratory Tests Test 10/31/20 09:43 White Blood Count 14.8 x10^3/uL (4.0-11.0) H Red Blood Count 4.31 x10^6/uL (4.30-5.70) Hemoglobin 11.6 g/dL (13.0-17.5) L Hematocrit 37.6 % (39.0-53.0) L Mean Corpuscular Volume 87 fL (79-100) Mean Corpuscular Hemoglobin 27 pg (25-35) Mean Corpuscular Hemoglobin Concent 31 g/dL (31-37) Red Cell Distribution Width 18.8 % (11.5-14.5) H Platelet Count 294 x10^3/uL (140-400) Neutrophils (%) (Auto) 74 % (31-73) H Lymphocytes (%) (Auto) 16 % (24-48) L Monocytes (%) (Auto) 7 % (0-9) Eosinophils (%) (Auto) 3 % (0-3) Basophils (%) (Auto) 1 % (0-3) Neutrophils # (Auto) 10.9 x10^3/uL (1.8-7.7) H Lymphocytes # (Auto) 2.3 x10^3/uL (1.0-4.8) Monocytes # (Auto) 1.0 x10^3/uL (0.0-1.1) Eosinophils # (Auto) 0.5 x10^3/uL (0.0-0.7) Basophils # (Auto) 0.1 x10^3/uL (0.0-0.2) Prothrombin Time 30.5 SEC (11.7-14.0) H Prothrombin Time INR 2.9 (0.8-1.1) H Activated Partial Thromboplast Time 55 SEC (24-38) H Sodium Level 141 mmol/L (136-145) Potassium Level 4.9 mmol/L (3.5-5.1) Chloride Level 103 mmol/L (98-107) Carbon Dioxide Level 27 mmol/L (21-32) Anion Gap 11 (6-14) Blood Urea Nitrogen 60 mg/dL (8-26) H Creatinine 6.9 mg/dL (0.7-1.3) H Estimated GFR (Cockcroft-Gault) 8.0 BUN/Creatinine Ratio 9 (6-20) Glucose Level 161 mg/dL (70-99) H Calcium Level 9.4 mg/dL (8.5-10.1) Magnesium Level 2.1 mg/dL (1.8-2.4) Total Bilirubin 0.4 mg/dL (0.2-1.0) Aspartate Amino Transferase (AST) 18 U/L (15-37) Alanine Aminotransferase (ALT) 16 U/L (16-63) Alkaline Phosphatase 109 U/L (46-116) Total Protein 7.7 g/dL (6.4-8.2) Albumin 2.7 g/dL (3.4-5.0) L Albumin/Globulin Ratio 0.5 (1.0-1.7) L Laboratory Tests 10/31/20 09:43 Laboratory Tests 10/31/20 09:43 ECHOCARDIOGRAM ECHOCARDIOGRAM <Conclusion> Technically difficult study. The left ventricular systolic function is normal. The ejection fraction is 55%. There is normal LV segmental wall motion. There is no evidence of significant pericardial effusion. DATE: 07/13/20 [id number] 0 ASSESSMENT/PLAN ASSESSMENT/PLAN 1. HD cath malfunction 2. ESRD 3. Persistent AFIB with RVR: possibly from missed meds 4. CAD: remote hx of PTCA, unclear, clinically stable 5. HTN: BP low 6. HLP 7. Chronic low back pain/ debility/WC bound 8. Morbid obesity 9. DM2: per IM Recommendations 1. IV lopressor for now. Continue ASA. INR 2.9. Hold coumadin for HD cath placement, resume afterwards per IR 2. Hold BP meds as BP is marginally low. Do not combine metoprolol and atenolol. 3. ASA, statin therapy 4. Fluid off loading per HD 5. Secondary prevention measures 6. Discussed with RN, will obtain accurate med list. Pt does get his meds delivered to is house daily. 7. Discussed appt compliance and will consider outpt CVN DONY VANG MD 10/31/20 1833: CARDIAC CONSULT ASSESSMENT/PLAN ASSESSMENT/PLAN Patient seen and evaluated. I agree with our nurse practitioners assessment and plan. HD cath malfunction. Being reviewed by IR. ESRD. Dialysis as per the renal service and access as above. Persistent AFIB with RVR: possibly from missed meds. Coumadin on hold secondary to probable cath placement. Will resume after procedures. Continue on aspirin. IV beta-blockers for rate control. CAD: remote hx of PTCA, clinically stable HTN: BP lowHLP. Lab pending. Chronic low back pain/ debility/WC bound Morbid obesity DM2: per PEARL SANCHEZ APRN Oct 31, 2020 16:10 DONY VANG MD Oct 31, 2020 18:33
[2020-10-31] MEDS ORDERED: INSULIN LISPRO 300 UNITS/3 ML VIAL. SQ SCH (17:00)
[2020-10-31 17:45] VITALS: BP 105/62
[2020-10-31] MEDS: METOPROLOL IV PUSH 5 MG/5 ML VIAL. IVP SCH (18:00)
--- NOTE | 2020-10-31 18:30 | EKG ---
[facility] [address] [place] [address] Test Date: 2020-10-31 Test Time: 09:25:05 Pat Name: EMERSON VIVEROS Department: Room: Gender: M Emission Specialist: : [id number] Requested By: PAVAN LOCKWOOD Order Number: [id number] Reading MD: Measurements Intervals Offerle Rate: 122 P: RI: QRS: -42 QRSD: 102 T: 62 QT: 338 QTc: 483 Interpretive Statements IRREGULAR RHYTHM, NO P-WAVE FOUND ABNORMAL LEFT AXIS DEVIATION LEFT ANTERIOR FASCICULAR BLOCK ABNORMAL ECG RI6.02 No previous ECG available for comparison
[2020-10-31 19:55] VITALS: BP 90/41
[2020-10-31] MEDS ORDERED: METOPROLOL TART IMMED RELEASE 25 MG TABLET. PO SCH (21:00)
[2020-10-31] MEDS ORDERED: GABAPENTIN 300 MG CAPSULE. PO SCH (21:00)
[2020-10-31] MEDS: MUPIROCIN 2 % NASAL OINTMENT 22GM TUBE. TP SCH (21:00)
[2020-10-31] MEDS ORDERED: ASPIRIN 325 MG TABLET PO SCH (21:00)
[2020-10-31] MEDS ORDERED: INSULIN GLARGINE SYRINGE. SQ SCH (21:00)
[2020-10-31] MEDS ORDERED: SIMVASTATIN 20 MG TABLET PO SCH (21:00)
[2020-10-31 22:10] VITALS: BP 90/41
[2020-10-31 22:25] VITALS: BP 77/48
[2020-10-31 22:30] VITALS: BP 82/56
[2020-10-31] MEDS: NYSTATIN TOPICAL POWDER 15GM BOTTLE. TP SCH (22:43)
[2020-10-31 23:28] VITALS: BP 84/39
[2020-11-01] VITALS (10 sets, daily range): BP systolic 78–119; BP diastolic 39–69
[2020-11-01] MEDS ORDERED: SEVE800T9 PO (02:47)
[2020-11-01] MEDS: METOPROLOL IV PUSH 5 MG/5 ML VIAL. IVP SCH ×3 (06:00→12:58)
[2020-11-01] MEDS ORDERED: GELATIN SPONGE SIZE 12-7MM SPONGE. ONE (08:34)
[2020-11-01] MEDS ORDERED: LIDOCAINE 2%/EPI 1:100,000 20 ML VIAL. ONE (08:35)
[2020-11-01] MEDS: NYSTATIN TOPICAL POWDER 15GM BOTTLE. TP SCH (09:00)
[2020-11-01] MEDS ORDERED: NON FORMULARY ITEM (Liraglutide (Victoza 3-Pak) 1.8 MG) SQ SCH (09:00)
[2020-11-01] MEDS ORDERED: LIDOCAINE 2%/EPI 1:100,000 20 ML VIAL. IJ ONE (09:00)
[2020-11-01] MEDS ORDERED: ceFAZolin SODIUM 3 GM in IV DEXTROSE 5% 100ML 100 ML IV ONE (09:00)
[2020-11-01] MEDS: MUPIROCIN 2 % NASAL OINTMENT 22GM TUBE. TP SCH (09:00)
[2020-11-01] MEDS ORDERED: LINAGLIPTIN 5 MG TABLET PO SCH (09:00)
[2020-11-01] MEDS ORDERED: amLODIPine BESYLATE 10 MG TABLET PO SCH (09:00)
[2020-11-01] MEDS ORDERED: fentaNYL PF VIAL 100 MCG/2 ML VIAL IV ONE (09:00)
[2020-11-01] MEDS ORDERED: MIDAZOLAM HCL/PF 5 MG/5 ML VIAL. IV ONE (09:00)
[2020-11-01] MEDS ORDERED: ATENOLOL 50 MG TABLET. PO SCH (09:00)
[2020-11-01] MEDS ORDERED: SPIRONOLACTONE 25 MG TABLET PO SCH (09:00)
[2020-11-01] MEDS ORDERED: FERROUS SULFATE 325 MG TABLET. PO SCH (09:00)
[2020-11-01] MEDS ORDERED: metOLazone 2.5 MG TABLET PO SCH (09:00)
[2020-11-01] MEDS ORDERED: MIDAZOLAM HCL/PF 5 MG/5 ML VIAL. ONE (09:09)
[2020-11-01] MEDS ORDERED: fentaNYL PF VIAL 100 MCG/2 ML VIAL ONE (09:10)
--- NOTE | 2020-11-01 10:21 | PDOC2 ---
CONSULT Date of Consult Date of Consult DATE: 11/01/20 TIME: : Reason for Consult Reason for Consult: ESRD Identification/Chief Complaint Chief Complaint No complaints currently Source Source: Chart review, Patient History of Present Illness Reason for Visit: Patient is a 65 year old super morbid obese CM with end-stage renal failure, was sent to the ER @ [facility] from the dialysis center because his dialysis catheter was falling out. Patient is scheduled for hemodialysis every Friday, , Friday. His last hemodialysis was on Friday. Patient went to dialysis unit on 10/31 and noted by staff that dialysis catheter was falling out . Patient denies any chest pain, no abdominal pain, no nausea vomiting. Patient denies any headache, no fever. Denies any SOB He is ready to go home. He has Tunnelled HDC placed this am after he replaced FFP. Pt states he will do only 2 hrs of dialysis to make sure is HD cath is functioning. He will go back tomorrow to the OP unit at his regular day Past Medical History Cardiovascular: CAD, HTN, [place] Pulmonary: Other GI: No pertinent hx Heme/Onc: No pertinent hx Hepatobiliary: No pertinent hx Psych: No pertinent hx Musculoskeletal: low back pain, Osteoarthritis Rheumatologic: No pertinent hx Infectious disease: No pertinent hx Renal/: Chronic renal insuff Endocrine: Diabetes Past Surgical History Past Surgical History: Other Family History Family History: Hypertension Social History No ALCOHOL: none Drugs: None Lives: with Family Current Problem List Problem List Problems Medical Problems: (1) A-fib Status: Acute (2) Displacement of vascular dialysis catheter, initial encounter Status: Acute (3) ESRD (end stage renal disease) on dialysis Status: Acute Current Medications Current Medications Current Medications Sodium Chloride 500 ml @ 500 mls/hr 1X ONCE IV Last administered on 10/31/20at 11:51; Start 10/31/20 at 11:15; Stop 10/31/20 at 12:14; Status DC Amlodipine Besylate (Norvasc) 10 mg DAILY PO ; Start 11/01/20 at 09:00; Stop 10/31/20 at 16:07; Status DC Aspirin (Faina Aspirin) 325 mg BID PO ; Start 10/31/20 at 21:00 Ferrous Sulfate (Feosol) 325 mg DAILY PO ; Start 11/01/20 at 09:00 Acetaminophen/ Hydrocodone Bitart (Lortab 10/325) 1 tab PRN Q6HRS PRN PO MODERATE PAIN; Start 10/31/20 at 12:45 Methocarbamol (Robaxin) 500 mg QID PO Last administered on 10/31/20at 22:24; Start 10/31/20 at 13:00 Metolazone (Zaroxolyn) 2.5 mg MoWeFr PO ; Start 11/01/20 at 09:00 Metoprolol Tartrate (Lopressor) 12.5 mg BID PO ; Start 10/31/20 at 21:00; Stop 10/31/20 at 16:07; Status DC Mupirocin (Bactroban) 1 navarro BID TP ; Start 10/31/20 at 21:00 Nystatin (Nystop) 1 navarro BID TP Last administered on 10/31/20at 22:43; Start 10/31/20 at 21:00 Simvastatin (Zocor) 20 mg HS PO Last administered on 10/31/20at 22:24; Start 10/31/20 at 21:00 Spironolactone (Aldactone) 25 mg DAILY PO ; Start 11/01/20 at 09:00; Stop 10/31/20 at 16:07; Status DC Atenolol (Tenormin) 100 mg DAILY PO ; Start 11/01/20 at 09:00; Stop 10/31/20 at 16:07; Status DC Gabapentin (Neurontin) 600 mg HS PO Last administered on 10/31/20at 22:24; Start 10/31/20 at 21:00 Insulin Human Lispro (HumaLOG) 35 units DAILYBFRSUP SQ ; Start 10/31/20 at 17:00 Insulin Glargine (Lantus Syringe) 80 unit QHS SQ Last administered on 10/31/20at 22:16; Start 10/31/20 at 21:00 Non-Formulary Medication (Liraglutide (Victoza 3-Fredy)) 1.8 mg DAILY SQ ; Start 11/01/20 at 09:00; Stop 10/31/20 at 16:16; Status DC Linagliptin (Tradjenta) 5 mg DAILY PO ; Start 11/01/20 at 09:00 Zolpidem Tartrate (Ambien) 5 mg PRN QHS PRN PO INSOMNIA Last administered on 10/31/20at 22:26; Start 10/31/20 at 13:15 Metoprolol Tartrate (Lopressor Vial) 5 mg Q6HRS IVP ; Start 10/31/20 at 18:00 Gelatin (Gelfoam Size 12-7mm) 1 each STK-MED ONCE .ROUTE ; Start 11/01/20 at 08:34; Stop 11/01/20 at 08:35; Status DC Lidocaine/ Epinephrine (LIDOCAINE 2%-EPI 1:100,000 multi-dose) 20 ml STK-MED ONCE .ROUTE ; Start 11/01/20 at 08:35; Stop 11/01/20 at 08:35; Status DC Cefazolin Sodium 3 gm/Dextrose 100 ml @ 200 mls/hr 1X ONCE IV Last administered on 11/01/20at 09:00; Start 11/01/20 at 09:00; Stop 11/01/20 at 09:29; Status DC Midazolam HCl (Versed) 5 mg 1X ONCE IV ; Start 11/01/20 at 09:00; Stop 11/01/20 at 09:01; Status DC Fentanyl Citrate (Fentanyl 2ml Vial) 100 mcg 1X ONCE IV Last administered on 11/01/20at 09:00; Start 11/01/20 at 09:00; Stop 11/01/20 at 09:01; Status DC Lidocaine/ Epinephrine (LIDOCAINE 2%-EPI 1:100,000 multi-dose) 20 ml 1X ONCE IJ Last administered on 11/01/20at 09:00; Start 11/01/20 at 09:00; Stop 11/01/20 at 09:01; Status DC Midazolam HCl (Versed) 5 mg STK-MED ONCE .ROUTE ; Start 11/01/20 at 09:09; Stop 11/01/20 at 09:10; Status DC Fentanyl Citrate (Fentanyl 2ml Vial) 100 mcg STK-MED ONCE .ROUTE ; Start 11/01/20 at 09:10; Stop 11/01/20 at 09:10; Status DC Active Scripts Active Metoprolol Tartrate 25 Mg Tablet 12.5 Mg PO BID Reported Renvela (Sevelamer Carbonate) 800 Mg Tablet 800 Mg PO TIDWMEALS Warfarin Sodium 4 Mg Tablet 4 Mg PO DAILY Aspirin 325 Mg Tablet 1 Tab PO BID Metolazone 2.5 Mg Tablet 2.5 Mg PO QMWF Fish Oil 1,000 Mg Softgel ([place]-3 Fatty Acids/Fish Oil) 1 Each Capsule 1 Cap PO DAILY 30 Days Gabapentin 600 Mg Tablet 600 Mg PO HS Nystatin 15 Gm Powder 1 Navarro TP BID 7 Days apply to affected area(s) Hydrocodone-Apap 10-325 (Hydrocodone Bit/Acetaminophen) 1 Tab Tablet 1 Tab PO PRN Q6HRS PRN Zolpidem Tartrate Er (Zolpidem Tartrate) 12.5 Mg Tab.mphase 12.5 Mg PO PRN QHS PRN Robaxin-750 (Methocarbamol) 750 Mg Tablet 500 Mg PO QID Novolog (Insulin Aspart) 100 Unit/1 Ml Cartridge 35 Unit SQ DAILYBFRSUP Atenolol 100 Mg Tablet 100 Mg PO DAILY Levemir (Insulin Detemir) 100 Unit/1 Ml Vial 80 Unit SQ HS Victoza 3-Fredy (Liraglutide) 0.6 Mg/0.1 Ml Pen.injctr 1.8 Mg SQ DAILY Simvastatin 20 Mg Tablet 20 Mg PO HS Spironolactone 25 Mg Tablet 25 Mg PO DAILY Amlodipine Besylate 10 Mg Tablet 10 Mg PO DAILY Mupirocin Ointment (Mupirocin) 22 Gm Oint...g. 1 Navarro TP BID Iron (Ferrous Sulfate) 325 Mg Tablet 325 Mg PO DAILY Januvia (Sitagliptin Phosphate) 100 Mg Tablet 100 Mg PO DAILY Allergies Allergies: Coded Allergies: metformin (Verified Allergy, Intermediate, 02/25/19) ROS Review of System As per HPI, rest of the ROS is negative Physical Exam Physical Exam GEN: Awake, Oriented x [], In [] distress EYES: Vision Unchanged, Conjunctiva Normal EN: No EN Drainage, Mucous Membranes [] NECK: [] JVD, [] JVP, Supple, [] Thyromegaly CVS: S1S2, [] Murmur, No Gallop, No Rub,[] Edema RESP: [] Rales, [] Rhonchi,[] Acc. Muscle Use GI: BS + ve, NO Bruit, Non Tender, Non Distended : [] CVA tenderness, [] Suprapubic Tenderness Vital Signs Vital Signs Date Time Temp Pulse Resp B/P (MAP) Pulse Ox O2 Delivery O2 Flow Rate FiO2 11/01/20 09:00 26 95 Nasal Cannula 2.0 11/01/20 08:11 98.1 119 94/59 98.1 Assessment & Plan ESRD on HD TTS at [facility]. Missed HD yesterday due to access falling out - was sent to [facility] ER Tunnelled HDC placed. HD -short run today as labs stable, Resp status stable .Discussed treatment plan with Alie. Will resume dialysis at the OP unit tomorrow if dced HD catheter malfunction- accidentally fell ; replaced with Tunnelled HDC Persistent AFIB with RVR recd IV Lopressor , card managing CAD: remote hx of PTC HTN: BP low Super Morbid obesity DM2: per IM Labs Labs Laboratory Tests Test 10/31/20 09:43 10/31/20 20:51 11/01/20 08:04 White Blood Count 14.8 x10^3/uL (4.0-11.0) Red Blood Count 4.31 x10^6/uL (4.30-5.70) Hemoglobin 11.6 g/dL (13.0-17.5) Hematocrit 37.6 % (39.0-53.0) Mean Corpuscular Volume 87 fL (79-100) Mean Corpuscular Hemoglobin 27 pg (25-35) Mean Corpuscular Hemoglobin Concent 31 g/dL (31-37) Red Cell Distribution Width 18.8 % (11.5-14.5) Platelet Count 294 x10^3/uL (140-400) Neutrophils (%) (Auto) 74 % (31-73) Lymphocytes (%) (Auto) 16 % (24-48) Monocytes (%) (Auto) 7 % (0-9) Eosinophils (%) (Auto) 3 % (0-3) Basophils (%) (Auto) 1 % (0-3) Neutrophils # (Auto) 10.9 x10^3/uL (1.8-7.7) Lymphocytes # (Auto) 2.3 x10^3/uL (1.0-4.8) Monocytes # (Auto) 1.0 x10^3/uL (0.0-1.1) Eosinophils # (Auto) 0.5 x10^3/uL (0.0-0.7) Basophils # (Auto) 0.1 x10^3/uL (0.0-0.2) Prothrombin Time 30.5 SEC (11.7-14.0) Prothromb Time International Ratio 2.9 (0.8-1.1) Activated Partial Thromboplast Time 55 SEC (24-38) Sodium Level 141 mmol/L (136-145) Potassium Level 4.9 mmol/L (3.5-5.1) Chloride Level 103 mmol/L (98-107) Carbon Dioxide Level 27 mmol/L (21-32) Anion Gap 11 (6-14) Blood Urea Nitrogen 60 mg/dL (8-26) Creatinine 6.9 mg/dL (0.7-1.3) Estimated GFR (Cockcroft-Gault) 8.0 BUN/Creatinine Ratio 9 (6-20) Glucose Level 161 mg/dL (70-99) Calcium Level 9.4 mg/dL (8.5-10.1) Magnesium Level 2.1 mg/dL (1.8-2.4) Total Bilirubin 0.4 mg/dL (0.2-1.0) Aspartate Amino Transf (AST/SGOT) 18 U/L (15-37) Alanine Aminotransferase (ALT/SGPT) 16 U/L (16-63) Alkaline Phosphatase 109 U/L (46-116) Total Protein 7.7 g/dL (6.4-8.2) Albumin 2.7 g/dL (3.4-5.0) Albumin/Globulin Ratio 0.5 (1.0-1.7) Glucose (Fingerstick) 122 mg/dL (70-99) 81 mg/dL (70-99) Laboratory Tests Test 10/31/20 20:51 11/01/20 08:04 Glucose (Fingerstick) 122 mg/dL (70-99) 81 mg/dL (70-99) Review All relevant outside records, renal labs, imaging studies, telemetry/EKG's were reviewed. Images Images FINDINGS: A frontal view of the chest is obtained. The inspiration is small with mild bibasilar atelectasis. A linear opacity in the left midlung is unchanged and likely reflects scarring. There is no pneu mothorax or pleural effusion. The heart is mildly enlarged. There are atherosclerotic calcifications of the aorta. IMPRESSION: 1. Mild cardiomegaly. CANDY MERCADO MD Nov 01, 2020 10:21
[2020-11-01] MEDS: HYDROcodone/APAP 10/325 1 TAB TABLET PO PRN ×2 (10:30→16:26)
--- NOTE | 2020-11-01 11:18 | DISCH ---
DISCHARGE INSTRUCTIONS Condition on Discharge Condition on Discharge: Stable Activity After Discharge Activity Instructions for Disc: Activity as tolerated Lifting Instructions after Dis: No heavy lifting Driving Instructions after Dis: Do not drive today Weight Bearing Status after Di: As tolerated Diet after Discharge Diet after Discharge: Cardiac Diet Texture: Regular Liquid Texture: Thin Liquid Wound Incision Care Wound/Incision Care: Ice to area for comfort Checks after Discharge Checks after discharge: Check blood press - daily, Check blood sugar, ac/hs, Check your Temp as needed, Weigh Yourself Daily Follow-Up Follow up with: PCP within 2 weeks of discharge Follow Up With: Nephrology to continue with dialysis Friday Treatment/Equipment after DC Adaptive Equipment Issued: None YARI MACIAS MD Nov 01, 2020 11:18
[2020-11-01 11:40] LABS: PROTHROMBIN TIME PATIENT 26.3 SEC (11.7-14.0)
[2020-11-01] MEDS: METHOCARBAMOL 750 MG TABLET PO SCH ×2 (13:00→16:09)
--- NOTE | 2020-11-01 13:04 | PDOC ---
PEARL CARVALHO PARALLEL COMPUTING SOFTWARE ENGINEER 11/01/20 1304: CARDIO Progress Notes Date and Time Date of Service 11/01/2020 Time of Evaluation 1250 Subjective Subjective: No Chest Pain, No shortness of breath, No Palpitations Vitals Vitals Vital Signs Date Time Temp Pulse Resp B/P (MAP) Pulse Ox O2 Delivery O2 Flow Rate FiO2 11/01/20 11:24 96 Nasal Cannula 2.0 11/01/20 10:57 98.7 76 18 119/64 (82) 98.7 Weight Weight [ ] Input and Output Intake and Output Intake and Output 11/01/20 07:00 Intake Total 1810 ml Output Total 180 ml Balance 1630 ml Intake Oral 620 ml IV Total 500 ml Blood Product IV Normal Saline Flush 690 ml Output Urine Total 180 ml Laboratory Labs Laboratory Tests Test 10/31/20 20:51 11/01/20 08:04 11/01/20 11:15 11/01/20 11:52 Glucose (Fingerstick) 122 mg/dL (70-99) 81 mg/dL (70-99) 124 mg/dL (70-99) Prothrombin Time 26.3 SEC (11.7-14.0) Prothromb Time International Ratio 2.4 (0.8-1.1) Physical Exam HEENT: Neck Supple W Full Motion Chest: Symmetric LUNGS: Other (diminished) Heart: irregularly irregular (AFIB) Abdomen: Other (obese) Extremities: No Calf Tenderness Neurology: alert, oriented, follow commands Assessment Assessment 1. HD cath malfunction: replaced today 2. ESRD 3. Persistent AFIB with RVR: better controlled 4. CAD: remote hx of PTCA, unclear, clinically stable 5. HTN: BP low 6. HLP 7. Chronic low back pain/ debility/WC bound 8. Morbid obesity 9. DM2: per IM Recommendations 1. Noted with atenolol and metoprolol at home. Will clarify home meds. Ultimately will just need 1 BB. Continue baby ASA. INR 2.4. Resume coumadin for stroke prevention once OK with IR 2. Hold BP meds as BP is marginally low. 3. ASA, statin therapy 4. Fluid off loading per HD 5. Secondary prevention measures 6. Discussed with RN, will obtain accurate med list. Pt does get his meds delivered to is house daily. 7. Discussed appt compliance and will consider outpt CVN. Follow up in office, anticipate DC after HD Justicifation of Admission Dx: Justifications for Admission: Justification of Admission Dx: Yes Acute Renal Failure: RF Can't Be Managed Outpt PAZ SOLIMAN MD 11/02/20 0612: CARDIO Progress Notes Assessment Assessment Patient seen and examined 11/01/20. Agree with [employer] SERVICES MANAGER's assessment and plan. s/p HD cath replacement, continue dialysis per nephrology Persistent AF rate better controlled Resume coumadin and consider outpatient cardioversion CAD stable clinically Follow up as scheduled PEARL CARVALHO [employer]ALLE[employer] COMPUTING SOFTWARE ENGINEER Nov 01, 2020 13:04 PAZ SOLIMAN MD Nov 02, 2020 06:12
--- NOTE | 2020-11-01 14:14 | RAD ---
Procedure: Replacement tunnel hemodialysis catheter through pre-existing tract 11/01/2020 12:09 PM Clinical Indication: Renal failure, inadvertent removal of prior catheter. Sterility: All elements of maximal sterile barrier technique including the use of a cap, mask, sterile gown, sterile gloves, large sterile sheet, appropriate hand hygiene, and 2% chlorhexidine for cutaneous antisepsis (or acceptable alternative antiseptic per current guidelines) were followed for this procedure. Consent: The procedure was explained in its entirety to the patient or the patients designated personal service representative by a member of the treatment team, including a discussion of the risks, benefits and commonly accepted alternatives to the procedure, as well as the expected consequences of no therapy whatsoever. Discussion of the risks included, but was not limited to, those that are most frequent and those that are rare but possibly severe or life-threatening, as well as the possibility of unforeseen complications. Technique and Findings: The pre-existing tract was prepped and draped using sterile barrier technique. 1% lidocaine was administered for local anesthesia. A guidewire was advanced to the pre-existing tract into the IVC. Over this wire following dilatation a new 23 cm tip to cuff palindrome dialysis catheter was advanced such that its tip is at the cavoatrial junction. The catheter was found to flush and aspirate normally. The catheter secured in place. Sterile dressings were applied. No immediate complications were identified. Fluoroscopy time: 5.4 minutes Dose area product 12.08 Anesthesia: Local Impression: Replacement of tunneled hemodialysis catheter through pre-existing tract
--- NOTE | 2020-11-01 14:29 | NUR ---
SS following for discharge planning. SS reviewed pt chart and discussed with pt RN. Pt is from home with brother and is currently requiring oxygen at two liters nasal canula. Pt has home oxygen. Pt has outpatient dialysis at [facility], ; fax [phone], Friday, , and Friday first shift. Nephrology and Cardiology consulted. Discharge order on the chart for home with self care.
[2020-11-01] MEDS ORDERED: DIALYSIS PATIENT. MC PRN ×2 (15:30)
[2020-11-01] MEDS ORDERED: METO25TA4 PO (16:15)
[2020-11-01] MEDS ORDERED: ASPI-630 PO (16:24)
--- NOTE | 2020-11-01 17:47 | NUR ---
Discharge Note: RAFAEL VIVEROS [facility] Discharge instructions and discharge home medications reviewed with Patient and a copy given. All questions have been answered and understanding verbalized. The following instructions and handouts were given: Blood pressure monitoring, Tunneled dialysis cath placement, A-fib, form- blood pressure record sheet. Patient discharged to home with brother via private vehicle. RN witnessed brother place patient in the back of the vehicle. Brother advised that this is how they get from point A to point B and he stated "Do not ask about seatbelt". Will have social work follow up. IV out, monitor off and placed at nurses station.
[2020-11-01] MEDS ORDERED: METOPROLOL TART IMMED RELEASE 25 MG TABLET. PO SCH (21:00)
[2020-11-02] MEDS ORDERED: ASPIRIN ENTERIC COATED 81 MG TABLET.DR. PO SCH (08:00)
--- NOTE | 2020-11-03 21:45 | PDOC3 ---
[facility]-Discharge Summary Date of Admission: Date of Admission: Oct 31, 2020 Date of Discharge: Date of Discharge: Nov 01, 2020 Consults: Consults: cardiology recs: 1. Noted with atenolol and metoprolol at home. Will clarify home meds. Ultimately will just need 1 BB. Continue baby ASA. INR 2.4. Resume coumadin for stroke prevention once OK with IR 2. Hold BP meds as BP is marginally low. 3. ASA, statin therapy 4. Fluid off loading per HD 5. Secondary prevention measures 6. Discussed with RN, will obtain accurate med list. Pt does get his meds delivered to is house daily. 7. Discussed appt compliance and will consider outpt CVN. Follow up in office, anticipate DC after HD Hospital Course: Hospital Course: 65-year-old male who came in with a dialysis catheter that he pulled while he was probably sleeping. I discussed the case with the ER physician. We are going to admit the patient and consult Nephrology and probably IR to put in a new dialysis catheter. Catheter was placed by IR without any major complications. By day of discharge, pt was clinically stable. Rest of hospital course was uneventful Disposition: Disposition/Orders: D/C to Home Activity: Activity: Resume previous activity Diet: Diet: Renal Medications: Home Meds Active Scripts Metoprolol Tartrate (METOPROLOL TARTRATE) 25 Mg Tablet, 25 MG PO BID for AFIB for 30 Days, #60 TAB 3 Refills Prov:PEARL CARVALHO EXTERIOR INTERIOR SPECIALIST 11/01/20 Reported Medications Aspirin (ASPIRIN) 81 Mg Tab.chew, 81 MG PO DAILY for blood thinner, TAB.CHEW 11/01/20 Sevelamer Carbonate (RENVELA) 800 Mg Tablet, 800 MG PO TIDWMEALS for gastric, TAB 11/01/20 Warfarin Sodium (WARFARIN SODIUM) 4 Mg Tablet, 4 MG PO DAILY for blood thinner, #30 TAB 10/06/20 Metolazone (METOLAZONE) 2.5 Mg Tablet, 2.5 MG PO QMWF for diuretic, #30 TAB 0 Refills 07/10/20 Holt-3 Fatty Acids/Fish Oil (FISH OIL 1,000 MG SOFTGEL) 1 Each Capsule, 1 CAP PO DAILY for HLD for 30 Days, #30 CAP 0 Refills 07/10/20 Gabapentin (GABAPENTIN) 600 Mg Tablet, 600 MG PO HS for NEUROGENIC PAIN, TAB 07/10/20 Nystatin (NYSTATIN) 15 Gm Powder, 1 JACQUELYN TP BID for pannus for 7 Days, #1 BOTTLE 0 Refills apply to affected area(s) 07/10/20 Hydrocodone Bit/Acetaminophen (HYDROCODONE-APAP 10325 ) 1 Tab Tablet, 1 TAB PO PRN Q6HRS PRN for PAIN, TAB 0 Refills 07/10/20 Zolpidem Tartrate (ZOLPIDEM TARTRATE ER) 12.5 Mg Tab.mphase, 12.5 MG PO PRN QHS PRN for INSOMNIA, TAB 0 Refills 07/10/20 Methocarbamol (ROBAXIN-750) 750 Mg Tablet, 500 MG PO QID for muscle spasms, TAB 07/10/20 Insulin Aspart (NOVOLOG) 100 Unit/1 Ml Cartridge, 35 UNIT SQ DAILYBFRSUP for DM, EACH 07/10/20 Insulin Detemir (LEVEMIR) 100 Unit/1 Ml Vial, 80 UNIT SQ HS for dm, VIAL 02/25/19 Liraglutide (VICTOZA 3-FREDY) 0.6 Mg/0.1 Ml Pen.injctr, 1.8 MG SQ DAILY for dm, #9 ML 3 Refills 02/25/19 Simvastatin (SIMVASTATIN) 20 Mg Tablet, 20 MG PO HS for FOR CHOLESTEROL, #30 TAB 0 Refills 02/25/19 Mupirocin (MUPIROCIN OINTMENT) 22 Gm Oint...g., 1 JACQUELYN TP BID for WOUND CARE, #1 TUBE 02/25/19 Ferrous Sulfate (IRON) 325 Mg Tablet, 325 MG PO DAILY for supplement, TAB 02/25/19 Sitagliptin Phosphate (JANUVIA) 100 Mg Tablet, 100 MG PO DAILY for dm, TAB 02/25/19 Discontinued Reported Medications Aspirin (ASPIRIN) 325 Mg Tablet, 1 TAB PO BID for thinner, #30 TAB 5 Refills 07/10/20 Atenolol (ATENOLOL) 100 Mg Tablet, 100 MG PO DAILY for htn, TAB 02/25/19 Spironolactone (SPIRONOLACTONE) 25 Mg Tablet, 25 MG PO DAILY for chf, TAB 02/25/19 Amlodipine Besylate (AMLODIPINE BESYLATE) 10 Mg Tablet, 10 MG PO DAILY for htn, TAB 02/25/19 Scheduled Aspirin (Aspirin), 81 MG PO DAILY, (Reported) Ferrous Sulfate (Iron), 325 MG PO DAILY, (Reported) Gabapentin (Gabapentin), 600 MG PO HS, (Reported) Insulin Aspart (Novolog), 35 UNIT SQ DAILYBFRSUP, (Reported) Insulin Detemir (Levemir), 80 UNIT SQ HS, (Reported) Liraglutide (Victoza 3-Fredy), 1.8 MG SQ DAILY, (Reported) Methocarbamol (Robaxin-750), 500 MG PO QID, (Reported) Metolazone (Metolazone), 2.5 MG PO QMWF, (Reported) Metoprolol Tartrate (Metoprolol Tartrate), 25 MG PO BID Mupirocin (Mupirocin Ointment), 1 JACQUELYN TP BID, (Reported) Nystatin (Nystatin), 1 JACQUELYN TP BID, (Reported) Holt-3 Fatty Acids/Fish Oil (Fish Oil 1,000 Mg Softgel), 1 CAP PO DAILY, (Reported) Sevelamer Carbonate (Renvela), 800 MG PO TIDWMEALS, (Reported) Simvastatin (Simvastatin), 20 MG PO HS, (Reported) Sitagliptin Phosphate (Januvia), 100 MG PO DAILY, (Reported) Warfarin Sodium (Warfarin Sodium), 4 MG PO DAILY, (Reported) Scheduled PRN Hydrocodone Bit/Acetaminophen (Hydrocodone-Apap 10-325 ), 1 TAB PO PRN Q6HRS PRN for PAIN, (Reported) Zolpidem Tartrate (Zolpidem Tartrate Er), 12.5 MG PO PRN QHS PRN for INSOMNIA, (Reported) Discontinued Medications Amlodipine Besylate (Amlodipine Besylate), 10 MG PO DAILY, (Reported) Aspirin (Aspirin), 1 TAB PO BID, (Reported) Atenolol (Atenolol), 100 MG PO DAILY, (Reported) Spironolactone (Spironolactone), 25 MG PO DAILY, (Reported) Total Time: Total Time: Total time spent was 35 minutes in preparing scripts, discharge planning with SW and RN, and preparing this discharge summary. Patient seen and examined on day of discharge. Justicifation of Admission Dx: Justifications for Admission: Justification of Admission Dx: Yes Acute Renal Failure: RF Can't Be Managed Outpt MACIAS,YARI Y MD Nov 03, 2020 21:45
== END 2020-11-01 17:35 | disposition home or self-care (01) | DRG 698 ==
LOC: ER 08:10 → ED HOLD 11:18 → 2 SOUTH 18:57
PROVIDERS: ADMIT Internal Medicine; ATTEND Internal Medicine
PROC: 30233K1 Transfusion of Nonautologous Frozen Plasma into Peripheral Vein, Percutaneous Approach (ICD-10-PCS; 2020-10-31)
PROC: 02HV33Z Insertion of Infusion Device into Superior Vena Cava, Percutaneous Approach (ICD-10-PCS; principal; 2020-11-01)
PROC: 06PYX3Z Removal of Infusion Device from Lower Vein, External Approach (ICD-10-PCS; 2020-11-01)
PROC: B5181ZA Fluoroscopy of Superior Vena Cava using Low Osmolar Contrast, Guidance (ICD-10-PCS; 2020-11-01)
PROC: 5A1D70Z Performance of Urinary Filtration, Intermittent, Less than 6 Hours Per Day (ICD-10-PCS; 2020-11-01)
DX: T82.41XA Breakdown (mechanical) of vascular dialysis catheter, initial encounter (principal); N18.6 End stage renal disease; Z68.44 Body mass index [BMI] 60.0-69.9, adult; I48.19 Other persistent atrial fibrillation; I13.11 Hypertensive heart and chronic kidney disease without heart failure, with stage 5 chronic kidney disease, or end stage renal disease; E66.01 Morbid (severe) obesity due to excess calories; D72.829 Elevated white blood cell count, unspecified; E11.22 Type 2 diabetes mellitus with diabetic chronic kidney disease; E78.5 Hyperlipidemia, unspecified; G89.29 Other chronic pain; I25.10 Atherosclerotic heart disease of native coronary artery without angina pectoris; G62.9 Polyneuropathy, unspecified; K64.9 Unspecified hemorrhoids; M19.90 Unspecified osteoarthritis, unspecified site; M54.5 Low back pain; R53.81 Other malaise; Y83.8 Other surgical procedures as the cause of abnormal reaction of the patient, or of later complication, without mention of misadventure at the time of the procedure; I25.2 Old myocardial infarction; Z79.01 Long term (current) use of anticoagulants; Z82.49 Family history of ischemic heart disease and other diseases of the circulatory system; Z83.3 Family history of diabetes mellitus; Z99.2 Dependence on renal dialysis; Z98.61 Coronary angioplasty status; Z99.3 Dependence on wheelchair; Z88.8 Allergy status to other drugs, medicaments and biological substances; Y92.89 Other specified places as the place of occurrence of the external cause
CPT/HCPCS: 36415; 36430; 36581; 71045; 76937; 77001; 80053; 82962; 83735; 85025; 85610; 85730; 86850; 86900; 86901; 86927; 93005; 96360; 99285; C1750; C1769; C1892; J0690; J1815; J3010; J3490; J7040; J7060; P9017; G0378